=== PATIENT | male | born 1955 | race African-American/Black ===

== ENCOUNTER 2017-05-28 12:25 | Inpatient (IN) | payer MEDICARE, OTHER ==
[2017-05-28] VITALS (12 sets, daily range): BP systolic 83–149; BP diastolic 33–54
[~2017-05-28] VITALS: Ht 190.5 cm; Wt 81.2 kg
--- NOTE | 2017-05-28 15:09 | PDOC2 ---
SERVANDO BENJAMIN PLANT CONTROL OPERATOR 05/28/17 1509: CONSULT Date of Consult Date of Consult DATE: 05/28/17 TIME: 15:03 Reason for Consult Reason for Consult: possible volvulus Referring Physician Referring Physician: ER [facility] Identification/Chief Complaint Chief Complaint vomiting Problems: Source Source: Chart review History of Present Illness Reason for Visit: Pt with hx of stroke, aphagia, does not provide any history. Reviewed ER note from [facility]--from NH, vomiting. Anemia, concern for volvulus from ER doctor. No emesis since cared for. Receiving blood Past Medical History Cardiovascular: HTN, Hyperlipidemia CENTRAL NERVOUS SYSTEM: CVA Hepatobiliary: Other (Ulcertive colitis) Endocrine: Diabetes Past Surgical History Past Surgical History: Other (unknown) Family History Family History: Family History Unknown Social History Social History unknown Allergies Allergies: Coded Allergies: No Known Drug Allergies (Unverified , 05/28/17) ROS Review of System unable to obtain Physical Exam General: Alert, Cooperative, No acute distress HEENT: PERRLA, Mucous membr. moist/pink Lungs: Clear to auscultation, Normal air movement Heart: Regular rate, Normal S1, Normal S2, No murmurs Abdomen: Soft, No tenderness, Other (ND) Extremities: No clubbing, No cyanosis Neuro: Other MUSCULOSKELETAL: No deformity, No swelling Assessment/Plan Assessment/Plan Anemia, possible GI bleed--Hgb 4.1 on Coumadin--will check INR No signs of volvulus on CT, abd exam is benign Hx of ulcerative colitis no surgical plans,will consult GI ANTONIETTA HARRELL MD 05/28/17 1521: CONSULT Allergies Allergies: Coded Allergies: No Known Drug Allergies (Unverified , 05/28/17) Assessment/Plan Assessment/Plan Reviewed with Ms Benjamin, agree with plan SERVANDO BENJAMIN APRN May 28, 2017 15:09 ANTONIETTA HARRELL MD May 28, 2017 15:21
[2017-05-28] MEDS ORDERED: PROCHLORPERAZINE 25 MG SUPP.RECT. PR PRN (15:15)
[2017-05-28] MEDS ORDERED: PROCHLORPERAZINE 10 MG/2 ML VIAL. IV PRN (15:15)
[2017-05-28] MEDS ORDERED: ONDANSETRON PF 4 MG/2 ML VIAL. IV PRN (15:15)
[2017-05-28] MEDS ORDERED: MAG HYDROX/ALUMINUM HYD/SIMETH 30 ML ORAL.SUSP PO PRN (15:15)
[2017-05-28] MEDS ORDERED: ACETAMINOPHEN 325 MG TABLET. PO PRN (15:15)
[2017-05-28] MEDS ORDERED: BISACODYL 10 MG SUPP.RECT. PR PRN (15:15)
[2017-05-28] MEDS ORDERED: MORPHINE SULFATE 4 MG/ML DISP.SYRIN. IV PRN (15:15)
[2017-05-28] MEDS ORDERED: CALCIUM CARBONATE 500 MG TAB.CHEW PO PRN (15:15)
[2017-05-28] MEDS ORDERED: MAGNESIUM HYDROXIDE 2,400 MG/30 ML ORAL.SUSP. PO PRN (15:15)
[2017-05-28] MEDS ORDERED: DEXTROSE 50% 25 GM / 50ML DISP.SYRIN. IV PRN (15:15)
[2017-05-28] MEDS ORDERED: HALOPERIDOL LACTATE 5 MG/ML VIAL. IVP PRN (15:15)
--- NOTE | 2017-05-28 15:21 | PDOC1 ---
History and Physical Date of Admission Date of Admission DATE: 05/28/17 TIME: 15:14 Identification/Chief Complaint Chief Complaint nausea, vomiting, abd pain Problems: Source Source: Caregiver, Chart review, Patient History of Present Illness History of Present Illness 62 y.o AA male transferred from [place] today, He went to [place] bec of above CC, sudden onset emesis, nausea, abd pain, vomiting, CT scan shows some stool, stranding left kidney, atelectasis, left ICA aneurysm 2 cms but none that really cold explain the sudden onset CC, Denies fever, very poor historian, But on CBC hgb 4 with normal MCV, no reports of bloody emesis or black./tarry stools ,. Pt on arrival was so combative I git a call,. had to be restrained and now 1: 1, Now more calm, CReat 1,8. WBC 11, CT as above, SOme low temp 100.3 on reports, none here. SNU resident? Hx CVA with R residual contracture. NO leg edema, he claims he can walk ok,. Past Medical History Cardiovascular: HTN, Hyperlipidemia CENTRAL NERVOUS SYSTEM: CVA Hepatobiliary: Other (Ulcertive colitis) Endocrine: Diabetes Past Surgical History Past Surgical History: Other (unknown) Family History Family History: Family History Unknown Social History Smoke: No ALCOHOL: none Drugs: None Current Medications Current Medications Current Medications Sodium Chloride 1,000 ml @ 100 mls/hr Q10H IV ; Start 05/28/17 at 15:01 Ondansetron HCl (Zofran) 4 mg PRN Q6HRS PRN IV NAUSEA/VOMITING; Start 05/28/17 at 15:15 Prochlorperazine Edisylate (Compazine) 10 mg PRN Q6HRS PRN IV NAUSEA/VOMITING; Start 05/28/17 at 15:15 Prochlorperazine (Compazine) 25 mg PRN Q12HR PRN AL NAUSEA/VOMITING; Start at 15:15 Al Hydroxide/Mg Hydroxide (Mylanta Plus Xs) 30 ml PRN Q3HRS PRN PO HEARTBURN / GAS; Start 05/28/17 at 15:15 Calcium Carbonate/ Glycine (Tums) 500 mg PRN Q3HRS PRN PO UPSET STOMACH; Start 05/28/17 at 15:15 Oxycodone HCl (Roxicodone) 5 mg PRN Q3HRS PRN PO BREAKTHROUGH PAIN; Start 05/28 at 15:15 Morphine Sulfate 1 mg PRN Q1HR PRN IV PAIN; Start 05/28/17 at 15:15 Acetaminophen (Tylenol) 650 mg PRN Q6HRS PRN PO Headaches, Temp > 101.5F; Start 05/28/17 at 15:15 Magnesium Hydroxide (Milk Of Magnesia) 2,400 mg PRN Q12HR PRN PO CONSTIPATION; Start 05/28/17 at 15:15 Bisacodyl (Dulcolax Supp) 10 mg PRN DAILY PRN AL CONSTIPATION; Start 05/28/17 at 15:15 Haloperidol Lactate (Haldol) 5 mg PRN Q6HRS PRN IVP AGITATION; Start 05/28/17 at 15:15 Lorazepam (Ativan) 2 mg PRN Q4HRS PRN IV ANXIETY / AGITATION; Start 05/28/17 at 15:15 Famotidine (Pepcid) 20 mg BID IVP ; Start 05/28/17 at 21:00 Allergies Allergies: Coded Allergies: No Known Drug Allergies (Unverified , 05/28/17) ROS Review of System limited - very poor historian, says no to most Physical Exam General: Alert, Oriented X3, Cooperative, No acute distress HEENT: Atraumatic, PERRLA, EOMI, Mucous membr. moist/pink Lungs: Clear to auscultation, Normal air movement Heart: S1S2, RRR, no thrills, no rubs, no gallops, no murmurs Cardiovascular: S1, S2 Abdomen: Normal bowel sounds, Soft, No tenderness, No hepatosplenomegaly, No masses Male Genitals Exam: normal genitalia, normal prostate Extremities: No clubbing, No cyanosis, No edema, Normal pulses, No tenderness/ swelling Skin: No rashes, No breakdown, No significant lesion Neuro: Normal gait, Normal speech, Strength at 5/5 X4 ext, Normal tone, Sensation intact, Cranial nerves 3-12 NL, Reflexes 2+ Psych/Mental Status: Mental status NL, Mood NL VTE Prophylaxis Ordered VTE Prophylaxis Devices: Contraindicated VTE Pharmacological Prophylaxi: Contraindicated Assessment/Plan Assessment/Plan 1. NORMOCYTIC Anemia 2. Metabolic encephalopathy, agitation unclear reason - better/resolved 3. Hx CVA with Right residual UE contracture 4. SNU resident?? 5. ABd pain - seems better 6. HILARIO - creat 1,8 unknown baseline Plan: Admit Transfuse another unit HH again george GI and GS consults I dont have a source of this anemia MAybe recheck hgb first before second bag NO AC for now SCDs only PT/OT PPI IV Ok for clear liquid diet Awaiting home meds IVF re Creat - recheck george SSI - reported DM BARTOLOME TREVIÑO MD May 28, 2017 15:21
[2017-05-28] MEDS: IV 1/2 NORMAL SALINE 1,000 ML IV SCH (15:30)
--- NOTE | 2017-05-28 15:46 | PDOC2 ---
GI CONSULT Reason For Consult: Anemia, possible GI Bleed HPI: HPI: Previously d/w Dr. Verduzco who d/w ER @ [facility], concern for volvulus. 62 y/o male transferred from [facility]. He was evaluated there from [place] [facility] for vomiting w/ fever. Not much history from pt - h/o CVA w/ aphasia, apparently previous agitated in restraints. He does deny pain and bleeding; however, also denies vomiting. Labs from [facility]: WBC 11.3, Hgb 4.1, plt 234, BUN 77, Cr 1.8. No reports of hematemesis, hematochezia, or melena. Transfusion in process. CT w/o contrast showed mildly distended gallbladder and stomach, normal pancreas, nondilated small bowel, normal appendix, feces and gas in the colon w/ moderate stool in rectum, minimal left perinephric stranding, moderate atherosclerosis, mild left common iliac artery aneurysm. Records list h/o ulcerative colitis. On Coumadin. INR pending. PMH: PMH: per chart - CVA w/ right-sided hemiparesis and aphasia, HLD, DM, ?ulcerative colitis FH: Family History: Other (unable to obtain) Social History: Smoke: No ALCOHOL: none Drugs: None ROS: Difficult to obtain. Vitals: Vitals: Vital Signs Date Time Temp Pulse Resp B/P (MAP) Pulse Ox O2 Delivery O2 Flow Rate FiO2 05/28/17 15:25 99.3 94 18 140/53 (82) 100 Nasal Cannula 2.0 99.3 Labs: Labs: Per HPI. Allergies: Coded Allergies: No Known Drug Allergies (Unverified , 05/28/17) Medications: Please see EMR. Imaging: Imaging: Per HPI. PE: GEN: NAD HEENT: Atraumatic LUNGS: clear HEART: tachycardic ABD: NABS, S/ND/NT EXTREMITY: RUE contracture, no edema SKIN: No rashes, no jaundice NEURO/PSYCH: awake/alert, yes/no answers A/P: A/P: Anemia Vomiting - no recurrence -distended stomach and GB on CT, non-dilated small bowel, feces and gas in colon w/ moderate stool in rectum Fever @ NH - 99.3 here ?h/o ulcerative colitis CVA w/ aphasia and hemiparesis, on Coumadin HILARIO -- Await INR. Transfuse. Anemia w/o obvious bleeding - monitor for this. Agree w/ IV H2 paxton. No mention of volvulus on CT. GARY FELIPE May 28, 2017 15:46
[2017-05-28 15:53] LABS: HEMOGLOBIN 4.9 g/dL (13.0-17.5)
[2017-05-28 15:54] LABS: HEMATOCRIT 15.6 % (39.0-53.0)
[2017-05-28 15:58] LABS: INR 3.9 (0.8-1.1); PROTHROMBIN TIME PATIENT 35.6 SEC (11.7-14.0)
[2017-05-28] MEDS ORDERED: MULT1TAB52 PO (15:59)
[2017-05-28] MEDS ORDERED: METF500T4 PO (15:59)
[2017-05-28] MEDS ORDERED: CARV12.52 PO (15:59)
[2017-05-28] MEDS ORDERED: FURO-68 PO (15:59)
[2017-05-28] MEDS ORDERED: ASPI-482 PO (15:59)
[2017-05-28] MEDS ORDERED: WARF-78 PO (15:59)
[2017-05-28] MEDS ORDERED: LISI10TA2 PO (15:59)
[2017-05-28] MEDS ORDERED: ACET325T9 PO (15:59)
[2017-05-28] MEDS ORDERED: SPIR25TA3 PO (15:59)
[2017-05-28] MEDS ORDERED: CLON0.5T3 PO (15:59)
[2017-05-28] MEDS ORDERED: ATOR40TA59 PO (15:59)
[2017-05-28] MEDS ORDERED: AMIN30LI PO (15:59)
[2017-05-28] MEDS ORDERED: PANT40TA5 PO (15:59)
[2017-05-28] MEDS ORDERED: FERR-26 PO (15:59)
[2017-05-28] MEDS: INSULIN ASPART 300 UNITS/3 ML INSULN.PEN SQ SCH (16:21)
[2017-05-28] MEDS ORDERED: PHYTONADIONE (VIT K1) 5 MG TABLET PO ONE (17:45)
[2017-05-28] MEDS ORDERED: PNEUMOCOCCAL VAX SCREEN BY RX. MC ONE (19:30)
[2017-05-28] MEDS ORDERED: PNEUMOC CONJ VACC 23-VALENT 0.5 ML VIAL. VAX IM ONE (20:00)
[2017-05-28] MEDS: FAMOTIDINE 20 MG/2 ML VIAL IVP SCH (21:02)
[2017-05-29] VITALS (11 sets, daily range): BP systolic 101–152; BP diastolic 40–80
[2017-05-29] MEDS: IV 1/2 NORMAL SALINE 1,000 ML IV SCH ×3 (01:01→20:43)
[2017-05-29 05:10] LABS: BASO % 0 % (0-3); EOS % 1 % (0-3); LYMPH # 2.5 x10^3/uL (1.0-4.8); LYMPH % 24 % (24-48); MEAN CORPUSCULAR HEMOGLOBIN 32 pg (25-35); MEAN CORPUSCULAR HGB CONC 34 g/dL (31-37); MEAN CORPUSCULAR VOLUME 93 fL (79-100); MONO % 9 % (0-9); NEUT % 66 % (31-73); PLATELET COUNT 156 x10^3/uL (140-400); RED BLOOD COUNT 2.12 x10^6/uL (4.30-5.70); RED CELL DISTRIBUTION WIDTH 15.6 % (11.5-14.5); WHITE BLOOD COUNT 10.1 x10^3/uL (4.0-11.0)
[2017-05-29 05:20] LABS: INR 3.7 (0.8-1.1); PROTHROMBIN TIME PATIENT 34.6 SEC (11.7-14.0)
[2017-05-29 05:23] LABS: ALBUMIN/GLOBULIN RATIO 1.2 (1.0-1.7); CREATININE 1.6 mg/dL (0.7-1.3); GFR 52.9; PHOSPHORUS 3.8 mg/dL (2.6-4.7); POTASSIUM 3.8 mmol/L (3.5-5.1); TOTAL BILIRUBIN 0.9 mg/dL (0.2-1.0); TOTAL PROTEIN 5.5 g/dL (6.4-8.2)
[2017-05-29 05:26] LABS: HEMOGLOBIN 6.7 g/dL (13.0-17.5)
[2017-05-29 05:27] LABS: HEMATOCRIT 19.7 % (39.0-53.0)
[2017-05-29] MEDS: INSULIN ASPART 300 UNITS/3 ML INSULN.PEN SQ SCH ×3 (07:56→16:54)
[2017-05-29] MEDS: FAMOTIDINE 20 MG/2 ML VIAL IVP SCH ×2 (08:30→20:42)
--- NOTE | 2017-05-29 11:38 | PDOC ---
G I PROGRESS NOTE Reason for Follow-up Anemia/hx UC Subjective Pt aphasic Physical Exam Lungs clear CV S1 S2 ABD +BS, soft, nontender Review of Relevant I have reviewed the following items yulissa (where applicable) has been applied. Labs Laboratory Tests Test 05/28/17 15:40 05/28/17 16:18 05/29/17 04:30 05/29/17 07:18 Hemoglobin 4.9 g/dL (13.0-17.5) 6.7 g/dL (13.0-17.5) Hematocrit 15.6 % (39.0-53.0) 19.7 % (39.0-53.0) Mean Corpuscular Hemoglobin Concent 32 g/dL (31-37) 34 g/dL (31-37) Prothrombin Time 35.6 SEC (11.7-14.0) 34.6 SEC (11.7-14.0) Prothromb Time International Ratio 3.9 (0.8-1.1) 3.7 (0.8-1.1) Glucose (Fingerstick) 127 mg/dL (70-99) 133 mg/dL (70-99) White Blood Count 10.1 x10^3/uL (4.0-11.0) Red Blood Count 2.12 x10^6/uL (4.30-5.70) Mean Corpuscular Volume 93 fL (79-100) Mean Corpuscular Hemoglobin 32 pg (25-35) Red Cell Distribution Width 15.6 % (11.5-14.5) Platelet Count 156 x10^3/uL (140-400) Neutrophils (%) (Auto) 66 % (31-73) Lymphocytes (%) (Auto) 24 % (24-48) Monocytes (%) (Auto) 9 % (0-9) Eosinophils (%) (Auto) 1 % (0-3) Basophils (%) (Auto) 0 % (0-3) Neutrophils # (Auto) 6.6 x10^3uL (1.8-7.7) Lymphocytes # (Auto) 2.5 x10^3/uL (1.0-4.8) Monocytes # (Auto) 0.9 x10^3/uL (0.0-1.1) Eosinophils # (Auto) 0.1 x10^3/uL (0.0-0.7) Basophils # (Auto) 0.0 x10^3/uL (0.0-0.2) Sodium Level 147 mmol/L (136-145) Potassium Level 3.8 mmol/L (3.5-5.1) Chloride Level 112 mmol/L (98-107) Carbon Dioxide Level 29 mmol/L (21-32) Anion Gap 6 (6-14) Blood Urea Nitrogen 53 mg/dL (8-26) Creatinine 1.6 mg/dL (0.7-1.3) Estimated GFR (Cockcroft-Gault) 52.9 BUN/Creatinine Ratio 33 (6-20) Glucose Level 145 mg/dL (70-99) Calcium Level 8.0 mg/dL (8.5-10.1) Phosphorus Level 3.8 mg/dL (2.6-4.7) Magnesium Level 2.0 mg/dL (1.8-2.4) Total Bilirubin 0.9 mg/dL (0.2-1.0) Aspartate Amino Transf (AST/SGOT) 28 U/L (15-37) Alanine Aminotransferase (ALT/SGPT) 31 U/L (16-63) Alkaline Phosphatase 48 U/L (46-116) Total Protein 5.5 g/dL (6.4-8.2) Albumin 3.0 g/dL (3.4-5.0) Albumin/Globulin Ratio 1.2 (1.0-1.7) Laboratory Tests Test 05/28/17 15:40 05/28/17 16:18 05/29/17 04:30 05/29/17 07:18 Hemoglobin 4.9 g/dL (13.0-17.5) 6.7 g/dL (13.0-17.5) Hematocrit 15.6 % (39.0-53.0) 19.7 % (39.0-53.0) Mean Corpuscular Hemoglobin Concent 32 g/dL (31-37) 34 g/dL (31-37) Prothrombin Time 35.6 SEC (11.7-14.0) 34.6 SEC (11.7-14.0) Prothromb Time International Ratio 3.9 (0.8-1.1) 3.7 (0.8-1.1) Glucose (Fingerstick) 127 mg/dL (70-99) 133 mg/dL (70-99) White Blood Count 10.1 x10^3/uL (4.0-11.0) Red Blood Count 2.12 x10^6/uL (4.30-5.70) Mean Corpuscular Volume 93 fL (79-100) Mean Corpuscular Hemoglobin 32 pg (25-35) Red Cell Distribution Width 15.6 % (11.5-14.5) Platelet Count 156 x10^3/uL (140-400) Neutrophils (%) (Auto) 66 % (31-73) Lymphocytes (%) (Auto) 24 % (24-48) Monocytes (%) (Auto) 9 % (0-9) Eosinophils (%) (Auto) 1 % (0-3) Basophils (%) (Auto) 0 % (0-3) Neutrophils # (Auto) 6.6 x10^3uL (1.8-7.7) Lymphocytes # (Auto) 2.5 x10^3/uL (1.0-4.8) Monocytes # (Auto) 0.9 x10^3/uL (0.0-1.1) Eosinophils # (Auto) 0.1 x10^3/uL (0.0-0.7) Basophils # (Auto) 0.0 x10^3/uL (0.0-0.2) Sodium Level 147 mmol/L (136-145) Potassium Level 3.8 mmol/L (3.5-5.1) Chloride Level 112 mmol/L (98-107) Carbon Dioxide Level 29 mmol/L (21-32) Anion Gap 6 (6-14) Blood Urea Nitrogen 53 mg/dL (8-26) Creatinine 1.6 mg/dL (0.7-1.3) Estimated GFR (Cockcroft-Gault) 52.9 BUN/Creatinine Ratio 33 (6-20) Glucose Level 145 mg/dL (70-99) Calcium Level 8.0 mg/dL (8.5-10.1) Phosphorus Level 3.8 mg/dL (2.6-4.7) Magnesium Level 2.0 mg/dL (1.8-2.4) Total Bilirubin 0.9 mg/dL (0.2-1.0) Aspartate Amino Transf (AST/SGOT) 28 U/L (15-37) Alanine Aminotransferase (ALT/SGPT) 31 U/L (16-63) Alkaline Phosphatase 48 U/L (46-116) Total Protein 5.5 g/dL (6.4-8.2) Albumin 3.0 g/dL (3.4-5.0) Albumin/Globulin Ratio 1.2 (1.0-1.7) Medications Current Medications Sodium Chloride 1,000 ml @ 100 mls/hr Q10H IV Last administered on 05/29/17 08:30; Start 05/28/17 at 15:01 Ondansetron HCl (Zofran) 4 mg PRN Q6HRS PRN IV NAUSEA/VOMITING; Start 05/28/17 at 15:15 Prochlorperazine Edisylate (Compazine) 10 mg PRN Q6HRS PRN IV NAUSEA/VOMITING; Start 05/28/17 at 15:15 Prochlorperazine (Compazine) 25 mg PRN Q12HR PRN MA NAUSEA/VOMITING; Start at 15:15 Al Hydroxide/Mg Hydroxide (Mylanta Plus Xs) 30 ml PRN Q3HRS PRN PO HEARTBURN / GAS; Start 05/28/17 at 15:15 Calcium Carbonate/ Glycine (Tums) 500 mg PRN Q3HRS PRN PO UPSET STOMACH; Start 05/28/17 at 15:15 Oxycodone HCl (Roxicodone) 5 mg PRN Q3HRS PRN PO BREAKTHROUGH PAIN; Start 05/28 at 15:15 Morphine Sulfate 1 mg PRN Q1HR PRN IV PAIN; Start 05/28/17 at 15:15 Acetaminophen (Tylenol) 650 mg PRN Q6HRS PRN PO Headaches, Temp > 101.5F; Start 05/28/17 at 15:15 Magnesium Hydroxide (Milk Of Magnesia) 2,400 mg PRN Q12HR PRN PO CONSTIPATION; Start 05/28/17 at 15:15 Bisacodyl (Dulcolax Supp) 10 mg PRN DAILY PRN MA CONSTIPATION; Start 05/28/17 at 15:15 Haloperidol Lactate (Haldol) 5 mg PRN Q6HRS PRN IVP AGITATION Last administered on 05/28/17 16:48; Start 05/28/17 at 15:15 Lorazepam (Ativan) 2 mg PRN Q4HRS PRN IV ANXIETY / AGITATION Last administered on 05/28/17 21:02; Start 05/28/17 at 15:15 Famotidine (Pepcid) 20 mg BID IVP Last administered on 05/29/17 08:30; Start 05/28/17 at 21:00 Insulin Aspart (NovoLOG) 0-7 UNITS TIDWMEALS SQ ; Start 05/28/17 at 17:00 Dextrose (Dextrose 50%-Water Syringe) 12.5 gm PRN Q15MIN PRN IV SEE COMMENTS; Start 05/28/17 at 15:15 Phytonadione (Mephyton Tablet) 10 mg 1X ONCE PO Last administered on 18:08; Start 05/28/17 at 17:45; Stop 05/28/17 at 17:46; Status DC Pneumococcal Polyvalent Vaccine (Do NOT chart on this placeholder) 1 each 1X ONCE MC ; Start 05/28/17 at 19:30; Stop 05/28/17 at 19:31; Status UNV Pneumococcal Polyvalent Vaccine (Pneumovax 23) 0.5 ml ONCE ONCE VAX IM Last administered on 05/29/17 08:38; Start 05/28/17 at 20:00; Stop 05/28/17 at 20:01 ; Status DC Active Scripts Active Reported Multivitamins (Multivitamin) 1 Each Tablet 1 Tab PO DAILY Spironolactone 25 Mg Tablet 12.5 Mg PO DAILY Pro-Stat Liquid (Amino Acids/Protein Hydrolys) 30 Ml Liquid 30 Ml PO BID Pantoprazole Sodium 40 Mg Tablet.dr 1 Tab PO DAILY Metformin Hcl 500 Mg Tablet 500 Mg PO DAILY Lisinopril 10 Mg Tablet 1 Tab PO DAILY Lasix (Furosemide) 40 Mg Tablet 1 Tab PO BID Ferrous Sulfate 325 Mg Tablet 325 Mg PO BID Coumadin (Warfarin Sodium) 5 Mg Tablet 7 Mg PO DAILY Wednesday, Wed, , Wed Clonazepam 0.5 Mg Tablet 1 Tab PO DAILY PRN Carvedilol 12.5 Mg Tablet 1 Tab PO BID Atorvastatin Calcium 40 Mg Tablet 1 Tab PO QHS Aspir 81 (Aspirin) 81 Mg Tablet.dr 1 Tab PO DAILY Tylenol (Acetaminophen) 325 Mg Tablet 2 Tab PO PRN Q6HRS PRN Do not exceed 3000mg in 24hr period Vitals/I & O Vital Sign - Last 24 Hours 05/28/17 05/28/17 05/28/17 05/28/17 14:51 15:00 15:06 15:23 Temp 99.3 99.3 Pulse 84 84 94 Resp 18 18 18 B/P (MAP) 144/47 (79) 113/54 (73) 140/53 (82) Pulse Ox 100 O2 Delivery Nasal Cannula Nasal Cannula Nasal Cannula Nasal Cannula O2 Flow Rate 2.0 2.0 2.0 2.0 05/28/17 05/28/17 05/28/17 05/28/17 15:25 17:15 17:30 18:14 Temp 99.3 97.9 98.1 98.2 99.3 97.9 98.1 98.2 Pulse 94 83 84 84 Resp 16 14 14 B/P (MAP) 140/53 (82) 83/33 122/53 126/39 Pulse Ox 100 O2 Delivery Nasal Cannula O2 Flow Rate 2.0 05/28/17 05/28/17 05/28/17 05/28/17 19:20 19:35 19:47 22:00 Temp 99.1 100.1 98.9 99.1 100.1 98.9 Pulse 94 94 74 Resp 18 18 B/P (MAP) 149/54 149/54 (85) 129/53 Pulse Ox 94 O2 Delivery Nasal Cannula Nasal Cannula O2 Flow Rate 3.0 2.0 05/28/17 05/28/17 05/28/17 05/29/17 22:15 23:00 23:00 00:00 Temp 98.5 99.0 99.0 99.1 98.5 99.0 99.0 99.1 Pulse 80 70 70 79 Resp 18 18 18 B/P (MAP) 141/50 135/48 135/48 (77) 137/48 Pulse Ox 100 O2 Delivery Nasal Cannula O2 Flow Rate 3.0 05/29/17 05/29/17 05/29/17 05/29/17 00:30 03:00 07:00 07:35 Temp 99.1 97.7 97.4 99.1 97.7 97.4 Pulse 80 54 88 Resp 18 18 20 B/P (MAP) 117/40 119/59 (79) 130/80 (97) Pulse Ox 100 97 O2 Delivery Nasal Cannula Nasal Cannula Room Air O2 Flow Rate 3.0 2.0 Intake and Output 05/29/17 05/29/17 05/30/17 15:00 23:00 07:00 Intake Total 360 ml Balance 360 ml Problem List Anemia- with anticoagulation, Hg improved, monitor levels, await POA/family input regarding further work-up including possible EGD/colonoscopy ANTONIETTA MTZ MD May 29, 2017 11:38
[2017-05-29] MEDS ORDERED: PHYTONADIONE 10 MG/ML AMPUL. SQ ONE (11:45)
[2017-05-29 11:53] LABS: HEMATOCRIT 19.1 % (39.0-53.0); HEMOGLOBIN 6.4 g/dL (13.0-17.5)
[2017-05-29 12:03] LABS: % SAT IRON 16 % (15-34); IRON,SERUM 37 ug/dL (65-175)
--- NOTE | 2017-05-29 12:23 | PDOC ---
SERVANDO BENJAMIN BOOKKEEPING ASSISTANT 05/29/17 1223: SURGICAL PROGRESS NOTE Subjective denies pain limited hx due to his aphasia Vital Signs Vital Signs Date Time Temp Pulse Resp B/P (MAP) Pulse Ox O2 Delivery O2 Flow Rate FiO2 05/29/17 11:00 98.2 62 22 152/60 (90) 97 98.2 05/29/17 07:35 Room Air 05/29/17 07:00 2.0 I&O Intake and Output 05/30/17 07:00 Intake Total 360 ml Balance 360 ml Intake Oral 360 ml General: Alert, Cooperative, No acute distress Abdomen: Soft, No tenderness Labs Laboratory Tests Test 05/28/17 15:40 05/28/17 16:18 05/29/17 04:30 05/29/17 07:18 Hemoglobin 4.9 g/dL (13.0-17.5) 6.7 g/dL (13.0-17.5) Hematocrit 15.6 % (39.0-53.0) 19.7 % (39.0-53.0) Mean Corpuscular Hemoglobin Concent 32 g/dL (31-37) 34 g/dL (31-37) Prothrombin Time 35.6 SEC (11.7-14.0) 34.6 SEC (11.7-14.0) Prothromb Time International Ratio 3.9 (0.8-1.1) 3.7 (0.8-1.1) Glucose (Fingerstick) 127 mg/dL (70-99) 133 mg/dL (70-99) White Blood Count 10.1 x10^3/uL (4.0-11.0) Red Blood Count 2.12 x10^6/uL (4.30-5.70) Mean Corpuscular Volume 93 fL (79-100) Mean Corpuscular Hemoglobin 32 pg (25-35) Red Cell Distribution Width 15.6 % (11.5-14.5) Platelet Count 156 x10^3/uL (140-400) Neutrophils (%) (Auto) 66 % (31-73) Lymphocytes (%) (Auto) 24 % (24-48) Monocytes (%) (Auto) 9 % (0-9) Eosinophils (%) (Auto) 1 % (0-3) Basophils (%) (Auto) 0 % (0-3) Neutrophils # (Auto) 6.6 x10^3uL (1.8-7.7) Lymphocytes # (Auto) 2.5 x10^3/uL (1.0-4.8) Monocytes # (Auto) 0.9 x10^3/uL (0.0-1.1) Eosinophils # (Auto) 0.1 x10^3/uL (0.0-0.7) Basophils # (Auto) 0.0 x10^3/uL (0.0-0.2) Sodium Level 147 mmol/L (136-145) Potassium Level 3.8 mmol/L (3.5-5.1) Chloride Level 112 mmol/L (98-107) Carbon Dioxide Level 29 mmol/L (21-32) Anion Gap 6 (6-14) Blood Urea Nitrogen 53 mg/dL (8-26) Creatinine 1.6 mg/dL (0.7-1.3) Estimated GFR (Cockcroft-Gault) 52.9 BUN/Creatinine Ratio 33 (6-20) Glucose Level 145 mg/dL (70-99) Calcium Level 8.0 mg/dL (8.5-10.1) Phosphorus Level 3.8 mg/dL (2.6-4.7) Magnesium Level 2.0 mg/dL (1.8-2.4) Iron Level 37 ug/dL (65-175) Total Iron Binding Capacity 230 ug/dL (250-450) Iron Saturation 16 % (15-34) Total Bilirubin 0.9 mg/dL (0.2-1.0) Aspartate Amino Transf (AST/SGOT) 28 U/L (15-37) Alanine Aminotransferase (ALT/SGPT) 31 U/L (16-63) Alkaline Phosphatase 48 U/L (46-116) Total Protein 5.5 g/dL (6.4-8.2) Albumin 3.0 g/dL (3.4-5.0) Albumin/Globulin Ratio 1.2 (1.0-1.7) Test 05/29/17 11:29 05/29/17 11:38 Glucose (Fingerstick) 156 mg/dL (70-99) Hemoglobin 6.4 g/dL (13.0-17.5) Hematocrit 19.1 % (39.0-53.0) Mean Corpuscular Hemoglobin Concent 34 g/dL (31-37) Laboratory Tests Test 05/28/17 15:40 05/28/17 16:18 05/29/17 04:30 05/29/17 07:18 Hemoglobin 4.9 g/dL (13.0-17.5) 6.7 g/dL (13.0-17.5) Hematocrit 15.6 % (39.0-53.0) 19.7 % (39.0-53.0) Mean Corpuscular Hemoglobin Concent 32 g/dL (31-37) 34 g/dL (31-37) Prothrombin Time 35.6 SEC (11.7-14.0) 34.6 SEC (11.7-14.0) Prothromb Time International Ratio 3.9 (0.8-1.1) 3.7 (0.8-1.1) Glucose (Fingerstick) 127 mg/dL (70-99) 133 mg/dL (70-99) White Blood Count 10.1 x10^3/uL (4.0-11.0) Red Blood Count 2.12 x10^6/uL (4.30-5.70) Mean Corpuscular Volume 93 fL (79-100) Mean Corpuscular Hemoglobin 32 pg (25-35) Red Cell Distribution Width 15.6 % (11.5-14.5) Platelet Count 156 x10^3/uL (140-400) Neutrophils (%) (Auto) 66 % (31-73) Lymphocytes (%) (Auto) 24 % (24-48) Monocytes (%) (Auto) 9 % (0-9) Eosinophils (%) (Auto) 1 % (0-3) Basophils (%) (Auto) 0 % (0-3) Neutrophils # (Auto) 6.6 x10^3uL (1.8-7.7) Lymphocytes # (Auto) 2.5 x10^3/uL (1.0-4.8) Monocytes # (Auto) 0.9 x10^3/uL (0.0-1.1) Eosinophils # (Auto) 0.1 x10^3/uL (0.0-0.7) Basophils # (Auto) 0.0 x10^3/uL (0.0-0.2) Sodium Level 147 mmol/L (136-145) Potassium Level 3.8 mmol/L (3.5-5.1) Chloride Level 112 mmol/L (98-107) Carbon Dioxide Level 29 mmol/L (21-32) Anion Gap 6 (6-14) Blood Urea Nitrogen 53 mg/dL (8-26) Creatinine 1.6 mg/dL (0.7-1.3) Estimated GFR (Cockcroft-Gault) 52.9 BUN/Creatinine Ratio 33 (6-20) Glucose Level 145 mg/dL (70-99) Calcium Level 8.0 mg/dL (8.5-10.1) Phosphorus Level 3.8 mg/dL (2.6-4.7) Magnesium Level 2.0 mg/dL (1.8-2.4) Iron Level 37 ug/dL (65-175) Total Iron Binding Capacity 230 ug/dL (250-450) Iron Saturation 16 % (15-34) Total Bilirubin 0.9 mg/dL (0.2-1.0) Aspartate Amino Transf (AST/SGOT) 28 U/L (15-37) Alanine Aminotransferase (ALT/SGPT) 31 U/L (16-63) Alkaline Phosphatase 48 U/L (46-116) Total Protein 5.5 g/dL (6.4-8.2) Albumin 3.0 g/dL (3.4-5.0) Albumin/Globulin Ratio 1.2 (1.0-1.7) Test 05/29/17 11:29 05/29/17 11:38 Glucose (Fingerstick) 156 mg/dL (70-99) Hemoglobin 6.4 g/dL (13.0-17.5) Hematocrit 19.1 % (39.0-53.0) Mean Corpuscular Hemoglobin Concent 34 g/dL (31-37) Problem List anemia, hgb continues to be low--no bleeding source identified has a hem consult coagulopathy, INR 3.7 GI following no surgical indications Problems: DYLAN GARCIA MD 05/29/17 7737: SURGICAL PROGRESS NOTE Assessment/Plan pt sleeping soundly I did not wake him agree with Ms Donna's note Problems: SERVANDO BENJAMIN APRN May 29, 2017 12:23 DYLAN GARCIA MD May 29, 2017 13:57
--- NOTE | 2017-05-29 13:37 | PDOC ---
PROGRESS NOTES Chief Complaint Chief Complaint 1. SEVERE CRITICAL NORMOCYTIC Anemia s/p multiple BT 2. Metabolic encephalopathy, agitation unclear reason - better/resolved 3. Hx CVA with Right residual UE contracture 4. [facility] resident?? 5. ABd pain - seems better 6. HILARIO - creat 1,8 unknown baseline 7. HX atrialn fib was on warf on amdit 8. Supratherapeutic iNR with no bleed 9,. Vtach sec to demand ischemia History of Present Illness History of Present Illness had a run of vatch today, strip reviewed no sxs Hx atrial fib hence was on warf on admit but of course being held bec of hgb 4 Hgb now 6,4 - no bleeds, BP holding HR high 50s to low 60s PLans of EGD c scope if family to be aggressive per gI note ID did consult heme onc bec of signif anemia with absence of obvious loss or abd pain/sxs Pt looks pale now PLAN: TRansfuse 1 more pRBC - the call this AM was 6.7 hgb, so i did order rpt 12 NN and is low still hence 1 pRBC s/p vitamin K ONce bleeds might need FFP to reverse INR COnsult cards - I was contemplating starting BB but HR maybe borderline - hence have consulted them THis is from SEVERe anemia hence the arrhthymia Dw RN Bre and pt Vitals Vitals Vital Signs Date Time Temp Pulse Resp B/P (MAP) Pulse Ox O2 Delivery O2 Flow Rate FiO2 05/29/17 11:00 98.2 62 22 152/60 (90) 97 98.2 05/29/17 07:35 Room Air 05/29/17 07:00 2.0 Physical Exam General: Alert, Cooperative, No acute distress Heart: Regular rate, Normal S1, Normal S2, No murmurs Abdomen: Soft, No tenderness Extremities: No clubbing, No cyanosis, No edema, Normal pulses, No tenderness/ swelling Skin: No rashes, No breakdown, No significant lesion Labs LABS Laboratory Tests Test 05/28/17 15:40 05/28/17 16:18 05/29/17 04:30 05/29/17 07:18 Hemoglobin 4.9 g/dL (13.0-17.5) 6.7 g/dL (13.0-17.5) Hematocrit 15.6 % (39.0-53.0) 19.7 % (39.0-53.0) Mean Corpuscular Hemoglobin Concent 32 g/dL (31-37) 34 g/dL (31-37) Prothrombin Time 35.6 SEC (11.7-14.0) 34.6 SEC (11.7-14.0) Prothromb Time International Ratio 3.9 (0.8-1.1) 3.7 (0.8-1.1) Glucose (Fingerstick) 127 mg/dL (70-99) 133 mg/dL (70-99) White Blood Count 10.1 x10^3/uL (4.0-11.0) Red Blood Count 2.12 x10^6/uL (4.30-5.70) Mean Corpuscular Volume 93 fL (79-100) Mean Corpuscular Hemoglobin 32 pg (25-35) Red Cell Distribution Width 15.6 % (11.5-14.5) Platelet Count 156 x10^3/uL (140-400) Neutrophils (%) (Auto) 66 % (31-73) Lymphocytes (%) (Auto) 24 % (24-48) Monocytes (%) (Auto) 9 % (0-9) Eosinophils (%) (Auto) 1 % (0-3) Basophils (%) (Auto) 0 % (0-3) Neutrophils # (Auto) 6.6 x10^3uL (1.8-7.7) Lymphocytes # (Auto) 2.5 x10^3/uL (1.0-4.8) Monocytes # (Auto) 0.9 x10^3/uL (0.0-1.1) Eosinophils # (Auto) 0.1 x10^3/uL (0.0-0.7) Basophils # (Auto) 0.0 x10^3/uL (0.0-0.2) Sodium Level 147 mmol/L (136-145) Potassium Level 3.8 mmol/L (3.5-5.1) Chloride Level 112 mmol/L (98-107) Carbon Dioxide Level 29 mmol/L (21-32) Anion Gap 6 (6-14) Blood Urea Nitrogen 53 mg/dL (8-26) Creatinine 1.6 mg/dL (0.7-1.3) Estimated GFR (Cockcroft-Gault) 52.9 BUN/Creatinine Ratio 33 (6-20) Glucose Level 145 mg/dL (70-99) Calcium Level 8.0 mg/dL (8.5-10.1) Phosphorus Level 3.8 mg/dL (2.6-4.7) Magnesium Level 2.0 mg/dL (1.8-2.4) Iron Level 37 ug/dL (65-175) Total Iron Binding Capacity 230 ug/dL (250-450) Iron Saturation 16 % (15-34) Total Bilirubin 0.9 mg/dL (0.2-1.0) Aspartate Amino Transf (AST/SGOT) 28 U/L (15-37) Alanine Aminotransferase (ALT/SGPT) 31 U/L (16-63) Alkaline Phosphatase 48 U/L (46-116) Total Protein 5.5 g/dL (6.4-8.2) Albumin 3.0 g/dL (3.4-5.0) Albumin/Globulin Ratio 1.2 (1.0-1.7) Test 05/29/17 11:29 05/29/17 11:38 Glucose (Fingerstick) 156 mg/dL (70-99) Hemoglobin 6.4 g/dL (13.0-17.5) Hematocrit 19.1 % (39.0-53.0) Mean Corpuscular Hemoglobin Concent 34 g/dL (31-37) Review of Systems Review of Systems denies 14 pt reviewed Comment Review of Relevant I have reviewed the following items yulissa (where applicable) has been applied. Labs Laboratory Tests Test 05/28/17 15:40 05/28/17 16:18 05/29/17 04:30 05/29/17 07:18 Hemoglobin 4.9 g/dL (13.0-17.5) 6.7 g/dL (13.0-17.5) Hematocrit 15.6 % (39.0-53.0) 19.7 % (39.0-53.0) Mean Corpuscular Hemoglobin Concent 32 g/dL (31-37) 34 g/dL (31-37) Prothrombin Time 35.6 SEC (11.7-14.0) 34.6 SEC (11.7-14.0) Prothromb Time International Ratio 3.9 (0.8-1.1) 3.7 (0.8-1.1) Glucose (Fingerstick) 127 mg/dL (70-99) 133 mg/dL (70-99) White Blood Count 10.1 x10^3/uL (4.0-11.0) Red Blood Count 2.12 x10^6/uL (4.30-5.70) Mean Corpuscular Volume 93 fL (79-100) Mean Corpuscular Hemoglobin 32 pg (25-35) Red Cell Distribution Width 15.6 % (11.5-14.5) Platelet Count 156 x10^3/uL (140-400) Neutrophils (%) (Auto) 66 % (31-73) Lymphocytes (%) (Auto) 24 % (24-48) Monocytes (%) (Auto) 9 % (0-9) Eosinophils (%) (Auto) 1 % (0-3) Basophils (%) (Auto) 0 % (0-3) Neutrophils # (Auto) 6.6 x10^3uL (1.8-7.7) Lymphocytes # (Auto) 2.5 x10^3/uL (1.0-4.8) Monocytes # (Auto) 0.9 x10^3/uL (0.0-1.1) Eosinophils # (Auto) 0.1 x10^3/uL (0.0-0.7) Basophils # (Auto) 0.0 x10^3/uL (0.0-0.2) Sodium Level 147 mmol/L (136-145) Potassium Level 3.8 mmol/L (3.5-5.1) Chloride Level 112 mmol/L (98-107) Carbon Dioxide Level 29 mmol/L (21-32) Anion Gap 6 (6-14) Blood Urea Nitrogen 53 mg/dL (8-26) Creatinine 1.6 mg/dL (0.7-1.3) Estimated GFR (Cockcroft-Gault) 52.9 BUN/Creatinine Ratio 33 (6-20) Glucose Level 145 mg/dL (70-99) Calcium Level 8.0 mg/dL (8.5-10.1) Phosphorus Level 3.8 mg/dL (2.6-4.7) Magnesium Level 2.0 mg/dL (1.8-2.4) Iron Level 37 ug/dL (65-175) Total Iron Binding Capacity 230 ug/dL (250-450) Iron Saturation 16 % (15-34) Total Bilirubin 0.9 mg/dL (0.2-1.0) Aspartate Amino Transf (AST/SGOT) 28 U/L (15-37) Alanine Aminotransferase (ALT/SGPT) 31 U/L (16-63) Alkaline Phosphatase 48 U/L (46-116) Total Protein 5.5 g/dL (6.4-8.2) Albumin 3.0 g/dL (3.4-5.0) Albumin/Globulin Ratio 1.2 (1.0-1.7) Test 05/29/17 11:29 05/29/17 11:38 Glucose (Fingerstick) 156 mg/dL (70-99) Hemoglobin 6.4 g/dL (13.0-17.5) Hematocrit 19.1 % (39.0-53.0) Mean Corpuscular Hemoglobin Concent 34 g/dL (31-37) Laboratory Tests Test 05/28/17 15:40 05/28/17 16:18 05/29/17 04:30 05/29/17 07:18 Hemoglobin 4.9 g/dL (13.0-17.5) 6.7 g/dL (13.0-17.5) Hematocrit 15.6 % (39.0-53.0) 19.7 % (39.0-53.0) Mean Corpuscular Hemoglobin Concent 32 g/dL (31-37) 34 g/dL (31-37) Prothrombin Time 35.6 SEC (11.7-14.0) 34.6 SEC (11.7-14.0) Prothromb Time International Ratio 3.9 (0.8-1.1) 3.7 (0.8-1.1) Glucose (Fingerstick) 127 mg/dL (70-99) 133 mg/dL (70-99) White Blood Count 10.1 x10^3/uL (4.0-11.0) Red Blood Count 2.12 x10^6/uL (4.30-5.70) Mean Corpuscular Volume 93 fL (79-100) Mean Corpuscular Hemoglobin 32 pg (25-35) Red Cell Distribution Width 15.6 % (11.5-14.5) Platelet Count 156 x10^3/uL (140-400) Neutrophils (%) (Auto) 66 % (31-73) Lymphocytes (%) (Auto) 24 % (24-48) Monocytes (%) (Auto) 9 % (0-9) Eosinophils (%) (Auto) 1 % (0-3) Basophils (%) (Auto) 0 % (0-3) Neutrophils # (Auto) 6.6 x10^3uL (1.8-7.7) Lymphocytes # (Auto) 2.5 x10^3/uL (1.0-4.8) Monocytes # (Auto) 0.9 x10^3/uL (0.0-1.1) Eosinophils # (Auto) 0.1 x10^3/uL (0.0-0.7) Basophils # (Auto) 0.0 x10^3/uL (0.0-0.2) Sodium Level 147 mmol/L (136-145) Potassium Level 3.8 mmol/L (3.5-5.1) Chloride Level 112 mmol/L (98-107) Carbon Dioxide Level 29 mmol/L (21-32) Anion Gap 6 (6-14) Blood Urea Nitrogen 53 mg/dL (8-26) Creatinine 1.6 mg/dL (0.7-1.3) Estimated GFR (Cockcroft-Gault) 52.9 BUN/Creatinine Ratio 33 (6-20) Glucose Level 145 mg/dL (70-99) Calcium Level 8.0 mg/dL (8.5-10.1) Phosphorus Level 3.8 mg/dL (2.6-4.7) Magnesium Level 2.0 mg/dL (1.8-2.4) Iron Level 37 ug/dL (65-175) Total Iron Binding Capacity 230 ug/dL (250-450) Iron Saturation 16 % (15-34) Total Bilirubin 0.9 mg/dL (0.2-1.0) Aspartate Amino Transf (AST/SGOT) 28 U/L (15-37) Alanine Aminotransferase (ALT/SGPT) 31 U/L (16-63) Alkaline Phosphatase 48 U/L (46-116) Total Protein 5.5 g/dL (6.4-8.2) Albumin 3.0 g/dL (3.4-5.0) Albumin/Globulin Ratio 1.2 (1.0-1.7) Test 05/29/17 11:29 05/29/17 11:38 Glucose (Fingerstick) 156 mg/dL (70-99) Hemoglobin 6.4 g/dL (13.0-17.5) Hematocrit 19.1 % (39.0-53.0) Mean Corpuscular Hemoglobin Concent 34 g/dL (31-37) Medications Current Medications Sodium Chloride 1,000 ml @ 100 mls/hr Q10H IV Last administered on 05/29/17 08:30; Start 05/28/17 at 15:01 Ondansetron HCl (Zofran) 4 mg PRN Q6HRS PRN IV NAUSEA/VOMITING; Start 05/28/17 at 15:15 Prochlorperazine Edisylate (Compazine) 10 mg PRN Q6HRS PRN IV NAUSEA/VOMITING; Start 05/28/17 at 15:15 Prochlorperazine (Compazine) 25 mg PRN Q12HR PRN [place] NAUSEA/VOMITING; Start at 15:15 Al Hydroxide/Mg Hydroxide (Mylanta Plus Xs) 30 ml PRN Q3HRS PRN PO HEARTBURN / GAS; Start 05/28/17 at 15:15 Calcium Carbonate/ Glycine (Tums) 500 mg PRN Q3HRS PRN PO UPSET STOMACH; Start 05/28/17 at 15:15 Oxycodone HCl (Roxicodone) 5 mg PRN Q3HRS PRN PO BREAKTHROUGH PAIN; Start 05/28 at 15:15 Morphine Sulfate 1 mg PRN Q1HR PRN IV PAIN; Start 05/28/17 at 15:15 Acetaminophen (Tylenol) 650 mg PRN Q6HRS PRN PO Headaches, Temp > 101.5F; Start 05/28/17 at 15:15 Magnesium Hydroxide (Milk Of Magnesia) 2,400 mg PRN Q12HR PRN PO CONSTIPATION; Start 05/28/17 at 15:15 Bisacodyl (Dulcolax Supp) 10 mg PRN DAILY PRN [place] CONSTIPATION; Start 05/28/17 at 15:15 Haloperidol Lactate (Haldol) 5 mg PRN Q6HRS PRN IVP AGITATION Last administered on 9/29/17at 16:48; Start 05/28/17 at 15:15 Lorazepam (Ativan) 2 mg PRN Q4HRS PRN IV ANXIETY / AGITATION Last administered on 05/28/17 21:02; Start 05/28/17 at 15:15 Famotidine (Pepcid) 20 mg BID IVP Last administered on 05/29/17 08:30; Start 05/28/17 at 21:00 Insulin Aspart (NovoLOG) 0-7 UNITS TIDWMEALS SQ Last administered on 05/29/17 12:28; Start 05/28/17 at 17:00 Dextrose (Dextrose 50%-Water Syringe) 12.5 gm PRN Q15MIN PRN IV SEE COMMENTS; Start 05/28/17 at 15:15 Phytonadione (Mephyton Tablet) 10 mg 1X ONCE PO Last administered on 18:08; Start 05/28/17 at 17:45; Stop 05/28/17 at 17:46; Status DC Pneumococcal Polyvalent Vaccine (Do NOT chart on this placeholder) 1 each 1X ONCE MC ; Start 05/28/17 at 19:30; Stop 05/28/17 at 19:31; Status UNV Pneumococcal Polyvalent Vaccine (Pneumovax 23) 0.5 ml ONCE ONCE VAX IM Last administered on 05/29/17 08:38; Start 05/28/17 at 20:00; Stop 05/28/17 at 20:01 ; Status DC Phytonadione (Vitamin K Ampule) 10 mg 1X ONCE SQ Last administered on 12:26; Start 05/29/17 at 11:45; Stop 05/29/17 at 11:46; Status DC Active Scripts Active Reported Multivitamins (Multivitamin) 1 Each Tablet 1 Tab PO DAILY Spironolactone 25 Mg Tablet 12.5 Mg PO DAILY Pro-Stat Liquid (Amino Acids/Protein Hydrolys) 30 Ml Liquid 30 Ml PO BID Pantoprazole Sodium 40 Mg Tablet.dr 1 Tab PO DAILY Metformin Hcl 500 Mg Tablet 500 Mg PO DAILY Lisinopril 10 Mg Tablet 1 Tab PO DAILY Lasix (Furosemide) 40 Mg Tablet 1 Tab PO BID Ferrous Sulfate 325 Mg Tablet 325 Mg PO BID Coumadin (Warfarin Sodium) 5 Mg Tablet 7 Mg PO DAILY Wednesday, Wed, , Wed Clonazepam 0.5 Mg Tablet 1 Tab PO DAILY PRN Carvedilol 12.5 Mg Tablet 1 Tab PO BID Atorvastatin Calcium 40 Mg Tablet 1 Tab PO QHS Aspir 81 (Aspirin) 81 Mg Tablet.dr 1 Tab PO DAILY Tylenol (Acetaminophen) 325 Mg Tablet 2 Tab PO PRN Q6HRS PRN Do not exceed 3000mg in 24hr period Vitals/I & O Vital Sign - Last 24 Hours 05/28/17 05/28/17 05/28/17 05/28/17 14:51 15:00 15:06 15:23 Temp 99.3 99.3 Pulse 84 84 94 Resp 18 B/P (MAP) 144/47 (79) 113/54 (73) 140/53 (82) Pulse Ox 100 O2 Delivery Nasal Cannula Nasal Cannula Nasal Cannula Nasal Cannula O2 Flow Rate 2.0 2.0 2.0 2.0 05/28/17 05/28/17 05/28/17 05/28/17 15:25 17:15 17:30 18:14 Temp 99.3 97.9 98.1 98.2 99.3 97.9 98.1 98.2 Pulse 94 83 84 84 Resp 14 B/P (MAP) 140/53 (82) 83/33 122/53 126/39 Pulse Ox 100 O2 Delivery Nasal Cannula O2 Flow Rate 2.0 05/28/17 05/28/17 05/28/17 05/28/17 19:20 19:35 19:47 22:00 Temp 99.1 100.1 98.9 99.1 100.1 98.9 Pulse 94 94 74 Resp 18 B/P (MAP) 149/54 149/54 (85) 129/53 Pulse Ox 94 O2 Delivery Nasal Cannula Nasal Cannula O2 Flow Rate 3.0 2.0 05/28/17 05/28/17 05/28/17 05/29/17 22:15 23:00 23:00 00:00 Temp 98.5 99.0 99.0 99.1 98.5 99.0 99.0 99.1 Pulse 80 70 70 79 Resp 18 18 B/P (MAP) 141/50 135/48 135/48 (77) 137/48 Pulse Ox 100 O2 Delivery Nasal Cannula O2 Flow Rate 3.0 05/29/17 05/29/17 05/29/17 05/29/17 00:30 03:00 07:00 07:35 Temp 99.1 97.7 97.4 99.1 97.7 97.4 Pulse 80 54 88 Resp 18 18 20 B/P (MAP) 117/40 119/59 (79) 130/80 (97) Pulse Ox 100 97 O2 Delivery Nasal Cannula Nasal Cannula Room Air O2 Flow Rate 3.0 2.0 05/29/17 11:00 Temp 98.2 98.2 Pulse 62 Resp 22 B/P (MAP) 152/60 (90) Pulse Ox 97 Intake and Output 05/29/17 05/29/17 05/30/17 15:00 23:00 07:00 Intake Total 720 ml Balance 720 ml BARTOLOME TREVIÑO MD May 29, 2017 13:37
[2017-05-29] MEDS: METOPROLOL TART IMMED RELEASE 25 MG TABLET. PO SCH ×3 (14:12→21:00)
[2017-05-30 03:00] VITALS: BP 122/53
[2017-05-30 05:18] LABS: BASO % 1 % (0-3); EOS % 3 % (0-3); HEMATOCRIT 21.6 % (39.0-53.0); HEMOGLOBIN 7.4 g/dL (13.0-17.5); LYMPH # 1.7 x10^3/uL (1.0-4.8); LYMPH % 22 % (24-48); MEAN CORPUSCULAR HEMOGLOBIN 31 pg (25-35); MEAN CORPUSCULAR HGB CONC 34 g/dL (31-37); MEAN CORPUSCULAR VOLUME 91 fL (79-100); MONO % 8 % (0-9); NEUT % 68 % (31-73); PLATELET COUNT 158 x10^3/uL (140-400); RED BLOOD COUNT 2.39 x10^6/uL (4.30-5.70); RED CELL DISTRIBUTION WIDTH 16.7 % (11.5-14.5); RETIC COUNT 11.9 % (0.5-2.5); WHITE BLOOD COUNT 7.8 x10^3/uL (4.0-11.0)
[2017-05-30 05:32] LABS: INR 2.3 (0.8-1.1)
[2017-05-30 07:00] VITALS: BP 134/64
[2017-05-30] MEDS: INSULIN ASPART 300 UNITS/3 ML INSULN.PEN SQ SCH ×4 (08:00→17:18)
--- NOTE | 2017-05-30 08:00 | PDOC ---
SURGICAL PROGRESS NOTE Subjective Feels good, no pain. Sitting up eating breakfast Vital Signs Vital Signs Date Time Temp Pulse Resp B/P (MAP) Pulse Ox O2 Delivery O2 Flow Rate FiO2 05/30/17 07:00 98.0 67 20 134/64 (87) 98 Room Air 98.0 05/29/17 07:00 2.0 PATIENT HAS A CANNON: Yes General: Alert, Oriented X3, Cooperative, No acute distress Abdomen: Normal bowel sounds, Soft, No tenderness Labs Laboratory Tests Test 05/28/17 15:30 05/28/17 15:40 05/28/17 16:18 05/29/17 04:30 Nasal Screen MRSA (PCR) Negative (Negative) Hemoglobin 4.9 g/dL (13.0-17.5) 6.7 g/dL (13.0-17.5) Hematocrit 15.6 % (39.0-53.0) 19.7 % (39.0-53.0) Mean Corpuscular Hemoglobin Concent 32 g/dL (31-37) 34 g/dL (31-37) Prothrombin Time 35.6 SEC (11.7-14.0) 34.6 SEC (11.7-14.0) Prothromb Time International Ratio 3.9 (0.8-1.1) 3.7 (0.8-1.1) Glucose (Fingerstick) 127 mg/dL (70-99) White Blood Count 10.1 x10^3/uL (4.0-11.0) Red Blood Count 2.12 x10^6/uL (4.30-5.70) Mean Corpuscular Volume 93 fL (79-100) Mean Corpuscular Hemoglobin 32 pg (25-35) Red Cell Distribution Width 15.6 % (11.5-14.5) Platelet Count 156 x10^3/uL (140-400) Neutrophils (%) (Auto) 66 % (31-73) Lymphocytes (%) (Auto) 24 % (24-48) Monocytes (%) (Auto) 9 % (0-9) Eosinophils (%) (Auto) 1 % (0-3) Basophils (%) (Auto) 0 % (0-3) Neutrophils # (Auto) 6.6 x10^3uL (1.8-7.7) Lymphocytes # (Auto) 2.5 x10^3/uL (1.0-4.8) Monocytes # (Auto) 0.9 x10^3/uL (0.0-1.1) Eosinophils # (Auto) 0.1 x10^3/uL (0.0-0.7) Basophils # (Auto) 0.0 x10^3/uL (0.0-0.2) Sodium Level 147 mmol/L (136-145) Potassium Level 3.8 mmol/L (3.5-5.1) Chloride Level 112 mmol/L (98-107) Carbon Dioxide Level 29 mmol/L (21-32) Anion Gap 6 (6-14) Blood Urea Nitrogen 53 mg/dL (8-26) Creatinine 1.6 mg/dL (0.7-1.3) Estimated GFR (Cockcroft-Gault) 52.9 BUN/Creatinine Ratio 33 (6-20) Glucose Level 145 mg/dL (70-99) Calcium Level 8.0 mg/dL (8.5-10.1) Phosphorus Level 3.8 mg/dL (2.6-4.7) Magnesium Level 2.0 mg/dL (1.8-2.4) Iron Level 37 ug/dL (65-175) Total Iron Binding Capacity 230 ug/dL (250-450) Iron Saturation 16 % (15-34) Total Bilirubin 0.9 mg/dL (0.2-1.0) Aspartate Amino Transf (AST/SGOT) 28 U/L (15-37) Alanine Aminotransferase (ALT/SGPT) 31 U/L (16-63) Alkaline Phosphatase 48 U/L (46-116) Total Protein 5.5 g/dL (6.4-8.2) Albumin 3.0 g/dL (3.4-5.0) Albumin/Globulin Ratio 1.2 (1.0-1.7) Test 05/29/17 07:18 05/29/17 11:29 05/29/17 11:38 05/29/17 16:41 Glucose (Fingerstick) 133 mg/dL (70-99) 156 mg/dL (70-99) 121 mg/dL (70-99) Hemoglobin 6.4 g/dL (13.0-17.5) Hematocrit 19.1 % (39.0-53.0) Mean Corpuscular Hemoglobin Concent 34 g/dL (31-37) Test 05/29/17 20:35 05/30/17 04:40 Glucose (Fingerstick) 170 mg/dL (70-99) White Blood Count 7.8 x10^3/uL (4.0-11.0) Red Blood Count 2.39 x10^6/uL (4.30-5.70) Hemoglobin 7.4 g/dL (13.0-17.5) Hematocrit 21.6 % (39.0-53.0) Mean Corpuscular Volume 91 fL (79-100) Mean Corpuscular Hemoglobin 31 pg (25-35) Mean Corpuscular Hemoglobin Concent 34 g/dL (31-37) Red Cell Distribution Width 16.7 % (11.5-14.5) Platelet Count 158 x10^3/uL (140-400) Neutrophils (%) (Auto) 68 % (31-73) Lymphocytes (%) (Auto) 22 % (24-48) Monocytes (%) (Auto) 8 % (0-9) Eosinophils (%) (Auto) 3 % (0-3) Basophils (%) (Auto) 1 % (0-3) Neutrophils # (Auto) 5.3 x10^3uL (1.8-7.7) Lymphocytes # (Auto) 1.7 x10^3/uL (1.0-4.8) Monocytes # (Auto) 0.6 x10^3/uL (0.0-1.1) Eosinophils # (Auto) 0.2 x10^3/uL (0.0-0.7) Basophils # (Auto) 0.0 x10^3/uL (0.0-0.2) Reticulocyte Count (auto) 11.9 % (0.5-2.5) Prothrombin Time 24.0 SEC (11.7-14.0) Prothromb Time International Ratio 2.3 (0.8-1.1) Laboratory Tests Test 05/29/17 11:29 05/29/17 11:38 05/29/17 16:41 05/29/17 20:35 Glucose (Fingerstick) 156 mg/dL (70-99) 121 mg/dL (70-99) 170 mg/dL (70-99) Hemoglobin 6.4 g/dL (13.0-17.5) Hematocrit 19.1 % (39.0-53.0) Mean Corpuscular Hemoglobin Concent 34 g/dL (31-37) Test 05/30/17 04:40 White Blood Count 7.8 x10^3/uL (4.0-11.0) Red Blood Count 2.39 x10^6/uL (4.30-5.70) Hemoglobin 7.4 g/dL (13.0-17.5) Hematocrit 21.6 % (39.0-53.0) Mean Corpuscular Volume 91 fL (79-100) Mean Corpuscular Hemoglobin 31 pg (25-35) Mean Corpuscular Hemoglobin Concent 34 g/dL (31-37) Red Cell Distribution Width 16.7 % (11.5-14.5) Platelet Count 158 x10^3/uL (140-400) Neutrophils (%) (Auto) 68 % (31-73) Lymphocytes (%) (Auto) 22 % (24-48) Monocytes (%) (Auto) 8 % (0-9) Eosinophils (%) (Auto) 3 % (0-3) Basophils (%) (Auto) 1 % (0-3) Neutrophils # (Auto) 5.3 x10^3uL (1.8-7.7) Lymphocytes # (Auto) 1.7 x10^3/uL (1.0-4.8) Monocytes # (Auto) 0.6 x10^3/uL (0.0-1.1) Eosinophils # (Auto) 0.2 x10^3/uL (0.0-0.7) Basophils # (Auto) 0.0 x10^3/uL (0.0-0.2) Reticulocyte Count (auto) 11.9 % (0.5-2.5) Prothrombin Time 24.0 SEC (11.7-14.0) Prothromb Time International Ratio 2.3 (0.8-1.1) Assessment/Plan Anemia, Hgb 7.4 VSS No bleeding source No surgical indications Problems: ARIANA DIAZ MD May 30, 2017 08:00
[2017-05-30] MEDS: METOPROLOL TART IMMED RELEASE 25 MG TABLET. PO SCH ×3 (08:29→20:33)
[2017-05-30] MEDS: FAMOTIDINE 20 MG/2 ML VIAL IVP SCH ×2 (08:32→20:24)
[2017-05-30] MEDS: IV 1/2 NORMAL SALINE 1,000 ML IV SCH ×3 (08:32→17:16)
--- NOTE | 2017-05-30 10:17 | CONS ---
DATE OF CONSULTATION: 05/30/2017 REASON FOR CONSULTATION: Tachyarrhythmia. HISTORY OF PRESENT ILLNESS: The patient is a unfortunate 62-year-old gentleman who sustained a previous CVA, who has expressive aphasia, presented to the hospital in the setting of severe anemia. He was noted to have a hemoglobin of 4 and has been evaluated over the course of the last 48 hours. In this setting, he had an episode of a supraventricular tachycardia with aberrancy and Cardiology was asked to comment in the setting of his prior history of atrial fibrillation. History again is limited due to patient's expressive aphasia, but he presently denies any chest pain, orthopnea, PND or lower extremity edema. He does not have any palpitations. PAST MEDICAL HISTORY: 1. Atrial fibrillation, on Coumadin and amiodarone. 2. Prior CVA. SOCIAL HISTORY: The patient resides at the nursing facility and does not have any significant family according to him. FAMILY HISTORY: Noncontributory. ALLERGIES: No known drug allergies. MEDICATIONS: See the medication administration record. REVIEW OF SYSTEMS: Unable to be fully obtained secondary to the patient's expressive aphasia, but at baseline he does not have any significant complaints. PHYSICAL EXAMINATION: VITAL SIGNS: Stable. HEAD AND NECK: Unremarkable. HEART: Regular rate and rhythm without any significant murmurs, rubs or gallops. LUNGS: Fairly clear to auscultation bilaterally. ABDOMEN: Soft, nontender, nondistended. EXTREMITIES: He has right arm contracture. MUSCULOSKELETAL: No obvious trauma. DIAGNOSTIC STUDIES: Reviewed. Hemoglobin improved, but persistently decreased at 7.5. Telemetry reviewed and notable for sinus rhythm with right bundle-branch block. Arrhythmia noted and appears to be atrial tachyarrhythmia with aberrant conduction. No ventricular tachycardia noted. IMPRESSION: 1. Paroxysmal atrial fibrillation with transient short brief episodes of atrial tachyarrhythmia in the setting of severe anemia. 2. Cerebrovascular accident. PLAN: 1. I agree with initiation of low dose metoprolol. 2. Obtain echocardiogram to rule out any significant structural heart disease. 3. Given the patient's significant anemia, I agree with discontinuation of Coumadin. We will reassess him on an outpatient basis and consider left atrial appendage occlusion device either through or [facility] for further treatment and prevention of stroke. Thank you for this consultation. Otherwise, no further aggressive cardiovascular testing necessary. ASHLEIGH SCHULTZ MD DR: BELA/jenna JOB#: [id number] / [id number]
[2017-05-30 11:00] VITALS: BP 141/53
[2017-05-30] MEDS ORDERED: PHYTONADIONE (VIT K1) 5 MG TABLET PO ONE (11:00)
[2017-05-30 11:22] LABS: HEMATOCRIT 22.5 % (39.0-53.0); HEMOGLOBIN 7.6 g/dL (13.0-17.5)
--- NOTE | 2017-05-30 12:26 | PDOC2 ---
CONSULT Date of Consult Date of Consult DATE: 05/30/17 TIME: 12:18 Reason for Consult Reason for Consult: Anemia Source Source: Chart review, Patient History of Present Illness Reason for Visit: 62 yo male who presented to the hospital with vomiting and fever. History is obtained from chart as he has previously had a cva and has expressive aphasia. He was found to have a hgb of 4.1 and was transferred to [place]. He has received a total of 3 units of PRBC. He also was on coumadin and received 10mg Subcu vit k yesterday and 5mg po today. He is a poor historian but today states that he had some blood in his vomitus. He is unsure if he had dark or tarry stool. He had a ct abdomen that showed a mildly distended gallbladder and stomachm nith feces and gas in the colon with moderate stool in the rectum. Past Medical History Cardiovascular: HTN, Hyperlipidemia CENTRAL NERVOUS SYSTEM: CVA Hepatobiliary: Other (Ulcertive colitis) Endocrine: Diabetes Past Surgical History Past Surgical History: Other (unknown) Family History Family History: Family History Unknown Social History No ALCOHOL: none Drugs: None Current Medications Current Medications Current Medications Sodium Chloride 1,000 ml @ 100 mls/hr Q10H IV Last administered on 05/30/17t 08:32; Start 05/28/17 at 15:01 Ondansetron HCl (Zofran) 4 mg PRN Q6HRS PRN IV NAUSEA/VOMITING; Start 05/28/17 at 15:15 Prochlorperazine Edisylate (Compazine) 10 mg PRN Q6HRS PRN IV NAUSEA/VOMITING; Start 05/28/17 at 15:15 Prochlorperazine (Compazine) 25 mg PRN Q12HR PRN OR NAUSEA/VOMITING; Start at 15:15 Al Hydroxide/Mg Hydroxide (Mylanta Plus Xs) 30 ml PRN Q3HRS PRN PO HEARTBURN / GAS; Start 05/28/17 at 15:15 Calcium Carbonate/ Glycine (Tums) 500 mg PRN Q3HRS PRN PO UPSET STOMACH; Start 05/28/17 at 15:15 Oxycodone HCl (Roxicodone) 5 mg PRN Q3HRS PRN PO BREAKTHROUGH PAIN; Start 05/28 at 15:15 Morphine Sulfate 1 mg PRN Q1HR PRN IV PAIN; Start 05/28/17 at 15:15 Acetaminophen (Tylenol) 650 mg PRN Q6HRS PRN PO Headaches, Temp > 101.5F; Start 05/28/17 at 15:15 Magnesium Hydroxide (Milk Of Magnesia) 2,400 mg PRN Q12HR PRN PO CONSTIPATION; Start 05/28/17 at 15:15 Bisacodyl (Dulcolax Supp) 10 mg PRN DAILY PRN OR CONSTIPATION; Start 05/28/17 at 15:15 Haloperidol Lactate (Haldol) 5 mg PRN Q6HRS PRN IVP AGITATION Last administered on 05/28/17 16:48; Start 05/28/17 at 15:15 Lorazepam (Ativan) 2 mg PRN Q4HRS PRN IV ANXIETY / AGITATION Last administered on 05/28/17 21:02; Start 05/28/17 at 15:15 Famotidine (Pepcid) 20 mg BID IVP Last administered on 05/30/17 08:32; Start 05/28/17 at 21:00 Insulin Aspart (NovoLOG) 0-7 UNITS TIDWMEALS SQ Last administered on 05/29/17 12:28; Start 05/28/17 at 17:00 Dextrose (Dextrose 50%-Water Syringe) 12.5 gm PRN Q15MIN PRN IV SEE COMMENTS; Start 05/28/17 at 15:15 Phytonadione (Mephyton Tablet) 10 mg 1X ONCE PO Last administered on 18:08; Start 05/28/17 at 17:45; Stop 05/28/17 at 17:46; Status DC Pneumococcal Polyvalent Vaccine (Do NOT chart on this placeholder) 1 each 1X ONCE MC ; Start 05/28/17 at 19:30; Stop 05/28/17 at 19:31; Status UNV Pneumococcal Polyvalent Vaccine (Pneumovax 23) 0.5 ml ONCE ONCE VAX IM Last administered on 05/29/17 08:38; Start 05/28/17 at 20:00; Stop 05/28/17 at 20:01 ; Status DC Phytonadione (Vitamin K Ampule) 10 mg 1X ONCE SQ Last administered on 12:26; Start 05/29/17 at 11:45; Stop 05/29/17 at 11:46; Status DC Metoprolol Tartrate (Lopressor) 25 mg BID PO Last administered on 05/29/17 21: 00; Start 05/29/17 at 14:00; Stop 05/29/17 at 21:00; Status DC Metoprolol Tartrate (Lopressor) 25 mg BID PO Last administered on 05/30/17 08: 29; Start 05/29/17 at 21:00 Phytonadione (Mephyton Tablet) 5 mg 1X ONCE PO Last administered on 05/30/17 11:35; Start 05/30/17 at 11:00; Stop 05/30/17 at 11:01; Status DC Active Scripts Active Reported Multivitamins (Multivitamin) 1 Each Tablet 1 Tab PO DAILY Spironolactone 25 Mg Tablet 12.5 Mg PO DAILY Pro-Stat Liquid (Amino Acids/Protein Hydrolys) 30 Ml Liquid 30 Ml PO BID Pantoprazole Sodium 40 Mg Tablet.dr 1 Tab PO DAILY Metformin Hcl 500 Mg Tablet 500 Mg PO DAILY Lisinopril 10 Mg Tablet 1 Tab PO DAILY Lasix (Furosemide) 40 Mg Tablet 1 Tab PO BID Ferrous Sulfate 325 Mg Tablet 325 Mg PO BID Coumadin (Warfarin Sodium) 5 Mg Tablet 7 Mg PO DAILY Wednesday, Wed, , Wed Clonazepam 0.5 Mg Tablet 1 Tab PO DAILY PRN Carvedilol 12.5 Mg Tablet 1 Tab PO BID Atorvastatin Calcium 40 Mg Tablet 1 Tab PO QHS Aspir 81 (Aspirin) 81 Mg Tablet.dr 1 Tab PO DAILY Tylenol (Acetaminophen) 325 Mg Tablet 2 Tab PO PRN Q6HRS PRN Do not exceed 3000mg in 24hr period Allergies Allergies: Coded Allergies: No Known Drug Allergies (Unverified , 05/28/17) ROS General: No: Chills, Night Sweats, Fatigue, Malaise, Appetite, Other PSYCHOLOGICAL ROS: No: Anxiety, Behavioral Disorder, Concentration difficultie , Decreased libido, Depression, Disorientation, Hallucinations, Hostility, Irritablity, Memory difficulties, Mood Swings, Obsessive thoughts, Physical abuse, Sexual abuse, Sleep disturbances, Suicidal ideation, Other Eyes: No Blurry vision, No Decreased vision, No Double vision, No Dry eyes, No Excessive tearing, No Eye Pain, No Itchy Eyes, No Loss of vision, No Photophobia , No Scotomata, No Uses contacts, No Uses glasses, No Other HEENT: No: Heacaches, Visual Changes, Hearing change, Nasal congestion, Nasal discharge, Oral lesions, Sinus pain, Sore Throat, Epistaxis, Sneezing, Snoring, Tinnitus, Vertigo, Vocal changes, Other ALLERGY AND IMMUNOLOGY: No: Hives, Insect Bite Sensitivity, Itchy/Watery Eyes, Nasal Congestion, Post Nasal Drip, Seasonal Allergies, Other Hematological and Lymphatic: YES: Bleeding Problems, Pallor ENDOCRINE: No: Breast Changes, Galactorrhea, Hair Pattern Changes, Hot Flashes , Malaise/lethargy, Mood Swings, Palpitations, Polydipsia/polyuria, Skin Changes , Temperature Intolerance, Unexpected Weight Changes, Other Breast: No New/Changing Breast Lumps, No Nipple changes, No Nipple discharge, No Other Respiratory: No: Cough, Hemoptysis, Orthopnea, Pleuritic Pain, Shortness of breath, SOB with excertion, Sputum Changes, Stridor, Tachypnea, Wheezing, Other Gastrointestinal: Yes Vomiting Genitourinary: No Dysuria, No Frequency, No Incontinence, No Hematuria, No Retention, No Discharge, No Urgency, No Pain, No Flank Pain, No Other, No , No , No , No , No , No , No Musculoskeletal: No Gait Disturbance, No Joint Pain, No Joint Stiffness, No Joint Swelling, No Muscle Pain, No Muscular Weakness, No Pain In:, No Swelling In:, No Other Neurological: No Behavorial Changes, No Bowel/Bladder ControlChng, No Confusion , No Dizziness, No Gait Disturbance, No Headaches, No Impaired Coord/balance, No Memory Loss, No Numbness/Tingling, No Seizures, No Speech Problems, No Tremors, No Visual Changes, No Weakness, No Other Skin: No Dry Skin, No Eczema, No Hair Changes, No Lumps, No Mole Changes, No Mottling, No Nail Changes, No Pruritus, No Rash, No Skin Lesion Changes, No Other, No Acne Physical Exam General: Alert, No acute distress HEENT: Atraumatic, PERRLA Lungs: Clear to auscultation Heart: Regular rate, Normal S1, Normal S2 Abdomen: Normal bowel sounds, Soft, No tenderness Psych/Mental Status: Other (expressive aphasia, right arm contracture) Vitals VITALS Vital Signs Date Time Temp Pulse Resp B/P (MAP) Pulse Ox O2 Delivery O2 Flow Rate FiO2 05/30/17 11:00 97.9 65 18 141/53 (82) 100 Room Air 97.9 05/29/17 07:00 2.0 Labs Labs Laboratory Tests Test 05/28/17 15:30 05/28/17 15:40 05/28/17 16:18 05/29/17 04:30 Nasal Screen MRSA (PCR) Negative (Negative) Hemoglobin 4.9 g/dL (13.0-17.5) 6.7 g/dL (13.0-17.5) Hematocrit 15.6 % (39.0-53.0) 19.7 % (39.0-53.0) Mean Corpuscular Hemoglobin Concent 32 g/dL (31-37) 34 g/dL (31-37) Prothrombin Time 35.6 SEC (11.7-14.0) 34.6 SEC (11.7-14.0) Prothromb Time International Ratio 3.9 (0.8-1.1) 3.7 (0.8-1.1) Glucose (Fingerstick) 127 mg/dL (70-99) White Blood Count 10.1 x10^3/uL (4.0-11.0) Red Blood Count 2.12 x10^6/uL (4.30-5.70) Mean Corpuscular Volume 93 fL (79-100) Mean Corpuscular Hemoglobin 32 pg (25-35) Red Cell Distribution Width 15.6 % (11.5-14.5) Platelet Count 156 x10^3/uL (140-400) Neutrophils (%) (Auto) 66 % (31-73) Lymphocytes (%) (Auto) 24 % (24-48) Monocytes (%) (Auto) 9 % (0-9) Eosinophils (%) (Auto) 1 % (0-3) Basophils (%) (Auto) 0 % (0-3) Neutrophils # (Auto) 6.6 x10^3uL (1.8-7.7) Lymphocytes # (Auto) 2.5 x10^3/uL (1.0-4.8) Monocytes # (Auto) 0.9 x10^3/uL (0.0-1.1) Eosinophils # (Auto) 0.1 x10^3/uL (0.0-0.7) Basophils # (Auto) 0.0 x10^3/uL (0.0-0.2) Sodium Level 147 mmol/L (136-145) Potassium Level 3.8 mmol/L (3.5-5.1) Chloride Level 112 mmol/L (98-107) Carbon Dioxide Level 29 mmol/L (21-32) Anion Gap 6 (6-14) Blood Urea Nitrogen 53 mg/dL (8-26) Creatinine 1.6 mg/dL (0.7-1.3) Estimated GFR (Cockcroft-Gault) 52.9 BUN/Creatinine Ratio 33 (6-20) Glucose Level 145 mg/dL (70-99) Calcium Level 8.0 mg/dL (8.5-10.1) Phosphorus Level 3.8 mg/dL (2.6-4.7) Magnesium Level 2.0 mg/dL (1.8-2.4) Iron Level 37 ug/dL (65-175) Total Iron Binding Capacity 230 ug/dL (250-450) Iron Saturation 16 % (15-34) Total Bilirubin 0.9 mg/dL (0.2-1.0) Aspartate Amino Transf (AST/SGOT) 28 U/L (15-37) Alanine Aminotransferase (ALT/SGPT) 31 U/L (16-63) Alkaline Phosphatase 48 U/L (46-116) Total Protein 5.5 g/dL (6.4-8.2) Albumin 3.0 g/dL (3.4-5.0) Albumin/Globulin Ratio 1.2 (1.0-1.7) Test 05/29/17 07:18 05/29/17 11:29 05/29/17 11:38 05/29/17 16:41 Glucose (Fingerstick) 133 mg/dL (70-99) 156 mg/dL (70-99) 121 mg/dL (70-99) Hemoglobin 6.4 g/dL (13.0-17.5) Hematocrit 19.1 % (39.0-53.0) Mean Corpuscular Hemoglobin Concent 34 g/dL (31-37) Test 05/29/17 20:35 05/30/17 04:40 05/30/17 11:00 05/30/17 11:31 Glucose (Fingerstick) 170 mg/dL (70-99) 117 mg/dL (70-99) White Blood Count 7.8 x10^3/uL (4.0-11.0) Red Blood Count 2.39 x10^6/uL (4.30-5.70) Hemoglobin 7.4 g/dL (13.0-17.5) 7.6 g/dL (13.0-17.5) Hematocrit 21.6 % (39.0-53.0) 22.5 % (39.0-53.0) Mean Corpuscular Volume 91 fL (79-100) Mean Corpuscular Hemoglobin 31 pg (25-35) Mean Corpuscular Hemoglobin Concent 34 g/dL (31-37) 34 g/dL (31-37) Red Cell Distribution Width 16.7 % (11.5-14.5) Platelet Count 158 x10^3/uL (140-400) Neutrophils (%) (Auto) 68 % (31-73) Lymphocytes (%) (Auto) 22 % (24-48) Monocytes (%) (Auto) 8 % (0-9) Eosinophils (%) (Auto) 3 % (0-3) Basophils (%) (Auto) 1 % (0-3) Neutrophils # (Auto) 5.3 x10^3uL (1.8-7.7) Lymphocytes # (Auto) 1.7 x10^3/uL (1.0-4.8) Monocytes # (Auto) 0.6 x10^3/uL (0.0-1.1) Eosinophils # (Auto) 0.2 x10^3/uL (0.0-0.7) Basophils # (Auto) 0.0 x10^3/uL (0.0-0.2) Reticulocyte Count (auto) 11.9 % (0.5-2.5) Prothrombin Time 24.0 SEC (11.7-14.0) Prothromb Time International Ratio 2.3 (0.8-1.1) Laboratory Tests Test 05/29/17 16:41 05/29/17 20:35 05/30/17 04:40 05/30/17 11:00 Glucose (Fingerstick) 121 mg/dL (70-99) 170 mg/dL (70-99) White Blood Count 7.8 x10^3/uL (4.0-11.0) Red Blood Count 2.39 x10^6/uL (4.30-5.70) Hemoglobin 7.4 g/dL (13.0-17.5) 7.6 g/dL (13.0-17.5) Hematocrit 21.6 % (39.0-53.0) 22.5 % (39.0-53.0) Mean Corpuscular Volume 91 fL (79-100) Mean Corpuscular Hemoglobin 31 pg (25-35) Mean Corpuscular Hemoglobin Concent 34 g/dL (31-37) 34 g/dL (31-37) Red Cell Distribution Width 16.7 % (11.5-14.5) Platelet Count 158 x10^3/uL (140-400) Neutrophils (%) (Auto) 68 % (31-73) Lymphocytes (%) (Auto) 22 % (24-48) Monocytes (%) (Auto) 8 % (0-9) Eosinophils (%) (Auto) 3 % (0-3) Basophils (%) (Auto) 1 % (0-3) Neutrophils # (Auto) 5.3 x10^3uL (1.8-7.7) Lymphocytes # (Auto) 1.7 x10^3/uL (1.0-4.8) Monocytes # (Auto) 0.6 x10^3/uL (0.0-1.1) Eosinophils # (Auto) 0.2 x10^3/uL (0.0-0.7) Basophils # (Auto) 0.0 x10^3/uL (0.0-0.2) Reticulocyte Count (auto) 11.9 % (0.5-2.5) Prothrombin Time 24.0 SEC (11.7-14.0) Prothromb Time International Ratio 2.3 (0.8-1.1) Test 05/30/17 11:31 Glucose (Fingerstick) 117 mg/dL (70-99) Assessment/Plan Assessment/Plan 62 yo male admitted with a hgb of 4. 1. Anemia. Most likely he had a bleed. He has a ? history of Ulcerative colitis and has been on coumadin for his stroke and afib. He has received 3 units of PRBC. Would continue to monitor his cbc q6. Agree with reversing his coumadin with vit k. He most likely will need an EGD and colonoscopy. 2. Coagulopathy. He was on coumadin for afib/cva. He received 10mg subcu vit k yesterday and 5mg oral today. BURKE DAMON MD May 30, 2017 12:26
--- NOTE | 2017-05-30 13:18 | PDOC ---
G I PROGRESS NOTE Reason for Follow-up Acute blood loss anemia Subjective No further bleeding/pt more alert Physical Exam Lungs clear CV S1 S2 ABD +BS, soft, nontender Review of Relevant I have reviewed the following items yulissa (where applicable) has been applied. Labs Laboratory Tests Test 05/28/17 15:30 05/28/17 15:40 05/28/17 16:18 05/29/17 04:30 Nasal Screen MRSA (PCR) Negative (Negative) Hemoglobin 4.9 g/dL (13.0-17.5) 6.7 g/dL (13.0-17.5) Hematocrit 15.6 % (39.0-53.0) 19.7 % (39.0-53.0) Mean Corpuscular Hemoglobin Concent 32 g/dL (31-37) 34 g/dL (31-37) Prothrombin Time 35.6 SEC (11.7-14.0) 34.6 SEC (11.7-14.0) Prothromb Time International Ratio 3.9 (0.8-1.1) 3.7 (0.8-1.1) Glucose (Fingerstick) 127 mg/dL (70-99) White Blood Count 10.1 x10^3/uL (4.0-11.0) Red Blood Count 2.12 x10^6/uL (4.30-5.70) Mean Corpuscular Volume 93 fL (79-100) Mean Corpuscular Hemoglobin 32 pg (25-35) Red Cell Distribution Width 15.6 % (11.5-14.5) Platelet Count 156 x10^3/uL (140-400) Neutrophils (%) (Auto) 66 % (31-73) Lymphocytes (%) (Auto) 24 % (24-48) Monocytes (%) (Auto) 9 % (0-9) Eosinophils (%) (Auto) 1 % (0-3) Basophils (%) (Auto) 0 % (0-3) Neutrophils # (Auto) 6.6 x10^3uL (1.8-7.7) Lymphocytes # (Auto) 2.5 x10^3/uL (1.0-4.8) Monocytes # (Auto) 0.9 x10^3/uL (0.0-1.1) Eosinophils # (Auto) 0.1 x10^3/uL (0.0-0.7) Basophils # (Auto) 0.0 x10^3/uL (0.0-0.2) Sodium Level 147 mmol/L (136-145) Potassium Level 3.8 mmol/L (3.5-5.1) Chloride Level 112 mmol/L (98-107) Carbon Dioxide Level 29 mmol/L (21-32) Anion Gap 6 (6-14) Blood Urea Nitrogen 53 mg/dL (8-26) Creatinine 1.6 mg/dL (0.7-1.3) Estimated GFR (Cockcroft-Gault) 52.9 BUN/Creatinine Ratio 33 (6-20) Glucose Level 145 mg/dL (70-99) Calcium Level 8.0 mg/dL (8.5-10.1) Phosphorus Level 3.8 mg/dL (2.6-4.7) Magnesium Level 2.0 mg/dL (1.8-2.4) Iron Level 37 ug/dL (65-175) Total Iron Binding Capacity 230 ug/dL (250-450) Iron Saturation 16 % (15-34) Total Bilirubin 0.9 mg/dL (0.2-1.0) Aspartate Amino Transf (AST/SGOT) 28 U/L (15-37) Alanine Aminotransferase (ALT/SGPT) 31 U/L (16-63) Alkaline Phosphatase 48 U/L (46-116) Total Protein 5.5 g/dL (6.4-8.2) Albumin 3.0 g/dL (3.4-5.0) Albumin/Globulin Ratio 1.2 (1.0-1.7) Test 05/29/17 07:18 05/29/17 11:29 05/29/17 11:38 05/29/17 16:41 Glucose (Fingerstick) 133 mg/dL (70-99) 156 mg/dL (70-99) 121 mg/dL (70-99) Hemoglobin 6.4 g/dL (13.0-17.5) Hematocrit 19.1 % (39.0-53.0) Mean Corpuscular Hemoglobin Concent 34 g/dL (31-37) Test 05/29/17 20:35 05/30/17 04:40 05/30/17 11:00 05/30/17 11:31 Glucose (Fingerstick) 170 mg/dL (70-99) 117 mg/dL (70-99) White Blood Count 7.8 x10^3/uL (4.0-11.0) Red Blood Count 2.39 x10^6/uL (4.30-5.70) Hemoglobin 7.4 g/dL (13.0-17.5) 7.6 g/dL (13.0-17.5) Hematocrit 21.6 % (39.0-53.0) 22.5 % (39.0-53.0) Mean Corpuscular Volume 91 fL (79-100) Mean Corpuscular Hemoglobin 31 pg (25-35) Mean Corpuscular Hemoglobin Concent 34 g/dL (31-37) 34 g/dL (31-37) Red Cell Distribution Width 16.7 % (11.5-14.5) Platelet Count 158 x10^3/uL (140-400) Neutrophils (%) (Auto) 68 % (31-73) Lymphocytes (%) (Auto) 22 % (24-48) Monocytes (%) (Auto) 8 % (0-9) Eosinophils (%) (Auto) 3 % (0-3) Basophils (%) (Auto) 1 % (0-3) Neutrophils # (Auto) 5.3 x10^3uL (1.8-7.7) Lymphocytes # (Auto) 1.7 x10^3/uL (1.0-4.8) Monocytes # (Auto) 0.6 x10^3/uL (0.0-1.1) Eosinophils # (Auto) 0.2 x10^3/uL (0.0-0.7) Basophils # (Auto) 0.0 x10^3/uL (0.0-0.2) Reticulocyte Count (auto) 11.9 % (0.5-2.5) Prothrombin Time 24.0 SEC (11.7-14.0) Prothromb Time International Ratio 2.3 (0.8-1.1) Laboratory Tests Test 05/29/17 16:41 05/29/17 20:35 05/30/17 04:40 05/30/17 11:00 Glucose (Fingerstick) 121 mg/dL (70-99) 170 mg/dL (70-99) White Blood Count 7.8 x10^3/uL (4.0-11.0) Red Blood Count 2.39 x10^6/uL (4.30-5.70) Hemoglobin 7.4 g/dL (13.0-17.5) 7.6 g/dL (13.0-17.5) Hematocrit 21.6 % (39.0-53.0) 22.5 % (39.0-53.0) Mean Corpuscular Volume 91 fL (79-100) Mean Corpuscular Hemoglobin 31 pg (25-35) Mean Corpuscular Hemoglobin Concent 34 g/dL (31-37) 34 g/dL (31-37) Red Cell Distribution Width 16.7 % (11.5-14.5) Platelet Count 158 x10^3/uL (140-400) Neutrophils (%) (Auto) 68 % (31-73) Lymphocytes (%) (Auto) 22 % (24-48) Monocytes (%) (Auto) 8 % (0-9) Eosinophils (%) (Auto) 3 % (0-3) Basophils (%) (Auto) 1 % (0-3) Neutrophils # (Auto) 5.3 x10^3uL (1.8-7.7) Lymphocytes # (Auto) 1.7 x10^3/uL (1.0-4.8) Monocytes # (Auto) 0.6 x10^3/uL (0.0-1.1) Eosinophils # (Auto) 0.2 x10^3/uL (0.0-0.7) Basophils # (Auto) 0.0 x10^3/uL (0.0-0.2) Reticulocyte Count (auto) 11.9 % (0.5-2.5) Prothrombin Time 24.0 SEC (11.7-14.0) Prothromb Time International Ratio 2.3 (0.8-1.1) Test 05/30/17 11:31 Glucose (Fingerstick) 117 mg/dL (70-99) Medications Current Medications Sodium Chloride 1,000 ml @ 100 mls/hr Q10H IV Last administered on 05/30/17t 08:32; Start 05/28/17 at 15:01 Ondansetron HCl (Zofran) 4 mg PRN Q6HRS PRN IV NAUSEA/VOMITING; Start 05/28/17 at 15:15 Prochlorperazine Edisylate (Compazine) 10 mg PRN Q6HRS PRN IV NAUSEA/VOMITING; Start 05/28/17 at 15:15 Prochlorperazine (Compazine) 25 mg PRN Q12HR PRN AR NAUSEA/VOMITING; Start at 15:15 Al Hydroxide/Mg Hydroxide (Mylanta Plus Xs) 30 ml PRN Q3HRS PRN PO HEARTBURN / GAS; Start 05/28/17 at 15:15 Calcium Carbonate/ Glycine (Tums) 500 mg PRN Q3HRS PRN PO UPSET STOMACH; Start 05/28/17 at 15:15 Oxycodone HCl (Roxicodone) 5 mg PRN Q3HRS PRN PO BREAKTHROUGH PAIN; Start 05/28 at 15:15 Morphine Sulfate 1 mg PRN Q1HR PRN IV PAIN; Start 05/28/17 at 15:15 Acetaminophen (Tylenol) 650 mg PRN Q6HRS PRN PO Headaches, Temp > 101.5F; Start 05/28/17 at 15:15 Magnesium Hydroxide (Milk Of Magnesia) 2,400 mg PRN Q12HR PRN PO CONSTIPATION; Start 05/28/17 at 15:15 Bisacodyl (Dulcolax Supp) 10 mg PRN DAILY PRN AR CONSTIPATION; Start 05/28/17 at 15:15 Haloperidol Lactate (Haldol) 5 mg PRN Q6HRS PRN IVP AGITATION Last administered on 05/28/17 16:48; Start 05/28/17 at 15:15 Lorazepam (Ativan) 2 mg PRN Q4HRS PRN IV ANXIETY / AGITATION Last administered on 05/28/17 21:02; Start 05/28/17 at 15:15 Famotidine (Pepcid) 20 mg BID IVP Last administered on 05/30/17 08:32; Start 05/28/17 at 21:00 Insulin Aspart (NovoLOG) 0-7 UNITS TIDWMEALS SQ Last administered on 05/29/17 12:28; Start 05/28/17 at 17:00 Dextrose (Dextrose 50%-Water Syringe) 12.5 gm PRN Q15MIN PRN IV SEE COMMENTS; Start 05/28/17 at 15:15 Phytonadione (Mephyton Tablet) 10 mg 1X ONCE PO Last administered on 18:08; Start 05/28/17 at 17:45; Stop 05/28/17 at 17:46; Status DC Pneumococcal Polyvalent Vaccine (Do NOT chart on this placeholder) 1 each 1X ONCE MC ; Start 05/28/17 at 19:30; Stop 05/28/17 at 19:31; Status UNV Pneumococcal Polyvalent Vaccine (Pneumovax 23) 0.5 ml ONCE ONCE VAX IM Last administered on 05/29/17 08:38; Start 05/28/17 at 20:00; Stop 05/28/17 at 20:01 ; Status DC Phytonadione (Vitamin K Ampule) 10 mg 1X ONCE SQ Last administered on 12:26; Start 05/29/17 at 11:45; Stop 05/29/17 at 11:46; Status DC Metoprolol Tartrate (Lopressor) 25 mg BID PO Last administered on 05/29/17 21: 00; Start 05/29/17 at 14:00; Stop 05/29/17 at 21:00; Status DC Metoprolol Tartrate (Lopressor) 25 mg BID PO Last administered on 05/30/17 08: 29; Start 05/29/17 at 21:00 Phytonadione (Mephyton Tablet) 5 mg 1X ONCE PO Last administered on 05/30/17 11:35; Start 05/30/17 at 11:00; Stop 05/30/17 at 11:01; Status DC Active Scripts Active Reported Multivitamins (Multivitamin) 1 Each Tablet 1 Tab PO DAILY Spironolactone 25 Mg Tablet 12.5 Mg PO DAILY Pro-Stat Liquid (Amino Acids/Protein Hydrolys) 30 Ml Liquid 30 Ml PO BID Pantoprazole Sodium 40 Mg Tablet.dr 1 Tab PO DAILY Metformin Hcl 500 Mg Tablet 500 Mg PO DAILY Lisinopril 10 Mg Tablet 1 Tab PO DAILY Lasix (Furosemide) 40 Mg Tablet 1 Tab PO BID Ferrous Sulfate 325 Mg Tablet 325 Mg PO BID Coumadin (Warfarin Sodium) 5 Mg Tablet 7 Mg PO DAILY Wednesday, Wed, , Wed Clonazepam 0.5 Mg Tablet 1 Tab PO DAILY PRN Carvedilol 12.5 Mg Tablet 1 Tab PO BID Atorvastatin Calcium 40 Mg Tablet 1 Tab PO QHS Aspir 81 (Aspirin) 81 Mg Tablet. 1 Tab PO DAILY Tylenol (Acetaminophen) 325 Mg Tablet 2 Tab PO PRN Q6HRS PRN Do not exceed 3000mg in 24hr period Vitals/I & O Vital Sign - Last 24 Hours 05/29/17 05/29/17 05/29/17 05/29/17 14:12 15:00 16:34 17:00 Temp 98.9 97.7 97.7 98.9 97.7 97.7 Pulse 72 77 64 61 Resp 20 20 24 B/P (MAP) 114/46 144/72 (96) 138/63 147/54 Pulse Ox 97 O2 Delivery Room Air 05/29/17 05/29/17 05/29/17 05/29/17 18:00 19:00 19:00 20:00 Temp 98.1 98.8 98.6 98.1 98.8 98.6 Pulse 75 62 61 Resp 20 18 20 B/P (MAP) 151/61 144/62 (89) 133/43 Pulse Ox 96 O2 Delivery Room Air Room Air 05/29/17 05/29/17 05/29/17 05/30/17 21:00 21:00 23:00 03:00 Temp 99.1 99.1 99.1 99.1 Pulse 65 62 64 58 Resp 18 18 B/P (MAP) 133/43 133/43 101/62 (75) 122/53 (76) Pulse Ox 96 96 O2 Delivery Room Air Room Air 05/30/17 05/30/17 05/30/17 05/30/17 07:00 07:25 08:29 11:00 Temp 98.0 97.9 98.0 97.9 Pulse 67 67 65 Resp 20 18 B/P (MAP) 134/64 (87) 134/64 141/53 (82) Pulse Ox 98 100 O2 Delivery Room Air Room Air Room Air Intake and Output 05/30/17 05/30/17 05/31/17 15:00 23:00 07:00 Intake Total 420 ml Balance 420 ml Problem List Acute blood loss anemia- with anticoagulatoin, await family/patient decision regarding any further testing, EGD/colonoscopy, will reassess tomorrow ANTONIETTA MTZ MD May 30, 2017 13:18
--- NOTE | 2017-05-30 13:47 | PDOC ---
PROGRESS NOTES Chief Complaint Chief Complaint 1. SEVERE CRITICAL NORMOCYTIC Anemia s/p multiple BT 2. Metabolic encephalopathy, agitation unclear reason - better/resolved 3. Hx CVA with Right residual UE contracture 4. [facility] resident?? 5. ABd pain - seems better 6. HILARIO - creat 1,8 unknown baseline 7. HX atrialn fib was on warf on amdit 8. Supratherapeutic iNR with no bleed 9,. Vtach sec to demand ischemia History of Present Illness History of Present Illness hgb 7,.4 today after 1 more pRCB for hgb 6 on wednesday He came in with hgb 4 on admit WITH NO OBVIOUS SOURCE of bleeding NO surgical plans Possibly EGD. c scope plans GI nect week He denies any abd pain I also consulted heme onc given the obscure anemia with no evident blood loss HAd vtach wednesday- hx atrial fib was on warf prior to admit\ INR 2,3 - did get some vitamin K in the light of very signif anemia PLAN: I did decide to give vitamin K 5 PO today to further reverse INR just bec of the anemia. Though no bleeding Possible plans EGD c scope? If yes then will make NPO post MN Otherwise could have reg food tray if GI ok (cardiac diet) Echo and BB low dose I did start given the vtach - does have hx a fib - cads concurs Dw pt Vitals Vitals Vital Signs Date Time Temp Pulse Resp B/P (MAP) Pulse Ox O2 Delivery O2 Flow Rate FiO2 05/30/17 11:00 97.9 65 18 141/53 (82) 100 Room Air 97.9 05/29/17 07:00 2.0 Physical Exam General: Alert, No acute distress Heart: Regular rate, Normal S1, Normal S2 Abdomen: Normal bowel sounds, Soft, No tenderness Extremities: No clubbing, No cyanosis, No edema, Normal pulses, No tenderness/ swelling Skin: No rashes, No breakdown, No significant lesion Labs LABS Laboratory Tests Test 05/29/17 16:41 05/29/17 20:35 05/30/17 04:40 05/30/17 11:00 Glucose (Fingerstick) 121 mg/dL (70-99) 170 mg/dL (70-99) White Blood Count 7.8 x10^3/uL (4.0-11.0) Red Blood Count 2.39 x10^6/uL (4.30-5.70) Hemoglobin 7.4 g/dL (13.0-17.5) 7.6 g/dL (13.0-17.5) Hematocrit 21.6 % (39.0-53.0) 22.5 % (39.0-53.0) Mean Corpuscular Volume 91 fL (79-100) Mean Corpuscular Hemoglobin 31 pg (25-35) Mean Corpuscular Hemoglobin Concent 34 g/dL (31-37) 34 g/dL (31-37) Red Cell Distribution Width 16.7 % (11.5-14.5) Platelet Count 158 x10^3/uL (140-400) Neutrophils (%) (Auto) 68 % (31-73) Lymphocytes (%) (Auto) 22 % (24-48) Monocytes (%) (Auto) 8 % (0-9) Eosinophils (%) (Auto) 3 % (0-3) Basophils (%) (Auto) 1 % (0-3) Neutrophils # (Auto) 5.3 x10^3uL (1.8-7.7) Lymphocytes # (Auto) 1.7 x10^3/uL (1.0-4.8) Monocytes # (Auto) 0.6 x10^3/uL (0.0-1.1) Eosinophils # (Auto) 0.2 x10^3/uL (0.0-0.7) Basophils # (Auto) 0.0 x10^3/uL (0.0-0.2) Reticulocyte Count (auto) 11.9 % (0.5-2.5) Prothrombin Time 24.0 SEC (11.7-14.0) Prothromb Time International Ratio 2.3 (0.8-1.1) Test 05/30/17 11:31 Glucose (Fingerstick) 117 mg/dL (70-99) Review of Systems Review of Systems he denies 14 pt reviewed Comment Review of Relevant I have reviewed the following items yulissa (where applicable) has been applied. Labs Laboratory Tests Test 05/28/17 15:30 05/28/17 15:40 05/28/17 16:18 05/29/17 04:30 Nasal Screen MRSA (PCR) Negative (Negative) Hemoglobin 4.9 g/dL (13.0-17.5) 6.7 g/dL (13.0-17.5) Hematocrit 15.6 % (39.0-53.0) 19.7 % (39.0-53.0) Mean Corpuscular Hemoglobin Concent 32 g/dL (31-37) 34 g/dL (31-37) Prothrombin Time 35.6 SEC (11.7-14.0) 34.6 SEC (11.7-14.0) Prothromb Time International Ratio 3.9 (0.8-1.1) 3.7 (0.8-1.1) Glucose (Fingerstick) 127 mg/dL (70-99) White Blood Count 10.1 x10^3/uL (4.0-11.0) Red Blood Count 2.12 x10^6/uL (4.30-5.70) Mean Corpuscular Volume 93 fL (79-100) Mean Corpuscular Hemoglobin 32 pg (25-35) Red Cell Distribution Width 15.6 % (11.5-14.5) Platelet Count 156 x10^3/uL (140-400) Neutrophils (%) (Auto) 66 % (31-73) Lymphocytes (%) (Auto) 24 % (24-48) Monocytes (%) (Auto) 9 % (0-9) Eosinophils (%) (Auto) 1 % (0-3) Basophils (%) (Auto) 0 % (0-3) Neutrophils # (Auto) 6.6 x10^3uL (1.8-7.7) Lymphocytes # (Auto) 2.5 x10^3/uL (1.0-4.8) Monocytes # (Auto) 0.9 x10^3/uL (0.0-1.1) Eosinophils # (Auto) 0.1 x10^3/uL (0.0-0.7) Basophils # (Auto) 0.0 x10^3/uL (0.0-0.2) Sodium Level 147 mmol/L (136-145) Potassium Level 3.8 mmol/L (3.5-5.1) Chloride Level 112 mmol/L (98-107) Carbon Dioxide Level 29 mmol/L (21-32) Anion Gap 6 (6-14) Blood Urea Nitrogen 53 mg/dL (8-26) Creatinine 1.6 mg/dL (0.7-1.3) Estimated GFR (Cockcroft-Gault) 52.9 BUN/Creatinine Ratio 33 (6-20) Glucose Level 145 mg/dL (70-99) Calcium Level 8.0 mg/dL (8.5-10.1) Phosphorus Level 3.8 mg/dL (2.6-4.7) Magnesium Level 2.0 mg/dL (1.8-2.4) Iron Level 37 ug/dL (65-175) Total Iron Binding Capacity 230 ug/dL (250-450) Iron Saturation 16 % (15-34) Total Bilirubin 0.9 mg/dL (0.2-1.0) Aspartate Amino Transf (AST/SGOT) 28 U/L (15-37) Alanine Aminotransferase (ALT/SGPT) 31 U/L (16-63) Alkaline Phosphatase 48 U/L (46-116) Total Protein 5.5 g/dL (6.4-8.2) Albumin 3.0 g/dL (3.4-5.0) Albumin/Globulin Ratio 1.2 (1.0-1.7) Test 05/29/17 07:18 05/29/17 11:29 05/29/17 11:38 05/29/17 16:41 Glucose (Fingerstick) 133 mg/dL (70-99) 156 mg/dL (70-99) 121 mg/dL (70-99) Hemoglobin 6.4 g/dL (13.0-17.5) Hematocrit 19.1 % (39.0-53.0) Mean Corpuscular Hemoglobin Concent 34 g/dL (31-37) Test 05/29/17 20:35 05/30/17 04:40 05/30/17 11:00 05/30/17 11:31 Glucose (Fingerstick) 170 mg/dL (70-99) 117 mg/dL (70-99) White Blood Count 7.8 x10^3/uL (4.0-11.0) Red Blood Count 2.39 x10^6/uL (4.30-5.70) Hemoglobin 7.4 g/dL (13.0-17.5) 7.6 g/dL (13.0-17.5) Hematocrit 21.6 % (39.0-53.0) 22.5 % (39.0-53.0) Mean Corpuscular Volume 91 fL (79-100) Mean Corpuscular Hemoglobin 31 pg (25-35) Mean Corpuscular Hemoglobin Concent 34 g/dL (31-37) 34 g/dL (31-37) Red Cell Distribution Width 16.7 % (11.5-14.5) Platelet Count 158 x10^3/uL (140-400) Neutrophils (%) (Auto) 68 % (31-73) Lymphocytes (%) (Auto) 22 % (24-48) Monocytes (%) (Auto) 8 % (0-9) Eosinophils (%) (Auto) 3 % (0-3) Basophils (%) (Auto) 1 % (0-3) Neutrophils # (Auto) 5.3 x10^3uL (1.8-7.7) Lymphocytes # (Auto) 1.7 x10^3/uL (1.0-4.8) Monocytes # (Auto) 0.6 x10^3/uL (0.0-1.1) Eosinophils # (Auto) 0.2 x10^3/uL (0.0-0.7) Basophils # (Auto) 0.0 x10^3/uL (0.0-0.2) Reticulocyte Count (auto) 11.9 % (0.5-2.5) Prothrombin Time 24.0 SEC (11.7-14.0) Prothromb Time International Ratio 2.3 (0.8-1.1) Laboratory Tests Test 05/29/17 16:41 05/29/17 20:35 05/30/17 04:40 05/30/17 11:00 Glucose (Fingerstick) 121 mg/dL (70-99) 170 mg/dL (70-99) White Blood Count 7.8 x10^3/uL (4.0-11.0) Red Blood Count 2.39 x10^6/uL (4.30-5.70) Hemoglobin 7.4 g/dL (13.0-17.5) 7.6 g/dL (13.0-17.5) Hematocrit 21.6 % (39.0-53.0) 22.5 % (39.0-53.0) Mean Corpuscular Volume 91 fL (79-100) Mean Corpuscular Hemoglobin 31 pg (25-35) Mean Corpuscular Hemoglobin Concent 34 g/dL (31-37) 34 g/dL (31-37) Red Cell Distribution Width 16.7 % (11.5-14.5) Platelet Count 158 x10^3/uL (140-400) Neutrophils (%) (Auto) 68 % (31-73) Lymphocytes (%) (Auto) 22 % (24-48) Monocytes (%) (Auto) 8 % (0-9) Eosinophils (%) (Auto) 3 % (0-3) Basophils (%) (Auto) 1 % (0-3) Neutrophils # (Auto) 5.3 x10^3uL (1.8-7.7) Lymphocytes # (Auto) 1.7 x10^3/uL (1.0-4.8) Monocytes # (Auto) 0.6 x10^3/uL (0.0-1.1) Eosinophils # (Auto) 0.2 x10^3/uL (0.0-0.7) Basophils # (Auto) 0.0 x10^3/uL (0.0-0.2) Reticulocyte Count (auto) 11.9 % (0.5-2.5) Prothrombin Time 24.0 SEC (11.7-14.0) Prothromb Time International Ratio 2.3 (0.8-1.1) Test 05/30/17 11:31 Glucose (Fingerstick) 117 mg/dL (70-99) Medications Current Medications Sodium Chloride 1,000 ml @ 100 mls/hr Q10H IV Last administered on 05/30/17t 08:32; Start 05/28/17 at 15:01 Ondansetron HCl (Zofran) 4 mg PRN Q6HRS PRN IV NAUSEA/VOMITING; Start 05/28/17 at 15:15 Prochlorperazine Edisylate (Compazine) 10 mg PRN Q6HRS PRN IV NAUSEA/VOMITING; Start 05/28/17 at 15:15 Prochlorperazine (Compazine) 25 mg PRN Q12HR PRN DE NAUSEA/VOMITING; Start at 15:15 Al Hydroxide/Mg Hydroxide (Mylanta Plus Xs) 30 ml PRN Q3HRS PRN PO HEARTBURN / GAS; Start 05/28/17 at 15:15 Calcium Carbonate/ Glycine (Tums) 500 mg PRN Q3HRS PRN PO UPSET STOMACH; Start 05/28/17 at 15:15 Oxycodone HCl (Roxicodone) 5 mg PRN Q3HRS PRN PO BREAKTHROUGH PAIN; Start 05/28 at 15:15 Morphine Sulfate 1 mg PRN Q1HR PRN IV PAIN; Start 05/28/17 at 15:15 Acetaminophen (Tylenol) 650 mg PRN Q6HRS PRN PO Headaches, Temp > 101.5F; Start 05/28/17 at 15:15 Magnesium Hydroxide (Milk Of Magnesia) 2,400 mg PRN Q12HR PRN PO CONSTIPATION; Start 05/28/17 at 15:15 Bisacodyl (Dulcolax Supp) 10 mg PRN DAILY PRN DE CONSTIPATION; Start 05/28/17 at 15:15 Haloperidol Lactate (Haldol) 5 mg PRN Q6HRS PRN IVP AGITATION Last administered on 05/28/17 16:48; Start 05/28/17 at 15:15 Lorazepam (Ativan) 2 mg PRN Q4HRS PRN IV ANXIETY / AGITATION Last administered on 05/28/17 21:02; Start 05/28/17 at 15:15 Famotidine (Pepcid) 20 mg BID IVP Last administered on 05/30/17 08:32; Start 05/28/17 at 21:00 Insulin Aspart (NovoLOG) 0-7 UNITS TIDWMEALS SQ Last administered on 05/29/17 12:28; Start 05/28/17 at 17:00 Dextrose (Dextrose 50%-Water Syringe) 12.5 gm PRN Q15MIN PRN IV SEE COMMENTS; Start 05/28/17 at 15:15 Phytonadione (Mephyton Tablet) 10 mg 1X ONCE PO Last administered on 18:08; Start 05/28/17 at 17:45; Stop 05/28/17 at 17:46; Status DC Pneumococcal Polyvalent Vaccine (Do NOT chart on this placeholder) 1 each 1X ONCE MC ; Start 05/28/17 at 19:30; Stop 05/28/17 at 19:31; Status UNV Pneumococcal Polyvalent Vaccine (Pneumovax 23) 0.5 ml ONCE ONCE VAX IM Last administered on 05/29/17 08:38; Start 05/28/17 at 20:00; Stop 05/28/17 at 20:01 ; Status DC Phytonadione (Vitamin K Ampule) 10 mg 1X ONCE SQ Last administered on 12:26; Start 05/29/17 at 11:45; Stop 05/29/17 at 11:46; Status DC Metoprolol Tartrate (Lopressor) 25 mg BID PO Last administered on 05/29/17 21: 00; Start 05/29/17 at 14:00; Stop 05/29/17 at 21:00; Status DC Metoprolol Tartrate (Lopressor) 25 mg BID PO Last administered on 05/30/17 08: 29; Start 05/29/17 at 21:00 Phytonadione (Mephyton Tablet) 5 mg 1X ONCE PO Last administered on 05/30/17 11:35; Start 05/30/17 at 11:00; Stop 05/30/17 at 11:01; Status DC Active Scripts Active Reported Multivitamins (Multivitamin) 1 Each Tablet 1 Tab PO DAILY Spironolactone 25 Mg Tablet 12.5 Mg PO DAILY Pro-Stat Liquid (Amino Acids/Protein Hydrolys) 30 Ml Liquid 30 Ml PO BID Pantoprazole Sodium 40 Mg Tablet.dr 1 Tab PO DAILY Metformin Hcl 500 Mg Tablet 500 Mg PO DAILY Lisinopril 10 Mg Tablet 1 Tab PO DAILY Lasix (Furosemide) 40 Mg Tablet 1 Tab PO BID Ferrous Sulfate 325 Mg Tablet 325 Mg PO BID Coumadin (Warfarin Sodium) 5 Mg Tablet 7 Mg PO DAILY Wednesday, Wed, , Wed Clonazepam 0.5 Mg Tablet 1 Tab PO DAILY PRN Carvedilol 12.5 Mg Tablet 1 Tab PO BID Atorvastatin Calcium 40 Mg Tablet 1 Tab PO QHS Aspir 81 (Aspirin) 81 Mg Tablet.dr 1 Tab PO DAILY Tylenol (Acetaminophen) 325 Mg Tablet 2 Tab PO PRN Q6HRS PRN Do not exceed 3000mg in 24hr period Vitals/I & O Vital Sign - Last 24 Hours 05/29/17 05/29/17 05/29/17 05/29/17 14:12 15:00 16:34 17:00 Temp 98.9 97.7 97.7 98.9 97.7 97.7 Pulse 72 77 64 61 Resp 20 20 24 B/P (MAP) 114/46 144/72 (96) 138/63 147/54 Pulse Ox 97 O2 Delivery Room Air 05/29/17 05/29/17 05/29/17 05/29/17 18:00 19:00 19:00 20:00 Temp 98.1 98.8 98.6 98.1 98.8 98.6 Pulse 75 62 61 Resp 20 18 20 B/P (MAP) 151/61 144/62 (89) 133/43 Pulse Ox 96 O2 Delivery Room Air Room Air 05/29/17 05/29/17 05/29/17 05/30/17 21:00 21:00 23:00 03:00 Temp 99.1 99.1 99.1 99.1 Pulse 65 62 64 58 Resp 18 18 B/P (MAP) 133/43 133/43 101/62 (75) 122/53 (76) Pulse Ox 96 96 O2 Delivery Room Air Room Air 05/30/17 05/30/17 05/30/17 05/30/17 07:00 07:25 08:29 11:00 Temp 98.0 97.9 98.0 97.9 Pulse 67 67 65 Resp 20 18 B/P (MAP) 134/64 (87) 134/64 141/53 (82) Pulse Ox 98 100 O2 Delivery Room Air Room Air Room Air Intake and Output 05/30/17 05/30/17 05/31/17 15:00 23:00 07:00 Intake Total 780 ml Balance 780 ml BARTOLOME TREVIÑO MD May 30, 2017 13:47
[2017-05-30 15:00] VITALS: BP 154/78
[2017-05-30 19:00] VITALS: BP 134/58
[2017-05-30 23:00] VITALS: BP 144/63
[2017-05-31] MEDS: oxyCODONE IR 5 MG TABLET PO PRN (01:44)
[2017-05-31] MEDS: IV 1/2 NORMAL SALINE 1,000 ML IV SCH ×2 (02:32→12:25)
[2017-05-31 03:30] VITALS: BP 151/62
[2017-05-31 04:36] LABS: BASO % 0 % (0-3); EOS % 3 % (0-3); HEMATOCRIT 24.9 % (39.0-53.0); HEMOGLOBIN 8.1 g/dL (13.0-17.5); LYMPH # 1.6 x10^3/uL (1.0-4.8); LYMPH % 23 % (24-48); MEAN CORPUSCULAR HEMOGLOBIN 30 pg (25-35); MEAN CORPUSCULAR HGB CONC 33 g/dL (31-37); MEAN CORPUSCULAR VOLUME 93 fL (79-100); MONO % 8 % (0-9); NEUT % 66 % (31-73); PLATELET COUNT 179 x10^3/uL (140-400); RED BLOOD COUNT 2.68 x10^6/uL (4.30-5.70); RED CELL DISTRIBUTION WIDTH 19.4 % (11.5-14.5); WHITE BLOOD COUNT 6.9 x10^3/uL (4.0-11.0)
[2017-05-31 04:49] LABS: RETIC COUNT 7.5 % (0.5-2.5)
[2017-05-31 04:52] LABS: INR 1.3 (0.8-1.1); PROTHROMBIN TIME PATIENT 15.6 SEC (11.7-14.0)
[2017-05-31 05:09] LABS: FERRITIN 46 ng/mL (26-388); LACTATE DEHYDROGENASE 662 U/L (85-227)
[2017-05-31 07:00] VITALS: BP 145/64
[2017-05-31] MEDS: INSULIN ASPART 300 UNITS/3 ML INSULN.PEN SQ SCH ×3 (08:00→17:00)
[2017-05-31] MEDS: FAMOTIDINE 20 MG/2 ML VIAL IVP SCH (09:00)
--- NOTE | 2017-05-31 09:57 | CARD ---
APPROVED REPORT EXAM: Two-dimensional and M-mode echocardiogram with Doppler and color Doppler. Other Information Quality : GoodHR: 70bpm Rhythm : NSR INDICATION LV Function:SystolicDiastolic 2D DIMENSIONS Left Atrium(2D)4.9 (1.6-4.0cm)IVSd1.0 (0.7-1.1cm) Aortic Root(2D)3.2 (2.0-3.7cm)LVDd6.0 (3.9-5.9cm) LVOT Diameter2.6 (1.8-2.4cm)PWd1.0 (0.7-1.1cm) LA Gilbqk38 (18-58mL)LVDs4.6 (2.5-4.0cm) FS (%) 29.7 %SV120.3 ml LVEF(%)20.0 (>50%) M-Mode DIMENSIONS Aortic Cusp Exc1.57 (1.5-2.0cm) Aortic Valve AoV Peak Bryan.188.0cm/sAoV VTI36.9cm AO Peak GR.14.1mmHgLVOT VTI 18.66cm AO Mean GR.7mmHgAVA (VTI)2.70cm2 AI P 1/2 [id number] Mitral Valve MV E Mcusplzf048.5cm/sMV E Peak Gr.7mmHg MV DECEL [id number] A Tgdvkhza191.7cm/s MV E Mean Gr.3mmHgE/A Ratio1.0 MV A [id number] TDI Lateral E' P. V6.31cm/sMedial E' P. V5.02cm/s E/Lateral E'17.5E/Medial E'22.0 Pulmonary Valve PV Peak Pczmpdep558.4cm/s Tricuspid Valve TR P. [id number]/sRAP [id number] TR Peak Gr.91zsSzYPAS73fiZx Pulmonary Vein S1 Uxzzsxsm73.7cm/sS2 Yamjuabr70.80cm/s D2 Ujsuqvno50.8cm/s LEFT VENTRICLE The Left Ventricle is mildly dilated. There is normal left ventricular wall thickness. The ejection f raction is severely impaired. EF 25% The distal 2/3rd of the LV is severely hypokinetic. The left radha tricular diastolic function and filling is normal for age. No left ventricle thrombus noted on this s tudy but there is smoke in the LV/LA consistent with low flow state. There is no left ventricular ane urysm. There is no mass noted in the left ventricle. RIGHT VENTRICLE The right ventricle is normal size. There is normal right ventricular wall thickness. The right ventr icular systolic function is normal. ATRIA The left atrium is mildly dilated. The right atrium size is normal. The interatrial septum is intact with no evidence for an atrial septal defect or patent foramen ovale as noted on 2-D or Doppler imagi ng. AORTIC VALVE The aortic valve is normal in structure and function. Doppler and Color Flow revealed mild aortic reg urgitation. There is no significant aortic valvular stenosis. There is no aortic valvular vegetation. MITRAL VALVE The mitral valve is normal in structure and function. There is no evidence of mitral valve prolapse. There is no mitral valve stenosis. Doppler and Color-flow revealed mild mitral regurgitation. TRICUSPID VALVE The tricuspid valve is normal in structure and function. Doppler and Color Flow revealed mild tricusp id regurgitation. There is no tricuspid valve prolapse or vegetation. There is no tricuspid valve tashi nosis. PULMONIC VALVE Doppler and Color Flow revealed no pulmonic valvular regurgitation. There is no pulmonic valvular tashi nosis. GREAT VESSELS The aortic root is normal in size. The ascending aorta is normal in size. The IVC is normal in size a nd collapses >50% with inspiration. PERICARDIAL EFFUSION There is no pleural effusion. There is no evidence of significant pericardial effusion. Critical Notification Critical Value: No <Conclusion> The ejection fraction is severely impaired. EF 25% The distal 2/3rd of the LV is severely hypokinetic. No left ventricle thrombus noted on this study but there is smoke in the LV/LA consistent with low fl ow state. Doppler and Color Flow revealed mild aortic regurgitation.
--- NOTE | 2017-05-31 10:28 | PDOC ---
Subjective: Subjective: Denies pain. Objective: Objective: Per RN - no bleeding. Had a dark brown-green stool yesterday. No vomiting. Tolerating cardiac diet. visited yesterday - he signs his own consents. Vital Signs: Vital Signs Date Time Temp Pulse Resp B/P (MAP) Pulse Ox O2 Delivery O2 Flow Rate FiO2 05/31/17 07:10 Room Air 05/31/17 07:00 97.6 56 18 145/64 (91) 100 97.6 Labs: Laboratory Tests Test 05/30/17 11:00 05/30/17 11:31 05/30/17 15:09 05/30/17 20:31 Hemoglobin 7.6 g/dL Hematocrit 22.5 % Mean Corpuscular Hemoglobin Concent 34 g/dL Glucose (Fingerstick) 117 mg/dL 159 mg/dL 165 mg/dL Test 05/31/17 03:31 05/31/17 08:03 White Blood Count 6.9 x10^3/uL Red Blood Count 2.68 x10^6/uL Hemoglobin 8.1 g/dL Hematocrit 24.9 % Mean Corpuscular Volume 93 fL Mean Corpuscular Hemoglobin 30 pg Mean Corpuscular Hemoglobin Concent 33 g/dL Red Cell Distribution Width 19.4 % Platelet Count 179 x10^3/uL Neutrophils (%) (Auto) 66 % Lymphocytes (%) (Auto) 23 % Monocytes (%) (Auto) 8 % Eosinophils (%) (Auto) 3 % Basophils (%) (Auto) 0 % Neutrophils # (Auto) 4.6 x10^3uL Lymphocytes # (Auto) 1.6 x10^3/uL Monocytes # (Auto) 0.5 x10^3/uL Eosinophils # (Auto) 0.2 x10^3/uL Basophils # (Auto) 0.0 x10^3/uL Reticulocyte Count (auto) 7.5 % Prothrombin Time 15.6 SEC Prothromb Time International Ratio 1.3 Ferritin 46 ng/mL Lactate Dehydrogenase 662 U/L Glucose (Fingerstick) 97 mg/dL PE: GEN: NAD LUNGS: clear HEART: RRR ABD: NABS, S/ND/NT NEURO/PSYCH: awake/alert A/P: Anemia -Hgb improved (8.1) s/p transfusions -h/o CVA w/ aphasia, Coumadin coagulopathy on admit (INR 3.9 to 1.3) Vomiting - no recurrence -CT @ [facility]: distended stomach and GB, non-dilated small bowel, feces and gas in colon w/ moderate stool in rectum ?h/o ulcerative colitis -- Anemia improved. Stop IV acid zigzag stitcher since taking PO - change to PO. Will review w/ Dr. Verduzco - no family present to discuss possible 'scopes. GARY FELIPE May 31, 2017 10:28
[2017-05-31 11:00] VITALS: BP 136/61
[2017-05-31 11:11] LABS: FOLATE 16.24 ng/ml (3.2-20.0)
--- NOTE | 2017-05-31 12:12 | PDOC ---
SURGICAL PROGRESS NOTE Subjective tolerating diet no pain nursing reports dark brown/green stool last night no signs of bleeding Vital Signs Vital Signs Date Time Temp Pulse Resp B/P (MAP) Pulse Ox O2 Delivery O2 Flow Rate FiO2 05/31/17 11:33 Room Air 05/31/17 11:00 98.9 63 18 136/61 (86) 94 98.9 I&O Intake and Output 06/01/17 07:00 Intake Total 180 ml Balance 180 ml Intake Oral 180 ml General: Alert, Oriented X3, Cooperative, No acute distress Abdomen: Soft, No tenderness Labs Laboratory Tests Test 05/29/17 16:41 05/29/17 20:35 05/30/17 04:40 05/30/17 07:06 Glucose (Fingerstick) 121 mg/dL (70-99) 170 mg/dL (70-99) 133 mg/dL (70-99) White Blood Count 7.8 x10^3/uL (4.0-11.0) Red Blood Count 2.39 x10^6/uL (4.30-5.70) Hemoglobin 7.4 g/dL (13.0-17.5) Hematocrit 21.6 % (39.0-53.0) Mean Corpuscular Volume 91 fL (79-100) Mean Corpuscular Hemoglobin 31 pg (25-35) Mean Corpuscular Hemoglobin Concent 34 g/dL (31-37) Red Cell Distribution Width 16.7 % (11.5-14.5) Platelet Count 158 x10^3/uL (140-400) Neutrophils (%) (Auto) 68 % (31-73) Lymphocytes (%) (Auto) 22 % (24-48) Monocytes (%) (Auto) 8 % (0-9) Eosinophils (%) (Auto) 3 % (0-3) Basophils (%) (Auto) 1 % (0-3) Neutrophils # (Auto) 5.3 x10^3uL (1.8-7.7) Lymphocytes # (Auto) 1.7 x10^3/uL (1.0-4.8) Monocytes # (Auto) 0.6 x10^3/uL (0.0-1.1) Eosinophils # (Auto) 0.2 x10^3/uL (0.0-0.7) Basophils # (Auto) 0.0 x10^3/uL (0.0-0.2) Reticulocyte Count (auto) 11.9 % (0.5-2.5) Haptoglobin <10 mg/dL (34-200) Prothrombin Time 24.0 SEC (11.7-14.0) Prothromb Time International Ratio 2.3 (0.8-1.1) Test 05/30/17 11:00 05/30/17 11:31 05/30/17 15:09 05/30/17 20:31 Hemoglobin 7.6 g/dL (13.0-17.5) Hematocrit 22.5 % (39.0-53.0) Mean Corpuscular Hemoglobin Concent 34 g/dL (31-37) Glucose (Fingerstick) 117 mg/dL (70-99) 159 mg/dL (70-99) 165 mg/dL (70-99) Test 05/31/17 03:31 05/31/17 08:03 05/31/17 11:45 White Blood Count 6.9 x10^3/uL (4.0-11.0) Red Blood Count 2.68 x10^6/uL (4.30-5.70) Hemoglobin 8.1 g/dL (13.0-17.5) Hematocrit 24.9 % (39.0-53.0) Mean Corpuscular Volume 93 fL (79-100) Mean Corpuscular Hemoglobin 30 pg (25-35) Mean Corpuscular Hemoglobin Concent 33 g/dL (31-37) Red Cell Distribution Width 19.4 % (11.5-14.5) Platelet Count 179 x10^3/uL (140-400) Neutrophils (%) (Auto) 66 % (31-73) Lymphocytes (%) (Auto) 23 % (24-48) Monocytes (%) (Auto) 8 % (0-9) Eosinophils (%) (Auto) 3 % (0-3) Basophils (%) (Auto) 0 % (0-3) Neutrophils # (Auto) 4.6 x10^3uL (1.8-7.7) Lymphocytes # (Auto) 1.6 x10^3/uL (1.0-4.8) Monocytes # (Auto) 0.5 x10^3/uL (0.0-1.1) Eosinophils # (Auto) 0.2 x10^3/uL (0.0-0.7) Basophils # (Auto) 0.0 x10^3/uL (0.0-0.2) Reticulocyte Count (auto) 7.5 % (0.5-2.5) Prothrombin Time 15.6 SEC (11.7-14.0) Prothromb Time International Ratio 1.3 (0.8-1.1) Ferritin 46 ng/mL (26-388) Lactate Dehydrogenase 662 U/L (85-227) Glucose (Fingerstick) 97 mg/dL (70-99) 114 mg/dL (70-99) Laboratory Tests Test 05/30/17 15:09 05/30/17 20:31 05/31/17 03:31 05/31/17 08:03 Glucose (Fingerstick) 159 mg/dL (70-99) 165 mg/dL (70-99) 97 mg/dL (70-99) White Blood Count 6.9 x10^3/uL (4.0-11.0) Red Blood Count 2.68 x10^6/uL (4.30-5.70) Hemoglobin 8.1 g/dL (13.0-17.5) Hematocrit 24.9 % (39.0-53.0) Mean Corpuscular Volume 93 fL (79-100) Mean Corpuscular Hemoglobin 30 pg (25-35) Mean Corpuscular Hemoglobin Concent 33 g/dL (31-37) Red Cell Distribution Width 19.4 % (11.5-14.5) Platelet Count 179 x10^3/uL (140-400) Neutrophils (%) (Auto) 66 % (31-73) Lymphocytes (%) (Auto) 23 % (24-48) Monocytes (%) (Auto) 8 % (0-9) Eosinophils (%) (Auto) 3 % (0-3) Basophils (%) (Auto) 0 % (0-3) Neutrophils # (Auto) 4.6 x10^3uL (1.8-7.7) Lymphocytes # (Auto) 1.6 x10^3/uL (1.0-4.8) Monocytes # (Auto) 0.5 x10^3/uL (0.0-1.1) Eosinophils # (Auto) 0.2 x10^3/uL (0.0-0.7) Basophils # (Auto) 0.0 x10^3/uL (0.0-0.2) Reticulocyte Count (auto) 7.5 % (0.5-2.5) Prothrombin Time 15.6 SEC (11.7-14.0) Prothromb Time International Ratio 1.3 (0.8-1.1) Ferritin 46 ng/mL (26-388) Lactate Dehydrogenase 662 U/L (85-227) Test 05/31/17 11:45 Glucose (Fingerstick) 114 mg/dL (70-99) Assessment/Plan anemia, hgb stable after initial blood transfusion, no bleeding signs GI following no surgical needs, benign abdominal exam will sign off, please call with questions Problems: SERVANDO BENJAMIN APRN May 31, 2017 12:12
--- NOTE | 2017-05-31 12:17 | PDOC ---
MISAEL SANCHEZ [employer] 05/31/17 1217: CARDIO Progress Notes Date and Time Date of Service 05/31/2017 Time of Evaluation 1200 Subjective Subjective: No Chest Pain, No shortness of breath, No Palpitations, Other ( sitting, up denies discomfort) Vitals Vitals Vital Signs Date Time Temp Pulse Resp B/P (MAP) Pulse Ox O2 Delivery O2 Flow Rate FiO2 05/31/17 11:33 Room Air 05/31/17 11:00 98.9 63 18 136/61 (86) 94 98.9 Weight Weight [ ] Input and Output Intake and Output Intake and Output 06/01/17 07:00 Intake Total 180 ml Balance 180 ml Intake Oral 180 ml Laboratory Labs Laboratory Tests Test 05/30/17 15:09 05/30/17 20:31 05/31/17 03:31 05/31/17 08:03 Glucose (Fingerstick) 159 mg/dL (70-99) 165 mg/dL (70-99) 97 mg/dL (70-99) White Blood Count 6.9 x10^3/uL (4.0-11.0) Red Blood Count 2.68 x10^6/uL (4.30-5.70) Hemoglobin 8.1 g/dL (13.0-17.5) Hematocrit 24.9 % (39.0-53.0) Mean Corpuscular Volume 93 fL (79-100) Mean Corpuscular Hemoglobin 30 pg (25-35) Mean Corpuscular Hemoglobin Concent 33 g/dL (31-37) Red Cell Distribution Width 19.4 % (11.5-14.5) Platelet Count 179 x10^3/uL (140-400) Neutrophils (%) (Auto) 66 % (31-73) Lymphocytes (%) (Auto) 23 % (24-48) Monocytes (%) (Auto) 8 % (0-9) Eosinophils (%) (Auto) 3 % (0-3) Basophils (%) (Auto) 0 % (0-3) Neutrophils # (Auto) 4.6 x10^3uL (1.8-7.7) Lymphocytes # (Auto) 1.6 x10^3/uL (1.0-4.8) Monocytes # (Auto) 0.5 x10^3/uL (0.0-1.1) Eosinophils # (Auto) 0.2 x10^3/uL (0.0-0.7) Basophils # (Auto) 0.0 x10^3/uL (0.0-0.2) Reticulocyte Count (auto) 7.5 % (0.5-2.5) Prothrombin Time 15.6 SEC (11.7-14.0) Prothromb Time International Ratio 1.3 (0.8-1.1) Ferritin 46 ng/mL (26-388) Lactate Dehydrogenase 662 U/L (85-227) Test 05/31/17 11:45 Glucose (Fingerstick) 114 mg/dL (70-99) Physical Exam HEENT: Neck Supple W Full Motion Chest: Symmetric LUNGS: Clear to Auscultation Heart: S1S2, RRR (SR) Abdomen: Soft N/T Extremities: No Calf Tenderness, Other (chronic right arm weakness) Neurology: alert, oriented, follow commands, other (expressive aphasia) Assessment Assessment 1. PAFIB: in the setting of anemia and CM. 2. 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 EF 25% EF, Presumed new. 3. Severe anemia: requiring blood transfusion. Needing EGD/colonoscopy per GI 4. CVA Recommendations 1. Lipid panel, BMP, Mg 2. Will need ASA to start once clear with GI 3. No further coumadin at this time. JIM ligation would be a consideration, outpt referral. 4. Continue on metoprolol 5. Will optimize secondary prevention measures. 6. Ischemic workup in the form of MPI will be considered once anemia and etiology is resolved. 7. Discussed with pt but unclear about understading, will relay to spouse once available. ASHLEIGH SCHULTZ MD 06/01/17 0216: CARDIO Progress Notes Plan Plan Late entry for 05/31 Pt. seen and examined. Agree with above [employer] note. MISAEL SANCHEZ APRN May 31, 2017 12:17 ASHLEIGH SCHULTZ MD Jun 01, 2017 02:16
[2017-05-31] MEDS: PANTOPRAZOLE 40 MG TABLET.DR. PO SCH (12:25)
[2017-05-31 12:40] LABS: CALCIUM 7.3 mg/dL (8.5-10.1); MAGNESIUM 2.1 mg/dL (1.8-2.4)
[2017-05-31 12:41] LABS: CHOLESTEROL/HDL RATIO 3.8
--- NOTE | 2017-05-31 14:28 | PDOC ---
PROGRESS NOTES Chief Complaint Chief Complaint 1. SEVERE CRITICAL NORMOCYTIC Anemia s/p multiple BT, not clear etiology for the anemia, iron and vitb12 bordline low 2. Metabolic encephalopathy, agitation unclear reason - better/resolved 3. Hx CVA with Right residual UE contracture 4. [facility] resident 5. ABd pain - seems better 6. HILARIO - creat 1,8 unknown baseline 7. HX atrialn fib was on warf on amdit 8. Supratherapeutic iNR with no bleed 9,. Vtach sec to demand ischemia plan: fu with card, gi dc ivf check fobt add iron and vitb12 po post 3u PRBC transfusion, hb stable now PTOT gi ppx warfarin held, INR 1.3, minitor tmr remove pérez, may need dvt ppx tmr History of Present Illness History of Present Illness ROS: no fever, chills, sob or chest pain Hb stable post 3u PRBC transfusion no active bleeding Vitals Vitals Vital Signs Date Time Temp Pulse Resp B/P (MAP) Pulse Ox O2 Delivery O2 Flow Rate FiO2 05/31/17 11:33 Room Air 05/31/17 11:00 98.9 63 18 136/61 (86) 94 98.9 Physical Exam General: Alert, Oriented X3, Cooperative, No acute distress Heart: Regular rate, Normal S1, Normal S2 Lungs: Clear Abdomen: Soft, No tenderness Extremities: No clubbing, No cyanosis, No edema, Normal pulses, No tenderness/ swelling Skin: No rashes, No breakdown, No significant lesion Labs LABS Laboratory Tests Test 05/30/17 15:09 05/30/17 20:31 05/31/17 03:31 05/31/17 08:03 Glucose (Fingerstick) 159 mg/dL (70-99) 165 mg/dL (70-99) 97 mg/dL (70-99) White Blood Count 6.9 x10^3/uL (4.0-11.0) Red Blood Count 2.68 x10^6/uL (4.30-5.70) Hemoglobin 8.1 g/dL (13.0-17.5) Hematocrit 24.9 % (39.0-53.0) Mean Corpuscular Volume 93 fL (79-100) Mean Corpuscular Hemoglobin 30 pg (25-35) Mean Corpuscular Hemoglobin Concent 33 g/dL (31-37) Red Cell Distribution Width 19.4 % (11.5-14.5) Platelet Count 179 x10^3/uL (140-400) Neutrophils (%) (Auto) 66 % (31-73) Lymphocytes (%) (Auto) 23 % (24-48) Monocytes (%) (Auto) 8 % (0-9) Eosinophils (%) (Auto) 3 % (0-3) Basophils (%) (Auto) 0 % (0-3) Neutrophils # (Auto) 4.6 x10^3uL (1.8-7.7) Lymphocytes # (Auto) 1.6 x10^3/uL (1.0-4.8) Monocytes # (Auto) 0.5 x10^3/uL (0.0-1.1) Eosinophils # (Auto) 0.2 x10^3/uL (0.0-0.7) Basophils # (Auto) 0.0 x10^3/uL (0.0-0.2) Reticulocyte Count (auto) 7.5 % (0.5-2.5) Prothrombin Time 15.6 SEC (11.7-14.0) Prothromb Time International Ratio 1.3 (0.8-1.1) Sodium Level 143 mmol/L (136-145) Potassium Level 4.0 mmol/L (3.5-5.1) Chloride Level 109 mmol/L (98-107) Carbon Dioxide Level 27 mmol/L (21-32) Anion Gap 7 (6-14) Blood Urea Nitrogen 11 mg/dL (8-26) Creatinine 1.0 mg/dL (0.7-1.3) Estimated GFR (Cockcroft-Gault) 91.0 Glucose Level 113 mg/dL (70-99) Calcium Level 7.3 mg/dL (8.5-10.1) Magnesium Level 2.1 mg/dL (1.8-2.4) Ferritin 46 ng/mL (26-388) Lactate Dehydrogenase 662 U/L (85-227) Triglycerides Level 110 mg/dL (0-150) Cholesterol Level 94 mg/dL (0-200) LDL Cholesterol, Calculated 47 mg/dL (0-100) VLDL Cholesterol, Calculated 22 mg/dL (0-40) Non-HDL Cholesterol Calculated 69 mg/dL (0-129) HDL Cholesterol 25 mg/dL (40-60) Cholesterol/HDL Ratio 3.8 Test 05/31/17 11:45 Glucose (Fingerstick) 114 mg/dL (70-99) Comment Review of Relevant I have reviewed the following items yulissa (where applicable) has been applied. Labs Laboratory Tests Test 05/29/17 16:41 05/29/17 20:35 05/30/17 04:40 05/30/17 07:06 Glucose (Fingerstick) 121 mg/dL (70-99) 170 mg/dL (70-99) 133 mg/dL (70-99) White Blood Count 7.8 x10^3/uL (4.0-11.0) Red Blood Count 2.39 x10^6/uL (4.30-5.70) Hemoglobin 7.4 g/dL (13.0-17.5) Hematocrit 21.6 % (39.0-53.0) Mean Corpuscular Volume 91 fL (79-100) Mean Corpuscular Hemoglobin 31 pg (25-35) Mean Corpuscular Hemoglobin Concent 34 g/dL (31-37) Red Cell Distribution Width 16.7 % (11.5-14.5) Platelet Count 158 x10^3/uL (140-400) Neutrophils (%) (Auto) 68 % (31-73) Lymphocytes (%) (Auto) 22 % (24-48) Monocytes (%) (Auto) 8 % (0-9) Eosinophils (%) (Auto) 3 % (0-3) Basophils (%) (Auto) 1 % (0-3) Neutrophils # (Auto) 5.3 x10^3uL (1.8-7.7) Lymphocytes # (Auto) 1.7 x10^3/uL (1.0-4.8) Monocytes # (Auto) 0.6 x10^3/uL (0.0-1.1) Eosinophils # (Auto) 0.2 x10^3/uL (0.0-0.7) Basophils # (Auto) 0.0 x10^3/uL (0.0-0.2) Reticulocyte Count (auto) 11.9 % (0.5-2.5) Haptoglobin <10 mg/dL (34-200) Prothrombin Time 24.0 SEC (11.7-14.0) Prothromb Time International Ratio 2.3 (0.8-1.1) Test 05/30/17 11:00 05/30/17 11:31 05/30/17 15:09 05/30/17 20:31 Hemoglobin 7.6 g/dL (13.0-17.5) Hematocrit 22.5 % (39.0-53.0) Mean Corpuscular Hemoglobin Concent 34 g/dL (31-37) Glucose (Fingerstick) 117 mg/dL (70-99) 159 mg/dL (70-99) 165 mg/dL (70-99) Test 05/31/17 03:31 05/31/17 08:03 05/31/17 11:45 White Blood Count 6.9 x10^3/uL (4.0-11.0) Red Blood Count 2.68 x10^6/uL (4.30-5.70) Hemoglobin 8.1 g/dL (13.0-17.5) Hematocrit 24.9 % (39.0-53.0) Mean Corpuscular Volume 93 fL (79-100) Mean Corpuscular Hemoglobin 30 pg (25-35) Mean Corpuscular Hemoglobin Concent 33 g/dL (31-37) Red Cell Distribution Width 19.4 % (11.5-14.5) Platelet Count 179 x10^3/uL (140-400) Neutrophils (%) (Auto) 66 % (31-73) Lymphocytes (%) (Auto) 23 % (24-48) Monocytes (%) (Auto) 8 % (0-9) Eosinophils (%) (Auto) 3 % (0-3) Basophils (%) (Auto) 0 % (0-3) Neutrophils # (Auto) 4.6 x10^3uL (1.8-7.7) Lymphocytes # (Auto) 1.6 x10^3/uL (1.0-4.8) Monocytes # (Auto) 0.5 x10^3/uL (0.0-1.1) Eosinophils # (Auto) 0.2 x10^3/uL (0.0-0.7) Basophils # (Auto) 0.0 x10^3/uL (0.0-0.2) Reticulocyte Count (auto) 7.5 % (0.5-2.5) Prothrombin Time 15.6 SEC (11.7-14.0) Prothromb Time International Ratio 1.3 (0.8-1.1) Sodium Level 143 mmol/L (136-145) Potassium Level 4.0 mmol/L (3.5-5.1) Chloride Level 109 mmol/L (98-107) Carbon Dioxide Level 27 mmol/L (21-32) Anion Gap 7 (6-14) Blood Urea Nitrogen 11 mg/dL (8-26) Creatinine 1.0 mg/dL (0.7-1.3) Estimated GFR (Cockcroft-Gault) 91.0 Glucose Level 113 mg/dL (70-99) Calcium Level 7.3 mg/dL (8.5-10.1) Magnesium Level 2.1 mg/dL (1.8-2.4) Ferritin 46 ng/mL (26-388) Lactate Dehydrogenase 662 U/L (85-227) Triglycerides Level 110 mg/dL (0-150) Cholesterol Level 94 mg/dL (0-200) LDL Cholesterol, Calculated 47 mg/dL (0-100) VLDL Cholesterol, Calculated 22 mg/dL (0-40) Non-HDL Cholesterol Calculated 69 mg/dL (0-129) HDL Cholesterol 25 mg/dL (40-60) Cholesterol/HDL Ratio 3.8 Glucose (Fingerstick) 97 mg/dL (70-99) 114 mg/dL (70-99) Laboratory Tests Test 05/30/17 15:09 05/30/17 20:31 05/31/17 03:31 05/31/17 08:03 Glucose (Fingerstick) 159 mg/dL (70-99) 165 mg/dL (70-99) 97 mg/dL (70-99) White Blood Count 6.9 x10^3/uL (4.0-11.0) Red Blood Count 2.68 x10^6/uL (4.30-5.70) Hemoglobin 8.1 g/dL (13.0-17.5) Hematocrit 24.9 % (39.0-53.0) Mean Corpuscular Volume 93 fL (79-100) Mean Corpuscular Hemoglobin 30 pg (25-35) Mean Corpuscular Hemoglobin Concent 33 g/dL (31-37) Red Cell Distribution Width 19.4 % (11.5-14.5) Platelet Count 179 x10^3/uL (140-400) Neutrophils (%) (Auto) 66 % (31-73) Lymphocytes (%) (Auto) 23 % (24-48) Monocytes (%) (Auto) 8 % (0-9) Eosinophils (%) (Auto) 3 % (0-3) Basophils (%) (Auto) 0 % (0-3) Neutrophils # (Auto) 4.6 x10^3uL (1.8-7.7) Lymphocytes # (Auto) 1.6 x10^3/uL (1.0-4.8) Monocytes # (Auto) 0.5 x10^3/uL (0.0-1.1) Eosinophils # (Auto) 0.2 x10^3/uL (0.0-0.7) Basophils # (Auto) 0.0 x10^3/uL (0.0-0.2) Reticulocyte Count (auto) 7.5 % (0.5-2.5) Prothrombin Time 15.6 SEC (11.7-14.0) Prothromb Time International Ratio 1.3 (0.8-1.1) Sodium Level 143 mmol/L (136-145) Potassium Level 4.0 mmol/L (3.5-5.1) Chloride Level 109 mmol/L (98-107) Carbon Dioxide Level 27 mmol/L (21-32) Anion Gap 7 (6-14) Blood Urea Nitrogen 11 mg/dL (8-26) Creatinine 1.0 mg/dL (0.7-1.3) Estimated GFR (Cockcroft-Gault) 91.0 Glucose Level 113 mg/dL (70-99) Calcium Level 7.3 mg/dL (8.5-10.1) Magnesium Level 2.1 mg/dL (1.8-2.4) Ferritin 46 ng/mL (26-388) Lactate Dehydrogenase 662 U/L (85-227) Triglycerides Level 110 mg/dL (0-150) Cholesterol Level 94 mg/dL (0-200) LDL Cholesterol, Calculated 47 mg/dL (0-100) VLDL Cholesterol, Calculated 22 mg/dL (0-40) Non-HDL Cholesterol Calculated 69 mg/dL (0-129) HDL Cholesterol 25 mg/dL (40-60) Cholesterol/HDL Ratio 3.8 Test 05/31/17 11:45 Glucose (Fingerstick) 114 mg/dL (70-99) Medications Current Medications Sodium Chloride 1,000 ml @ 100 mls/hr Q10H IV Last administered on 05/31/17 12:25; Start 05/28/17 at 15:01 Ondansetron HCl (Zofran) 4 mg PRN Q6HRS PRN IV NAUSEA/VOMITING (1st Choice); Start 05/28/17 at 15:15 Prochlorperazine Edisylate (Compazine) 10 mg PRN Q6HRS PRN IV NAUSEA/VOMITING ( 2ND Choice); Start 05/28/17 at 15:15 Prochlorperazine (Compazine) 25 mg PRN Q12HR PRN [place] NAUSEA/VOMITING; Start at 15:15 Al Hydroxide/Mg Hydroxide (Mylanta Plus Xs) 30 ml PRN Q3HRS PRN PO HEARTBURN / GAS; Start 05/28/17 at 15:15 Calcium Carbonate/ Glycine (Tums) 500 mg PRN Q3HRS PRN PO UPSET STOMACH; Start 05/28/17 at 15:15 Oxycodone HCl (Roxicodone) 5 mg PRN Q3HRS PRN PO BREAKTHROUGH PAIN Last administered on 05/31/17 01:44; Start 05/28/17 at 15:15 Morphine Sulfate 1 mg PRN Q1HR PRN IV PAIN; Start 05/28/17 at 15:15 Acetaminophen (Tylenol) 650 mg PRN Q6HRS PRN PO Headaches, Temp > 101.5F; Start 05/28/17 at 15:15 Magnesium Hydroxide (Milk Of Magnesia) 2,400 mg PRN Q12HR PRN PO CONSTIPATION; Start 05/28/17 at 15:15 Bisacodyl (Dulcolax Supp) 10 mg PRN DAILY PRN [place] CONSTIPATION; Start 05/28/17 at 15:15 Haloperidol Lactate (Haldol) 5 mg PRN Q6HRS PRN IVP AGITATION Last administered on 05/28/17 16:48; Start 05/28/17 at 15:15 Lorazepam (Ativan) 2 mg PRN Q4HRS PRN IV ANXIETY / AGITATION Last administered on 05/28/17 21:02; Start 05/28/17 at 15:15 Famotidine (Pepcid) 20 mg BID IVP Last administered on 05/31/17 09:00; Start 05/28/17 at 21:00; Stop 05/31/17 at 10:29; Status DC Insulin Aspart (NovoLOG) 0-7 UNITS TIDWMEALS SQ Last administered on 05/30/17 17:18; Start 05/28/17 at 17:00 Dextrose (Dextrose 50%-Water Syringe) 12.5 gm PRN Q15MIN PRN IV SEE COMMENTS; Start 05/28/17 at 15:15 Phytonadione (Mephyton Tablet) 10 mg 1X ONCE PO Last administered on 18:08; Start 05/28/17 at 17:45; Stop 05/28/17 at 17:46; Status DC Pneumococcal Polyvalent Vaccine (Do NOT chart on this placeholder) 1 each 1X ONCE MC ; Start 05/28/17 at 19:30; Stop 05/28/17 at 19:31; Status UNV Pneumococcal Polyvalent Vaccine (Pneumovax 23) 0.5 ml ONCE ONCE VAX IM Last administered on 05/29/17 08:38; Start 05/28/17 at 20:00; Stop 05/28/17 at 20:01 ; Status DC Phytonadione (Vitamin K Ampule) 10 mg 1X ONCE SQ Last administered on 12:26; Start 05/29/17 at 11:45; Stop 05/29/17 at 11:46; Status DC Metoprolol Tartrate (Lopressor) 25 mg BID PO Last administered on 05/29/17 21: 00; Start 05/29/17 at 14:00; Stop 05/29/17 at 21:00; Status DC Metoprolol Tartrate (Lopressor) 25 mg BID PO Last administered on 05/30/17 20: 33; Start 05/29/17 at 21:00 Phytonadione (Mephyton Tablet) 5 mg 1X ONCE PO Last administered on 05/30/17 11:35; Start 05/30/17 at 11:00; Stop 05/30/17 at 11:01; Status DC Pantoprazole Sodium (Protonix) 40 mg DAILYAC PO Last administered on 05/31/17t 12:25; Start 05/31/17 at 11:00 Active Scripts Active Reported Multivitamins (Multivitamin) 1 Each Tablet 1 Tab PO DAILY Spironolactone 25 Mg Tablet 12.5 Mg PO DAILY Pro-Stat Liquid (Amino Acids/Protein Hydrolys) 30 Ml Liquid 30 Ml PO BID Pantoprazole Sodium 40 Mg Tablet.dr 1 Tab PO DAILY Metformin Hcl 500 Mg Tablet 500 Mg PO DAILY Lisinopril 10 Mg Tablet 1 Tab PO DAILY Lasix (Furosemide) 40 Mg Tablet 1 Tab PO BID Ferrous Sulfate 325 Mg Tablet 325 Mg PO BID Coumadin (Warfarin Sodium) 5 Mg Tablet 7 Mg PO DAILY Wednesday, Wed, , Wed Clonazepam 0.5 Mg Tablet 1 Tab PO DAILY PRN Carvedilol 12.5 Mg Tablet 1 Tab PO BID Atorvastatin Calcium 40 Mg Tablet 1 Tab PO QHS Aspir 81 (Aspirin) 81 Mg Tablet.dr 1 Tab PO DAILY Tylenol (Acetaminophen) 325 Mg Tablet 2 Tab PO PRN Q6HRS PRN Do not exceed 3000mg in 24hr period Vitals/I & O Vital Sign - Last 24 Hours 05/30/17 05/30/17 05/30/17 05/30/17 15:00 19:00 20:00 20:25 Temp 98.0 99.5 98.0 99.5 Pulse 76 69 76 Resp 18 18 B/P (MAP) 154/78 (103) 134/58 (83) 154/78 Pulse Ox 99 96 O2 Delivery Room Air Room Air Room Air 05/30/17 05/30/17 05/31/17 05/31/17 20:33 23:00 01:44 02:44 Temp 97.5 97.5 Pulse 69 83 Resp 18 20 20 B/P (MAP) 138/58 144/63 (90) Pulse Ox 97 97 97 O2 Delivery Room Air Room Air Room Air 05/31/17 05/31/17 05/31/17 05/31/17 03:30 07:00 07:10 11:00 Temp 99.1 97.6 98.9 99.1 97.6 98.9 Pulse 57 56 63 Resp 18 18 18 B/P (MAP) 151/62 (91) 145/64 (91) 136/61 (86) Pulse Ox 98 100 94 O2 Delivery Room Air Room Air Room Air Room Air 05/31/17 11:33 O2 Delivery Room Air Intake and Output 05/31/17 05/31/17 06/01/17 15:00 23:00 07:00 Intake Total 360 ml Balance 360 ml RAE CARMICHAEL MD May 31, 2017 14:28
[2017-05-31 15:00] VITALS: BP 122/56
[2017-05-31] MEDS: CYANOCOBALAMIN (VITAMIN B-12) 1,000 MCG TABLET. PO SCH (15:20)
--- NOTE | 2017-05-31 17:07 | PDOC ---
PROGRESS NOTES Subjective Subjective HPI - f/u of anemia. ROS - no bleed. Objective Objective Vital Signs Date Time Temp Pulse Resp B/P (MAP) Pulse Ox O2 Delivery O2 Flow Rate FiO2 05/31/17 11:33 Room Air 05/31/17 11:00 98.9 63 18 136/61 (86) 94 98.9 05/29/17 07:00 2.0 Intake and Output 06/01/17 07:00 Intake Total 1161 ml Balance 1161 ml Intake Oral 360 ml IV Total 801 ml Physical Exam Heart: Normal S1, Normal S2 General: Alert Lungs: Clear to auscultation Psych/Mental Status: Mental status NL Assessment Assessment Assessment/Plan 62 yo male admitted with a hgb of 4. 1. Anemia. Most likely he had a bleed. He has a ? history of Ulcerative colitis and has been on coumadin for his stroke and afib. He has received 3 units of PRBC. Hb improved. Agree with reversing his coumadin with vit k. Appreciate GI consult. He most likely will need an EGD and colonoscopy. Also his retic and LDH is elevated and Haptoglobin low, but angel negative. I will monitor labs. 2. Coagulopathy. He was on coumadin for afib/cva. He received 10mg subcu vit k 05/29/17 and 5mg oral 05/30/17. Comment Review of Relevant I have reviewed the following items yulissa (where applicable) has been applied. Labs Laboratory Tests Test 05/29/17 20:35 05/30/17 04:40 05/30/17 07:06 05/30/17 11:00 Glucose (Fingerstick) 170 mg/dL (70-99) 133 mg/dL (70-99) White Blood Count 7.8 x10^3/uL (4.0-11.0) Red Blood Count 2.39 x10^6/uL (4.30-5.70) Hemoglobin 7.4 g/dL (13.0-17.5) 7.6 g/dL (13.0-17.5) Hematocrit 21.6 % (39.0-53.0) 22.5 % (39.0-53.0) Mean Corpuscular Volume 91 fL (79-100) Mean Corpuscular Hemoglobin 31 pg (25-35) Mean Corpuscular Hemoglobin Concent 34 g/dL (31-37) 34 g/dL (31-37) Red Cell Distribution Width 16.7 % (11.5-14.5) Platelet Count 158 x10^3/uL (140-400) Neutrophils (%) (Auto) 68 % (31-73) Lymphocytes (%) (Auto) 22 % (24-48) Monocytes (%) (Auto) 8 % (0-9) Eosinophils (%) (Auto) 3 % (0-3) Basophils (%) (Auto) 1 % (0-3) Neutrophils # (Auto) 5.3 x10^3uL (1.8-7.7) Lymphocytes # (Auto) 1.7 x10^3/uL (1.0-4.8) Monocytes # (Auto) 0.6 x10^3/uL (0.0-1.1) Eosinophils # (Auto) 0.2 x10^3/uL (0.0-0.7) Basophils # (Auto) 0.0 x10^3/uL (0.0-0.2) Reticulocyte Count (auto) 11.9 % (0.5-2.5) Haptoglobin <10 mg/dL (34-200) Prothrombin Time 24.0 SEC (11.7-14.0) Prothromb Time International Ratio 2.3 (0.8-1.1) Test 05/30/17 11:31 05/30/17 15:09 05/30/17 20:31 05/31/17 03:31 Glucose (Fingerstick) 117 mg/dL (70-99) 159 mg/dL (70-99) 165 mg/dL (70-99) White Blood Count 6.9 x10^3/uL (4.0-11.0) Red Blood Count 2.68 x10^6/uL (4.30-5.70) Hemoglobin 8.1 g/dL (13.0-17.5) Hematocrit 24.9 % (39.0-53.0) Mean Corpuscular Volume 93 fL (79-100) Mean Corpuscular Hemoglobin 30 pg (25-35) Mean Corpuscular Hemoglobin Concent 33 g/dL (31-37) Red Cell Distribution Width 19.4 % (11.5-14.5) Platelet Count 179 x10^3/uL (140-400) Neutrophils (%) (Auto) 66 % (31-73) Lymphocytes (%) (Auto) 23 % (24-48) Monocytes (%) (Auto) 8 % (0-9) Eosinophils (%) (Auto) 3 % (0-3) Basophils (%) (Auto) 0 % (0-3) Neutrophils # (Auto) 4.6 x10^3uL (1.8-7.7) Lymphocytes # (Auto) 1.6 x10^3/uL (1.0-4.8) Monocytes # (Auto) 0.5 x10^3/uL (0.0-1.1) Eosinophils # (Auto) 0.2 x10^3/uL (0.0-0.7) Basophils # (Auto) 0.0 x10^3/uL (0.0-0.2) Reticulocyte Count (auto) 7.5 % (0.5-2.5) Prothrombin Time 15.6 SEC (11.7-14.0) Prothromb Time International Ratio 1.3 (0.8-1.1) Sodium Level 143 mmol/L (136-145) Potassium Level 4.0 mmol/L (3.5-5.1) Chloride Level 109 mmol/L (98-107) Carbon Dioxide Level 27 mmol/L (21-32) Anion Gap 7 (6-14) Blood Urea Nitrogen 11 mg/dL (8-26) Creatinine 1.0 mg/dL (0.7-1.3) Estimated GFR (Cockcroft-Gault) 91.0 Glucose Level 113 mg/dL (70-99) Calcium Level 7.3 mg/dL (8.5-10.1) Magnesium Level 2.1 mg/dL (1.8-2.4) Ferritin 46 ng/mL (26-388) Lactate Dehydrogenase 662 U/L (85-227) Triglycerides Level 110 mg/dL (0-150) Cholesterol Level 94 mg/dL (0-200) LDL Cholesterol, Calculated 47 mg/dL (0-100) VLDL Cholesterol, Calculated 22 mg/dL (0-40) Non-HDL Cholesterol Calculated 69 mg/dL (0-129) HDL Cholesterol 25 mg/dL (40-60) Cholesterol/HDL Ratio 3.8 Test 05/31/17 08:03 05/31/17 11:45 Glucose (Fingerstick) 97 mg/dL (70-99) 114 mg/dL (70-99) Laboratory Tests Test 05/30/17 20:31 05/31/17 03:31 05/31/17 08:03 05/31/17 11:45 Glucose (Fingerstick) 165 mg/dL (70-99) 97 mg/dL (70-99) 114 mg/dL (70-99) White Blood Count 6.9 x10^3/uL (4.0-11.0) Red Blood Count 2.68 x10^6/uL (4.30-5.70) Hemoglobin 8.1 g/dL (13.0-17.5) Hematocrit 24.9 % (39.0-53.0) Mean Corpuscular Volume 93 fL (79-100) Mean Corpuscular Hemoglobin 30 pg (25-35) Mean Corpuscular Hemoglobin Concent 33 g/dL (31-37) Red Cell Distribution Width 19.4 % (11.5-14.5) Platelet Count 179 x10^3/uL (140-400) Neutrophils (%) (Auto) 66 % (31-73) Lymphocytes (%) (Auto) 23 % (24-48) Monocytes (%) (Auto) 8 % (0-9) Eosinophils (%) (Auto) 3 % (0-3) Basophils (%) (Auto) 0 % (0-3) Neutrophils # (Auto) 4.6 x10^3uL (1.8-7.7) Lymphocytes # (Auto) 1.6 x10^3/uL (1.0-4.8) Monocytes # (Auto) 0.5 x10^3/uL (0.0-1.1) Eosinophils # (Auto) 0.2 x10^3/uL (0.0-0.7) Basophils # (Auto) 0.0 x10^3/uL (0.0-0.2) Reticulocyte Count (auto) 7.5 % (0.5-2.5) Prothrombin Time 15.6 SEC (11.7-14.0) Prothromb Time International Ratio 1.3 (0.8-1.1) Sodium Level 143 mmol/L (136-145) Potassium Level 4.0 mmol/L (3.5-5.1) Chloride Level 109 mmol/L (98-107) Carbon Dioxide Level 27 mmol/L (21-32) Anion Gap 7 (6-14) Blood Urea Nitrogen 11 mg/dL (8-26) Creatinine 1.0 mg/dL (0.7-1.3) Estimated GFR (Cockcroft-Gault) 91.0 Glucose Level 113 mg/dL (70-99) Calcium Level 7.3 mg/dL (8.5-10.1) Magnesium Level 2.1 mg/dL (1.8-2.4) Ferritin 46 ng/mL (26-388) Lactate Dehydrogenase 662 U/L (85-227) Triglycerides Level 110 mg/dL (0-150) Cholesterol Level 94 mg/dL (0-200) LDL Cholesterol, Calculated 47 mg/dL (0-100) VLDL Cholesterol, Calculated 22 mg/dL (0-40) Non-HDL Cholesterol Calculated 69 mg/dL (0-129) HDL Cholesterol 25 mg/dL (40-60) Cholesterol/HDL Ratio 3.8 Medications Current Medications Sodium Chloride 1,000 ml @ 100 mls/hr Q10H IV Last administered on 05/31/17 12:25; Start 05/28/17 at 15:01; Stop 05/31/17 at 14:24; Status DC Ondansetron HCl (Zofran) 4 mg PRN Q6HRS PRN IV NAUSEA/VOMITING (1st Choice); Start 05/28/17 at 15:15 Prochlorperazine Edisylate (Compazine) 10 mg PRN Q6HRS PRN IV NAUSEA/VOMITING ( 2ND Choice); Start 05/28/17 at 15:15 Prochlorperazine (Compazine) 25 mg PRN Q12HR PRN [place] NAUSEA/VOMITING; Start at 15:15 Al Hydroxide/Mg Hydroxide (Mylanta Plus Xs) 30 ml PRN Q3HRS PRN PO HEARTBURN / GAS; Start 05/28/17 at 15:15 Calcium Carbonate/ Glycine (Tums) 500 mg PRN Q3HRS PRN PO UPSET STOMACH; Start 05/28/17 at 15:15 Oxycodone HCl (Roxicodone) 5 mg PRN Q3HRS PRN PO BREAKTHROUGH PAIN Last administered on 05/31/17 01:44; Start 05/28/17 at 15:15 Morphine Sulfate 1 mg PRN Q1HR PRN IV PAIN; Start 05/28/17 at 15:15 Acetaminophen (Tylenol) 650 mg PRN Q6HRS PRN PO Headaches, Temp > 101.5F; Start 05/28/17 at 15:15 Magnesium Hydroxide (Milk Of Magnesia) 2,400 mg PRN Q12HR PRN PO CONSTIPATION; Start 05/28/17 at 15:15 Bisacodyl (Dulcolax Supp) 10 mg PRN DAILY PRN [place] CONSTIPATION; Start 05/28/17 at 15:15 Haloperidol Lactate (Haldol) 5 mg PRN Q6HRS PRN IVP AGITATION Last administered on 05/28/17 16:48; Start 05/28/17 at 15:15 Lorazepam (Ativan) 2 mg PRN Q4HRS PRN IV ANXIETY / AGITATION Last administered on 05/28/17 21:02; Start 05/28/17 at 15:15 Famotidine (Pepcid) 20 mg BID IVP Last administered on 05/31/17 09:00; Start 05/28/17 at 21:00; Stop 05/31/17 at 10:29; Status DC Insulin Aspart (NovoLOG) 0-7 UNITS TIDWMEALS SQ Last administered on 05/30/17 17:18; Start 05/28/17 at 17:00 Dextrose (Dextrose 50%-Water Syringe) 12.5 gm PRN Q15MIN PRN IV SEE COMMENTS; Start 05/28/17 at 15:15 Phytonadione (Mephyton Tablet) 10 mg 1X ONCE PO Last administered on 18:08; Start 05/28/17 at 17:45; Stop 05/28/17 at 17:46; Status DC Pneumococcal Polyvalent Vaccine (Do NOT chart on this placeholder) 1 each 1X ONCE MC ; Start 05/28/17 at 19:30; Stop 05/28/17 at 19:31; Status UNV Pneumococcal Polyvalent Vaccine (Pneumovax 23) 0.5 ml ONCE ONCE VAX IM Last administered on 05/29/17 08:38; Start 05/28/17 at 20:00; Stop 05/28/17 at 20:01 ; Status DC Phytonadione (Vitamin K Ampule) 10 mg 1X ONCE SQ Last administered on 12:26; Start 05/29/17 at 11:45; Stop 05/29/17 at 11:46; Status DC Metoprolol Tartrate (Lopressor) 25 mg BID PO Last administered on 05/29/17 21: 00; Start 05/29/17 at 14:00; Stop 05/29/17 at 21:00; Status DC Metoprolol Tartrate (Lopressor) 25 mg BID PO Last administered on 05/30/17 20: 33; Start 05/29/17 at 21:00 Phytonadione (Mephyton Tablet) 5 mg 1X ONCE PO Last administered on 05/30/17 11:35; Start 05/30/17 at 11:00; Stop 05/30/17 at 11:01; Status DC Pantoprazole Sodium (Protonix) 40 mg DAILYAC PO Last administered on 05/31/17 12:25; Start 05/31/17 at 11:00 Ferrous Sulfate (Feosol) 325 mg DAILYWBKFT PO ; Start 05/31/17 at 17:00 Cyanocobalamin (Vitamin B-12) 1,000 mcg DAILY PO Last administered on 15:20; Start 05/31/17 at 15:00 Active Scripts Active Reported Multivitamins (Multivitamin) 1 Each Tablet 1 Tab PO DAILY Spironolactone 25 Mg Tablet 12.5 Mg PO DAILY Pro-Stat Liquid (Amino Acids/Protein Hydrolys) 30 Ml Liquid 30 Ml PO BID Pantoprazole Sodium 40 Mg Tablet.dr 1 Tab PO DAILY Metformin Hcl 500 Mg Tablet 500 Mg PO DAILY Lisinopril 10 Mg Tablet 1 Tab PO DAILY Lasix (Furosemide) 40 Mg Tablet 1 Tab PO BID Ferrous Sulfate 325 Mg Tablet 325 Mg PO BID Coumadin (Warfarin Sodium) 5 Mg Tablet 7 Mg PO DAILY Wednesday, Wed, , Wed Clonazepam 0.5 Mg Tablet 1 Tab PO DAILY PRN Carvedilol 12.5 Mg Tablet 1 Tab PO BID Atorvastatin Calcium 40 Mg Tablet 1 Tab PO QHS Aspir 81 (Aspirin) 81 Mg Tablet.dr 1 Tab PO DAILY Tylenol (Acetaminophen) 325 Mg Tablet 2 Tab PO PRN Q6HRS PRN Do not exceed 3000mg in 24hr period Vitals/I & O Vital Sign - Last 24 Hours 05/30/17 05/30/17 05/30/17 05/30/17 19:00 20:00 20:25 20:33 Temp 99.5 99.5 Pulse 69 76 69 Resp 18 B/P (MAP) 134/58 (83) 154/78 138/58 Pulse Ox 96 O2 Delivery Room Air Room Air 05/30/17 05/31/17 05/31/17 05/31/17 23:00 01:44 02:44 03:30 Temp 97.5 99.1 97.5 99.1 Pulse 83 57 Resp 18 20 20 18 B/P (MAP) 144/63 (90) 151/62 (91) Pulse Ox 97 97 97 98 O2 Delivery Room Air Room Air Room Air Room Air 05/31/17 05/31/17 05/31/17 05/31/17 07:00 07:10 11:00 11:33 Temp 97.6 98.9 97.6 98.9 Pulse 56 63 Resp 18 18 B/P (MAP) 145/64 (91) 136/61 (86) Pulse Ox 100 94 O2 Delivery Room Air Room Air Room Air Room Air Intake and Output 05/31/17 05/31/17 06/01/17 15:00 23:00 07:00 Intake Total 360 ml 801 ml Balance 360 ml 801 ml CHARLEY GARCIA MD May 31, 2017 17:07
[2017-05-31] MEDS: FERROUS SULFATE 325 MG TABLET. PO SCH (17:11)
[2017-05-31 18:42] LABS: NEG OBC FOB NEG; POS OBC FOB POS
[2017-05-31 19:55] VITALS: BP 136/69
[2017-05-31] MEDS: METOPROLOL TART IMMED RELEASE 25 MG TABLET. PO SCH (20:36)
[2017-05-31 23:25] VITALS: BP 121/61
[2017-06-01 03:30] VITALS: BP 146/60
[2017-06-01 05:02] LABS: BASO % 1 % (0-3); EOS % 4 % (0-3); HEMATOCRIT 22.7 % (39.0-53.0); HEMOGLOBIN 7.7 g/dL (13.0-17.5); LYMPH # 1.2 x10^3/uL (1.0-4.8); LYMPH % 24 % (24-48); MEAN CORPUSCULAR HEMOGLOBIN 31 pg (25-35); MEAN CORPUSCULAR HGB CONC 34 g/dL (31-37); MEAN CORPUSCULAR VOLUME 91 fL (79-100); MONO % 7 % (0-9); NEUT % 65 % (31-73); PLATELET COUNT 181 x10^3/uL (140-400); RED BLOOD COUNT 2.51 x10^6/uL (4.30-5.70); RED CELL DISTRIBUTION WIDTH 17.6 % (11.5-14.5)
[2017-06-01 05:09] LABS: INR 1.2 (0.8-1.1); PROTHROMBIN TIME PATIENT 14.5 SEC (11.7-14.0)
[2017-06-01 05:20] LABS: CALCIUM 7.6 mg/dL (8.5-10.1); CREATININE 1.1 mg/dL (0.7-1.3); GFR 81.5; POTASSIUM 3.8 mmol/L (3.5-5.1)
[2017-06-01 07:00] VITALS: BP 146/62
[2017-06-01] MEDS: INSULIN ASPART 300 UNITS/3 ML INSULN.PEN SQ SCH ×3 (08:00→16:31)
[2017-06-01] MEDS: CYANOCOBALAMIN (VITAMIN B-12) 1,000 MCG TABLET. PO SCH (09:33)
[2017-06-01] MEDS: FERROUS SULFATE 325 MG TABLET. PO SCH (09:33)
[2017-06-01] MEDS: METOPROLOL TART IMMED RELEASE 25 MG TABLET. PO SCH ×2 (09:35→20:41)
[2017-06-01] MEDS: PANTOPRAZOLE 40 MG TABLET.DR. PO SCH (09:35)
[2017-06-01 11:00] VITALS: BP 149/70
--- NOTE | 2017-06-01 13:06 | PDOC ---
PROGRESS NOTES Chief Complaint Chief Complaint 1. SEVERE CRITICAL NORMOCYTIC Anemia s/p multiple BT, not clear etiology for the anemia, iron and vitb12 bordline low 2. Metabolic encephalopathy, agitation unclear reason - better/resolved 3. Hx CVA with Right residual UE contracture 4. [facility] resident 5. ABd pain - seems better 6. HILARIO - creat 1,8 unknown baseline 7. HX atrialn fib was on warf on amdit 8. Supratherapeutic iNR with no bleed 9,. Vtach sec to demand ischemia plan: fu with card, gi dc ivf check fobt neg add iron and vitb12 po post 3u PRBC transfusion, hb stable now PTOT gi ppx warfarin held, INR 1.2 remove pérez, may need dvt ppx tmr waiting for GI to see if can restart asa and fu with card to see if need cont hold warfarin, may need EGD/colonoscopy? History of Present Illness History of Present Illness ROS: no fever, chills, sob or chest pain Hb stable post 3u PRBC transfusion no active bleeding, fobt neg hb stable at 7-8 Vitals Vitals Vital Signs Date Time Temp Pulse Resp B/P (MAP) Pulse Ox O2 Delivery O2 Flow Rate FiO2 06/01/17 11:00 98.4 66 18 149/70 (96) 98 Room Air 98.4 Physical Exam General: Alert, Oriented X3, Cooperative Heart: Normal S1, Normal S2 Lungs: Clear Abdomen: Soft, No tenderness Extremities: No clubbing, No cyanosis, No edema, Normal pulses, No tenderness/ swelling Skin: No rashes, No breakdown, No significant lesion Labs LABS Laboratory Tests Test 05/31/17 16:54 05/31/17 17:30 05/31/17 20:43 06/01/17 04:15 Glucose (Fingerstick) 150 mg/dL (70-99) 216 mg/dL (70-99) Stool Occult Blood Negative (NEG) White Blood Count 5.0 x10^3/uL (4.0-11.0) Red Blood Count 2.51 x10^6/uL (4.30-5.70) Hemoglobin 7.7 g/dL (13.0-17.5) Hematocrit 22.7 % (39.0-53.0) Mean Corpuscular Volume 91 fL (79-100) Mean Corpuscular Hemoglobin 31 pg (25-35) Mean Corpuscular Hemoglobin Concent 34 g/dL (31-37) Red Cell Distribution Width 17.6 % (11.5-14.5) Platelet Count 181 x10^3/uL (140-400) Neutrophils (%) (Auto) 65 % (31-73) Lymphocytes (%) (Auto) 24 % (24-48) Monocytes (%) (Auto) 7 % (0-9) Eosinophils (%) (Auto) 4 % (0-3) Basophils (%) (Auto) 1 % (0-3) Neutrophils # (Auto) 3.2 x10^3uL (1.8-7.7) Lymphocytes # (Auto) 1.2 x10^3/uL (1.0-4.8) Monocytes # (Auto) 0.4 x10^3/uL (0.0-1.1) Eosinophils # (Auto) 0.2 x10^3/uL (0.0-0.7) Basophils # (Auto) 0.0 x10^3/uL (0.0-0.2) Reticulocyte Count (auto) 6.4 % (0.5-2.5) Prothrombin Time 14.5 SEC (11.7-14.0) Prothromb Time International Ratio 1.2 (0.8-1.1) Sodium Level 140 mmol/L (136-145) Potassium Level 3.8 mmol/L (3.5-5.1) Chloride Level 108 mmol/L (98-107) Carbon Dioxide Level 27 mmol/L (21-32) Anion Gap 5 (6-14) Blood Urea Nitrogen 11 mg/dL (8-26) Creatinine 1.1 mg/dL (0.7-1.3) Estimated GFR (Cockcroft-Gault) 81.5 Glucose Level 140 mg/dL (70-99) Calcium Level 7.6 mg/dL (8.5-10.1) Lactate Dehydrogenase 258 U/L (85-227) Test 06/01/17 07:38 06/01/17 11:08 Glucose (Fingerstick) 94 mg/dL (70-99) 123 mg/dL (70-99) Comment Review of Relevant I have reviewed the following items yulissa (where applicable) has been applied. Labs Laboratory Tests Test 05/30/17 15:09 05/30/17 20:31 05/31/17 03:31 05/31/17 08:03 Glucose (Fingerstick) 159 mg/dL (70-99) 165 mg/dL (70-99) 97 mg/dL (70-99) White Blood Count 6.9 x10^3/uL (4.0-11.0) Red Blood Count 2.68 x10^6/uL (4.30-5.70) Hemoglobin 8.1 g/dL (13.0-17.5) Hematocrit 24.9 % (39.0-53.0) Mean Corpuscular Volume 93 fL (79-100) Mean Corpuscular Hemoglobin 30 pg (25-35) Mean Corpuscular Hemoglobin Concent 33 g/dL (31-37) Red Cell Distribution Width 19.4 % (11.5-14.5) Platelet Count 179 x10^3/uL (140-400) Neutrophils (%) (Auto) 66 % (31-73) Lymphocytes (%) (Auto) 23 % (24-48) Monocytes (%) (Auto) 8 % (0-9) Eosinophils (%) (Auto) 3 % (0-3) Basophils (%) (Auto) 0 % (0-3) Neutrophils # (Auto) 4.6 x10^3uL (1.8-7.7) Lymphocytes # (Auto) 1.6 x10^3/uL (1.0-4.8) Monocytes # (Auto) 0.5 x10^3/uL (0.0-1.1) Eosinophils # (Auto) 0.2 x10^3/uL (0.0-0.7) Basophils # (Auto) 0.0 x10^3/uL (0.0-0.2) Reticulocyte Count (auto) 7.5 % (0.5-2.5) Prothrombin Time 15.6 SEC (11.7-14.0) Prothromb Time International Ratio 1.3 (0.8-1.1) Sodium Level 143 mmol/L (136-145) Potassium Level 4.0 mmol/L (3.5-5.1) Chloride Level 109 mmol/L (98-107) Carbon Dioxide Level 27 mmol/L (21-32) Anion Gap 7 (6-14) Blood Urea Nitrogen 11 mg/dL (8-26) Creatinine 1.0 mg/dL (0.7-1.3) Estimated GFR (Cockcroft-Gault) 91.0 Glucose Level 113 mg/dL (70-99) Calcium Level 7.3 mg/dL (8.5-10.1) Magnesium Level 2.1 mg/dL (1.8-2.4) Ferritin 46 ng/mL (26-388) Lactate Dehydrogenase 662 U/L (85-227) Triglycerides Level 110 mg/dL (0-150) Cholesterol Level 94 mg/dL (0-200) LDL Cholesterol, Calculated 47 mg/dL (0-100) VLDL Cholesterol, Calculated 22 mg/dL (0-40) Non-HDL Cholesterol Calculated 69 mg/dL (0-129) HDL Cholesterol 25 mg/dL (40-60) Cholesterol/HDL Ratio 3.8 Test 05/31/17 11:45 05/31/17 16:54 05/31/17 17:30 05/31/17 20:43 Glucose (Fingerstick) 114 mg/dL (70-99) 150 mg/dL (70-99) 216 mg/dL (70-99) Stool Occult Blood Negative (NEG) Test 06/01/17 04:15 06/01/17 07:38 06/01/17 11:08 White Blood Count 5.0 x10^3/uL (4.0-11.0) Red Blood Count 2.51 x10^6/uL (4.30-5.70) Hemoglobin 7.7 g/dL (13.0-17.5) Hematocrit 22.7 % (39.0-53.0) Mean Corpuscular Volume 91 fL (79-100) Mean Corpuscular Hemoglobin 31 pg (25-35) Mean Corpuscular Hemoglobin Concent 34 g/dL (31-37) Red Cell Distribution Width 17.6 % (11.5-14.5) Platelet Count 181 x10^3/uL (140-400) Neutrophils (%) (Auto) 65 % (31-73) Lymphocytes (%) (Auto) 24 % (24-48) Monocytes (%) (Auto) 7 % (0-9) Eosinophils (%) (Auto) 4 % (0-3) Basophils (%) (Auto) 1 % (0-3) Neutrophils # (Auto) 3.2 x10^3uL (1.8-7.7) Lymphocytes # (Auto) 1.2 x10^3/uL (1.0-4.8) Monocytes # (Auto) 0.4 x10^3/uL (0.0-1.1) Eosinophils # (Auto) 0.2 x10^3/uL (0.0-0.7) Basophils # (Auto) 0.0 x10^3/uL (0.0-0.2) Reticulocyte Count (auto) 6.4 % (0.5-2.5) Prothrombin Time 14.5 SEC (11.7-14.0) Prothromb Time International Ratio 1.2 (0.8-1.1) Sodium Level 140 mmol/L (136-145) Potassium Level 3.8 mmol/L (3.5-5.1) Chloride Level 108 mmol/L (98-107) Carbon Dioxide Level 27 mmol/L (21-32) Anion Gap 5 (6-14) Blood Urea Nitrogen 11 mg/dL (8-26) Creatinine 1.1 mg/dL (0.7-1.3) Estimated GFR (Cockcroft-Gault) 81.5 Glucose Level 140 mg/dL (70-99) Calcium Level 7.6 mg/dL (8.5-10.1) Lactate Dehydrogenase 258 U/L (85-227) Glucose (Fingerstick) 94 mg/dL (70-99) 123 mg/dL (70-99) Laboratory Tests Test 05/31/17 16:54 05/31/17 17:30 05/31/17 20:43 06/01/17 04:15 Glucose (Fingerstick) 150 mg/dL (70-99) 216 mg/dL (70-99) Stool Occult Blood Negative (NEG) White Blood Count 5.0 x10^3/uL (4.0-11.0) Red Blood Count 2.51 x10^6/uL (4.30-5.70) Hemoglobin 7.7 g/dL (13.0-17.5) Hematocrit 22.7 % (39.0-53.0) Mean Corpuscular Volume 91 fL (79-100) Mean Corpuscular Hemoglobin 31 pg (25-35) Mean Corpuscular Hemoglobin Concent 34 g/dL (31-37) Red Cell Distribution Width 17.6 % (11.5-14.5) Platelet Count 181 x10^3/uL (140-400) Neutrophils (%) (Auto) 65 % (31-73) Lymphocytes (%) (Auto) 24 % (24-48) Monocytes (%) (Auto) 7 % (0-9) Eosinophils (%) (Auto) 4 % (0-3) Basophils (%) (Auto) 1 % (0-3) Neutrophils # (Auto) 3.2 x10^3uL (1.8-7.7) Lymphocytes # (Auto) 1.2 x10^3/uL (1.0-4.8) Monocytes # (Auto) 0.4 x10^3/uL (0.0-1.1) Eosinophils # (Auto) 0.2 x10^3/uL (0.0-0.7) Basophils # (Auto) 0.0 x10^3/uL (0.0-0.2) Reticulocyte Count (auto) 6.4 % (0.5-2.5) Prothrombin Time 14.5 SEC (11.7-14.0) Prothromb Time International Ratio 1.2 (0.8-1.1) Sodium Level 140 mmol/L (136-145) Potassium Level 3.8 mmol/L (3.5-5.1) Chloride Level 108 mmol/L (98-107) Carbon Dioxide Level 27 mmol/L (21-32) Anion Gap 5 (6-14) Blood Urea Nitrogen 11 mg/dL (8-26) Creatinine 1.1 mg/dL (0.7-1.3) Estimated GFR (Cockcroft-Gault) 81.5 Glucose Level 140 mg/dL (70-99) Calcium Level 7.6 mg/dL (8.5-10.1) Lactate Dehydrogenase 258 U/L (85-227) Test 06/01/17 07:38 06/01/17 11:08 Glucose (Fingerstick) 94 mg/dL (70-99) 123 mg/dL (70-99) Medications Current Medications Sodium Chloride 1,000 ml @ 100 mls/hr Q10H IV Last administered on 05/31/17t 12:25; Start 05/28/17 at 15:01; Stop 05/31/17 at 14:24; Status DC Ondansetron HCl (Zofran) 4 mg PRN Q6HRS PRN IV NAUSEA/VOMITING (1st Choice); Start 05/28/17 at 15:15 Prochlorperazine Edisylate (Compazine) 10 mg PRN Q6HRS PRN IV NAUSEA/VOMITING ( 2ND Choice); Start 05/28/17 at 15:15 Prochlorperazine (Compazine) 25 mg PRN Q12HR PRN [place] NAUSEA/VOMITING; Start at 15:15 Al Hydroxide/Mg Hydroxide (Mylanta Plus Xs) 30 ml PRN Q3HRS PRN PO HEARTBURN / GAS; Start 05/28/17 at 15:15 Calcium Carbonate/ Glycine (Tums) 500 mg PRN Q3HRS PRN PO UPSET STOMACH; Start 05/28/17 at 15:15 Oxycodone HCl (Roxicodone) 5 mg PRN Q3HRS PRN PO BREAKTHROUGH PAIN Last administered on 05/31/17 01:44; Start 05/28/17 at 15:15 Morphine Sulfate 1 mg PRN Q1HR PRN IV PAIN; Start 05/28/17 at 15:15 Acetaminophen (Tylenol) 650 mg PRN Q6HRS PRN PO Headaches, Temp > 101.5F; Start 05/28/17 at 15:15 Magnesium Hydroxide (Milk Of Magnesia) 2,400 mg PRN Q12HR PRN PO CONSTIPATION; Start 05/28/17 at 15:15 Bisacodyl (Dulcolax Supp) 10 mg PRN DAILY PRN [place] CONSTIPATION; Start 05/28/17 at 15:15 Haloperidol Lactate (Haldol) 5 mg PRN Q6HRS PRN IVP AGITATION Last administered on 05/28/17 16:48; Start 05/28/17 at 15:15 Lorazepam (Ativan) 2 mg PRN Q4HRS PRN IV ANXIETY / AGITATION Last administered on 05/28/17 21:02; Start 05/28/17 at 15:15 Famotidine (Pepcid) 20 mg BID IVP Last administered on 05/31/17 09:00; Start 05/28/17 at 21:00; Stop 05/31/17 at 10:29; Status DC Insulin Aspart (NovoLOG) 0-7 UNITS TIDWMEALS SQ Last administered on 05/30/17 17:18; Start 05/28/17 at 17:00 Dextrose (Dextrose 50%-Water Syringe) 12.5 gm PRN Q15MIN PRN IV SEE COMMENTS; Start 05/28/17 at 15:15 Phytonadione (Mephyton Tablet) 10 mg 1X ONCE PO Last administered on 18:08; Start 05/28/17 at 17:45; Stop 05/28/17 at 17:46; Status DC Pneumococcal Polyvalent Vaccine (Do NOT chart on this placeholder) 1 each 1X ONCE MC ; Start 05/28/17 at 19:30; Stop 05/28/17 at 19:31; Status UNV Pneumococcal Polyvalent Vaccine (Pneumovax 23) 0.5 ml ONCE ONCE VAX IM Last administered on 05/29/17 08:38; Start 05/28/17 at 20:00; Stop 05/28/17 at 20:01 ; Status DC Phytonadione (Vitamin K Ampule) 10 mg 1X ONCE SQ Last administered on 12:26; Start 05/29/17 at 11:45; Stop 05/29/17 at 11:46; Status DC Metoprolol Tartrate (Lopressor) 25 mg BID PO Last administered on 05/29/17 21: 00; Start 05/29/17 at 14:00; Stop 05/29/17 at 21:00; Status DC Metoprolol Tartrate (Lopressor) 25 mg BID PO Last administered on 06/01/17 09: 35; Start 05/29/17 at 21:00 Phytonadione (Mephyton Tablet) 5 mg 1X ONCE PO Last administered on 05/30/17 11:35; Start 05/30/17 at 11:00; Stop 05/30/17 at 11:01; Status DC Pantoprazole Sodium (Protonix) 40 mg DAILYAC PO Last administered on 06/01/17 09:35; Start 05/31/17 at 11:00 Ferrous Sulfate (Feosol) 325 mg [id number] PO Last administered on 06/01/17 09 :33; Start 05/31/17 at 17:00 Cyanocobalamin (Vitamin B-12) 1,000 mcg DAILY PO Last administered on t 09:33; Start 05/31/17 at 15:00 Active Scripts Active Reported Multivitamins (Multivitamin) 1 Each Tablet 1 Tab PO DAILY Spironolactone 25 Mg Tablet 12.5 Mg PO DAILY Pro-Stat Liquid (Amino Acids/Protein Hydrolys) 30 Ml Liquid 30 Ml PO BID Pantoprazole Sodium 40 Mg Tablet.dr 1 Tab PO DAILY Metformin Hcl 500 Mg Tablet 500 Mg PO DAILY Lisinopril 10 Mg Tablet 1 Tab PO DAILY Lasix (Furosemide) 40 Mg Tablet 1 Tab PO BID Ferrous Sulfate 325 Mg Tablet 325 Mg PO BID Coumadin (Warfarin Sodium) 5 Mg Tablet 7 Mg PO DAILY Wednesday, Wed, , Wed Clonazepam 0.5 Mg Tablet 1 Tab PO DAILY PRN Carvedilol 12.5 Mg Tablet 1 Tab PO BID Atorvastatin Calcium 40 Mg Tablet 1 Tab PO QHS Aspir 81 (Aspirin) 81 Mg Tablet.dr 1 Tab PO DAILY Tylenol (Acetaminophen) 325 Mg Tablet 2 Tab PO PRN Q6HRS PRN Do not exceed 3000mg in 24hr period Vitals/I & O Vital Sign - Last 24 Hours 05/31/17 05/31/17 05/31/17 05/31/17 15:00 19:55 20:00 20:36 Temp 98.8 97.3 98.8 97.3 Pulse 63 76 76 Resp 18 18 B/P (MAP) 122/56 (78) 136/69 (91) 136/69 Pulse Ox 96 97 O2 Delivery Room Air Room Air Room Air 05/31/17 06/01/17 06/01/17 06/01/17 23:25 03:30 07:00 07:50 Temp 98.7 99.0 98.4 98.7 99.0 98.4 Pulse 68 64 64 Resp 18 18 18 B/P (MAP) 121/61 (81) 146/60 (88) 146/62 (90) Pulse Ox 97 98 99 O2 Delivery Room Air Room Air Room Air Room Air 06/01/17 06/01/17 09:35 11:00 Temp 98.4 98.4 Pulse 64 66 Resp 18 B/P (MAP) 146/62 149/70 (96) Pulse Ox 98 O2 Delivery Room Air RAE CARMICHAEL MD Jun 01, 2017 13:06
--- NOTE | 2017-06-01 13:08 | PDOC ---
PROGRESS NOTES Subjective Subjective HPI - 62 yo male admitted with a hgb of 4. ROS - no bleed Objective Objective Vital Signs Date Time Temp Pulse Resp B/P (MAP) Pulse Ox O2 Delivery O2 Flow Rate FiO2 06/01/17 11:00 98.4 66 18 149/70 (96) 98 Room Air 98.4 05/29/17 07:00 2.0 Physical Exam Heart: Normal S1, Normal S2 General: Alert Lungs: Clear to auscultation Assessment Assessment Assessment/Plan 62 yo male admitted with a hgb of 4. 1. Anemia. Most likely he had a bleed. He has a ? history of Ulcerative colitis and has been on coumadin for his stroke and afib. He has received 3 units of PRBC. Hb improved. Agree with reversing his coumadin with vit k. Appreciate GI consult. He most likely will need an EGD and colonoscopy. Also his retic and LDH is elevated and Haptoglobin low, but angel negative. f/ u retic and LDH are better. I will recheck. I will monitor labs. I d/w Dr Vega. 2. Coagulopathy. He was on coumadin for afib/cva. He received 10mg subcu vit k 05/29/17 and 5mg oral 05/30/17. Comment Review of Relevant I have reviewed the following items yulissa (where applicable) has been applied. Labs Laboratory Tests Test 05/30/17 15:09 05/30/17 20:31 05/31/17 03:31 05/31/17 08:03 Glucose (Fingerstick) 159 mg/dL (70-99) 165 mg/dL (70-99) 97 mg/dL (70-99) White Blood Count 6.9 x10^3/uL (4.0-11.0) Red Blood Count 2.68 x10^6/uL (4.30-5.70) Hemoglobin 8.1 g/dL (13.0-17.5) Hematocrit 24.9 % (39.0-53.0) Mean Corpuscular Volume 93 fL (79-100) Mean Corpuscular Hemoglobin 30 pg (25-35) Mean Corpuscular Hemoglobin Concent 33 g/dL (31-37) Red Cell Distribution Width 19.4 % (11.5-14.5) Platelet Count 179 x10^3/uL (140-400) Neutrophils (%) (Auto) 66 % (31-73) Lymphocytes (%) (Auto) 23 % (24-48) Monocytes (%) (Auto) 8 % (0-9) Eosinophils (%) (Auto) 3 % (0-3) Basophils (%) (Auto) 0 % (0-3) Neutrophils # (Auto) 4.6 x10^3uL (1.8-7.7) Lymphocytes # (Auto) 1.6 x10^3/uL (1.0-4.8) Monocytes # (Auto) 0.5 x10^3/uL (0.0-1.1) Eosinophils # (Auto) 0.2 x10^3/uL (0.0-0.7) Basophils # (Auto) 0.0 x10^3/uL (0.0-0.2) Reticulocyte Count (auto) 7.5 % (0.5-2.5) Prothrombin Time 15.6 SEC (11.7-14.0) Prothromb Time International Ratio 1.3 (0.8-1.1) Sodium Level 143 mmol/L (136-145) Potassium Level 4.0 mmol/L (3.5-5.1) Chloride Level 109 mmol/L (98-107) Carbon Dioxide Level 27 mmol/L (21-32) Anion Gap 7 (6-14) Blood Urea Nitrogen 11 mg/dL (8-26) Creatinine 1.0 mg/dL (0.7-1.3) Estimated GFR (Cockcroft-Gault) 91.0 Glucose Level 113 mg/dL (70-99) Calcium Level 7.3 mg/dL (8.5-10.1) Magnesium Level 2.1 mg/dL (1.8-2.4) Ferritin 46 ng/mL (26-388) Lactate Dehydrogenase 662 U/L (85-227) Triglycerides Level 110 mg/dL (0-150) Cholesterol Level 94 mg/dL (0-200) LDL Cholesterol, Calculated 47 mg/dL (0-100) VLDL Cholesterol, Calculated 22 mg/dL (0-40) Non-HDL Cholesterol Calculated 69 mg/dL (0-129) HDL Cholesterol 25 mg/dL (40-60) Cholesterol/HDL Ratio 3.8 Test 05/31/17 11:45 05/31/17 16:54 05/31/17 17:30 05/31/17 20:43 Glucose (Fingerstick) 114 mg/dL (70-99) 150 mg/dL (70-99) 216 mg/dL (70-99) Stool Occult Blood Negative (NEG) Test 06/01/17 04:15 06/01/17 07:38 06/01/17 11:08 White Blood Count 5.0 x10^3/uL (4.0-11.0) Red Blood Count 2.51 x10^6/uL (4.30-5.70) Hemoglobin 7.7 g/dL (13.0-17.5) Hematocrit 22.7 % (39.0-53.0) Mean Corpuscular Volume 91 fL (79-100) Mean Corpuscular Hemoglobin 31 pg (25-35) Mean Corpuscular Hemoglobin Concent 34 g/dL (31-37) Red Cell Distribution Width 17.6 % (11.5-14.5) Platelet Count 181 x10^3/uL (140-400) Neutrophils (%) (Auto) 65 % (31-73) Lymphocytes (%) (Auto) 24 % (24-48) Monocytes (%) (Auto) 7 % (0-9) Eosinophils (%) (Auto) 4 % (0-3) Basophils (%) (Auto) 1 % (0-3) Neutrophils # (Auto) 3.2 x10^3uL (1.8-7.7) Lymphocytes # (Auto) 1.2 x10^3/uL (1.0-4.8) Monocytes # (Auto) 0.4 x10^3/uL (0.0-1.1) Eosinophils # (Auto) 0.2 x10^3/uL (0.0-0.7) Basophils # (Auto) 0.0 x10^3/uL (0.0-0.2) Reticulocyte Count (auto) 6.4 % (0.5-2.5) Prothrombin Time 14.5 SEC (11.7-14.0) Prothromb Time International Ratio 1.2 (0.8-1.1) Sodium Level 140 mmol/L (136-145) Potassium Level 3.8 mmol/L (3.5-5.1) Chloride Level 108 mmol/L (98-107) Carbon Dioxide Level 27 mmol/L (21-32) Anion Gap 5 (6-14) Blood Urea Nitrogen 11 mg/dL (8-26) Creatinine 1.1 mg/dL (0.7-1.3) Estimated GFR (Cockcroft-Gault) 81.5 Glucose Level 140 mg/dL (70-99) Calcium Level 7.6 mg/dL (8.5-10.1) Lactate Dehydrogenase 258 U/L (85-227) Glucose (Fingerstick) 94 mg/dL (70-99) 123 mg/dL (70-99) Laboratory Tests Test 05/31/17 16:54 05/31/17 17:30 05/31/17 20:43 06/01/17 04:15 Glucose (Fingerstick) 150 mg/dL (70-99) 216 mg/dL (70-99) Stool Occult Blood Negative (NEG) White Blood Count 5.0 x10^3/uL (4.0-11.0) Red Blood Count 2.51 x10^6/uL (4.30-5.70) Hemoglobin 7.7 g/dL (13.0-17.5) Hematocrit 22.7 % (39.0-53.0) Mean Corpuscular Volume 91 fL (79-100) Mean Corpuscular Hemoglobin 31 pg (25-35) Mean Corpuscular Hemoglobin Concent 34 g/dL (31-37) Red Cell Distribution Width 17.6 % (11.5-14.5) Platelet Count 181 x10^3/uL (140-400) Neutrophils (%) (Auto) 65 % (31-73) Lymphocytes (%) (Auto) 24 % (24-48) Monocytes (%) (Auto) 7 % (0-9) Eosinophils (%) (Auto) 4 % (0-3) Basophils (%) (Auto) 1 % (0-3) Neutrophils # (Auto) 3.2 x10^3uL (1.8-7.7) Lymphocytes # (Auto) 1.2 x10^3/uL (1.0-4.8) Monocytes # (Auto) 0.4 x10^3/uL (0.0-1.1) Eosinophils # (Auto) 0.2 x10^3/uL (0.0-0.7) Basophils # (Auto) 0.0 x10^3/uL (0.0-0.2) Reticulocyte Count (auto) 6.4 % (0.5-2.5) Prothrombin Time 14.5 SEC (11.7-14.0) Prothromb Time International Ratio 1.2 (0.8-1.1) Sodium Level 140 mmol/L (136-145) Potassium Level 3.8 mmol/L (3.5-5.1) Chloride Level 108 mmol/L (98-107) Carbon Dioxide Level 27 mmol/L (21-32) Anion Gap 5 (6-14) Blood Urea Nitrogen 11 mg/dL (8-26) Creatinine 1.1 mg/dL (0.7-1.3) Estimated GFR (Cockcroft-Gault) 81.5 Glucose Level 140 mg/dL (70-99) Calcium Level 7.6 mg/dL (8.5-10.1) Lactate Dehydrogenase 258 U/L (85-227) Test 06/01/17 07:38 06/01/17 11:08 Glucose (Fingerstick) 94 mg/dL (70-99) 123 mg/dL (70-99) Medications Current Medications Sodium Chloride 1,000 ml @ 100 mls/hr Q10H IV Last administered on 05/31/17t 12:25; Start 05/28/17 at 15:01; Stop 05/31/17 at 14:24; Status DC Ondansetron HCl (Zofran) 4 mg PRN Q6HRS PRN IV NAUSEA/VOMITING (1st Choice); Start 05/28/17 at 15:15 Prochlorperazine Edisylate (Compazine) 10 mg PRN Q6HRS PRN IV NAUSEA/VOMITING ( 2ND Choice); Start 05/28/17 at 15:15 Prochlorperazine (Compazine) 25 mg PRN Q12HR PRN CA NAUSEA/VOMITING; Start at 15:15 Al Hydroxide/Mg Hydroxide (Mylanta Plus Xs) 30 ml PRN Q3HRS PRN PO HEARTBURN / GAS; Start 05/28/17 at 15:15 Calcium Carbonate/ Glycine (Tums) 500 mg PRN Q3HRS PRN PO UPSET STOMACH; Start 05/28/17 at 15:15 Oxycodone HCl (Roxicodone) 5 mg PRN Q3HRS PRN PO BREAKTHROUGH PAIN Last administered on 05/31/17 01:44; Start 05/28/17 at 15:15 Morphine Sulfate 1 mg PRN Q1HR PRN IV PAIN; Start 05/28/17 at 15:15 Acetaminophen (Tylenol) 650 mg PRN Q6HRS PRN PO Headaches, Temp > 101.5F; Start 05/28/17 at 15:15 Magnesium Hydroxide (Milk Of Magnesia) 2,400 mg PRN Q12HR PRN PO CONSTIPATION; Start 05/28/17 at 15:15 Bisacodyl (Dulcolax Supp) 10 mg PRN DAILY PRN CA CONSTIPATION; Start 05/28/17 at 15:15 Haloperidol Lactate (Haldol) 5 mg PRN Q6HRS PRN IVP AGITATION Last administered on 05/28/17 16:48; Start 05/28/17 at 15:15 Lorazepam (Ativan) 2 mg PRN Q4HRS PRN IV ANXIETY / AGITATION Last administered on 05/28/17 21:02; Start 05/28/17 at 15:15 Famotidine (Pepcid) 20 mg BID IVP Last administered on 05/31/17 09:00; Start 05/28/17 at 21:00; Stop 05/31/17 at 10:29; Status DC Insulin Aspart (NovoLOG) 0-7 UNITS TIDWMEALS SQ Last administered on 05/30/17 17:18; Start 05/28/17 at 17:00 Dextrose (Dextrose 50%-Water Syringe) 12.5 gm PRN Q15MIN PRN IV SEE COMMENTS; Start 05/28/17 at 15:15 Phytonadione (Mephyton Tablet) 10 mg 1X ONCE PO Last administered on 18:08; Start 05/28/17 at 17:45; Stop 05/28/17 at 17:46; Status DC Pneumococcal Polyvalent Vaccine (Do NOT chart on this placeholder) 1 each 1X ONCE MC ; Start 05/28/17 at 19:30; Stop 05/28/17 at 19:31; Status UNV Pneumococcal Polyvalent Vaccine (Pneumovax 23) 0.5 ml ONCE ONCE VAX IM Last administered on 05/29/17 08:38; Start 05/28/17 at 20:00; Stop 05/28/17 at 20:01 ; Status DC Phytonadione (Vitamin K Ampule) 10 mg 1X ONCE SQ Last administered on 12:26; Start 05/29/17 at 11:45; Stop 05/29/17 at 11:46; Status DC Metoprolol Tartrate (Lopressor) 25 mg BID PO Last administered on 05/29/17 21: 00; Start 05/29/17 at 14:00; Stop 05/29/17 at 21:00; Status DC Metoprolol Tartrate (Lopressor) 25 mg BID PO Last administered on 06/01/17 09: 35; Start 05/29/17 at 21:00 Phytonadione (Mephyton Tablet) 5 mg 1X ONCE PO Last administered on 05/30/17 11:35; Start 05/30/17 at 11:00; Stop 05/30/17 at 11:01; Status DC Pantoprazole Sodium (Protonix) 40 mg DAILYAC PO Last administered on 06/01/17 09:35; Start 05/31/17 at 11:00 Ferrous Sulfate (Feosol) 325 mg DAILYWBKFT PO Last administered on 06/01/17 09 :33; Start 05/31/17 at 17:00 Cyanocobalamin (Vitamin B-12) 1,000 mcg DAILY PO Last administered on 09:33; Start 05/31/17 at 15:00 Active Scripts Active Reported Multivitamins (Multivitamin) 1 Each Tablet 1 Tab PO DAILY Spironolactone 25 Mg Tablet 12.5 Mg PO DAILY Pro-Stat Liquid (Amino Acids/Protein Hydrolys) 30 Ml Liquid 30 Ml PO BID Pantoprazole Sodium 40 Mg Tablet.dr Cole Tab PO DAILY Metformin Hcl 500 Mg Tablet 500 Mg PO DAILY Lisinopril 10 Mg Tablet 1 Tab PO DAILY Lasix (Furosemide) 40 Mg Tablet 1 Tab PO BID Ferrous Sulfate 325 Mg Tablet 325 Mg PO BID Coumadin (Warfarin Sodium) 5 Mg Tablet 7 Mg PO DAILY Wednesday, Wed, , Sat Clonazepam 0.5 Mg Tablet 1 Tab PO DAILY PRN Carvedilol 12.5 Mg Tablet 1 Tab PO BID Atorvastatin Calcium 40 Mg Tablet 1 Tab PO QHS Aspir 81 (Aspirin) 81 Mg Tablet.dr 1 Tab PO DAILY Tylenol (Acetaminophen) 325 Mg Tablet 2 Tab PO PRN Q6HRS PRN Do not exceed 3000mg in 24hr period Vitals/I & O Vital Sign - Last 24 Hours 05/31/17 05/31/17 05/31/17 05/31/17 15:00 19:55 20:00 20:36 Temp 98.8 97.3 98.8 97.3 Pulse 63 76 76 Resp 18 18 B/P (MAP) 122/56 (78) 136/69 (91) 136/69 Pulse Ox 96 97 O2 Delivery Room Air Room Air Room Air 05/31/17 06/01/17 06/01/17 06/01/17 23:25 03:30 07:00 07:50 Temp 98.7 99.0 98.4 98.7 99.0 98.4 Pulse 68 64 64 Resp 18 18 18 B/P (MAP) 121/61 (81) 146/60 (88) 146/62 (90) Pulse Ox 97 98 99 O2 Delivery Room Air Room Air Room Air Room Air 06/01/17 06/01/17 09:35 11:00 Temp 98.4 98.4 Pulse 64 66 Resp 18 B/P (MAP) 146/62 149/70 (96) Pulse Ox 98 O2 Delivery Room Air CHARLEY GARCIA MD Jun 01, 2017 13:08
--- NOTE | 2017-06-01 14:34 | PDOC ---
Subjective: Subjective: No complaints. Objective: Objective: Per RN - no GI concerns, no bleeding, eating well. Vital Signs: Vital Signs Date Time Temp Pulse Resp B/P (MAP) Pulse Ox O2 Delivery O2 Flow Rate FiO2 06/01/17 11:00 98.4 66 18 149/70 (96) 98 Room Air 98.4 Labs: Laboratory Tests Test 05/31/17 16:54 05/31/17 17:30 05/31/17 20:43 06/01/17 04:15 Glucose (Fingerstick) 150 mg/dL 216 mg/dL Stool Occult Blood Negative White Blood Count 5.0 x10^3/uL Red Blood Count 2.51 x10^6/uL Hemoglobin 7.7 g/dL Hematocrit 22.7 % Mean Corpuscular Volume 91 fL Mean Corpuscular Hemoglobin 31 pg Mean Corpuscular Hemoglobin Concent 34 g/dL Red Cell Distribution Width 17.6 % Platelet Count 181 x10^3/uL Neutrophils (%) (Auto) 65 % Lymphocytes (%) (Auto) 24 % Monocytes (%) (Auto) 7 % Eosinophils (%) (Auto) 4 % Basophils (%) (Auto) 1 % Neutrophils # (Auto) 3.2 x10^3uL Lymphocytes # (Auto) 1.2 x10^3/uL Monocytes # (Auto) 0.4 x10^3/uL Eosinophils # (Auto) 0.2 x10^3/uL Basophils # (Auto) 0.0 x10^3/uL Reticulocyte Count (auto) 6.4 % Prothrombin Time 14.5 SEC Prothromb Time International Ratio 1.2 Sodium Level 140 mmol/L Potassium Level 3.8 mmol/L Chloride Level 108 mmol/L Carbon Dioxide Level 27 mmol/L Anion Gap 5 Blood Urea Nitrogen 11 mg/dL Creatinine 1.1 mg/dL Estimated GFR (Cockcroft-Gault) 81.5 Glucose Level 140 mg/dL Calcium Level 7.6 mg/dL Lactate Dehydrogenase 258 U/L Test 06/01/17 07:38 06/01/17 11:08 Glucose (Fingerstick) 94 mg/dL 123 mg/dL PE: GEN: NAD LUNGS: clear HEART: RR ABD: S/ND/NT NEURO/PSYCH: awake/alert, answers yes/no - also tells me which phone number is his 's on the dry erase board A/P: Anemia -some drift in Hgb to 7s w/o overt bleeding, hemoccult negative -h/o CVA w/ aphasia, Coumadin coagulopathy on admit -CT @ [facility]: distended stomach and GB, non-dilated small bowel, feces and gas in colon w/ moderate stool in rectum ?h/o ulcerative colitis -- D/w cardiology - severe cardiomyopathy, would ideally have 'scopes prior to ischemic workup - Coumadin held, hesitant to start ASA as well. Apparently signs owns consents, but would like to d/w family re: desire for additional workup w/ colonoscopy. D/w RN. Attempted to reach pt's Kalli (who apparently has transportation issues and cannot come to the hospital easily) via phone - no answer. GARY FELIPE Jun 01, 2017 14:34 ANTONIETTA MTZ MD Jun 01, 2017 15:13
[2017-06-01 15:00] VITALS: BP 129/54
--- NOTE | 2017-06-01 15:25 | PDOC ---
CARDIO Progress Notes Date and Time Date of Service 06/01/2017 Time of Evaluation 1330 Subjective Subjective: No Chest Pain, No shortness of breath, No Palpitations Vitals Vitals Vital Signs Date Time Temp Pulse Resp B/P (MAP) Pulse Ox O2 Delivery O2 Flow Rate FiO2 06/01/17 11:00 98.4 66 18 149/70 (96) 98 Room Air 98.4 Weight Weight [ ] Laboratory Labs Laboratory Tests Test 05/31/17 16:54 05/31/17 17:30 05/31/17 20:43 06/01/17 04:15 Glucose (Fingerstick) 150 mg/dL (70-99) 216 mg/dL (70-99) Stool Occult Blood Negative (NEG) White Blood Count 5.0 x10^3/uL (4.0-11.0) Red Blood Count 2.51 x10^6/uL (4.30-5.70) Hemoglobin 7.7 g/dL (13.0-17.5) Hematocrit 22.7 % (39.0-53.0) Mean Corpuscular Volume 91 fL (79-100) Mean Corpuscular Hemoglobin 31 pg (25-35) Mean Corpuscular Hemoglobin Concent 34 g/dL (31-37) Red Cell Distribution Width 17.6 % (11.5-14.5) Platelet Count 181 x10^3/uL (140-400) Neutrophils (%) (Auto) 65 % (31-73) Lymphocytes (%) (Auto) 24 % (24-48) Monocytes (%) (Auto) 7 % (0-9) Eosinophils (%) (Auto) 4 % (0-3) Basophils (%) (Auto) 1 % (0-3) Neutrophils # (Auto) 3.2 x10^3uL (1.8-7.7) Lymphocytes # (Auto) 1.2 x10^3/uL (1.0-4.8) Monocytes # (Auto) 0.4 x10^3/uL (0.0-1.1) Eosinophils # (Auto) 0.2 x10^3/uL (0.0-0.7) Basophils # (Auto) 0.0 x10^3/uL (0.0-0.2) Reticulocyte Count (auto) 6.4 % (0.5-2.5) Prothrombin Time 14.5 SEC (11.7-14.0) Prothromb Time International Ratio 1.2 (0.8-1.1) Sodium Level 140 mmol/L (136-145) Potassium Level 3.8 mmol/L (3.5-5.1) Chloride Level 108 mmol/L (98-107) Carbon Dioxide Level 27 mmol/L (21-32) Anion Gap 5 (6-14) Blood Urea Nitrogen 11 mg/dL (8-26) Creatinine 1.1 mg/dL (0.7-1.3) Estimated GFR (Cockcroft-Gault) 81.5 Glucose Level 140 mg/dL (70-99) Calcium Level 7.6 mg/dL (8.5-10.1) Lactate Dehydrogenase 258 U/L (85-227) Test 06/01/17 07:38 06/01/17 11:08 Glucose (Fingerstick) 94 mg/dL (70-99) 123 mg/dL (70-99) Physical Exam HEENT: Neck Supple W Full Motion Chest: Symmetric LUNGS: Clear to Auscultation Heart: S1S2, RRR (SR) Abdomen: Soft N/T Extremities: No Calf Tenderness, Other (chronic right arm weakness) Neurology: alert, oriented, follow commands, other (expressive aphasia) Assessment Assessment 1. PAFIB: in the setting of anemia and CM. Remains SR 2. 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 EF 25% EF, Presumed new. NYHA 2-3 3. Severe anemia: requiring blood transfusion. Hgb trending down again. Needing EGD/colonoscopy per GI 4. CVA 5. HLP: controlled. LDL 47. HDL 25. Recommendations 1. Pt is CP free and no SOA, awaiting possible endoscopy to ascertain any cause of bleed after which will consider for ischemic workup likely MPI as an outpt. 2. Will need ASA to start once clear with GI 3. No further coumadin at this time. JIM ligation would be a consideration, outpt referral. 4. Continue on metoprolol, and home lipitor, and lisinopril 5. Will follow peripherally. MISAEL SANCHEZ APRN Jun 01, 2017 15:25
[2017-06-01] MEDS: LISINOPRIL 10 MG TABLET PO SCH (16:31)
[2017-06-01 19:51] VITALS: BP 151/67
[2017-06-01] MEDS: ATORVASTATIN CALCIUM 40 MG TABLET. PO SCH (20:40)
[2017-06-01 23:20] VITALS: BP 135/59
[2017-06-02 03:32] VITALS: BP 133/55
[2017-06-02 06:10] LABS: BASO % 0 % (0-3); EOS % 4 % (0-3); HEMATOCRIT 23.2 % (39.0-53.0); HEMOGLOBIN 7.7 g/dL (13.0-17.5); LYMPH # 1.5 x10^3/uL (1.0-4.8); LYMPH % 27 % (24-48); MEAN CORPUSCULAR HEMOGLOBIN 30 pg (25-35); MEAN CORPUSCULAR HGB CONC 33 g/dL (31-37); MEAN CORPUSCULAR VOLUME 91 fL (79-100); MONO % 7 % (0-9); NEUT % 62 % (31-73); PLATELET COUNT 196 x10^3/uL (140-400); RED BLOOD COUNT 2.57 x10^6/uL (4.30-5.70); RED CELL DISTRIBUTION WIDTH 17.9 % (11.5-14.5); WHITE BLOOD COUNT 5.4 x10^3/uL (4.0-11.0)
[2017-06-02 07:00] VITALS: BP 143/59
[2017-06-02] MEDS: INSULIN ASPART 300 UNITS/3 ML INSULN.PEN SQ SCH ×3 (07:59→16:37)
[2017-06-02] MEDS: FERROUS SULFATE 325 MG TABLET. PO SCH (08:06)
[2017-06-02] MEDS: PANTOPRAZOLE 40 MG TABLET.DR. PO SCH (08:06)
[2017-06-02] MEDS: LISINOPRIL 10 MG TABLET PO SCH (08:06)
[2017-06-02] MEDS: CYANOCOBALAMIN (VITAMIN B-12) 1,000 MCG TABLET. PO SCH (08:07)
[2017-06-02] MEDS: METOPROLOL TART IMMED RELEASE 25 MG TABLET. PO SCH ×2 (08:07→20:56)
[2017-06-02] MEDS ORDERED: predniSONE 20 MG TABLET PO ONE (09:45)
--- NOTE | 2017-06-02 09:49 | PDOC ---
PROGRESS NOTES Subjective Subjective HPI - 62 yo male admitted with a hgb of 4. ROS - no bleed Objective Objective Vital Signs Date Time Temp Pulse Resp B/P (MAP) Pulse Ox O2 Delivery O2 Flow Rate FiO2 06/02/17 08:07 60 143/59 06/02/17 07:00 98.6 18 97 Room Air 98.6 05/29/17 07:00 2.0 Physical Exam Heart: Normal S1, Normal S2 General: Alert, No acute distress Lungs: Clear to auscultation Assessment Assessment Assessment/Plan 62 yo male admitted with a hgb of 4. 1. Anemia. eval for a bleed. He has a ? history of Ulcerative colitis and has been on coumadin for his stroke and afib. He has received 3 units of PRBC. Hb improved. Agree with reversing his coumadin with vit k. Appreciate GI consult. He most likely will need an EGD and colonoscopy. Also his retic and LDH is elevated and Haptoglobin low, but angel negative. f/ u LDH is worse again. 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 I will start prednisone 80 mg daily from 06/02/17. I will also check CT and bone marrow to eval for lymphoproliferative disorder. I d/w Dr Vega I will monitor labs. 2. Coagulopathy. He was on coumadin for afib/cva. He received 10mg subcu vit k 05/29/17 and 5mg oral 05/30/17. 3. h/o CVA and expressive aphasia. Comment Review of Relevant I have reviewed the following items yulissa (where applicable) has been applied. Labs Laboratory Tests Test 05/31/17 11:45 05/31/17 16:54 05/31/17 17:30 05/31/17 20:43 Glucose (Fingerstick) 114 mg/dL (70-99) 150 mg/dL (70-99) 216 mg/dL (70-99) Stool Occult Blood Negative (NEG) Test 06/01/17 04:15 06/01/17 07:38 06/01/17 11:08 06/01/17 16:07 White Blood Count 5.0 x10^3/uL (4.0-11.0) Red Blood Count 2.51 x10^6/uL (4.30-5.70) Hemoglobin 7.7 g/dL (13.0-17.5) Hematocrit 22.7 % (39.0-53.0) Mean Corpuscular Volume 91 fL (79-100) Mean Corpuscular Hemoglobin 31 pg (25-35) Mean Corpuscular Hemoglobin Concent 34 g/dL (31-37) Red Cell Distribution Width 17.6 % (11.5-14.5) Platelet Count 181 x10^3/uL (140-400) Neutrophils (%) (Auto) 65 % (31-73) Lymphocytes (%) (Auto) 24 % (24-48) Monocytes (%) (Auto) 7 % (0-9) Eosinophils (%) (Auto) 4 % (0-3) Basophils (%) (Auto) 1 % (0-3) Neutrophils # (Auto) 3.2 x10^3uL (1.8-7.7) Lymphocytes # (Auto) 1.2 x10^3/uL (1.0-4.8) Monocytes # (Auto) 0.4 x10^3/uL (0.0-1.1) Eosinophils # (Auto) 0.2 x10^3/uL (0.0-0.7) Basophils # (Auto) 0.0 x10^3/uL (0.0-0.2) Reticulocyte Count (auto) 6.4 % (0.5-2.5) Prothrombin Time 14.5 SEC (11.7-14.0) Prothromb Time International Ratio 1.2 (0.8-1.1) Sodium Level 140 mmol/L (136-145) Potassium Level 3.8 mmol/L (3.5-5.1) Chloride Level 108 mmol/L (98-107) Carbon Dioxide Level 27 mmol/L (21-32) Anion Gap 5 (6-14) Blood Urea Nitrogen 11 mg/dL (8-26) Creatinine 1.1 mg/dL (0.7-1.3) Estimated GFR (Cockcroft-Gault) 81.5 Glucose Level 140 mg/dL (70-99) Calcium Level 7.6 mg/dL (8.5-10.1) Lactate Dehydrogenase 258 U/L (85-227) Glucose (Fingerstick) 94 mg/dL (70-99) 123 mg/dL (70-99) 128 mg/dL (70-99) Test 10//17 21:00 06/02/17 04:40 06/02/17 07:50 Glucose (Fingerstick) 154 mg/dL (70-99) 90 mg/dL (70-99) White Blood Count 5.4 x10^3/uL (4.0-11.0) Red Blood Count 2.57 x10^6/uL (4.30-5.70) Hemoglobin 7.7 g/dL (13.0-17.5) Hematocrit 23.2 % (39.0-53.0) Mean Corpuscular Volume 91 fL (79-100) Mean Corpuscular Hemoglobin 30 pg (25-35) Mean Corpuscular Hemoglobin Concent 33 g/dL (31-37) Red Cell Distribution Width 17.9 % (11.5-14.5) Platelet Count 196 x10^3/uL (140-400) Neutrophils (%) (Auto) 62 % (31-73) Lymphocytes (%) (Auto) 27 % (24-48) Monocytes (%) (Auto) 7 % (0-9) Eosinophils (%) (Auto) 4 % (0-3) Basophils (%) (Auto) 0 % (0-3) Neutrophils # (Auto) 3.3 x10^3uL (1.8-7.7) Lymphocytes # (Auto) 1.5 x10^3/uL (1.0-4.8) Monocytes # (Auto) 0.4 x10^3/uL (0.0-1.1) Eosinophils # (Auto) 0.2 x10^3/uL (0.0-0.7) Basophils # (Auto) 0.0 x10^3/uL (0.0-0.2) Reticulocyte Count (auto) 6.7 % (0.5-2.5) Lactate Dehydrogenase 757 U/L (85-227) Laboratory Tests Test 06/01/17 11:08 06/01/17 16:07 06/01/17 21:00 06/02/17 04:40 Glucose (Fingerstick) 123 mg/dL (70-99) 128 mg/dL (70-99) 154 mg/dL (70-99) White Blood Count 5.4 x10^3/uL (4.0-11.0) Red Blood Count 2.57 x10^6/uL (4.30-5.70) Hemoglobin 7.7 g/dL (13.0-17.5) Hematocrit 23.2 % (39.0-53.0) Mean Corpuscular Volume 91 fL (79-100) Mean Corpuscular Hemoglobin 30 pg (25-35) Mean Corpuscular Hemoglobin Concent 33 g/dL (31-37) Red Cell Distribution Width 17.9 % (11.5-14.5) Platelet Count 196 x10^3/uL (140-400) Neutrophils (%) (Auto) 62 % (31-73) Lymphocytes (%) (Auto) 27 % (24-48) Monocytes (%) (Auto) 7 % (0-9) Eosinophils (%) (Auto) 4 % (0-3) Basophils (%) (Auto) 0 % (0-3) Neutrophils # (Auto) 3.3 x10^3uL (1.8-7.7) Lymphocytes # (Auto) 1.5 x10^3/uL (1.0-4.8) Monocytes # (Auto) 0.4 x10^3/uL (0.0-1.1) Eosinophils # (Auto) 0.2 x10^3/uL (0.0-0.7) Basophils # (Auto) 0.0 x10^3/uL (0.0-0.2) Reticulocyte Count (auto) 6.7 % (0.5-2.5) Lactate Dehydrogenase 757 U/L (85-227) Test 06/02/17 07:50 Glucose (Fingerstick) 90 mg/dL (70-99) Medications Current Medications Sodium Chloride 1,000 ml @ 100 mls/hr Q10H IV Last administered on 05/31/17t 12:25; Start 05/28/17 at 15:01; Stop 05/31/17 at 14:24; Status DC Ondansetron HCl (Zofran) 4 mg PRN Q6HRS PRN IV NAUSEA/VOMITING (1st Choice); Start 05/28/17 at 15:15 Prochlorperazine Edisylate (Compazine) 10 mg PRN Q6HRS PRN IV NAUSEA/VOMITING ( 2ND Choice); Start 05/28/17 at 15:15 Prochlorperazine (Compazine) 25 mg PRN Q12HR PRN [place] NAUSEA/VOMITING; Start at 15:15 Al Hydroxide/Mg Hydroxide (Mylanta Plus Xs) 30 ml PRN Q3HRS PRN PO HEARTBURN / GAS; Start 05/28/17 at 15:15 Calcium Carbonate/ Glycine (Tums) 500 mg PRN Q3HRS PRN PO UPSET STOMACH; Start 05/28/17 at 15:15 Oxycodone HCl (Roxicodone) 5 mg PRN Q3HRS PRN PO BREAKTHROUGH PAIN Last administered on 05/31/17 01:44; Start 05/28/17 at 15:15 Morphine Sulfate 1 mg PRN Q1HR PRN IV PAIN; Start 05/28/17 at 15:15 Acetaminophen (Tylenol) 650 mg PRN Q6HRS PRN PO Headaches, Temp > 101.5F; Start 05/28/17 at 15:15 Magnesium Hydroxide (Milk Of Magnesia) 2,400 mg PRN Q12HR PRN PO CONSTIPATION; Start 05/28/17 at 15:15 Bisacodyl (Dulcolax Supp) 10 mg PRN DAILY PRN [place] CONSTIPATION; Start 05/28/17 at 15:15 Haloperidol Lactate (Haldol) 5 mg PRN Q6HRS PRN IVP AGITATION Last administered on 05/28/17 16:48; Start 05/28/17 at 15:15 Lorazepam (Ativan) 2 mg PRN Q4HRS PRN IV ANXIETY / AGITATION Last administered on 05/28/17 21:02; Start 05/28/17 at 15:15 Famotidine (Pepcid) 20 mg BID IVP Last administered on 05/31/17 09:00; Start 05/28/17 at 21:00; Stop 05/31/17 at 10:29; Status DC Insulin Aspart (NovoLOG) 0-7 UNITS TIDWMEALS SQ Last administered on 05/30/17 17:18; Start 05/28/17 at 17:00 Dextrose (Dextrose 50%-Water Syringe) 12.5 gm PRN Q15MIN PRN IV SEE COMMENTS; Start 05/28/17 at 15:15 Phytonadione (Mephyton Tablet) 10 mg 1X ONCE PO Last administered on 18:08; Start 05/28/17 at 17:45; Stop 05/28/17 at 17:46; Status DC Pneumococcal Polyvalent Vaccine (Do NOT chart on this placeholder) 1 each 1X ONCE MC ; Start 05/28/17 at 19:30; Stop 05/28/17 at 19:31; Status UNV Pneumococcal Polyvalent Vaccine (Pneumovax 23) 0.5 ml ONCE ONCE VAX IM Last administered on 05/29/17 08:38; Start 05/28/17 at 20:00; Stop 05/28/17 at 20:01 ; Status DC Phytonadione (Vitamin K Ampule) 10 mg 1X ONCE SQ Last administered on 12:26; Start 05/29/17 at 11:45; Stop 05/29/17 at 11:46; Status DC Metoprolol Tartrate (Lopressor) 25 mg BID PO Last administered on 05/29/17 21: 00; Start 05/29/17 at 14:00; Stop 05/29/17 at 21:00; Status DC Metoprolol Tartrate (Lopressor) 25 mg BID PO Last administered on 06/02/17 08: 07; Start 05/29/17 at 21:00 Phytonadione (Mephyton Tablet) 5 mg 1X ONCE PO Last administered on 05/30/17 11:35; Start 05/30/17 at 11:00; Stop 05/30/17 at 11:01; Status DC Pantoprazole Sodium (Protonix) 40 mg DAILYAC PO Last administered on 06/02/17 08:06; Start 05/31/17 at 11:00 Ferrous Sulfate (Feosol) 325 mg DAILYWBKFT PO Last administered on 06/02/17 08 :06; Start 05/31/17 at 17:00 Cyanocobalamin (Vitamin B-12) 1,000 mcg DAILY PO Last administered on 08:07; Start 05/31/17 at 15:00 Atorvastatin Calcium (Lipitor) 40 mg QHS PO Last administered on 06/01/17 20: 40; Start 06/01/17 at 21:00 Lisinopril (Prinivil) 10 mg DAILY PO Last administered on 06/02/17 08:06; Start 06/01/17 at 16:00 Polyethylene Glycol (miraLAX Powder BULK BOTTLE) 238 gm 1X ONCE PO ; Start 06/02/17 at 14:00; Stop 06/02/17 at 14:01 Bisacodyl (Dulcolax Tab) 5 mg 1X ONCE PO ; Start 06/02/17 at 14:00; Stop at 14:01 Prednisone (Prednisone) 80 mg 1X ONCE PO ; Start 06/02/17 at 09:45; Stop at 09:46; Status UNV Active Scripts Active Reported Multivitamins (Multivitamin) 1 Each Tablet 1 Tab PO DAILY Spironolactone 25 Mg Tablet 12.5 Mg PO DAILY Pro-Stat Liquid (Amino Acids/Protein Hydrolys) 30 Ml Liquid 30 Ml PO BID Pantoprazole Sodium 40 Mg Tablet.dr 1 Tab PO DAILY Metformin Hcl 500 Mg Tablet 500 Mg PO DAILY Lisinopril 10 Mg Tablet 1 Tab PO DAILY Lasix (Furosemide) 40 Mg Tablet 1 Tab PO BID Ferrous Sulfate 325 Mg Tablet 325 Mg PO BID Coumadin (Warfarin Sodium) 5 Mg Tablet 7 Mg PO DAILY Wednesday, Wed, , Wed Clonazepam 0.5 Mg Tablet 1 Tab PO DAILY PRN Carvedilol 12.5 Mg Tablet 1 Tab PO BID Atorvastatin Calcium 40 Mg Tablet 1 Tab PO QHS Aspir 81 (Aspirin) 81 Mg Tablet.dr 1 Tab PO DAILY Tylenol (Acetaminophen) 325 Mg Tablet 2 Tab PO PRN Q6HRS PRN Do not exceed 3000mg in 24hr period Vitals/I & O Vital Sign - Last 24 Hours 06/01/17 06/01/17 06/01/17 06/01/17 11:00 15:00 16:31 19:35 Temp 98.4 97.6 98.4 97.6 Pulse 66 61 61 Resp 18 18 B/P (MAP) 149/70 (96) 129/54 (79) 129/54 Pulse Ox 98 97 O2 Delivery Room Air Room Air Room Air 06/01/17 06/01/17 06/01/17 06/02/17 19:51 20:41 23:20 03:32 Temp 99.1 99.2 99.0 99.1 99.2 99.0 Pulse 68 68 52 58 Resp 18 18 18 B/P (MAP) 151/67 (95) 151/67 135/59 (84) 133/55 (81) Pulse Ox 96 99 96 O2 Delivery Room Air Room Air Room Air 06/02/17 06/02/17 06/02/17 07:00 08:06 08:07 Temp 98.6 98.6 Pulse 56 60 60 Resp 18 B/P (MAP) 143/59 (87) 143/59 143/59 Pulse Ox 97 O2 Delivery Room Air CHARLEY GARCIA MD Jun 02, 2017 09:49
[2017-06-02] MEDS ORDERED: IOHEXOL 240 MG/ML 50ML VIAL. PO ONE (10:00)
[2017-06-02] MEDS ORDERED: IOHEXOL 300 MG/ML 75 ML VIAL IV ONE (10:00)
[2017-06-02 11:00] VITALS: BP 154/56
--- NOTE | 2017-06-02 11:09 | PDOC ---
Subjective: Subjective: Denies pain and bleeding. Objective: Objective: No GI concerns per RN. Reviewed Dr. 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 Started on prednisone. Chest/A/P CT ordered alone w/ bone marrow biopsy. Vital Signs: Vital Signs Date Time Temp Pulse Resp B/P (MAP) Pulse Ox O2 Delivery O2 Flow Rate FiO2 06/02/17 08:07 60 143/59 06/02/17 07:40 Room Air 06/02/17 07:00 98.6 18 97 98.6 Labs: Laboratory Tests Test 06/01/17 11:08 06/01/17 16:07 06/01/17 21:00 06/02/17 04:40 Glucose (Fingerstick) 123 mg/dL 128 mg/dL 154 mg/dL White Blood Count 5.4 x10^3/uL Red Blood Count 2.57 x10^6/uL Hemoglobin 7.7 g/dL Hematocrit 23.2 % Mean Corpuscular Volume 91 fL Mean Corpuscular Hemoglobin 30 pg Mean Corpuscular Hemoglobin Concent 33 g/dL Red Cell Distribution Width 17.9 % Platelet Count 196 x10^3/uL Neutrophils (%) (Auto) 62 % Lymphocytes (%) (Auto) 27 % Monocytes (%) (Auto) 7 % Eosinophils (%) (Auto) 4 % Basophils (%) (Auto) 0 % Neutrophils # (Auto) 3.3 x10^3uL Lymphocytes # (Auto) 1.5 x10^3/uL Monocytes # (Auto) 0.4 x10^3/uL Eosinophils # (Auto) 0.2 x10^3/uL Basophils # (Auto) 0.0 x10^3/uL Reticulocyte Count (auto) 6.7 % Lactate Dehydrogenase 757 U/L Test 06/02/17 07:50 Glucose (Fingerstick) 90 mg/dL PE: GEN: NAD LUNGS: CTAB HEART: RR ABD: S/ND/NT NEURO/PSYCH:A & O x 3, appears to understand and agree w/ plans for EGD and colonoscopy A/P: Anemia -Hgb stable today (7.7), hemoccult negative -h/o CVA w/ aphasia, Coumadin coagulopathy on admit (INR now 1.2) -CT @ [facility] for vomiting and fever: distended stomach and GB, non-dilated small bowel, feces and gas in colon w/ moderate stool in rectum ?h/o ulcerative colitis - difficult to clarify this history w/ h/o CVA, aphasia (although communication seems to improve each day) -hematology workup ongoing, 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 Per RN, signs own consents - unable to reach Kalli by phone. Will plan for EGD and colonoscopy tomorrow morning after prep. D/w RN. Await CT. Plans for bone marrow biopsy as well. GARY FELIPE Jun 02, 2017 11:09
--- NOTE | 2017-06-02 13:55 | PDOC ---
PROGRESS NOTES Chief Complaint Chief Complaint 1. SEVERE CRITICAL NORMOCYTIC Anemia s/p multiple BT, not clear etiology for the anemia, iron and vitb12 bordline low 2. Metabolic encephalopathy, agitation unclear reason - better/resolved 3. Hx CVA with Right residual UE contracture 4. [facility] resident 5. ABd pain - seems better 6. HILARIO - creat 1,8 unknown baseline 7. HX atrialn fib was on warf on amdit 8. Supratherapeutic iNR with no bleed 9,. Vtach sec to demand ischemia plan: fu with card, gi check fobt neg add iron and vitb12 po post 3u PRBC transfusion, hb stable now PTOT gi ppx warfarin held, INR 1.2 remove pérez, may need dvt ppx tmr? EGD/colonoscopy tmr as per GI talked to onco, labs indicate morales neg hemolytic anemia, will do chest/abd/ pelvic CT, bone marrow BX, and prednisone from 06/02 History of Present Illness History of Present Illness ROS: no fever, chills, sob or chest pain Hb stable post 3u PRBC transfusion no active bleeding, fobt neg hb stable at 7-8 LDH high again, low hapto. comb neg. Vitals Vitals Vital Signs Date Time Temp Pulse Resp B/P (MAP) Pulse Ox O2 Delivery O2 Flow Rate FiO2 06/02/17 11:00 97.9 57 18 154/56 (88) 98 Room Air 97.9 Physical Exam General: Alert, No acute distress Heart: Normal S1, Normal S2 Lungs: Clear Abdomen: Soft, No tenderness Extremities: No clubbing, No cyanosis, No edema, Normal pulses, No tenderness/ swelling Skin: No rashes, No breakdown, No significant lesion Labs LABS Laboratory Tests Test 06/01/17 16:07 06/01/17 21:00 06/02/17 04:40 06/02/17 07:50 Glucose (Fingerstick) 128 mg/dL (70-99) 154 mg/dL (70-99) 90 mg/dL (70-99) White Blood Count 5.4 x10^3/uL (4.0-11.0) Red Blood Count 2.57 x10^6/uL (4.30-5.70) Hemoglobin 7.7 g/dL (13.0-17.5) Hematocrit 23.2 % (39.0-53.0) Mean Corpuscular Volume 91 fL (79-100) Mean Corpuscular Hemoglobin 30 pg (25-35) Mean Corpuscular Hemoglobin Concent 33 g/dL (31-37) Red Cell Distribution Width 17.9 % (11.5-14.5) Platelet Count 196 x10^3/uL (140-400) Neutrophils (%) (Auto) 62 % (31-73) Lymphocytes (%) (Auto) 27 % (24-48) Monocytes (%) (Auto) 7 % (0-9) Eosinophils (%) (Auto) 4 % (0-3) Basophils (%) (Auto) 0 % (0-3) Neutrophils # (Auto) 3.3 x10^3uL (1.8-7.7) Lymphocytes # (Auto) 1.5 x10^3/uL (1.0-4.8) Monocytes # (Auto) 0.4 x10^3/uL (0.0-1.1) Eosinophils # (Auto) 0.2 x10^3/uL (0.0-0.7) Basophils # (Auto) 0.0 x10^3/uL (0.0-0.2) Reticulocyte Count (auto) 6.7 % (0.5-2.5) Lactate Dehydrogenase 757 U/L (85-227) Test 06/02/17 11:19 Glucose (Fingerstick) 149 mg/dL (70-99) Comment Review of Relevant I have reviewed the following items yulissa (where applicable) has been applied. Labs Laboratory Tests Test 05/31/17 16:54 05/31/17 17:30 05/31/17 20:43 06/01/17 04:15 Glucose (Fingerstick) 150 mg/dL (70-99) 216 mg/dL (70-99) Stool Occult Blood Negative (NEG) White Blood Count 5.0 x10^3/uL (4.0-11.0) Red Blood Count 2.51 x10^6/uL (4.30-5.70) Hemoglobin 7.7 g/dL (13.0-17.5) Hematocrit 22.7 % (39.0-53.0) Mean Corpuscular Volume 91 fL (79-100) Mean Corpuscular Hemoglobin 31 pg (25-35) Mean Corpuscular Hemoglobin Concent 34 g/dL (31-37) Red Cell Distribution Width 17.6 % (11.5-14.5) Platelet Count 181 x10^3/uL (140-400) Neutrophils (%) (Auto) 65 % (31-73) Lymphocytes (%) (Auto) 24 % (24-48) Monocytes (%) (Auto) 7 % (0-9) Eosinophils (%) (Auto) 4 % (0-3) Basophils (%) (Auto) 1 % (0-3) Neutrophils # (Auto) 3.2 x10^3uL (1.8-7.7) Lymphocytes # (Auto) 1.2 x10^3/uL (1.0-4.8) Monocytes # (Auto) 0.4 x10^3/uL (0.0-1.1) Eosinophils # (Auto) 0.2 x10^3/uL (0.0-0.7) Basophils # (Auto) 0.0 x10^3/uL (0.0-0.2) Reticulocyte Count (auto) 6.4 % (0.5-2.5) Prothrombin Time 14.5 SEC (11.7-14.0) Prothromb Time International Ratio 1.2 (0.8-1.1) Sodium Level 140 mmol/L (136-145) Potassium Level 3.8 mmol/L (3.5-5.1) Chloride Level 108 mmol/L (98-107) Carbon Dioxide Level 27 mmol/L (21-32) Anion Gap 5 (6-14) Blood Urea Nitrogen 11 mg/dL (8-26) Creatinine 1.1 mg/dL (0.7-1.3) Estimated GFR (Cockcroft-Gault) 81.5 Glucose Level 140 mg/dL (70-99) Calcium Level 7.6 mg/dL (8.5-10.1) Lactate Dehydrogenase 258 U/L (85-227) Test 06/01/17 07:38 06/01/17 11:08 06/01/17 16:07 06/01/17 21:00 Glucose (Fingerstick) 94 mg/dL (70-99) 123 mg/dL (70-99) 128 mg/dL (70-99) 154 mg/dL (70-99) Test 06/02/17 04:40 06/02/17 07:50 06/02/17 11:19 White Blood Count 5.4 x10^3/uL (4.0-11.0) Red Blood Count 2.57 x10^6/uL (4.30-5.70) Hemoglobin 7.7 g/dL (13.0-17.5) Hematocrit 23.2 % (39.0-53.0) Mean Corpuscular Volume 91 fL (79-100) Mean Corpuscular Hemoglobin 30 pg (25-35) Mean Corpuscular Hemoglobin Concent 33 g/dL (31-37) Red Cell Distribution Width 17.9 % (11.5-14.5) Platelet Count 196 x10^3/uL (140-400) Neutrophils (%) (Auto) 62 % (31-73) Lymphocytes (%) (Auto) 27 % (24-48) Monocytes (%) (Auto) 7 % (0-9) Eosinophils (%) (Auto) 4 % (0-3) Basophils (%) (Auto) 0 % (0-3) Neutrophils # (Auto) 3.3 x10^3uL (1.8-7.7) Lymphocytes # (Auto) 1.5 x10^3/uL (1.0-4.8) Monocytes # (Auto) 0.4 x10^3/uL (0.0-1.1) Eosinophils # (Auto) 0.2 x10^3/uL (0.0-0.7) Basophils # (Auto) 0.0 x10^3/uL (0.0-0.2) Reticulocyte Count (auto) 6.7 % (0.5-2.5) Lactate Dehydrogenase 757 U/L (85-227) Glucose (Fingerstick) 90 mg/dL (70-99) 149 mg/dL (70-99) Laboratory Tests Test 06/01/17 16:07 06/01/17 21:00 06/02/17 04:40 06/02/17 07:50 Glucose (Fingerstick) 128 mg/dL (70-99) 154 mg/dL (70-99) 90 mg/dL (70-99) White Blood Count 5.4 x10^3/uL (4.0-11.0) Red Blood Count 2.57 x10^6/uL (4.30-5.70) Hemoglobin 7.7 g/dL (13.0-17.5) Hematocrit 23.2 % (39.0-53.0) Mean Corpuscular Volume 91 fL (79-100) Mean Corpuscular Hemoglobin 30 pg (25-35) Mean Corpuscular Hemoglobin Concent 33 g/dL (31-37) Red Cell Distribution Width 17.9 % (11.5-14.5) Platelet Count 196 x10^3/uL (140-400) Neutrophils (%) (Auto) 62 % (31-73) Lymphocytes (%) (Auto) 27 % (24-48) Monocytes (%) (Auto) 7 % (0-9) Eosinophils (%) (Auto) 4 % (0-3) Basophils (%) (Auto) 0 % (0-3) Neutrophils # (Auto) 3.3 x10^3uL (1.8-7.7) Lymphocytes # (Auto) 1.5 x10^3/uL (1.0-4.8) Monocytes # (Auto) 0.4 x10^3/uL (0.0-1.1) Eosinophils # (Auto) 0.2 x10^3/uL (0.0-0.7) Basophils # (Auto) 0.0 x10^3/uL (0.0-0.2) Reticulocyte Count (auto) 6.7 % (0.5-2.5) Lactate Dehydrogenase 757 U/L (85-227) Test 06/02/17 11:19 Glucose (Fingerstick) 149 mg/dL (70-99) Medications Current Medications Sodium Chloride 1,000 ml @ 100 mls/hr Q10H IV Last administered on 05/31/17t 12:25; Start 05/28/17 at 15:01; Stop 05/31/17 at 14:24; Status DC Ondansetron HCl (Zofran) 4 mg PRN Q6HRS PRN IV NAUSEA/VOMITING (1st Choice); Start 05/28/17 at 15:15 Prochlorperazine Edisylate (Compazine) 10 mg PRN Q6HRS PRN IV NAUSEA/VOMITING ( 2ND Choice); Start 05/28/17 at 15:15 Prochlorperazine (Compazine) 25 mg PRN Q12HR PRN [place] NAUSEA/VOMITING; Start at 15:15 Al Hydroxide/Mg Hydroxide (Mylanta Plus Xs) 30 ml PRN Q3HRS PRN PO HEARTBURN / GAS; Start 05/28/17 at 15:15 Calcium Carbonate/ Glycine (Tums) 500 mg PRN Q3HRS PRN PO UPSET STOMACH; Start 05/28/17 at 15:15 Oxycodone HCl (Roxicodone) 5 mg PRN Q3HRS PRN PO BREAKTHROUGH PAIN Last administered on 05/31/17 01:44; Start 05/28/17 at 15:15 Morphine Sulfate 1 mg PRN Q1HR PRN IV PAIN; Start 05/28/17 at 15:15 Acetaminophen (Tylenol) 650 mg PRN Q6HRS PRN PO Headaches, Temp > 101.5F; Start 05/28/17 at 15:15 Magnesium Hydroxide (Milk Of Magnesia) 2,400 mg PRN Q12HR PRN PO CONSTIPATION; Start 05/28/17 at 15:15 Bisacodyl (Dulcolax Supp) 10 mg PRN DAILY PRN [place] CONSTIPATION; Start 05/28/17 at 15:15 Haloperidol Lactate (Haldol) 5 mg PRN Q6HRS PRN IVP AGITATION Last administered on 05/28/17 16:48; Start 05/28/17 at 15:15 Lorazepam (Ativan) 2 mg PRN Q4HRS PRN IV ANXIETY / AGITATION Last administered on 05/28/17 21:02; Start 05/28/17 at 15:15 Famotidine (Pepcid) 20 mg BID IVP Last administered on 05/31/17 09:00; Start 05/28/17 at 21:00; Stop 05/31/17 at 10:29; Status DC Insulin Aspart (NovoLOG) 0-7 UNITS TIDWMEALS SQ Last administered on 05/30/17 17:18; Start 05/28/17 at 17:00 Dextrose (Dextrose 50%-Water Syringe) 12.5 gm PRN Q15MIN PRN IV SEE COMMENTS; Start 05/28/17 at 15:15 Phytonadione (Mephyton Tablet) 10 mg 1X ONCE PO Last administered on 18:08; Start 05/28/17 at 17:45; Stop 05/28/17 at 17:46; Status DC Pneumococcal Polyvalent Vaccine (Do NOT chart on this placeholder) 1 each 1X ONCE MC ; Start 05/28/17 at 19:30; Stop 05/28/17 at 19:31; Status UNV Pneumococcal Polyvalent Vaccine (Pneumovax 23) 0.5 ml ONCE ONCE VAX IM Last administered on 05/29/17 08:38; Start 05/28/17 at 20:00; Stop 05/28/17 at 20:01 ; Status DC Phytonadione (Vitamin K Ampule) 10 mg 1X ONCE SQ Last administered on 12:26; Start 05/29/17 at 11:45; Stop 05/29/17 at 11:46; Status DC Metoprolol Tartrate (Lopressor) 25 mg BID PO Last administered on 05/29/17 21: 00; Start 05/29/17 at 14:00; Stop 05/29/17 at 21:00; Status DC Metoprolol Tartrate (Lopressor) 25 mg BID PO Last administered on 06/02/17 08: 07; Start 05/29/17 at 21:00 Phytonadione (Mephyton Tablet) 5 mg 1X ONCE PO Last administered on 05/30/17 11:35; Start 05/30/17 at 11:00; Stop 05/30/17 at 11:01; Status DC Pantoprazole Sodium (Protonix) 40 mg DAILYAC PO Last administered on 06/02/17 08:06; Start 05/31/17 at 11:00 Ferrous Sulfate (Feosol) 325 mg [id number] PO Last administered on 06/02/17 08 :06; Start 05/31/17 at 17:00 Cyanocobalamin (Vitamin B-12) 1,000 mcg DAILY PO Last administered on 08:07; Start 05/31/17 at 15:00 Atorvastatin Calcium (Lipitor) 40 mg QHS PO Last administered on 06/01/17 20: 40; Start 06/01/17 at 21:00 Lisinopril (Prinivil) 10 mg DAILY PO Last administered on 10/4/17at 08:06; Start 06/01/17 at 16:00 Polyethylene Glycol (miraLAX Powder BULK BOTTLE) 238 gm 1X ONCE PO ; Start 06/02/17 at 14:00; Stop 06/02/17 at 14:01 Bisacodyl (Dulcolax Tab) 5 mg 1X ONCE PO ; Start 06/02/17 at 14:00; Stop at 14:01 Prednisone (Prednisone) 80 mg 1X ONCE PO Last administered on 06/02/17 12:06 ; Start 06/02/17 at 09:45; Stop 06/02/17 at 09:47; Status DC Iohexol (Omnipaque 300 Mg/ml) 75 ml 1X ONCE IV Last administered on 06/02/17 11:26; Start 06/02/17 at 10:00; Stop 06/02/17 at 10:01; Status DC Iohexol (Omnipaque 240 Mg/ml) 30 ml 1X ONCE PO Last administered on 06/02/17 11:26; Start 06/02/17 at 10:00; Stop 06/02/17 at 10:01; Status DC Active Scripts Active Reported Multivitamins (Multivitamin) 1 Each Tablet 1 Tab PO DAILY Spironolactone 25 Mg Tablet 12.5 Mg PO DAILY Pro-Stat Liquid (Amino Acids/Protein Hydrolys) 30 Ml Liquid 30 Ml PO BID Pantoprazole Sodium 40 Mg Tablet.dr 1 Tab PO DAILY Metformin Hcl 500 Mg Tablet 500 Mg PO DAILY Lisinopril 10 Mg Tablet 1 Tab PO DAILY Lasix (Furosemide) 40 Mg Tablet 1 Tab PO BID Ferrous Sulfate 325 Mg Tablet 325 Mg PO BID Coumadin (Warfarin Sodium) 5 Mg Tablet 7 Mg PO DAILY Wednesday, Wed, , Wed Clonazepam 0.5 Mg Tablet 1 Tab PO DAILY PRN Carvedilol 12.5 Mg Tablet 1 Tab PO BID Atorvastatin Calcium 40 Mg Tablet 1 Tab PO QHS Aspir 81 (Aspirin) 81 Mg Tablet.dr 1 Tab PO DAILY Tylenol (Acetaminophen) 325 Mg Tablet 2 Tab PO PRN Q6HRS PRN Do not exceed 3000mg in 24hr period Vitals/I & O Vital Sign - Last 24 Hours 06/01/17 06/01/17 06/01/17 06/01/17 15:00 16:31 19:35 19:51 Temp 97.6 99.1 97.6 99.1 Pulse 61 61 68 Resp 18 18 B/P (MAP) 129/54 (79) 129/54 151/67 (95) Pulse Ox 97 96 O2 Delivery Room Air Room Air Room Air 06/01/17 06/01/17 06/02/17 06/02/17 20:41 23:20 03:32 07:00 Temp 99.2 99.0 98.6 99.2 99.0 98.6 Pulse 68 52 58 56 Resp 18 18 18 B/P (MAP) 151/67 135/59 (84) 133/55 (81) 143/59 (87) Pulse Ox 99 96 97 O2 Delivery Room Air Room Air Room Air 06/02/17 06/02/17 06/02/17 06/02/17 07:40 08:06 08:07 11:00 Temp 97.9 97.9 Pulse 60 60 57 Resp 18 B/P (MAP) 143/59 143/59 154/56 (88) Pulse Ox 98 O2 Delivery Room Air Room Air RAE CARMICHAEL MD Jun 02, 2017 13:54
[2017-06-02] MEDS ORDERED: POLYETHYLENE GLYCOL 3350 238 GM POWDER PO ONE (14:00)
[2017-06-02] MEDS ORDERED: BISACODYL 5 MG TABLET.DR. PO ONE (14:00)
[2017-06-02 15:00] VITALS: BP 130/79
--- NOTE | 2017-06-02 15:25 | RAD ---
CT chest, abdomen and pelvis Indication: Hemolytic Anemia, evaluate for lymphoma/splenomegaly. Technique: CT chest, abdomen and pelvis with 75 mL of Omnipaque 300 IV and 30 mL of Omnipaque 240 by mouth with multi planar reformats. Comparison: None Findings: CT chest: Neck bases clear. Heart is slightly enlarged in size. No pericardial effusion. Trace bilateral pleural effusions with passive atelectasis of the adjacent lung parenchyma. No axillary, mediastinal or hilar adenopathy. Aortic arch calcifications noted. No pulmonary nodules. CT abdomen/pelvis: Liver is normal in morphology without focal hepatic lesion. Spleen is not enlarged and shows no focal lesion. No radiopaque gallstones. Pancreas is within normal limits. Adrenal glands show no nodularity. No suspicious renal lesions. No hydronephrosis. No retroperitoneal or pelvic adenopathy. Infrarenal dilation of aorta noted measuring 3.0 x 2.9 cm (series 5 image 40). Scattered atherosclerotic disease of the abdominal aorta and bilateral iliac arteries. No bowel obstruction. Normal appendix. There is suggestion of diffuse thickening of the rectal wall. Bladder is within normal limits. Prostate and seminal vesicles show no mass lesion. Bony abnormalities seen in the anteriormost aspect of the right 10th and ninth with with callus formation. Multilevel degenerative disc disease in the spine with lower lumbar facet arthropathy. Impression: 1. Trace bilateral pleural effusions. 2. No hepatosplenomegaly. 3. Mild infrarenal aortic aneurysm (3 cm). 4. Likely subacute fractures of the right ninth and 10th rib with callus formation. Correlate for history of rib injury. PQRS Compliance Statement: One or more of the following individualized dose reduction techniques were utilized for this examination: 1. Automated exposure control 2. Adjustment of the mA and/or kV according to patient size 3. Use of iterative reconstruction technique
[2017-06-02 19:00] VITALS: BP 140/51
[2017-06-02] MEDS: ATORVASTATIN CALCIUM 40 MG TABLET. PO SCH (20:55)
[2017-06-02 23:14] VITALS: BP 162/67
[2017-06-03] VITALS (13 sets, daily range): BP systolic 117–180; BP diastolic 50–91
[2017-06-03] MEDS: IV RINGERS,LACTATED 1000ML 1,000 ML IV SCH ×2 (06:57→14:57)
[2017-06-03] MEDS ORDERED: ONDANSETRON PF 4 MG/2 ML VIAL. IV PRN (07:00)
[2017-06-03] MEDS ORDERED: LIDOCAINE 1% PF 2 ML VIAL. ID PRN ×2 (07:00)
[2017-06-03] MEDS ORDERED: HYDROmorphone 2 MG/ML VIAL IV PRN (07:00)
[2017-06-03] MEDS ORDERED: MORPHINE SULFATE 4 MG/ML DISP.SYRIN. IV PRN (07:00)
[2017-06-03] MEDS ORDERED: fentaNYL PF VIAL 100 MCG/2 ML VIAL IV PRN ×4 (07:00)
[2017-06-03] MEDS ORDERED: IV RINGERS,LACTATED 1000ML 1,000 ML IV SCH (07:00)
[2017-06-03] MEDS ORDERED: PROCHLORPERAZINE 10 MG/2 ML VIAL. IV PRN (07:00)
[2017-06-03] MEDS ORDERED: MIDAZOLAM HCL/PF 2 MG/2 ML VIAL. IV PRN (07:00)
[2017-06-03] MEDS ORDERED: PROPOFOL 60 ML IV ONE (07:38)
[2017-06-03] MEDS ORDERED: LIDOCAINE 2% PF Vial for OR 5 ML VIAL. ONE (07:38)
[2017-06-03] MEDS: INSULIN ASPART 300 UNITS/3 ML INSULN.PEN SQ SCH ×3 (08:00→17:00)
--- NOTE | 2017-06-03 08:32 | PDOC4 ---
Operative Note Operative Note EGD/Colonoscopy with biopsies/polypectomy Meds propofol per anesthesia Pre-op dx UC/acute blood loss anemia Post-op dx atrophic gastritis internal hemorrhoids transverse colon polyp s/p cold polypectomy s/p colon biopsies from right/transverse and left colon for uc Plan advance diet heme therapy for anemia pr ANTONIETTA Choe MD Jun 03, 2017 08:32
[2017-06-03] MEDS ORDERED: LIDOCAINE 1% / SOD BICARB 8.4% 20 ML VIAL. IJ ONE ×2 (08:49→09:45)
--- NOTE | 2017-06-03 09:19 | PDOC1 ---
IR Pre-Procedure H&P H&P Update No significant change from Dr. Kothari admit H&P done 05/28/17. ALFONSO NARAYANAN MD Jun 03, 2017 09:19
--- NOTE | 2017-06-03 09:23 | PDOC ---
Exam Undercutter Undercutter Carlos Real Estate Teacher Real Estate Teacher None Pre-Procedure Diagnosis Pre-Procedure Diagnosis Hemolytic anemia Post-Procedure Diagnosis Post-Procedure Diagnosis Same Procedure Performed Procedure Performed Bone marrow biopsy Type of Anesthesia Type of Anesthesia Local Estimated Blood Loss EBL: 10 cc Specimens Specimans 6 cc aspirate and 1 core Drain/Tubes Drains/Tubes None Condition of Patient Condition of Patient Stable ALFONSO NARAYANAN MD Jun 03, 2017 09:23
--- NOTE | 2017-06-03 09:30 | RAD ---
Procedure: CT-guided bone marrow aspiration and biopsy Clinical Indication: Hemolytic anemia Sedation: Patient had residual sedation from EGD performed the same day. No additional sedation medication was given during the procedure. The patient was monitored by a qualified independent observer throughout the time of the procedure. Antibiotics: None Fluoro Time: Not applicable Contrast: Not applicable Sterility: The procedure was performed in its entirety using appropriate elements of sterile technique. Consent: The procedure was explained in its entirety to the patient or the patients designated quality assurance representative by a member of the treatment team, including a discussion of the risks, benefits and commonly accepted alternatives to the procedure, as well as the expected consequences of no therapy whatsoever. Discussion of the risks included, but was not limited to, those that are most frequent and those that are rare but possibly severe or life-threatening, as well as the possibility of unforeseen complications. Technique and Findings: Following informed consent, the patient was prepped and draped in the usual sterile fashion. 1% Lidocaine was used to achieve local anesthesia over the posterior superior iliac spine on the right. A small dermatotomy was made. Under periodic CT surveillance, a 10-gauge needle was advanced through the cortex and 2 separate 3 mL marrow aspirates were obtained and prepared by the on-site chemistry technologist. A single 11-gauge core bone biopsy specimen was then obtained and preserved in formalin. The needle was then removed and hemostasis was achieved with manual compression. Complications: No immediate Impression: 1. CT-guided bone marrow aspiration and biopsy as described PQRS Compliance Statement: One or more of the following individualized dose reduction techniques were utilized for this examination: 1. Automated exposure control 2. Adjustment of the mA and/or kV according to patient size 3. Use of iterative reconstruction technique
[2017-06-03] MEDS: LISINOPRIL 10 MG TABLET PO SCH (09:54)
[2017-06-03] MEDS: METOPROLOL TART IMMED RELEASE 25 MG TABLET. PO SCH ×2 (09:54→21:12)
[2017-06-03] MEDS: FERROUS SULFATE 325 MG TABLET. PO SCH (09:54)
[2017-06-03] MEDS: PANTOPRAZOLE 40 MG TABLET.DR. PO SCH (09:54)
[2017-06-03] MEDS: CYANOCOBALAMIN (VITAMIN B-12) 1,000 MCG TABLET. PO SCH (09:54)
[2017-06-03 10:28] LABS: BASO % 0 % (0-3); EOS % 0 % (0-3); HEMATOCRIT 26.6 % (39.0-53.0); HEMOGLOBIN 8.6 g/dL (13.0-17.5); LYMPH # 1.3 x10^3/uL (1.0-4.8); LYMPH % 18 % (24-48); MEAN CORPUSCULAR HEMOGLOBIN 30 pg (25-35); MEAN CORPUSCULAR HGB CONC 32 g/dL (31-37); MEAN CORPUSCULAR VOLUME 92 fL (79-100); MONO % 6 % (0-9); NEUT % 76 % (31-73); PLATELET COUNT 230 x10^3/uL (140-400); RED BLOOD COUNT 2.88 x10^6/uL (4.30-5.70); RED CELL DISTRIBUTION WIDTH 17.7 % (11.5-14.5); WHITE BLOOD COUNT 7.1 x10^3/uL (4.0-11.0)
[2017-06-03 10:37] LABS: BASO % 0 % (0-3); EOS % 0 % (0-3); HEMATOCRIT 26.8 % (39.0-53.0); HEMOGLOBIN 8.6 g/dL (13.0-17.5); LYMPH # 1.2 x10^3/uL (1.0-4.8); LYMPH % 17 % (24-48); MEAN CORPUSCULAR HEMOGLOBIN 30 pg (25-35); MEAN CORPUSCULAR HGB CONC 32 g/dL (31-37); MEAN CORPUSCULAR VOLUME 92 fL (79-100); MONO % 6 % (0-9); NEUT % 77 % (31-73); PLATELET COUNT 239 x10^3/uL (140-400); RED BLOOD COUNT 2.91 x10^6/uL (4.30-5.70); RED CELL DISTRIBUTION WIDTH 17.8 % (11.5-14.5); WHITE BLOOD COUNT 7.2 x10^3/uL (4.0-11.0)
[2017-06-03 10:54] LABS: ALBUMIN/GLOBULIN RATIO 0.9 (1.0-1.7); CALCIUM 8.7 mg/dL (8.5-10.1); CREATININE 0.9 mg/dL (0.7-1.3); GFR 102.8; TOTAL BILIRUBIN 0.6 mg/dL (0.2-1.0); TOTAL PROTEIN 6.3 g/dL (6.4-8.2)
--- NOTE | 2017-06-03 11:57 | PDOC ---
PROGRESS NOTES Chief Complaint Chief Complaint 1. SEVERE CRITICAL NORMOCYTIC Anemia s/p multiple BT, 2/2 possible morales neg hemolytic anemia, iron and vitb12 bordline low 2. Metabolic encephalopathy, agitation unclear reason - better/resolved 3. Hx CVA with Right residual UE contracture 4. [facility] resident 5. ABd pain,resolved 6. HILARIO, vasomotor 7. HX atrialn fib was on warf on amdit 8. Supratherapeutic iNR with no bleed 9,. Vtach sec to demand ischemia EGD showed atrophic gastritis, Colonoscopy transverse colon polyp post resection CT showed 3cm infrarenal aortic aneurysm, fu as outpt. ct showed subacute rt 9 and 10 th rib fx, stable plan: fu with card, gi check fobt neg add iron po, change vitb12 to IM qd then qweek post 3u PRBC transfusion, hb stable now PTOT gi ppx warfarin held, INR 1.2 dvt ppx EGD/colonoscopy 06/03 not significant for bleeding talked to onco, labs indicate morales neg hemolytic anemia, chest/abd/pelvic CT done not significant, bone marrow BX 06/03, and prednisone 06/02 plan dc tmr if ok with specialists History of Present Illness History of Present Illness ROS: no fever, chills, sob or chest pain Hb stable post 3u PRBC transfusion no active bleeding, fobt neg hb stable at 7-8 LDH high again, low hapto. comb neg. Vitals Vitals Vital Signs Date Time Temp Pulse Resp B/P (MAP) Pulse Ox O2 Delivery O2 Flow Rate FiO2 06/03/17 09:54 79 160/79 06/03/17 09:45 97.7 18 99 Nasal Cannula 2.0 97.7 Physical Exam General: Alert, No acute distress Heart: Normal S1, Normal S2 Lungs: Clear Abdomen: Soft, No tenderness Extremities: No clubbing, No cyanosis, No edema, Normal pulses, No tenderness/ swelling Skin: No rashes, No breakdown, No significant lesion Labs LABS Laboratory Tests Test 06/02/17 16:28 06/02/17 20:56 06/03/17 07:09 06/03/17 10:00 Glucose (Fingerstick) 218 mg/dL (70-99) 179 mg/dL (70-99) 120 mg/dL (70-99) 110 mg/dL (70-99) Test 06/03/17 10:16 White Blood Count 7.2 x10^3/uL (4.0-11.0) Red Blood Count 2.91 x10^6/uL (4.30-5.70) Hemoglobin 8.6 g/dL (13.0-17.5) Hematocrit 26.8 % (39.0-53.0) Mean Corpuscular Volume 92 fL (79-100) Mean Corpuscular Hemoglobin 30 pg (25-35) Mean Corpuscular Hemoglobin Concent 32 g/dL (31-37) Red Cell Distribution Width 17.8 % (11.5-14.5) Platelet Count 239 x10^3/uL (140-400) Neutrophils (%) (Auto) 77 % (31-73) Lymphocytes (%) (Auto) 17 % (24-48) Monocytes (%) (Auto) 6 % (0-9) Eosinophils (%) (Auto) 0 % (0-3) Basophils (%) (Auto) 0 % (0-3) Neutrophils # (Auto) 5.5 x10^3uL (1.8-7.7) Lymphocytes # (Auto) 1.2 x10^3/uL (1.0-4.8) Monocytes # (Auto) 0.4 x10^3/uL (0.0-1.1) Eosinophils # (Auto) 0.0 x10^3/uL (0.0-0.7) Basophils # (Auto) 0.0 x10^3/uL (0.0-0.2) Reticulocyte Count (auto) 3.0 % (0.5-2.5) Sodium Level 142 mmol/L (136-145) Potassium Level 4.0 mmol/L (3.5-5.1) Chloride Level 109 mmol/L (98-107) Carbon Dioxide Level 27 mmol/L (21-32) Anion Gap 6 (6-14) Blood Urea Nitrogen 9 mg/dL (8-26) Creatinine 0.9 mg/dL (0.7-1.3) Estimated GFR (Cockcroft-Gault) 102.8 BUN/Creatinine Ratio 10 (6-20) Glucose Level 122 mg/dL (70-99) Calcium Level 8.7 mg/dL (8.5-10.1) Total Bilirubin 0.6 mg/dL (0.2-1.0) Aspartate Amino Transf (AST/SGOT) 24 U/L (15-37) Alanine Aminotransferase (ALT/SGPT) 30 U/L (16-63) Alkaline Phosphatase 65 U/L (46-116) Lactate Dehydrogenase 254 U/L (85-227) Total Protein 6.3 g/dL (6.4-8.2) Albumin 3.0 g/dL (3.4-5.0) Albumin/Globulin Ratio 0.9 (1.0-1.7) Comment Review of Relevant I have reviewed the following items yulissa (where applicable) has been applied. Labs Laboratory Tests Test 06/01/17 16:07 06/01/17 21:00 06/02/17 04:40 06/02/17 07:50 Glucose (Fingerstick) 128 mg/dL (70-99) 154 mg/dL (70-99) 90 mg/dL (70-99) White Blood Count 5.4 x10^3/uL (4.0-11.0) Red Blood Count 2.57 x10^6/uL (4.30-5.70) Hemoglobin 7.7 g/dL (13.0-17.5) Hematocrit 23.2 % (39.0-53.0) Mean Corpuscular Volume 91 fL (79-100) Mean Corpuscular Hemoglobin 30 pg (25-35) Mean Corpuscular Hemoglobin Concent 33 g/dL (31-37) Red Cell Distribution Width 17.9 % (11.5-14.5) Platelet Count 196 x10^3/uL (140-400) Neutrophils (%) (Auto) 62 % (31-73) Lymphocytes (%) (Auto) 27 % (24-48) Monocytes (%) (Auto) 7 % (0-9) Eosinophils (%) (Auto) 4 % (0-3) Basophils (%) (Auto) 0 % (0-3) Neutrophils # (Auto) 3.3 x10^3uL (1.8-7.7) Lymphocytes # (Auto) 1.5 x10^3/uL (1.0-4.8) Monocytes # (Auto) 0.4 x10^3/uL (0.0-1.1) Eosinophils # (Auto) 0.2 x10^3/uL (0.0-0.7) Basophils # (Auto) 0.0 x10^3/uL (0.0-0.2) Reticulocyte Count (auto) 6.7 % (0.5-2.5) Lactate Dehydrogenase 757 U/L (85-227) Test 06/02/17 11:19 06/02/17 16:28 06/02/17 20:56 06/03/17 07:09 Glucose (Fingerstick) 149 mg/dL (70-99) 218 mg/dL (70-99) 179 mg/dL (70-99) 120 mg/dL (70-99) Test 06/03/17 10:00 06/03/17 10:16 Glucose (Fingerstick) 110 mg/dL (70-99) White Blood Count 7.2 x10^3/uL (4.0-11.0) Red Blood Count 2.91 x10^6/uL (4.30-5.70) Hemoglobin 8.6 g/dL (13.0-17.5) Hematocrit 26.8 % (39.0-53.0) Mean Corpuscular Volume 92 fL (79-100) Mean Corpuscular Hemoglobin 30 pg (25-35) Mean Corpuscular Hemoglobin Concent 32 g/dL (31-37) Red Cell Distribution Width 17.8 % (11.5-14.5) Platelet Count 239 x10^3/uL (140-400) Neutrophils (%) (Auto) 77 % (31-73) Lymphocytes (%) (Auto) 17 % (24-48) Monocytes (%) (Auto) 6 % (0-9) Eosinophils (%) (Auto) 0 % (0-3) Basophils (%) (Auto) 0 % (0-3) Neutrophils # (Auto) 5.5 x10^3uL (1.8-7.7) Lymphocytes # (Auto) 1.2 x10^3/uL (1.0-4.8) Monocytes # (Auto) 0.4 x10^3/uL (0.0-1.1) Eosinophils # (Auto) 0.0 x10^3/uL (0.0-0.7) Basophils # (Auto) 0.0 x10^3/uL (0.0-0.2) Reticulocyte Count (auto) 3.0 % (0.5-2.5) Sodium Level 142 mmol/L (136-145) Potassium Level 4.0 mmol/L (3.5-5.1) Chloride Level 109 mmol/L (98-107) Carbon Dioxide Level 27 mmol/L (21-32) Anion Gap 6 (6-14) Blood Urea Nitrogen 9 mg/dL (8-26) Creatinine 0.9 mg/dL (0.7-1.3) Estimated GFR (Cockcroft-Gault) 102.8 BUN/Creatinine Ratio 10 (6-20) Glucose Level 122 mg/dL (70-99) Calcium Level 8.7 mg/dL (8.5-10.1) Total Bilirubin 0.6 mg/dL (0.2-1.0) Aspartate Amino Transf (AST/SGOT) 24 U/L (15-37) Alanine Aminotransferase (ALT/SGPT) 30 U/L (16-63) Alkaline Phosphatase 65 U/L (46-116) Lactate Dehydrogenase 254 U/L (85-227) Total Protein 6.3 g/dL (6.4-8.2) Albumin 3.0 g/dL (3.4-5.0) Albumin/Globulin Ratio 0.9 (1.0-1.7) Laboratory Tests Test 06/02/17 16:28 06/02/17 20:56 06/03/17 07:09 06/03/17 10:00 Glucose (Fingerstick) 218 mg/dL (70-99) 179 mg/dL (70-99) 120 mg/dL (70-99) 110 mg/dL (70-99) Test 06/03/17 10:16 White Blood Count 7.2 x10^3/uL (4.0-11.0) Red Blood Count 2.91 x10^6/uL (4.30-5.70) Hemoglobin 8.6 g/dL (13.0-17.5) Hematocrit 26.8 % (39.0-53.0) Mean Corpuscular Volume 92 fL (79-100) Mean Corpuscular Hemoglobin 30 pg (25-35) Mean Corpuscular Hemoglobin Concent 32 g/dL (31-37) Red Cell Distribution Width 17.8 % (11.5-14.5) Platelet Count 239 x10^3/uL (140-400) Neutrophils (%) (Auto) 77 % (31-73) Lymphocytes (%) (Auto) 17 % (24-48) Monocytes (%) (Auto) 6 % (0-9) Eosinophils (%) (Auto) 0 % (0-3) Basophils (%) (Auto) 0 % (0-3) Neutrophils # (Auto) 5.5 x10^3uL (1.8-7.7) Lymphocytes # (Auto) 1.2 x10^3/uL (1.0-4.8) Monocytes # (Auto) 0.4 x10^3/uL (0.0-1.1) Eosinophils # (Auto) 0.0 x10^3/uL (0.0-0.7) Basophils # (Auto) 0.0 x10^3/uL (0.0-0.2) Reticulocyte Count (auto) 3.0 % (0.5-2.5) Sodium Level 142 mmol/L (136-145) Potassium Level 4.0 mmol/L (3.5-5.1) Chloride Level 109 mmol/L (98-107) Carbon Dioxide Level 27 mmol/L (21-32) Anion Gap 6 (6-14) Blood Urea Nitrogen 9 mg/dL (8-26) Creatinine 0.9 mg/dL (0.7-1.3) Estimated GFR (Cockcroft-Gault) 102.8 BUN/Creatinine Ratio 10 (6-20) Glucose Level 122 mg/dL (70-99) Calcium Level 8.7 mg/dL (8.5-10.1) Total Bilirubin 0.6 mg/dL (0.2-1.0) Aspartate Amino Transf (AST/SGOT) 24 U/L (15-37) Alanine Aminotransferase (ALT/SGPT) 30 U/L (16-63) Alkaline Phosphatase 65 U/L (46-116) Lactate Dehydrogenase 254 U/L (85-227) Total Protein 6.3 g/dL (6.4-8.2) Albumin 3.0 g/dL (3.4-5.0) Albumin/Globulin Ratio 0.9 (1.0-1.7) Medications Current Medications Sodium Chloride 1,000 ml @ 100 mls/hr Q10H IV Last administered on 05/31/17 12:25; Start 05/28/17 at 15:01; Stop 05/31/17 at 14:24; Status DC Ondansetron HCl (Zofran) 4 mg PRN Q6HRS PRN IV NAUSEA/VOMITING (1st Choice); Start 05/28/17 at 15:15 Prochlorperazine Edisylate (Compazine) 10 mg PRN Q6HRS PRN IV NAUSEA/VOMITING ( 2ND Choice); Start 05/28/17 at 15:15 Prochlorperazine (Compazine) 25 mg PRN Q12HR PRN MO NAUSEA/VOMITING; Start at 15:15 Al Hydroxide/Mg Hydroxide (Mylanta Plus Xs) 30 ml PRN Q3HRS PRN PO HEARTBURN / GAS; Start 05/28/17 at 15:15 Calcium Carbonate/ Glycine (Tums) 500 mg PRN Q3HRS PRN PO UPSET STOMACH; Start 05/28/17 at 15:15 Oxycodone HCl (Roxicodone) 5 mg PRN Q3HRS PRN PO BREAKTHROUGH PAIN Last administered on 05/31/17 01:44; Start 05/28/17 at 15:15 Morphine Sulfate 1 mg PRN Q1HR PRN IV PAIN; Start 05/28/17 at 15:15 Acetaminophen (Tylenol) 650 mg PRN Q6HRS PRN PO Headaches, Temp > 101.5F; Start 05/28/17 at 15:15 Magnesium Hydroxide (Milk Of Magnesia) 2,400 mg PRN Q12HR PRN PO CONSTIPATION; Start 05/28/17 at 15:15 Bisacodyl (Dulcolax Supp) 10 mg PRN DAILY PRN MO CONSTIPATION; Start 05/28/17 at 15:15 Haloperidol Lactate (Haldol) 5 mg PRN Q6HRS PRN IVP AGITATION Last administered on 05/28/17 16:48; Start 05/28/17 at 15:15 Lorazepam (Ativan) 2 mg PRN Q4HRS PRN IV ANXIETY / AGITATION Last administered on 05/28/17 21:02; Start 05/28/17 at 15:15 Famotidine (Pepcid) 20 mg BID IVP Last administered on 05/31/17 09:00; Start 05/28/17 at 21:00; Stop 05/31/17 at 10:29; Status DC Insulin Aspart (NovoLOG) 0-7 UNITS TIDWMEALS SQ Last administered on 06/02/17 16:37; Start 05/28/17 at 17:00 Dextrose (Dextrose 50%-Water Syringe) 12.5 gm PRN Q15MIN PRN IV SEE COMMENTS; Start 05/28/17 at 15:15 Phytonadione (Mephyton Tablet) 10 mg 1X ONCE PO Last administered on 18:08; Start 05/28/17 at 17:45; Stop 05/28/17 at 17:46; Status DC Pneumococcal Polyvalent Vaccine (Do NOT chart on this placeholder) 1 each 1X ONCE MC ; Start 05/28/17 at 19:30; Stop 05/28/17 at 19:31; Status UNV Pneumococcal Polyvalent Vaccine (Pneumovax 23) 0.5 ml ONCE ONCE VAX IM Last administered on 05/29/17 08:38; Start 05/28/17 at 20:00; Stop 05/28/17 at 20:01 ; Status DC Phytonadione (Vitamin K Ampule) 10 mg 1X ONCE SQ Last administered on 12:26; Start 05/29/17 at 11:45; Stop 05/29/17 at 11:46; Status DC Metoprolol Tartrate (Lopressor) 25 mg BID PO Last administered on 05/29/17 21: 00; Start 05/29/17 at 14:00; Stop 05/29/17 at 21:00; Status DC Metoprolol Tartrate (Lopressor) 25 mg BID PO Last administered on 06/03/17 09: 54; Start 05/29/17 at 21:00 Phytonadione (Mephyton Tablet) 5 mg 1X ONCE PO Last administered on 05/30/17 11:35; Start 05/30/17 at 11:00; Stop 05/30/17 at 11:01; Status DC Pantoprazole Sodium (Protonix) 40 mg DAILYAC PO Last administered on 06/03/17 09:54; Start 05/31/17 at 11:00 Ferrous Sulfate (Feosol) 325 mg DAILYWBKFT PO Last administered on 06/03/17 09 :54; Start 05/31/17 at 17:00 Cyanocobalamin (Vitamin B-12) 1,000 mcg DAILY PO Last administered on 09:54; Start 05/31/17 at 15:00 Atorvastatin Calcium (Lipitor) 40 mg QHS PO Last administered on 06/02/17 20: 55; Start 06/01/17 at 21:00 Lisinopril (Prinivil) 10 mg DAILY PO Last administered on 06/03/17 09:54; Start 06/01/17 at 16:00 Polyethylene Glycol (miraLAX Powder BULK BOTTLE) 238 gm 1X ONCE PO Last administered on 06/02/17 14:01; Start 06/02/17 at 14:00; Stop 06/02/17 at 14:01 ; Status DC Bisacodyl (Dulcolax Tab) 5 mg 1X ONCE PO Last administered on 06/02/17 14:04 ; Start 06/02/17 at 14:00; Stop 06/02/17 at 14:01; Status DC Prednisone (Prednisone) 80 mg 1X ONCE PO Last administered on 06/02/17 12:06 ; Start 06/02/17 at 09:45; Stop 06/02/17 at 09:47; Status DC Iohexol (Omnipaque 300 Mg/ml) 75 ml 1X ONCE IV Last administered on 06/02/17 11:26; Start 06/02/17 at 10:00; Stop 06/02/17 at 10:01; Status DC Iohexol (Omnipaque 240 Mg/ml) 30 ml 1X ONCE PO Last administered on 06/02/17 11:26; Start 06/02/17 at 10:00; Stop 06/02/17 at 10:01; Status DC Ondansetron HCl (Zofran) 4 mg PRN Q6HRS PRN IV NAUSEA/VOMITING; Start 06/03/17 at 07:00; Stop 06/03/17 at 23:00 Fentanyl Citrate (Fentanyl 2ml Vial) 25 mcg PRN Q5MIN PRN IV MILD PAIN; Start 06/03/17 at 07:00; Stop 06/03/17 at 23:00 Fentanyl Citrate (Fentanyl 2ml Vial) 50 mcg PRN Q5MIN PRN IV MODERATE PAIN; Start 06/03/17 at 07:00; Stop 06/03/17 at 23:00 Morphine Sulfate 1 mg PRN Q10MIN PRN IV SEVERE PAIN; Start 06/03/17 at 07:00; Stop 06/03/17 at 23:00 Ringer's Solution 1,000 ml @ 0 mls/hr Q0M IV ; Start 06/03/17 at 07:00; Stop 06/03/17 at 18:59 Lidocaine HCl (Xylocaine-Mpf 1% Vial) 2 ml PRN 1X PRN ID PRIOR TO IV START; Start 06/03/17 at 07:00; Stop 06/03/17 at 23:00 Hydromorphone HCl (Dilaudid) 0.5 mg PRN Q10MIN PRN IV SEV PAIN, Second choice; Start 06/03/17 at 07:00; Stop 06/03/17 at 23:00 Prochlorperazine Edisylate (Compazine) 5 mg PACU PRN PRN IV NAUSEA, MRX1; Start 06/03/17 at 07:00; Stop 06/03/17 at 23:00 Midazolam HCl (Versed) 2 mg PRN 1X PRN IV PRIOR TO PROCEDURE; Start 06/03/17 at 07:00; Stop 06/04/17 at 06:59 Fentanyl Citrate (Fentanyl 2ml Vial) 25 mcg PRN Q5MIN PRN IV X 2 DOSES FOR PAIN ; Start 06/03/17 at 07:00; Stop 06/04/17 at 06:59 Fentanyl Citrate (Fentanyl 2ml Vial) 50 mcg PRN Q5MIN PRN IV X 2 DOSES FOR PAIN ; Start 06/03/17 at 07:00; Stop 06/04/17 at 06:59 Ringer's Solution 1,000 ml @ 125 mls/hr Q8H IV Last administered on 06/03/17t 06:57; Start 06/03/17 at 06:57; Stop 06/03/17 at 18:56 Lidocaine HCl (Xylocaine-Mpf 1% Vial) 2 ml 1X PRN PRN ID IV START; Start at 07:00; Stop 06/04/17 at 06:59 Propofol 60 ml @ As Directed STK-MED ONCE IV ; Start 06/03/17 at 07:38; Stop at 07:39; Status DC Lidocaine HCl (Lidocaine Pf 2% Vial) 5 ml STK-MED ONCE .ROUTE ; Start 06/03/17 at 07:38; Stop 06/03/17 at 07:39; Status DC Lidocaine/Sodium Bicarbonate (Buffered Lidocaine 1%) 20 ml STK-MED ONCE IJ ; Start 06/03/17 at 08:49; Stop 06/03/17 at 08:50; Status DC Lidocaine/Sodium Bicarbonate (Buffered Lidocaine 1%) 5 ml 1X ONCE IJ ; Start 06/03/17 at 09:45; Stop 06/03/17 at 09:48; Status DC Active Scripts Active Reported Multivitamins (Multivitamin) 1 Each Tablet 1 Tab PO DAILY Spironolactone 25 Mg Tablet 12.5 Mg PO DAILY Pro-Stat Liquid (Amino Acids/Protein Hydrolys) 30 Ml Liquid 30 Ml PO BID Pantoprazole Sodium 40 Mg Tablet.dr 1 Tab PO DAILY Metformin Hcl 500 Mg Tablet 500 Mg PO DAILY Lisinopril 10 Mg Tablet 1 Tab PO DAILY Lasix (Furosemide) 40 Mg Tablet 1 Tab PO BID Ferrous Sulfate 325 Mg Tablet 325 Mg PO BID Coumadin (Warfarin Sodium) 5 Mg Tablet 7 Mg PO DAILY Wednesday, Wed, , Wed Clonazepam 0.5 Mg Tablet 1 Tab PO DAILY PRN Carvedilol 12.5 Mg Tablet 1 Tab PO BID Atorvastatin Calcium 40 Mg Tablet 1 Tab PO QHS Aspir 81 (Aspirin) 81 Mg Tablet.dr 1 Tab PO DAILY Tylenol (Acetaminophen) 325 Mg Tablet 2 Tab PO PRN Q6HRS PRN Do not exceed 3000mg in 24hr period Vitals/I & O Vital Sign - Last 24 Hours 06/02/17 06/02/17 06/02/17 06/02/17 15:00 19:00 20:15 20:56 Temp 97.6 98.6 97.6 98.6 Pulse 73 78 78 Resp 18 18 B/P (MAP) 130/79 (96) 140/51 (80) 140/51 Pulse Ox 96 99 O2 Delivery Room Air Room Air Room Air 06/02/17 06/03/17 06/03/17 06/03/17 23:14 03:47 07:02 07:03 Temp 98.7 98.7 98.0 98.7 98.7 98.0 Pulse 62 63 62 Resp 18 18 18 B/P (MAP) 162/67 (98) 117/50 (72) Pulse Ox 98 96 99 O2 Delivery Room Air Room Air Room Air O2 Flow Rate 2.0 06/03/17 06/03/17 06/03/17 06/03/17 08:30 08:42 09:10 09:45 Temp 98.0 98.0 97.7 98.0 98.0 97.7 Pulse 88 75 80 77 Resp 20 20 20 18 B/P (MAP) 145/65 146/68 180/91 (120) 151/80 (103) Pulse Ox 99 96 96 99 O2 Delivery Room Air Room Air Nasal Cannula Nasal Cannula O2 Flow Rate 2.0 2.0 2.0 06/03/17 06/03/17 09:54 09:54 Pulse 79 79 B/P (MAP) 160/79 160/79 Intake and Output 06/03/17 06/03/17 06/04/17 15:00 23:00 07:00 Intake Total 700 ml Balance 700 ml RAE CARMICHAEL MD Jun 03, 2017 11:57
--- NOTE | 2017-06-03 14:13 | PDOC ---
PROGRESS NOTES Subjective Subjective HPI - Angel negative hemolytic anemia ROS - no abd pain Objective Objective Vital Signs Date Time Temp Pulse Resp B/P (MAP) Pulse Ox O2 Delivery O2 Flow Rate FiO2 06/03/17 11:00 97.8 76 18 142/79 (100) 99 Room Air 97.8 06/03/17 09:45 2.0 Intake and Output 06/04/17 06:59 Intake Total 700 ml Balance 700 ml IV Total 700 ml Physical Exam Heart: Normal S1, Normal S2 General: Alert Lungs: Clear to auscultation Assessment Assessment Assessment/Plan 62 yo male admitted with a hgb of 4. 1. 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 He has a ? history of Ulcerative colitis and has been on coumadin for his stroke and afib. He has received 3 units of PRBC. Hb improved. Agree with reversing his coumadin with vit k. Appreciate GI consult. EGD/Colonoscopy 06/03/17: atrophic gastritis internal hemorrhoids transverse colon polyp s/p cold polypectomy s/p colon biopsies from right/transverse and left colon for uc His retic and LDH is elevated and Haptoglobin low, but angel negative. 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 I started prednisone 80 mg daily from 06/02/17. Retic and LDH better. Hb 8.6. CT is negative for lymphoma. s/p bone marrow 06/03/17 to eval for lymphoproliferative disorder. I d/w Dr Silvia Rodriguez will monitor labs. 2. Coagulopathy. He was on coumadin for afib/cva. He received 10mg subcu vit k 05/29/17 and 5mg oral 05/30/17. 3. h/o CVA and expressive aphasia. Comment Review of Relevant I have reviewed the following items yulissa (where applicable) has been applied. Labs Laboratory Tests Test 06/01/17 16:07 06/01/17 21:00 06/02/17 04:40 06/02/17 07:50 Glucose (Fingerstick) 128 mg/dL (70-99) 154 mg/dL (70-99) 90 mg/dL (70-99) White Blood Count 5.4 x10^3/uL (4.0-11.0) Red Blood Count 2.57 x10^6/uL (4.30-5.70) Hemoglobin 7.7 g/dL (13.0-17.5) Hematocrit 23.2 % (39.0-53.0) Mean Corpuscular Volume 91 fL (79-100) Mean Corpuscular Hemoglobin 30 pg (25-35) Mean Corpuscular Hemoglobin Concent 33 g/dL (31-37) Red Cell Distribution Width 17.9 % (11.5-14.5) Platelet Count 196 x10^3/uL (140-400) Neutrophils (%) (Auto) 62 % (31-73) Lymphocytes (%) (Auto) 27 % (24-48) Monocytes (%) (Auto) 7 % (0-9) Eosinophils (%) (Auto) 4 % (0-3) Basophils (%) (Auto) 0 % (0-3) Neutrophils # (Auto) 3.3 x10^3uL (1.8-7.7) Lymphocytes # (Auto) 1.5 x10^3/uL (1.0-4.8) Monocytes # (Auto) 0.4 x10^3/uL (0.0-1.1) Eosinophils # (Auto) 0.2 x10^3/uL (0.0-0.7) Basophils # (Auto) 0.0 x10^3/uL (0.0-0.2) Reticulocyte Count (auto) 6.7 % (0.5-2.5) Lactate Dehydrogenase 757 U/L (85-227) Test 06/02/17 11:19 06/02/17 16:28 06/02/17 20:56 06/03/17 07:09 Glucose (Fingerstick) 149 mg/dL (70-99) 218 mg/dL (70-99) 179 mg/dL (70-99) 120 mg/dL (70-99) Test 06/03/17 10:00 06/03/17 10:16 06/03/17 11:55 Glucose (Fingerstick) 110 mg/dL (70-99) 144 mg/dL (70-99) White Blood Count 7.2 x10^3/uL (4.0-11.0) Red Blood Count 2.91 x10^6/uL (4.30-5.70) Hemoglobin 8.6 g/dL (13.0-17.5) Hematocrit 26.8 % (39.0-53.0) Mean Corpuscular Volume 92 fL (79-100) Mean Corpuscular Hemoglobin 30 pg (25-35) Mean Corpuscular Hemoglobin Concent 32 g/dL (31-37) Red Cell Distribution Width 17.8 % (11.5-14.5) Platelet Count 239 x10^3/uL (140-400) Neutrophils (%) (Auto) 77 % (31-73) Lymphocytes (%) (Auto) 17 % (24-48) Monocytes (%) (Auto) 6 % (0-9) Eosinophils (%) (Auto) 0 % (0-3) Basophils (%) (Auto) 0 % (0-3) Neutrophils # (Auto) 5.5 x10^3uL (1.8-7.7) Lymphocytes # (Auto) 1.2 x10^3/uL (1.0-4.8) Monocytes # (Auto) 0.4 x10^3/uL (0.0-1.1) Eosinophils # (Auto) 0.0 x10^3/uL (0.0-0.7) Basophils # (Auto) 0.0 x10^3/uL (0.0-0.2) Reticulocyte Count (auto) 3.0 % (0.5-2.5) Sodium Level 142 mmol/L (136-145) Potassium Level 4.0 mmol/L (3.5-5.1) Chloride Level 109 mmol/L (98-107) Carbon Dioxide Level 27 mmol/L (21-32) Anion Gap 6 (6-14) Blood Urea Nitrogen 9 mg/dL (8-26) Creatinine 0.9 mg/dL (0.7-1.3) Estimated GFR (Cockcroft-Gault) 102.8 BUN/Creatinine Ratio 10 (6-20) Glucose Level 122 mg/dL (70-99) Calcium Level 8.7 mg/dL (8.5-10.1) Total Bilirubin 0.6 mg/dL (0.2-1.0) Aspartate Amino Transf (AST/SGOT) 24 U/L (15-37) Alanine Aminotransferase (ALT/SGPT) 30 U/L (16-63) Alkaline Phosphatase 65 U/L (46-116) Lactate Dehydrogenase 254 U/L (85-227) Total Protein 6.3 g/dL (6.4-8.2) Albumin 3.0 g/dL (3.4-5.0) Albumin/Globulin Ratio 0.9 (1.0-1.7) Laboratory Tests Test 06/02/17 16:28 06/02/17 20:56 06/03/17 07:09 06/03/17 10:00 Glucose (Fingerstick) 218 mg/dL (70-99) 179 mg/dL (70-99) 120 mg/dL (70-99) 110 mg/dL (70-99) Test 06/03/17 10:16 06/03/17 11:55 White Blood Count 7.2 x10^3/uL (4.0-11.0) Red Blood Count 2.91 x10^6/uL (4.30-5.70) Hemoglobin 8.6 g/dL (13.0-17.5) Hematocrit 26.8 % (39.0-53.0) Mean Corpuscular Volume 92 fL (79-100) Mean Corpuscular Hemoglobin 30 pg (25-35) Mean Corpuscular Hemoglobin Concent 32 g/dL (31-37) Red Cell Distribution Width 17.8 % (11.5-14.5) Platelet Count 239 x10^3/uL (140-400) Neutrophils (%) (Auto) 77 % (31-73) Lymphocytes (%) (Auto) 17 % (24-48) Monocytes (%) (Auto) 6 % (0-9) Eosinophils (%) (Auto) 0 % (0-3) Basophils (%) (Auto) 0 % (0-3) Neutrophils # (Auto) 5.5 x10^3uL (1.8-7.7) Lymphocytes # (Auto) 1.2 x10^3/uL (1.0-4.8) Monocytes # (Auto) 0.4 x10^3/uL (0.0-1.1) Eosinophils # (Auto) 0.0 x10^3/uL (0.0-0.7) Basophils # (Auto) 0.0 x10^3/uL (0.0-0.2) Reticulocyte Count (auto) 3.0 % (0.5-2.5) Sodium Level 142 mmol/L (136-145) Potassium Level 4.0 mmol/L (3.5-5.1) Chloride Level 109 mmol/L (98-107) Carbon Dioxide Level 27 mmol/L (21-32) Anion Gap 6 (6-14) Blood Urea Nitrogen 9 mg/dL (8-26) Creatinine 0.9 mg/dL (0.7-1.3) Estimated GFR (Cockcroft-Gault) 102.8 BUN/Creatinine Ratio 10 (6-20) Glucose Level 122 mg/dL (70-99) Calcium Level 8.7 mg/dL (8.5-10.1) Total Bilirubin 0.6 mg/dL (0.2-1.0) Aspartate Amino Transf (AST/SGOT) 24 U/L (15-37) Alanine Aminotransferase (ALT/SGPT) 30 U/L (16-63) Alkaline Phosphatase 65 U/L (46-116) Lactate Dehydrogenase 254 U/L (85-227) Total Protein 6.3 g/dL (6.4-8.2) Albumin 3.0 g/dL (3.4-5.0) Albumin/Globulin Ratio 0.9 (1.0-1.7) Glucose (Fingerstick) 144 mg/dL (70-99) Medications Current Medications Sodium Chloride 1,000 ml @ 100 mls/hr Q10H IV Last administered on 05/31/17t 12:25; Start 05/28/17 at 15:01; Stop 05/31/17 at 14:24; Status DC Ondansetron HCl (Zofran) 4 mg PRN Q6HRS PRN IV NAUSEA/VOMITING (1st Choice); Start 05/28/17 at 15:15 Prochlorperazine Edisylate (Compazine) 10 mg PRN Q6HRS PRN IV NAUSEA/VOMITING ( 2ND Choice); Start 05/28/17 at 15:15 Prochlorperazine (Compazine) 25 mg PRN Q12HR PRN [place] NAUSEA/VOMITING; Start at 15:15 Al Hydroxide/Mg Hydroxide (Mylanta Plus Xs) 30 ml PRN Q3HRS PRN PO HEARTBURN / GAS; Start 05/28/17 at 15:15 Calcium Carbonate/ Glycine (Tums) 500 mg PRN Q3HRS PRN PO UPSET STOMACH; Start 05/28/17 at 15:15 Oxycodone HCl (Roxicodone) 5 mg PRN Q3HRS PRN PO BREAKTHROUGH PAIN Last administered on 05/31/17 01:44; Start 05/28/17 at 15:15 Morphine Sulfate 1 mg PRN Q1HR PRN IV PAIN; Start 05/28/17 at 15:15 Acetaminophen (Tylenol) 650 mg PRN Q6HRS PRN PO Headaches, Temp > 101.5F; Start 05/28/17 at 15:15 Magnesium Hydroxide (Milk Of Magnesia) 2,400 mg PRN Q12HR PRN PO CONSTIPATION; Start 05/28/17 at 15:15 Bisacodyl (Dulcolax Supp) 10 mg PRN DAILY PRN MN CONSTIPATION; Start 05/28/17 at 15:15 Haloperidol Lactate (Haldol) 5 mg PRN Q6HRS PRN IVP AGITATION Last administered on 05/28/17 16:48; Start 05/28/17 at 15:15 Lorazepam (Ativan) 2 mg PRN Q4HRS PRN IV ANXIETY / AGITATION Last administered on 05/28/17 21:02; Start 05/28/17 at 15:15 Famotidine (Pepcid) 20 mg BID IVP Last administered on 05/31/17 09:00; Start 05/28/17 at 21:00; Stop 05/31/17 at 10:29; Status DC Insulin Aspart (NovoLOG) 0-7 UNITS TIDWMEALS SQ Last administered on 06/02/17 16:37; Start 05/28/17 at 17:00 Dextrose (Dextrose 50%-Water Syringe) 12.5 gm PRN Q15MIN PRN IV SEE COMMENTS; Start 05/28/17 at 15:15 Phytonadione (Mephyton Tablet) 10 mg 1X ONCE PO Last administered on 18:08; Start 05/28/17 at 17:45; Stop 05/28/17 at 17:46; Status DC Pneumococcal Polyvalent Vaccine (Do NOT chart on this placeholder) 1 each 1X ONCE MC ; Start 05/28/17 at 19:30; Stop 05/28/17 at 19:31; Status UNV Pneumococcal Polyvalent Vaccine (Pneumovax 23) 0.5 ml ONCE ONCE VAX IM Last administered on 05/29/17 08:38; Start 05/28/17 at 20:00; Stop 05/28/17 at 20:01 ; Status DC Phytonadione (Vitamin K Ampule) 10 mg 1X ONCE SQ Last administered on 12:26; Start 05/29/17 at 11:45; Stop 05/29/17 at 11:46; Status DC Metoprolol Tartrate (Lopressor) 25 mg BID PO Last administered on 05/29/17 21: 00; Start 05/29/17 at 14:00; Stop 05/29/17 at 21:00; Status DC Metoprolol Tartrate (Lopressor) 25 mg BID PO Last administered on 06/03/17 09: 54; Start 05/29/17 at 21:00 Phytonadione (Mephyton Tablet) 5 mg 1X ONCE PO Last administered on 05/30/17 11:35; Start 05/30/17 at 11:00; Stop 05/30/17 at 11:01; Status DC Pantoprazole Sodium (Protonix) 40 mg DAILYAC PO Last administered on 06/03/17 09:54; Start 05/31/17 at 11:00 Ferrous Sulfate (Feosol) 325 mg DAILYWBKFT PO Last administered on 06/03/17 09 :54; Start 05/31/17 at 17:00 Cyanocobalamin (Vitamin B-12) 1,000 mcg DAILY PO Last administered on 09:54; Start 05/31/17 at 15:00; Stop 06/03/17 at 11:58; Status DC Atorvastatin Calcium (Lipitor) 40 mg QHS PO Last administered on 06/02/17 20: 55; Start 06/01/17 at 21:00 Lisinopril (Prinivil) 10 mg DAILY PO Last administered on 06/03/17 09:54; Start 06/01/17 at 16:00 Polyethylene Glycol (miraLAX Powder BULK BOTTLE) 238 gm 1X ONCE PO Last administered on 06/02/17 14:01; Start 06/02/17 at 14:00; Stop 06/02/17 at 14:01 ; Status DC Bisacodyl (Dulcolax Tab) 5 mg 1X ONCE PO Last administered on 06/02/17 14:04 ; Start 06/02/17 at 14:00; Stop 06/02/17 at 14:01; Status DC Prednisone (Prednisone) 80 mg 1X ONCE PO Last administered on 06/02/17 12:06 ; Start 06/02/17 at 09:45; Stop 06/02/17 at 09:47; Status DC Iohexol (Omnipaque 300 Mg/ml) 75 ml 1X ONCE IV Last administered on 06/02/17 11:26; Start 06/02/17 at 10:00; Stop 06/02/17 at 10:01; Status DC Iohexol (Omnipaque 240 Mg/ml) 30 ml 1X ONCE PO Last administered on 06/02/17 11:26; Start 06/02/17 at 10:00; Stop 06/02/17 at 10:01; Status DC Ondansetron HCl (Zofran) 4 mg PRN Q6HRS PRN IV NAUSEA/VOMITING; Start 06/03/17 at 07:00; Stop 06/03/17 at 23:00 Fentanyl Citrate (Fentanyl 2ml Vial) 25 mcg PRN Q5MIN PRN IV MILD PAIN; Start 06/03/17 at 07:00; Stop 06/03/17 at 23:00 Fentanyl Citrate (Fentanyl 2ml Vial) 50 mcg PRN Q5MIN PRN IV MODERATE PAIN; Start 06/03/17 at 07:00; Stop 06/03/17 at 23:00 Morphine Sulfate 1 mg PRN Q10MIN PRN IV SEVERE PAIN; Start 06/03/17 at 07:00; Stop 06/03/17 at 23:00 Ringer's Solution 1,000 ml @ 0 mls/hr Q0M IV ; Start 06/03/17 at 07:00; Stop 06/03/17 at 18:59 Lidocaine HCl (Xylocaine-Mpf 1% Vial) 2 ml PRN 1X PRN ID PRIOR TO IV START; Start 06/03/17 at 07:00; Stop 06/03/17 at 23:00 Hydromorphone HCl (Dilaudid) 0.5 mg PRN Q10MIN PRN IV SEV PAIN, Second choice; Start 06/03/17 at 07:00; Stop 06/03/17 at 23:00 Prochlorperazine Edisylate (Compazine) 5 mg PACU PRN PRN IV NAUSEA, MRX1; Start 06/03/17 at 07:00; Stop 06/03/17 at 23:00 Midazolam HCl (Versed) 2 mg PRN 1X PRN IV PRIOR TO PROCEDURE; Start 06/03/17 at 07:00; Stop 06/04/17 at 06:59 Fentanyl Citrate (Fentanyl 2ml Vial) 25 mcg PRN Q5MIN PRN IV X 2 DOSES FOR PAIN ; Start 06/03/17 at 07:00; Stop 06/04/17 at 06:59 Fentanyl Citrate (Fentanyl 2ml Vial) 50 mcg PRN Q5MIN PRN IV X 2 DOSES FOR PAIN ; Start 06/03/17 at 07:00; Stop 06/04/17 at 06:59 Ringer's Solution 1,000 ml @ 125 mls/hr Q8H IV Last administered on 06/03/17t 06:57; Start 06/03/17 at 06:57; Stop 06/03/17 at 18:56 Lidocaine HCl (Xylocaine-Mpf 1% Vial) 2 ml 1X PRN PRN ID IV START; Start at 07:00; Stop 06/04/17 at 06:59 Propofol 60 ml @ As Directed STK-MED ONCE IV ; Start 06/03/17 at 07:38; Stop at 07:39; Status DC Lidocaine HCl (Lidocaine Pf 2% Vial) 5 ml STK-MED ONCE .ROUTE ; Start 06/03/17 at 07:38; Stop 06/03/17 at 07:39; Status DC Lidocaine/Sodium Bicarbonate (Buffered Lidocaine 1%) 20 ml STK-MED ONCE IJ ; Start 06/03/17 at 08:49; Stop 06/03/17 at 08:50; Status DC Lidocaine/Sodium Bicarbonate (Buffered Lidocaine 1%) 5 ml 1X ONCE IJ ; Start 06/03/17 at 09:45; Stop 06/03/17 at 09:48; Status DC Cyanocobalamin (Vitamin B-12) 1,000 mcg DAILY IM ; Start 06/04/17 at 08:00 Folic Acid (Folic Acid) 1 mg DAILY PO ; Start 06/03/17 at 13:15 Active Scripts Active Reported Multivitamins (Multivitamin) 1 Each Tablet 1 Tab PO DAILY Spironolactone 25 Mg Tablet 12.5 Mg PO DAILY Pro-Stat Liquid (Amino Acids/Protein Hydrolys) 30 Ml Liquid 30 Ml PO BID Pantoprazole Sodium 40 Mg Tablet.dr 1 Tab PO DAILY Metformin Hcl 500 Mg Tablet 500 Mg PO DAILY Lisinopril 10 Mg Tablet 1 Tab PO DAILY Lasix (Furosemide) 40 Mg Tablet 1 Tab PO BID Ferrous Sulfate 325 Mg Tablet 325 Mg PO BID Coumadin (Warfarin Sodium) 5 Mg Tablet 7 Mg PO DAILY Wednesday, , Wed Clonazepam 0.5 Mg Tablet 1 Tab PO DAILY PRN Carvedilol 12.5 Mg Tablet 1 Tab PO BID Atorvastatin Calcium 40 Mg Tablet 1 Tab PO QHS Aspir 81 (Aspirin) 81 Mg Tablet.dr 1 Tab PO DAILY Tylenol (Acetaminophen) 325 Mg Tablet 2 Tab PO PRN Q6HRS PRN Do not exceed 3000mg in 24hr period Vitals/I & O Vital Sign - Last 24 Hours 06/02/17 06/02/17 06/02/17 06/02/17 15:00 19:00 20:15 20:56 Temp 97.6 98.6 97.6 98.6 Pulse 73 78 78 Resp 18 18 B/P (MAP) 130/79 (96) 140/51 (80) 140/51 Pulse Ox 96 99 O2 Delivery Room Air Room Air Room Air 06/02/17 06/03/17 06/03/17 06/03/17 23:14 03:47 07:02 07:03 Temp 98.7 98.7 98.0 98.7 98.7 98.0 Pulse 62 63 62 Resp 18 18 18 B/P (MAP) 162/67 (98) 117/50 (72) Pulse Ox 98 96 99 O2 Delivery Room Air Room Air Room Air O2 Flow Rate 2.0 06/03/17 06/03/17 06/03/17 06/03/17 08:00 08:30 08:42 09:10 Temp 98.0 98.0 98.0 98.0 Pulse 88 75 80 Resp 20 20 20 B/P (MAP) 145/65 146/68 180/91 (120) Pulse Ox 99 96 96 O2 Delivery Room Air Room Air Room Air Nasal Cannula O2 Flow Rate 2.0 2.0 06/03/17 06/03/17 06/03/17 06/03/17 09:45 09:54 09:54 10:00 Temp 97.7 97.7 Pulse 77 79 79 80 Resp 18 18 B/P (MAP) 151/80 (103) 160/79 160/79 157/84 (108) Pulse Ox 99 99 O2 Delivery Nasal Cannula O2 Flow Rate 2.0 06/03/17 06/03/17 06/03/17 10:15 10:30 11:00 Temp 97.8 97.8 Pulse 86 80 76 Resp 18 18 18 B/P (MAP) 158/84 (108) 130/77 (94) 142/79 (100) Pulse Ox 100 100 99 O2 Delivery Room Air Room Air Room Air Intake and Output 06/03/17 06/03/17 06/04/17 14:59 22:59 06:59 Intake Total 700 ml Balance 700 ml CHARLEY GARCIA MD Jun 03, 2017 14:13
[2017-06-03] MEDS: FOLIC ACID 1 MG TABLET. PO SCH (15:24)
[2017-06-03] MEDS: oxyCODONE IR 5 MG TABLET PO PRN (15:24)
[2017-06-03] MEDS: ATORVASTATIN CALCIUM 40 MG TABLET. PO SCH (21:09)
[2017-06-04 03:00] VITALS: BP 152/56
[2017-06-04 06:19] LABS: ALBUMIN 2.9 g/dL (3.4-5.0); ALBUMIN/GLOBULIN RATIO 0.9 (1.0-1.7); CALCIUM 8.2 mg/dL (8.5-10.1); CREATININE 1.1 mg/dL (0.7-1.3); GFR 81.5; POTASSIUM 4.3 mmol/L (3.5-5.1); TOTAL BILIRUBIN 0.4 mg/dL (0.2-1.0); TOTAL PROTEIN 6.1 g/dL (6.4-8.2)
[2017-06-04 07:00] VITALS: BP 103/80
[2017-06-04] MEDS: INSULIN ASPART 300 UNITS/3 ML INSULN.PEN SQ SCH ×2 (08:00→12:00)
[2017-06-04] MEDS: CYANOCOBALAMIN (VITAMIN B-12) 1,000 MCG/ML VIAL IM SCH ×2 (09:00→10:09)
[2017-06-04] MEDS ORDERED: predniSONE 20 MG TABLET PO SCH (09:30)
[2017-06-04 09:38] LABS: BASO % 1 % (0-3); EOS % 2 % (0-3); HEMATOCRIT 23.8 % (39.0-53.0); HEMOGLOBIN 7.7 g/dL (13.0-17.5); LYMPH # 1.4 x10^3/uL (1.0-4.8); LYMPH % 23 % (24-48); MEAN CORPUSCULAR HEMOGLOBIN 30 pg (25-35); MEAN CORPUSCULAR HGB CONC 32 g/dL (31-37); MEAN CORPUSCULAR VOLUME 92 fL (79-100); MONO % 6 % (0-9); NEUT % 69 % (31-73); PLATELET COUNT 209 x10^3/uL (140-400); RED BLOOD COUNT 2.58 x10^6/uL (4.30-5.70); RED CELL DISTRIBUTION WIDTH 17.6 % (11.5-14.5); WHITE BLOOD COUNT 6.4 x10^3/uL (4.0-11.0)
[2017-06-04 09:46] LABS: RETIC COUNT 2.5 % (0.5-2.5)
[2017-06-04] MEDS: oxyCODONE IR 5 MG TABLET PO PRN (10:07)
[2017-06-04] MEDS: FERROUS SULFATE 325 MG TABLET. PO SCH (10:07)
[2017-06-04] MEDS: METOPROLOL TART IMMED RELEASE 25 MG TABLET. PO SCH (10:07)
[2017-06-04] MEDS: FOLIC ACID 1 MG TABLET. PO SCH (10:08)
[2017-06-04] MEDS: LISINOPRIL 10 MG TABLET PO SCH (10:08)
[2017-06-04] MEDS: PANTOPRAZOLE 40 MG TABLET.DR. PO SCH (10:08)
--- NOTE | 2017-06-04 10:27 | PDOC ---
PROGRESS NOTES Subjective Subjective HPI - 62 yo male admitted with a hgb of 4. ROS - no bleed Objective Objective Vital Signs Date Time Temp Pulse Resp B/P (MAP) Pulse Ox O2 Delivery O2 Flow Rate FiO2 06/04/17 10:08 79 103/80 06/04/17 10:07 100 Room Air 2.0 06/04/17 07:00 99.4 18 99.4 Physical Exam Heart: Normal S1, Normal S2 General: Alert, No acute distress Lungs: Clear to auscultation Assessment Assessment Assessment/Plan 62 yo male admitted with a hgb of 4. 1. 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 He has a ? history of Ulcerative colitis and has been on coumadin for his stroke and afib. He has received 3 units of PRBC. Hb improved. Agree with reversing his coumadin with vit k. Appreciate GI consult. EGD/Colonoscopy 06/03/17: atrophic gastritis internal hemorrhoids transverse colon polyp s/p cold polypectomy s/p colon biopsies from right/transverse and left colon for uc His retic and LDH is elevated and Haptoglobin low, but angel negative. 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 I started prednisone 80 mg daily from 06/02/17. Retic and LDH better. Hb 7.7. Continue prednisone 80 mg daily and folic acid daily and f/u with me 06/11/17 and if Hb better, I will initiate slow taper. CT is negative for lymphoma. s/p bone marrow 06/03/17 to eval for lymphoproliferative disorder. I d/w Dr Vega I will monitor labs. 2. Coagulopathy. He was on coumadin for afib/cva. He received 10mg subcu vit k 05/29/17 and 5mg oral 05/30/17. No evidence of bleeding. Hence ok to resume coumadin. 3. h/o CVA and expressive aphasia. Comment Review of Relevant I have reviewed the following items yulissa (where applicable) has been applied. Labs Laboratory Tests Test 06/02/17 11:19 06/02/17 16:28 06/02/17 20:56 06/03/17 07:09 Glucose (Fingerstick) 149 mg/dL (70-99) 218 mg/dL (70-99) 179 mg/dL (70-99) 120 mg/dL (70-99) Test 06/03/17 10:00 06/03/17 10:16 06/03/17 11:55 06/03/17 13:40 Glucose (Fingerstick) 110 mg/dL (70-99) 144 mg/dL (70-99) White Blood Count 7.2 x10^3/uL (4.0-11.0) Red Blood Count 2.91 x10^6/uL (4.30-5.70) Hemoglobin 8.6 g/dL (13.0-17.5) Hematocrit 26.8 % (39.0-53.0) Mean Corpuscular Volume 92 fL (79-100) Mean Corpuscular Hemoglobin 30 pg (25-35) Mean Corpuscular Hemoglobin Concent 32 g/dL (31-37) Red Cell Distribution Width 17.8 % (11.5-14.5) Platelet Count 239 x10^3/uL (140-400) Neutrophils (%) (Auto) 77 % (31-73) Lymphocytes (%) (Auto) 17 % (24-48) Monocytes (%) (Auto) 6 % (0-9) Eosinophils (%) (Auto) 0 % (0-3) Basophils (%) (Auto) 0 % (0-3) Neutrophils # (Auto) 5.5 x10^3uL (1.8-7.7) Lymphocytes # (Auto) 1.2 x10^3/uL (1.0-4.8) Monocytes # (Auto) 0.4 x10^3/uL (0.0-1.1) Eosinophils # (Auto) 0.0 x10^3/uL (0.0-0.7) Basophils # (Auto) 0.0 x10^3/uL (0.0-0.2) Reticulocyte Count (auto) 3.0 % (0.5-2.5) Sodium Level 142 mmol/L (136-145) Potassium Level 4.0 mmol/L (3.5-5.1) Chloride Level 109 mmol/L (98-107) Carbon Dioxide Level 27 mmol/L (21-32) Anion Gap 6 (6-14) Blood Urea Nitrogen 9 mg/dL (8-26) Creatinine 0.9 mg/dL (0.7-1.3) Estimated GFR (Cockcroft-Gault) 102.8 BUN/Creatinine Ratio 10 (6-20) Glucose Level 122 mg/dL (70-99) Calcium Level 8.7 mg/dL (8.5-10.1) Total Bilirubin 0.6 mg/dL (0.2-1.0) Aspartate Amino Transf (AST/SGOT) 24 U/L (15-37) Alanine Aminotransferase (ALT/SGPT) 30 U/L (16-63) Alkaline Phosphatase 65 U/L (46-116) Lactate Dehydrogenase 254 U/L (85-227) Total Protein 6.3 g/dL (6.4-8.2) Albumin 3.0 g/dL (3.4-5.0) Albumin/Globulin Ratio 0.9 (1.0-1.7) Miscellaneous Test Comment (.) Test 06/03/17 17:02 06/03/17 20:50 06/04/17 03:45 06/04/17 08:06 Glucose (Fingerstick) 111 mg/dL (70-99) 122 mg/dL (70-99) 86 mg/dL (70-99) Sodium Level 138 mmol/L (136-145) Potassium Level 4.3 mmol/L (3.5-5.1) Chloride Level 106 mmol/L (98-107) Carbon Dioxide Level 25 mmol/L (21-32) Anion Gap 7 (6-14) Blood Urea Nitrogen 14 mg/dL (8-26) Creatinine 1.1 mg/dL (0.7-1.3) Estimated GFR (Cockcroft-Gault) 81.5 BUN/Creatinine Ratio 13 (6-20) Glucose Level 98 mg/dL (70-99) Calcium Level 8.2 mg/dL (8.5-10.1) Total Bilirubin 0.4 mg/dL (0.2-1.0) Aspartate Amino Transf (AST/SGOT) 30 U/L (15-37) Alanine Aminotransferase (ALT/SGPT) 33 U/L (16-63) Alkaline Phosphatase 65 U/L (46-116) Lactate Dehydrogenase 345 U/L (85-227) Total Protein 6.1 g/dL (6.4-8.2) Albumin 2.9 g/dL (3.4-5.0) Albumin/Globulin Ratio 0.9 (1.0-1.7) Test 06/04/17 09:25 White Blood Count 6.4 x10^3/uL (4.0-11.0) Red Blood Count 2.58 x10^6/uL (4.30-5.70) Hemoglobin 7.7 g/dL (13.0-17.5) Hematocrit 23.8 % (39.0-53.0) Mean Corpuscular Volume 92 fL (79-100) Mean Corpuscular Hemoglobin 30 pg (25-35) Mean Corpuscular Hemoglobin Concent 32 g/dL (31-37) Red Cell Distribution Width 17.6 % (11.5-14.5) Platelet Count 209 x10^3/uL (140-400) Neutrophils (%) (Auto) 69 % (31-73) Lymphocytes (%) (Auto) 23 % (24-48) Monocytes (%) (Auto) 6 % (0-9) Eosinophils (%) (Auto) 2 % (0-3) Basophils (%) (Auto) 1 % (0-3) Neutrophils # (Auto) 4.4 x10^3uL (1.8-7.7) Lymphocytes # (Auto) 1.4 x10^3/uL (1.0-4.8) Monocytes # (Auto) 0.4 x10^3/uL (0.0-1.1) Eosinophils # (Auto) 0.1 x10^3/uL (0.0-0.7) Basophils # (Auto) 0.0 x10^3/uL (0.0-0.2) Reticulocyte Count (auto) 2.5 % (0.5-2.5) Laboratory Tests Test 06/03/17 11:55 06/03/17 13:40 06/03/17 17:02 06/03/17 20:50 Glucose (Fingerstick) 144 mg/dL (70-99) 111 mg/dL (70-99) 122 mg/dL (70-99) Miscellaneous Test Comment (.) Test 06/04/17 03:45 06/04/17 08:06 06/04/17 09:25 Sodium Level 138 mmol/L (136-145) Potassium Level 4.3 mmol/L (3.5-5.1) Chloride Level 106 mmol/L (98-107) Carbon Dioxide Level 25 mmol/L (21-32) Anion Gap 7 (6-14) Blood Urea Nitrogen 14 mg/dL (8-26) Creatinine 1.1 mg/dL (0.7-1.3) Estimated GFR (Cockcroft-Gault) 81.5 BUN/Creatinine Ratio 13 (6-20) Glucose Level 98 mg/dL (70-99) Calcium Level 8.2 mg/dL (8.5-10.1) Total Bilirubin 0.4 mg/dL (0.2-1.0) Aspartate Amino Transf (AST/SGOT) 30 U/L (15-37) Alanine Aminotransferase (ALT/SGPT) 33 U/L (16-63) Alkaline Phosphatase 65 U/L (46-116) Lactate Dehydrogenase 345 U/L (85-227) Total Protein 6.1 g/dL (6.4-8.2) Albumin 2.9 g/dL (3.4-5.0) Albumin/Globulin Ratio 0.9 (1.0-1.7) Glucose (Fingerstick) 86 mg/dL (70-99) White Blood Count 6.4 x10^3/uL (4.0-11.0) Red Blood Count 2.58 x10^6/uL (4.30-5.70) Hemoglobin 7.7 g/dL (13.0-17.5) Hematocrit 23.8 % (39.0-53.0) Mean Corpuscular Volume 92 fL (79-100) Mean Corpuscular Hemoglobin 30 pg (25-35) Mean Corpuscular Hemoglobin Concent 32 g/dL (31-37) Red Cell Distribution Width 17.6 % (11.5-14.5) Platelet Count 209 x10^3/uL (140-400) Neutrophils (%) (Auto) 69 % (31-73) Lymphocytes (%) (Auto) 23 % (24-48) Monocytes (%) (Auto) 6 % (0-9) Eosinophils (%) (Auto) 2 % (0-3) Basophils (%) (Auto) 1 % (0-3) Neutrophils # (Auto) 4.4 x10^3uL (1.8-7.7) Lymphocytes # (Auto) 1.4 x10^3/uL (1.0-4.8) Monocytes # (Auto) 0.4 x10^3/uL (0.0-1.1) Eosinophils # (Auto) 0.1 x10^3/uL (0.0-0.7) Basophils # (Auto) 0.0 x10^3/uL (0.0-0.2) Reticulocyte Count (auto) 2.5 % (0.5-2.5) Medications Current Medications Sodium Chloride 1,000 ml @ 100 mls/hr Q10H IV Last administered on 05/31/17 12:25; Start 05/28/17 at 15:01; Stop 05/31/17 at 14:24; Status DC Ondansetron HCl (Zofran) 4 mg PRN Q6HRS PRN IV NAUSEA/VOMITING (1st Choice); Start 05/28/17 at 15:15 Prochlorperazine Edisylate (Compazine) 10 mg PRN Q6HRS PRN IV NAUSEA/VOMITING ( 2ND Choice); Start 05/28/17 at 15:15 Prochlorperazine (Compazine) 25 mg PRN Q12HR PRN LA NAUSEA/VOMITING; Start at 15:15 Al Hydroxide/Mg Hydroxide (Mylanta Plus Xs) 30 ml PRN Q3HRS PRN PO HEARTBURN / GAS; Start 05/28/17 at 15:15 Calcium Carbonate/ Glycine (Tums) 500 mg PRN Q3HRS PRN PO UPSET STOMACH; Start 05/28/17 at 15:15 Oxycodone HCl (Roxicodone) 5 mg PRN Q3HRS PRN PO BREAKTHROUGH PAIN Last administered on 06/04/17 10:07; Start 05/28/17 at 15:15 Morphine Sulfate 1 mg PRN Q1HR PRN IV PAIN; Start 05/28/17 at 15:15 Acetaminophen (Tylenol) 650 mg PRN Q6HRS PRN PO Headaches, Temp > 101.5F; Start 05/28/17 at 15:15 Magnesium Hydroxide (Milk Of Magnesia) 2,400 mg PRN Q12HR PRN PO CONSTIPATION; Start 05/28/17 at 15:15 Bisacodyl (Dulcolax Supp) 10 mg PRN DAILY PRN LA CONSTIPATION; Start 05/28/17 at 15:15 Haloperidol Lactate (Haldol) 5 mg PRN Q6HRS PRN IVP AGITATION Last administered on 05/28/17 16:48; Start 05/28/17 at 15:15 Lorazepam (Ativan) 2 mg PRN Q4HRS PRN IV ANXIETY / AGITATION Last administered on 05/28/17 21:02; Start 05/28/17 at 15:15 Famotidine (Pepcid) 20 mg BID IVP Last administered on 05/31/17 09:00; Start 05/28/17 at 21:00; Stop 05/31/17 at 10:29; Status DC Insulin Aspart (NovoLOG) 0-7 UNITS TIDWMEALS SQ Last administered on 06/02/17 16:37; Start 05/28/17 at 17:00 Dextrose (Dextrose 50%-Water Syringe) 12.5 gm PRN Q15MIN PRN IV SEE COMMENTS; Start 05/28/17 at 15:15 Phytonadione (Mephyton Tablet) 10 mg 1X ONCE PO Last administered on 18:08; Start 05/28/17 at 17:45; Stop 05/28/17 at 17:46; Status DC Pneumococcal Polyvalent Vaccine (Do NOT chart on this placeholder) 1 each 1X ONCE MC ; Start 05/28/17 at 19:30; Stop 05/28/17 at 19:31; Status UNV Pneumococcal Polyvalent Vaccine (Pneumovax 23) 0.5 ml ONCE ONCE VAX IM Last administered on 05/29/17 08:38; Start 05/28/17 at 20:00; Stop 05/28/17 at 20:01 ; Status DC Phytonadione (Vitamin K Ampule) 10 mg 1X ONCE SQ Last administered on 12:26; Start 05/29/17 at 11:45; Stop 05/29/17 at 11:46; Status DC Metoprolol Tartrate (Lopressor) 25 mg BID PO Last administered on 05/29/17 21: 00; Start 05/29/17 at 14:00; Stop 05/29/17 at 21:00; Status DC Metoprolol Tartrate (Lopressor) 25 mg BID PO Last administered on 06/04/17 10: 07; Start 05/29/17 at 21:00 Phytonadione (Mephyton Tablet) 5 mg 1X ONCE PO Last administered on 05/30/17 11:35; Start 05/30/17 at 11:00; Stop 05/30/17 at 11:01; Status DC Pantoprazole Sodium (Protonix) 40 mg DAILYAC PO Last administered on 06/04/17 10:08; Start 05/31/17 at 11:00 Ferrous Sulfate (Feosol) 325 mg DAILYWBKFT PO Last administered on 06/04/17 10 :07; Start 05/31/17 at 17:00 Cyanocobalamin (Vitamin B-12) 1,000 mcg DAILY PO Last administered on 09:54; Start 05/31/17 at 15:00; Stop 06/03/17 at 11:58; Status DC Atorvastatin Calcium (Lipitor) 40 mg QHS PO Last administered on 06/03/17 21: 09; Start 06/01/17 at 21:00 Lisinopril (Prinivil) 10 mg DAILY PO Last administered on 06/04/17 10:08; Start 06/01/17 at 16:00 Polyethylene Glycol (miraLAX Powder BULK BOTTLE) 238 gm 1X ONCE PO Last administered on 06/02/17 14:01; Start 06/02/17 at 14:00; Stop 06/02/17 at 14:01 ; Status DC Bisacodyl (Dulcolax Tab) 5 mg 1X ONCE PO Last administered on 06/02/17 14:04 ; Start 06/02/17 at 14:00; Stop 06/02/17 at 14:01; Status DC Prednisone (Prednisone) 80 mg 1X ONCE PO Last administered on 06/02/17 12:06 ; Start 06/02/17 at 09:45; Stop 06/02/17 at 09:47; Status DC Iohexol (Omnipaque 300 Mg/ml) 75 ml 1X ONCE IV Last administered on 06/02/17 11:26; Start 06/02/17 at 10:00; Stop 06/02/17 at 10:01; Status DC Iohexol (Omnipaque 240 Mg/ml) 30 ml 1X ONCE PO Last administered on 06/02/17 11:26; Start 06/02/17 at 10:00; Stop 06/02/17 at 10:01; Status DC Ondansetron HCl (Zofran) 4 mg PRN Q6HRS PRN IV NAUSEA/VOMITING; Start 06/03/17 at 07:00; Stop 06/03/17 at 18:03; Status DC Fentanyl Citrate (Fentanyl 2ml Vial) 25 mcg PRN Q5MIN PRN IV MILD PAIN; Start 06/03/17 at 07:00; Stop 06/03/17 at 18:03; Status DC Fentanyl Citrate (Fentanyl 2ml Vial) 50 mcg PRN Q5MIN PRN IV MODERATE PAIN; Start 06/03/17 at 07:00; Stop 06/03/17 at 18:03; Status DC Morphine Sulfate 1 mg PRN Q10MIN PRN IV SEVERE PAIN; Start 06/03/17 at 07:00; Stop 06/03/17 at 18:03; Status DC Ringer's Solution 1,000 ml @ 0 mls/hr Q0M IV ; Start 06/03/17 at 07:00; Stop 06/03/17 at 18:03; Status DC Lidocaine HCl (Xylocaine-Mpf 1% Vial) 2 ml PRN 1X PRN ID PRIOR TO IV START; Start 06/03/17 at 07:00; Stop 06/03/17 at 18:03; Status DC Hydromorphone HCl (Dilaudid) 0.5 mg PRN Q10MIN PRN IV SEV PAIN, Second choice; Start 06/03/17 at 07:00; Stop 06/03/17 at 18:03; Status DC Prochlorperazine Edisylate (Compazine) 5 mg PACU PRN PRN IV NAUSEA, MRX1; Start 06/03/17 at 07:00; Stop 06/03/17 at 18:03; Status DC Midazolam HCl (Versed) 2 mg PRN 1X PRN IV PRIOR TO PROCEDURE; Start 06/03/17 at 07:00; Stop 06/03/17 at 18:04; Status DC Fentanyl Citrate (Fentanyl 2ml Vial) 25 mcg PRN Q5MIN PRN IV X 2 DOSES FOR PAIN ; Start 06/03/17 at 07:00; Stop 06/03/17 at 18:04; Status DC Fentanyl Citrate (Fentanyl 2ml Vial) 50 mcg PRN Q5MIN PRN IV X 2 DOSES FOR PAIN ; Start 06/03/17 at 07:00; Stop 06/03/17 at 18:04; Status DC Ringer's Solution 1,000 ml @ 125 mls/hr Q8H IV Last administered on 06/03/17 06:57; Start 06/03/17 at 06:57; Stop 06/03/17 at 18:04; Status DC Lidocaine HCl (Xylocaine-Mpf 1% Vial) 2 ml 1X PRN PRN ID IV START; Start at 07:00; Stop 06/03/17 at 18:04; Status DC Propofol 60 ml @ As Directed STK-MED ONCE IV ; Start 06/03/17 at 07:38; Stop at 18:04; Status DC Lidocaine HCl (Lidocaine Pf 2% Vial) 5 ml STK-MED ONCE .ROUTE ; Start 06/03/17 at 07:38; Stop 06/03/17 at 18:04; Status DC Lidocaine/Sodium Bicarbonate (Buffered Lidocaine 1%) 20 ml STK-MED ONCE IJ ; Start 06/03/17 at 08:49; Stop 06/03/17 at 18:04; Status DC Lidocaine/Sodium Bicarbonate (Buffered Lidocaine 1%) 5 ml 1X ONCE IJ ; Start 06/03/17 at 09:45; Stop 06/03/17 at 18:04; Status DC Cyanocobalamin (Vitamin B-12) 1,000 mcg DAILY IM Last administered on 10:09; Start 06/04/17 at 08:00 Folic Acid (Folic Acid) 1 mg DAILY PO Last administered on 06/04/17 10:08; Start 06/03/17 at 13:15 Prednisone (Prednisone) 80 mg DAILY PO Last administered on 06/04/17 10:06; Start 06/04/17 at 09:30 Active Scripts Active Reported Multivitamins (Multivitamin) 1 Each Tablet 1 Tab PO DAILY Spironolactone 25 Mg Tablet 12.5 Mg PO DAILY Pro-Stat Liquid (Amino Acids/Protein Hydrolys) 30 Ml Liquid 30 Ml PO BID Pantoprazole Sodium 40 Mg Tablet.dr 1 Tab PO DAILY Metformin Hcl 500 Mg Tablet 500 Mg PO DAILY Lisinopril 10 Mg Tablet 1 Tab PO DAILY Lasix (Furosemide) 40 Mg Tablet 1 Tab PO BID Ferrous Sulfate 325 Mg Tablet 325 Mg PO BID Coumadin (Warfarin Sodium) 5 Mg Tablet 7 Mg PO DAILY Wednesday, Wed, , Sat Clonazepam 0.5 Mg Tablet 1 Tab PO DAILY PRN Carvedilol 12.5 Mg Tablet 1 Tab PO BID Atorvastatin Calcium 40 Mg Tablet 1 Tab PO QHS Aspir 81 (Aspirin) 81 Mg Tablet.dr 1 Tab PO DAILY Tylenol (Acetaminophen) 325 Mg Tablet 2 Tab PO PRN Q6HRS PRN Do not exceed 3000mg in 24hr period Vitals/I & O Vital Sign - Last 24 Hours 06/03/17 06/03/17 06/03/17 06/03/17 10:30 11:00 11:30 12:30 Temp 97.8 97.8 Pulse 80 76 80 77 Resp 18 18 18 18 B/P (MAP) 130/77 (94) 142/79 (100) 130/63 (85) 136/61 (86) Pulse Ox 100 99 98 99 O2 Delivery Room Air Room Air Room Air Room Air 06/03/17 06/03/17 06/03/17 06/03/17 13:30 15:16 15:24 16:24 Temp 97.7 97.7 Pulse 79 72 Resp 18 18 16 B/P (MAP) 125/61 (82) 138/66 (90) Pulse Ox 99 99 99 O2 Delivery Room Air Room Air Room Air Room Air 06/03/17 06/03/17 06/03/17 06/03/17 19:00 20:00 21:12 23:00 Temp 99.0 98.2 99.0 98.2 Pulse 66 66 70 Resp 18 18 B/P (MAP) 126/65 (85) 126/65 144/52 (82) Pulse Ox 98 97 O2 Delivery Room Air Room Air Room Air 06/04/17 06/04/17 06/04/17 06/04/17 03:00 07:00 10:07 10:07 Temp 98.5 99.4 98.5 99.4 Pulse 61 79 79 Resp 18 18 B/P (MAP) 152/56 (88) 103/80 (88) 103/80 Pulse Ox 100 100 100 O2 Delivery Room Air Room Air Room Air O2 Flow Rate 2.0 06/04/17 10:08 Pulse 79 B/P (MAP) 103/80 CHARLEY GARCIA MD Jun 04, 2017 10:27
[2017-06-04] MEDS ORDERED: CYAN10002 IM (10:34)
[2017-06-04] MEDS ORDERED: PRED20TA PO (10:34)
[2017-06-04] MEDS ORDERED: METO25TA4 PO (10:34)
[2017-06-04] MEDS ORDERED: FOLI1TAB16 PO (10:34)
[2017-06-04 11:00] VITALS: BP 134/45
--- NOTE | 2017-06-04 12:00 | PDOC ---
Objective: Objective: Reviewed other notes - Hgb to 7.7 Vital Signs: Vital Signs Date Time Temp Pulse Resp B/P (MAP) Pulse Ox O2 Delivery O2 Flow Rate FiO2 06/04/17 10:08 79 103/80 06/04/17 10:07 100 Room Air 2.0 06/04/17 07:00 99.4 18 99.4 Labs: Laboratory Tests Test 06/03/17 13:40 06/03/17 17:02 06/03/17 20:50 06/04/17 03:45 Miscellaneous Test Comment Glucose (Fingerstick) 111 mg/dL 122 mg/dL Sodium Level 138 mmol/L Potassium Level 4.3 mmol/L Chloride Level 106 mmol/L Carbon Dioxide Level 25 mmol/L Anion Gap 7 Blood Urea Nitrogen 14 mg/dL Creatinine 1.1 mg/dL Estimated GFR (Cockcroft-Gault) 81.5 BUN/Creatinine Ratio 13 Glucose Level 98 mg/dL Calcium Level 8.2 mg/dL Total Bilirubin 0.4 mg/dL Aspartate Amino Transf (AST/SGOT) 30 U/L Alanine Aminotransferase (ALT/SGPT) 33 U/L Alkaline Phosphatase 65 U/L Lactate Dehydrogenase 345 U/L Total Protein 6.1 g/dL Albumin 2.9 g/dL Albumin/Globulin Ratio 0.9 Test 06/04/17 08:06 06/04/17 09:25 Glucose (Fingerstick) 86 mg/dL White Blood Count 6.4 x10^3/uL Red Blood Count 2.58 x10^6/uL Hemoglobin 7.7 g/dL Hematocrit 23.8 % Mean Corpuscular Volume 92 fL Mean Corpuscular Hemoglobin 30 pg Mean Corpuscular Hemoglobin Concent 32 g/dL Red Cell Distribution Width 17.6 % Platelet Count 209 x10^3/uL Neutrophils (%) (Auto) 69 % Lymphocytes (%) (Auto) 23 % Monocytes (%) (Auto) 6 % Eosinophils (%) (Auto) 2 % Basophils (%) (Auto) 1 % Neutrophils # (Auto) 4.4 x10^3uL Lymphocytes # (Auto) 1.4 x10^3/uL Monocytes # (Auto) 0.4 x10^3/uL Eosinophils # (Auto) 0.1 x10^3/uL Basophils # (Auto) 0.0 x10^3/uL Reticulocyte Count (auto) 2.5 % Imaging: EGD/Colonoscopy 06/03/17 atrophic gastritis internal hemorrhoids transverse colon polyp s/p cold polypectomy s/p colon biopsies from right/transverse and left colon for uc PE: GEN: NAD NEURO/PSYCH: asleep, did not awaken A/P: Anemia -EGD and colon as above, path pending -h/o CVA w/ aphasia, Coumadin coagulopathy on admit (INR normalized) ?h/o ulcerative colitis -Lauren negative hemolytic anemia per Dr. Peterson, s/p bone marrow biopsy on prednisone and folic acid, also B12 and iron -- DC per hematology/primary. GARY FELIPE Jun 04, 2017 12:00
--- NOTE | 2017-06-04 13:20 | PDOC3 ---
Discharge Summary [facility] Date of Admission: May 28, 2007 Discharge Date: Jun 04, 2017 Admitting Diagnosis 1. SEVERE CRITICAL NORMOCYTIC Anemia s/p multiple BT, 2/2 possible morales neg hemolytic anemia, iron and vitb12 bordline low 2. Metabolic encephalopathy, agitation unclear reason - better/resolved 3. Hx CVA with Right residual UE contracture 4. SNU resident 5. ABd pain,resolved 6. HILARIO, vasomotor 7. HX atrialn fib was on warf on amdit 8. Supratherapeutic iNR with no bleed 9,. Vtach sec to demand ischemia EGD showed atrophic gastritis, internal hemorrhoids, Colonoscopy transverse colon polyp post resection, path pending. no active bleeding CT showed 3cm infrarenal aortic aneurysm, fu as outpt. ct showed subacute rt 9 and 10 th rib fx, stable Problems: CONSULTS onco gi card Procedures EGD, COLONOSCOPY Bone marrow bx Brief Hospital Course Mr. Mcmillan is a 62 old M, SNF resident, was sent from [facility] for emesis, and was found anemia, Hb 4.9, NO ACTIVE bleeding, s/p 3u RPBC transfusion. Pt is on warfarin for AFIB, and then held and got vit K. Hb cont stable, fobt neg. hapto low and LDH high, retic high, onco consulted, morales test neg, consider morales neg hemolytic anemia, also has low b12, iron. all are repleted now. EGD and colonoscopy done, found atrophic gastritis, internal hemorrhoids, colon polyps post removal and bx , path pending, no active bleeding. resume warfarin before dc. dc back to snf, cont prednisone 80mg daily till see dr. Peterson, also replete Iron and vitb12 Im. dc time 40min General: Alert, No acute distress Heart: Normal S1, Normal S2 Lungs: Clear Abdomen: Soft, No tenderness Extremities: No clubbing, No cyanosis, No edema, Normal pulses, No tenderness/ swelling Skin: No rashes, No breakdown, No significant lesion Problems: Disposition SNF CONDITION AT DISCHARGE: Improved Diet regular Scheduled Amino Acids/Protein Hydrolys (Pro-Stat Liquid), 30 ML PO BID, (Reported) Aspirin (Aspir 81), 1 TAB PO DAILY, (Reported) Atorvastatin Calcium (Atorvastatin Calcium), 1 TAB PO QHS, (Reported) Cyanocobalamin (Vitamin B-12) (Cyanocobalamin Injection), 1,000 MCG IM DAILY Ferrous Sulfate (Ferrous Sulfate), 325 MG PO BID, (Reported) Folic Acid (Folic Acid), 1 MG PO DAILY Furosemide (Lasix), 1 TAB PO BID, (Reported) Lisinopril (Lisinopril), 1 TAB PO DAILY, (Reported) Metformin Hcl (Metformin Hcl), 500 MG PO DAILY, (Reported) Metoprolol Tartrate (Metoprolol Tartrate), 25 MG PO BID Multivitamin (Multivitamins), 1 TAB PO DAILY, (Reported) Pantoprazole Sodium (Pantoprazole Sodium), 1 TAB PO DAILY, (Reported) Prednisone (Prednisone), 80 MG PO DAILY Warfarin Sodium (Coumadin), 7 MG PO DAILY, (Reported) Scheduled PRN Acetaminophen (Tylenol), 2 TAB PO PRN Q6HRS PRN for PAIN, (Reported) Clonazepam (Clonazepam), 1 TAB PO DAILY PRN for ANXIETY / AGITATION, (Reported) Discontinued Medications Carvedilol (Carvedilol), 1 TAB PO BID, (Reported) Spironolactone (Spironolactone), 12.5 MG PO DAILY, (Reported) Follow Up dr. Peterson next week RAE CARMICHAEL MD Jun 04, 2017 13:20
--- NOTE | 2017-06-04 16:47 | PATHOLOGY ---
PATHOLOGY REPORT * * * * * * * * FINAL DIAGNOSIS: A. Colon biopsy, transverse colon polyp: - Tubular adenoma. B. Colon biopsies, right colon: - Segments of colonic mucosa showing focal mild edema and reactive changes negative for active colitis or dysplasia. C. Colon biopsies, transverse colon: - Segments of colonic mucosa showing focal mild edema and reactive changes negative for active colitis or dysplasia. D. Colon biopsies, left colon: - Segments of colonic mucosa showing focal mild edema and reactive changes negative for active colitis or dysplasia. Comment: The colon biopsies show no evidence of an active chronic colitis. There is no dysplasia or evidence of malignancy. The transverse colon polyp is a tubular adenoma showing no high grade dysplasia or evidence of malignancy. (JPM:mml; 06/04/2017) REPORT ELECTRONICALLY SIGNED BY: Manuel Bazan M.D. DATE/TIME: 06/04/2017 16:46 * * * * * * * * GROSS PATHOLOGY: A. The specimen is received in formalin, labeled "Manuel Mcmillan transverse colon and consists of a 0.5 cm mora mucosal biopsy that is totally submitted as A1. B. The specimen is received in formalin, labeled "Manuel Mcmillan and right colon biopsy and consists of 6 mora mucosal biopsies with the largest measuring 0.3 cm. Totally submitted as B1. C. The specimen is received in formalin, labeled "Manuel Mcmillan, and transverse colon BX and consists of 5 mora mucosal biopsies each averaging 0.3 cm. The specimen is totally submitted as C1. D. The specimen is received in formalin, labeled "Manuel Mcmillan and left colon BX" and consists of multiple ragged mora mucosal biopsies averaging 0.5 x 0.3 x 0.2 cm and aggregate. Totally submitted as D1. (MICA; 06/03/2017) INITIAL CPT CODE(S): A; 73344 B; 50871 C; 69330 D; 93603 Professional services performed by [employer] at [facility] [address] [place] [address] Technical services performed by [employer] at [address] [place] [address], [address], [place] [address]. SPECIMEN(S) RECEIVED: A.Transverse colon polyp B.Right colon biopsy C.Transverse colon biopsy D.Left colon biopsy CLINICAL HISTORY: Anemia, history of UC PATIENT: MANUEL MCMILLAN /AGE: 5 1955 (Age: 62) PATIENT #: [id number] ALT CASE #: SPECIMEN COLLECTION DATE: 06/03/2017 SPECIMEN RECEIVED DATE: 06/03/2017 [facility] - [id number] [id number] - PHONE: [phone] * * * END OF REPORT * * *
[2017-06-06 23:12] LABS: G-6-PD QUANT 15.6 U/g Hb (4.6-13.5); G6PD HGB 8.5 g/dL (12.6-17.7)
--- NOTE | 2017-06-10 17:01 | PATHOLOGY ---
PATHOLOGY REPORT * * * * * * * * FINAL DIAGNOSIS: Peripheral smear: - Normocytic normochromic anemia, moderate, status post transfusion, with mild polychromasia and mild anisopoikilocytosis. Bone marrow, aspirate smears, clot section, and core biopsy: - Mild to moderately hypercellular marrow showing trilineage hematopoiesis, erythroid hyperplasia, no significant dyspoiesis, absent iron stores, and mild plasmacytosis with population of monoclonal plasma cells showing lambda light chain restriction identified. See description and comment. COMMENT: The peripheral smear shows a moderate normochromic, normocytic anemia, status post transfusion, with mild polychromasia. The bone marrow is hypercellular for the patient's age and shows trilineage hematopoiesis and erythroid hyperplasia. The erythroid hyperplasia is likely a response to the patient's hemolytic anemia, the etiology of which is not apparent from laboratory studies and red blood cell morphology. The bone marrow also shows a mild plasmacytosis. Plasma cells comprise anywhere from 5-10% up to 10-20% of nucleated marrow cells. There does appear to be a population of monoclonal plasma cells which show lambda light chain restriction. The monoclonal plasma cell population does not appear to exceed 10% of nucleated marrow cells. Will need to correlate with other clinical, laboratory, and radiographic findings to properly subclassify the plasma cell proliferative disorder. There is no evidence of myelodysplasia or acute leukemia. The case is also examined by Dr. Palomares, who concurs with the diagnosis. Special Stains Performed: Iron stain on B1 and aspirate smear, immunoperoxidase stains for CD20, CD3, CD138 performed on A1, CD3, CD20, CD138 on B1, and kappa KASANDRA performed on A1 and B1, and lambda KASANDRA on A1 and B1. (JPM:jesus/jeet; 06/09/2017) REPORT ELECTRONICALLY SIGNED BY: Manuel Bazan M.D. DATE/TIME: 06/10/2017 17:00 * * * * * * * * MICROSCOPIC DESCRIPTION: Laboratory Data: CBC results dated 06/03/17 reveal a WBC count of 7.1 K/CMM with 76% neutrophils, 18% lymphs, and 6% monos, RBC count 2.88 M/CMM, hemoglobin 8.6 G/DL, hematocrit 26.6%, MCV 92 FL, MCH 30 PG, MCHC 32 G/DL, RDW 17.7%, and platelet count 230 K/CMM. The reticulocyte count is 3.0% (corrected for anemia). The hemoglobin level on admission was 4.9 G/DL. The patient received a total of 3 units of packed red blood cells on 05/28/17 and 05/29/17. The INR on admission was 3.9. Additional laboratory studies during hospitalization reveal the following: Total bilirubin 0.9 MG/DL, LDH 757 U/L, haptoglobin < 10 MG/DL, ferritin 46 NG/ML, serum iron 37 UG/DL, TIBC 230 UG/DL, iron saturation 16%, vitamin B12 347 PG/ML, and folate 16.24 NG/ML. The patient is AB positive. The SUNG is negative and antibody screen is negative. Peripheral Smear: The peripheral smear is reviewed. The WBC count is normal. The WBC differential reveals a predominance of segmented neutrophils, with smaller populations of lymphocytes and monocytes noted. Neutrophils do not show dysplastic changes. There is no significant neutrophilic left shift. There is no leukoerythroblastic reaction. Red blood cells predominantly appear normochromic. There is mild polychromasia. There are a few hypochromic red blood cells. Red blood cells predominantly appear normocytic and show mild anisocytosis. Red blood cells show mild poikilocytosis with a few ovalocytes, teardrop red blood cells, spiculated red blood cells, and red blood cell fragments noted. Platelets appear normal in number and morphology. Aspirate Smears: Two Ugarte's-stained and one iron-stained aspirate smears are examined. The smears contain multiple cellular and fatty marrow particles. The marrow shows an erythroid hyperplasia. Erythroid maturation predominantly appears normoblastic. There are no megaloblastic or significant dysplastic changes. Granulopoiesis qualitatively appears normal. There is no significant left shift or dysplastic changes. There is no increase of blasts. Megakaryocytes appear adequate in number and are of variable ploidy. . There are admixed plasma cells. Most areas show less than 5% plasma cells. Focally, there are between 5% and 10% plasma cells. The plasma cells are relatively small. There is no increase of lymphocytes. There are no cells foreign to the marrow. The iron stain is devoid of marrow particles and therefore suboptimal for evaluation of iron stores. Bone Marrow Biopsy and Clot Section: Sections of the bone marrow biopsy reveal a segment of bone marrow. A portion of the biopsy is fatty and hypocellular. The remainder of the biopsy is on the order of 60%-70% cellular. The clot section contains multiple marrow particles. Some of the particles are fatty and less than 10% cellular. The majority of particles range between 20% and 60-70% cellular. There is an erythroid hyperplasia. Erythroid precursors are readily identified throughout the marrow particles. There are admixed granulocytic precursors present in varying staging of maturation. Megakaryocytes appear adequate in number and are of variable ploidy. There are scattered admixed plasma cells which are relatively small. There are no abnormal lymphoid aggregates or granulomas. There are no cells foreign to the marrow. Immunoperoxidase stains for CD20, CD3, CD138, and in situ hybridization for kappa and lambda light chain are obtained and yield the following results: CD20 (A1): Small population of small lymphocytes positive having an interstitial distribution. CD3 (A1): Slightly larger population of small lymphocytes positive having an interstitial distribution. CD138: Plasma cells positive having an interstitial and perivascular distribution; plasma cells comprise approximately 5%-10% of nucleated marrow cells. Lambda KASANDRA (A1): Majority of plasma cells positive with kappa:lambda ratio of approximately 1:10. [place] KASANDRA (A1): Small population of plasma cells positive. CD20 (B1): Small population of small lymphocytes positive having an interstitial distribution. CD3 (B1): Slightly larger population of small lymphocytes positive, having an interstitial distribution and focally present in small clusters. CD138 (B1): Plasma cells positive having an interstitial and perivascular distribution and focally present in small clusters; plasma cells comprise approximately 10%-20% of nucleated marrow cells. Lambda KASANDRA (B1): - Majority of plasma cells positive, having an interstitial distribution and focally forming small clusters. [place] KASANDRA (B1):- Small population of plasma cells positive, having an interstitial distribution. The iron stain of the clot section shows absent iron stores. Special Studies: Bone marrow submitted for flow cytometry has a viability of 98.9% but shows evidence of dilution by peripheral blood elements which limits evaluation. Granulocytes comprise 79.6% of total cells and show phenotypic evidence of maturation. Monocytes comprise 3.9% of total cells and show co-expression of CD14 and CD64. CD45 dim, CD34 positive cells comprise 0.2% of total cells. Lymphocytes comprise 14.6% of total cells. T-cells comprise 83% of lymphoid cells and show a CD4/CD8 ratio of about 1.1. NK-cells comprise 8% of lymphoid cells. Mature B-cells comprise 7% of lymphoid cells and are polyclonal with a kappa:lambda ratio of 1.8. There is a minute population of abnormal plasma cells comprising 0.1% of total cells, which are CD38, CD138 and CD56 positive and also show cytoplasmic lambda light chain clonality with a kappa:alex ratio of 0.1. Peripheral blood submitted for flow cytometry shows no phenotypic support for a diagnosis of paroxysmal nocturnal hemoglobinuria (PNH). Bone marrow submitted for cytogenetic analysis reveals a normal male karyotype in all cells analyzed. (JPM:mgnoel; 06/07/2017) GROSS PATHOLOGY: A. Received in formalin labeled "Manuel Mcmillan, bone marrow biopsy," is a single needle core of mora bone, measuring 1.7 cm in length and 0.2 cm in diameter. The specimen is submitted entirely in cassette A1, following decalcification. B. Received in formalin labeled "Manuel Mcmillan, bone marrow aspirate," is blood coagulum, measuring 2.6 x 2.4 x 0.4 cm in aggregate dimensions. The specimen is submitted entirely in cassette B1. (SDY; 06/03/2017) INITIAL CPT CODE(S): A; 11911, 83457, 77626, 13655, 70520, 80286, 36681, 45714 B; 31585, 99309, 41043, 89797, 55000, 39630, 62051 C; 73091, 21028, 73742, 13314 Professional services performed [place] [facility] [place] [address] Technical services performed by [facility] at [address] [place] [address], [facility] [address] [address]. SPECIMEN(S) RECEIVED: A.Bone marrow, biopsy B.Bone marrow, clot and/or particle prep C.Bone marrow, aspirate smears D.Peripheral smear CLINICAL HISTORY: Hemolytic anemia PATIENT: MANUEL MCMILLAN /AGE: 5 1955 (Age: 62) PATIENT #: [id number] ALT CASE #: SPECIMEN COLLECTION DATE: 06/03/2017 SPECIMEN RECEIVED DATE: 06/03/2017 [facility] - [address] [place] [address] - PHONE: [phone] * * * END OF REPORT * * *
== END 2017-06-04 14:20 | DRG 377 ==
LOC: 4 NORTH 14:52
PROVIDERS: ADMIT Internal Medicine; ATTEND Internal Medicine
PROC: 0DBF8ZX Excision of Right Large Intestine, Via Natural or Artificial Opening Endoscopic, Diagnostic (ICD-10-PCS; 2017-06-03)
PROC: 30233N1 Transfusion of Nonautologous Red Blood Cells into Peripheral Vein, Percutaneous Approach (ICD-10-PCS; 2017-06-03)
PROC: 0DBL8ZX Excision of Transverse Colon, Via Natural or Artificial Opening Endoscopic, Diagnostic (ICD-10-PCS; principal; 2017-06-03 07:30)
PROC: 07DQ3ZX Extraction of Sternum Bone Marrow, Percutaneous Approach, Diagnostic (ICD-10-PCS; 2017-06-03 07:30)
PROC: 0DBG8ZX Excision of Left Large Intestine, Via Natural or Artificial Opening Endoscopic, Diagnostic (ICD-10-PCS; 2017-06-03 07:30)
DX: K29.41 Chronic atrophic gastritis with bleeding (principal); G93.41 Metabolic encephalopathy; N17.0 Acute kidney failure with tubular necrosis; I47.2 Ventricular tachycardia; D62 Acute posthemorrhagic anemia; I42.9 Cardiomyopathy, unspecified; G81.91 Hemiplegia, unspecified affecting right dominant side; I24.8 Other forms of acute ischemic heart disease; K51.90 Ulcerative colitis, unspecified, without complications; I47.1 Supraventricular tachycardia; E11.9 Type 2 diabetes mellitus without complications; E78.5 Hyperlipidemia, unspecified; I10 Essential (primary) hypertension; I48.0 Paroxysmal atrial fibrillation; I71.4 Abdominal aortic aneurysm, without rupture; K64.8 Other hemorrhoids
CPT/HCPCS: 36415; 38221; 71260; 74177; 77012; 80048; 80053; 80061; 82274; 82607; 82728; 82746; 82955; 82962; 83010; 83540; 83550; 83615; 83735; 84100; 85014; 85018; 85025; 85045; 85610; 86850; 86880; 86900; 86901; 86920; 87641; 88184; 88185; 88237; 88305; 88311; 88313; 88341; 88342; 88364; 88365; 90732; 93306; G0364; J1630; J1815; J2060; J2704; J3420; J3430; J7120; J7512; P9016; Q9966; Q9967; S0028; 97530; J2001

== ENCOUNTER 2017-07-08 16:55 | Inpatient (IN) | payer MEDICARE ==
[~2017-07-08] VITALS: Ht 188 cm; Wt 85.8 kg
[~2017-07-08 16:55] MED LIST: ACET325T9 PO; AMIN30LI PO; ASPI-482 PO; ATOR40TA59 PO; CARV12.52 PO; CLON0.5T3 PO; CYAN10002 IM; FERR-26 PO; FOLI1TAB16 PO; FURO-68 PO; LISI10TA2 PO; METF500T4 PO; METO25TA4 PO; MULT1TAB52 PO; PANT40TA5 PO; PRED20TA PO; SPIR25TA3 PO; WARF-78 PO
[2017-07-08] MEDS ORDERED: IV NORMAL SALINE 1000ML BAG 1,000 ML IV SCH (17:08)
[2017-07-08] MEDS ORDERED: ONDANSETRON PF 4 MG/2 ML VIAL. IV ONE (17:15)
[2017-07-08] MEDS ORDERED: FAMOTIDINE 20 MG/2 ML VIAL IVP ONE (17:15)
[2017-07-08] MEDS ORDERED: fentaNYL PF VIAL 100 MCG/2 ML VIAL IV PRN (17:15)
[2017-07-08 17:43] LABS: BASO % 0 % (0-3); EOS % 0 % (0-3); HEMATOCRIT 37.5 % (39.0-53.0); HEMOGLOBIN 11.9 g/dL (13.0-17.5); LYMPH # 0.5 x10^3/uL (1.0-4.8); LYMPH % 8 % (24-48); MEAN CORPUSCULAR HEMOGLOBIN 30 pg (25-35); MEAN CORPUSCULAR HGB CONC 32 g/dL (31-37); MEAN CORPUSCULAR VOLUME 93 fL (79-100); MONO % 3 % (0-9); NEUT % 89 % (31-73); PLATELET COUNT 93 x10^3/uL (140-400); RED BLOOD COUNT 4.04 x10^6/uL (4.30-5.70); RED CELL DISTRIBUTION WIDTH 16.7 % (11.5-14.5); WHITE BLOOD COUNT 6.4 x10^3/uL (4.0-11.0)
[2017-07-08 17:58] LABS: CALCIUM 8.8 mg/dL (8.5-10.1); CREATININE 1.6 mg/dL (0.7-1.3); GFR 52.9; POTASSIUM 4.5 mmol/L (3.5-5.1)
[2017-07-08 18:00] LABS: ALBUMIN 3.4 g/dL (3.4-5.0); ALBUMIN/GLOBULIN RATIO 1.1 (1.0-1.7); TOTAL BILIRUBIN 0.6 mg/dL (0.2-1.0); TOTAL PROTEIN 6.5 g/dL (6.4-8.2)
[2017-07-08 18:00] LABS: BILIRUBIN,URINE NEGATIVE (NEG); GLUCOSE,URINE >=1000 mg/dL (NEG); NITRITE,URINE NEGATIVE (NEG); PROTEIN,URINE NEGATIVE (NEG-TRACE); UROBILINOGEN,URINE 0.2 mg/dL (0.2 mg/dL)
[2017-07-08 18:01] LABS: PLT ESTIMATE DECREASED (ADEQUATE)
[2017-07-08 18:02] LABS: TOXIC GRANULATION SLIGHT
[2017-07-08 18:05] LABS: BACTERIA,URINE 0 /HPF (0-FEW); RBC,URINE 0 /HPF (0-2); WBC,URINE 0 /HPF (0-4)
[2017-07-08] MEDS ORDERED: ONDANSETRON PF 4 MG/2 ML VIAL. IV PRN (18:45)
[2017-07-08] MEDS ORDERED: ACETAMINOPHEN 325 MG TABLET. PO PRN ×2 (18:45)
[2017-07-08] MEDS ORDERED: clonazePAM 0.5 MG TABLET PO PRN (18:45)
[2017-07-08] MEDS ORDERED: DEXTROSE 50% 25 GM / 50ML DISP.SYRIN. IV PRN (18:45)
--- NOTE | 2017-07-08 18:58 | PHYS DOC ---
Past Medical History Past Medical History: Diabetes-Type II, GERD, High Cholesterol, Hypertension, Stroke Additional Past Medical Histor: ulcerative colitis, aphasia Alcohol Use: Occasionally Drug Use: None Adult General Chief Complaint Chief Complaint: HYPERGLYCEMIA HPI HPI Patient is a 62 year old male who presents to the emergency department for evaluation of hyperglycemia. The patient was sent from his [facility] by EMS for evaluation. The patient has history of CVA with chronic right-sided hemiplegia. The patient currently denies any complaints. Patient noted to be significantly bradycardic in route. Patient is currently on metoprolol therapy. Patient denies any chest pain and lightheadedness, or dizziness currently. The patient does state that he is thirsty and would like to drink water. EMS notes that the glucometer at the patient's [facility] registered "high." Review of Systems Review of Systems Constitutional: Denies fever or chills [] Eyes: Denies change in visual acuity, redness, or eye pain [] HENT: Denies nasal congestion or sore throat [] Respiratory: Denies cough or shortness of breath [] Cardiovascular: Denies chest pain or edema[] GI: Denies abdominal pain, nausea, vomiting, bloody stools or diarrhea [] : Denies dysuria or hematuria [] Musculoskeletal: Denies back pain or joint pain [] Integument: Denies rash or skin lesions [] Neurologic: Chronic right-sided hemiplegia, denies headache or new focal weakness. [] All other systems were reviewed and found to be within normal limits, except as documented in this note. Current Medications Current Medications Current Medications Medications (Trade) Dose Ordered Sig/Mari Start Time Stop Time Status Last Admin Dose Admin Famotidine (Pepcid) 20 mg 1X ONCE 07/08/17 17:15 07/08/17 17:20 DC 07/08/17 18:01 20 MG Fentanyl Citrate (Fentanyl 2ml Vial) 50 mcg PRN Q15MIN PRN 07/08/17 17:15 07/09/17 17:14 Ondansetron HCl (Zofran) 4 mg 1X ONCE 07/08/17 17:15 07/08/17 17:20 DC 07/08/17 18:01 4 MG Sodium Chloride 1,000 ml @ 1,000 mls/hr Q1H 07/08/17 17:08 07/08/17 18:07 DC 07/08/17 17:08 1,000 MLS/HR Allergies Allergies Allergies Coded Allergies Type Severity Reaction Last Updated Verified No Known Drug Allergies 06/03/17 No Physical Exam Physical Exam Constitutional: Alert, afebrile, appears in chronically poor health, no acute distress. [] HENT: Normocephalic, atraumatic, bilateral external ears normal, oropharynx moist, no oral exudates, nose normal. [] Eyes: PERRLA, EOMI, conjunctiva normal, no discharge. [] Neck: Normal range of motion, no tenderness, supple, no stridor. [] Cardiovascular: Bradycardia, regular rhythm, no murmur [] Lungs & Thorax: Bilateral breath sounds clear to auscultation [] Abdomen: Bowel sounds normal, soft, no tenderness, no masses, no pulsatile masses. [] Skin: Warm, dry, no erythema, no rash. [] Back: No tenderness, no CVA tenderness. [] Extremities: No tenderness, no cyanosis, no clubbing, ROM intact, no edema. [] Neurologic: Alert and oriented X 3, spastic right sided hemiplegia, left upper and lower extremity 5 out of 5 strength. [] Current Patient Data Vital Signs Vital Signs Date Time Temp Pulse Resp B/P (MAP) Pulse Ox O2 Delivery O2 Flow Rate FiO2 07/08/17 16:55 98.7 40 18 158/65 (96) 98 Room Air 98.7 Lab Values Labs reviewed: Significant for creatinine of 1.6, blood glucose of 1041, platelet count of 93 Current Medications Medications (Trade) Dose Ordered Sig/Mari Route PRN Reason Start Time Stop Time Status Last Admin Dose Admin Fentanyl Citrate (Fentanyl 2ml Vial) 50 mcg PRN Q15MIN PRN IV PAIN GREATER THAN 3/10 07/08/17 17:15 07/09/17 17:14 Sodium Chloride 1,000 ml @ 1,000 mls/hr Q1H IV 07/08/17 17:08 07/08/17 18:07 DC 07/08/17 17:08 1,000 MLS/HR Ondansetron HCl (Zofran) 4 mg 1X ONCE IV 07/08/17 17:15 07/08/17 17:20 DC 07/08/17 18:01 4 MG Famotidine (Pepcid) 20 mg 1X ONCE IVP 07/08/17 17:15 11/9/17 17:20 DC 07/08/17 18:01 20 MG EKG EKG Interpreted by me: Heart rate 40, sinus bradycardia, right axis deviation, intraventricular block, no acute ST elevations or depressions[] Radiology/Procedures Radiology/Procedures Not performed[] Course & Med Decision Making Course & Med Decision Making Pertinent Labs and Imaging studies reviewed. (See chart for details) Patient started on IV fluids in the emergency department. Patient placed on high intensity sliding scale for treatment of critically elevated blood sugars. The patient's heart rate has remained significantly bradycardic, however patient 's blood pressures have remained stable in the emergency department. Patient will be admitted for further evaluation and treatment. I spoke with Dr. Granado who accepted care patient in hospital. Dragon Disclaimer Dragon Disclaimer This electronic medical record was generated, in whole or in part, using a voice recognition dictation system. Departure Departure Impression: Primary Impression: Hyperglycemia Additional Impressions: Bradycardia History of CVA (cerebrovascular accident) Disposition: ADMITTED INPATIENT Admitting Physician: Shannon Granado Condition: GUARDED Referrals: ABDI ADKINS MD (PCP) Problem Qualifiers THEODORE CANCHOLA MD Jul 08, 2017 18:58
[2017-07-08] MEDS ORDERED: INSULIN,REGULAR 150 UNIT DRIP 150 ML IV ONE (19:30)
--- NOTE | 2017-07-08 19:33 | HP ---
ADMIT DATE: 07/08/2017 CHIEF COMPLAINT: Mental status change. HISTORY OF PRESENT ILLNESS: The patient is a pleasant elderly male who I believe came from a facility. He has got previous strokes. He has expressive aphasia. He lives in a care home. Basically, he presented with mental status change, was noted to have a glucose of greater than 300. When he got here, he also had bradycardia into the 35 range. He is on metoprolol. I have discussed the case with the ER physician. We are going to admit the patient and get his glucose under control and get his heart rate back up. I will be holding his metoprolol and consulting cardiology. PAST MEDICAL HISTORY: Previous stroke, expressive aphasia, diabetes, anxiety, insomnia, anemia, edema, hypertension, GERD, chronic anticoagulation, arthritis. ALLERGIES: None. FAMILY HISTORY: Diabetes. SOCIAL HISTORY: He lives in a care home. I do not think he drinks, smokes or takes drugs. MEDICATIONS: Reviewed. He is on Coumadin, prednisone, Protonix, metoprolol, vitamins, metformin, lisinopril, Lasix, folic acid, clonazepam, atorvastatin, amino acid solution, and Tylenol. REVIEW OF SYSTEMS: Unreliable. The patient has expressive aphasia. PHYSICAL EXAMINATION: VITAL SIGNS: Temperature afebrile, pulse is 40, respirations 18, blood pressure 158/65. GENERAL: He tries to talk. He is very pleasant, but has expressive aphasia. HEART: Bradycardic with normal S1, S2. LUNGS: Clear. ABDOMEN: Soft. EXTREMITIES: 1+ edema. SKIN: No rashes. PSYCHIATRIC: He seems a little anxious. VASCULAR: Good capillary refill. ENDOCRINE: No thyromegaly. LYMPHATICS: No cervical nodes. HEMATOPOIETIC: No bruising. LABORATORY DATA: White count 6, hemoglobin 12, platelets 93. Electrolytes: Sodium 129, potassium 4.5, chloride 90, bicarbonate 31, BUN 22, creatinine 1.6, glucose 1041. Anion gap surprisingly normal at 8. Urinalysis negative. ASSESSMENT AND PLAN: Hyperglycemic hyperosmolar state with incidental finding of bradycardia in an elderly male who also has hyponatremia, anemia. The patient is being admitted. We will give him IV insulin, IV fluids, hold his beta blockade. Consult Cardiology, Physical Therapy, Occupational Therapy. Resume other home medicines, frequent labs. PROGNOSIS: Guarded. NIAL Ac MICHAUD DO DR: Miah JOB#: [id number] / [id number]
[2017-07-08] MEDS: IV NORMAL SALINE 1000ML BAG 1,000 ML IV SCH (19:50)
[2017-07-08 20:25] LABS: INR 2.1 (0.8-1.1); PROTHROMBIN TIME PATIENT 22.2 SEC (11.7-14.0)
[2017-07-08 20:30] VITALS: BP 121/58
[2017-07-08] MEDS ORDERED: NON FORMULARY ITEM (Amino Acids/Protein Hydrolys (Pro-Stat Liquid) 30 ML) PO SCH (21:00)
[2017-07-08] MEDS: ATORVASTATIN CALCIUM 40 MG TABLET. PO SCH (22:08)
[2017-07-08] MEDS: FERROUS SULFATE 325 MG TABLET. PO SCH (22:09)
[2017-07-08] MEDS: WARFARIN 5 MG TABLET. PO SCH (22:15)
[2017-07-08] MEDS: WARFARIN 2 MG TABLET. PO SCH (22:15)
[2017-07-08 23:15] VITALS: BP 125/79
[2017-07-09 03:15] VITALS: BP 146/70
[2017-07-09] MEDS: IV NORMAL SALINE 1000ML BAG 1,000 ML IV SCH ×2 (03:47→12:37)
--- NOTE | 2017-07-09 06:23 | EKG ---
[facility] [address] [place] [address] Test Date: 2017-07-08 Test Time: 17:01:22 Pat Name: MANUEL SAGASTUME Department: Room: 250 1 Gender: M Manager Home: : 1955 Requested By: THEODORE CANCHOLA Order Number: [id number] Reading MD: Sunny Munoz MD Measurements Intervals [place] Rate: 39 P: 35 MI: 160 QRS: -92 QRSD: 168 T: 173 QT: 560 QTc: 459 Interpretive Statements SUSPECT SEVERE SINUS BRADYCARDIA LAFB Electronically Signed On 07-12-2017 10:50:12 MEDICAL RECORDS RECEPTIONIST by Sunny Munoz MD
[2017-07-09 07:00] VITALS: BP 140/94
[2017-07-09] MEDS: INSULIN ASPART 300 UNITS/3 ML INSULN.PEN SQ SCH ×4 (08:00→17:31)
[2017-07-09 08:18] LABS: BASO % 0 % (0-3); EOS % 1 % (0-3); HEMATOCRIT 33.2 % (39.0-53.0); HEMOGLOBIN 11.1 g/dL (13.0-17.5); LYMPH # 1.7 x10^3/uL (1.0-4.8); LYMPH % 23 % (24-48); MEAN CORPUSCULAR HEMOGLOBIN 29 pg (25-35); MEAN CORPUSCULAR HGB CONC 33 g/dL (31-37); MONO % 5 % (0-9); NEUT % 70 % (31-73); PLATELET COUNT 94 x10^3/uL (140-400); RED BLOOD COUNT 3.78 x10^6/uL (4.30-5.70); RED CELL DISTRIBUTION WIDTH 16.3 % (11.5-14.5); WHITE BLOOD COUNT 7.1 x10^3/uL (4.0-11.0)
[2017-07-09 08:31] LABS: CALCIUM 8.4 mg/dL (8.5-10.1); CREATININE 1.1 mg/dL (0.7-1.3); GFR 81.5
[2017-07-09 08:37] LABS: POTASSIUM 2.8 mmol/L (3.5-5.1)
[2017-07-09 08:42] LABS: MEAN CORPUSCULAR VOLUME 88 fL (79-100)
[2017-07-09] MEDS ORDERED: POTASSIUM CHLORIDE 20MEQ 50 ML IV ONE (08:45)
[2017-07-09] MEDS ORDERED: POTASSIUM CHLORIDE 20 MEQ TABLET.ER. PO ONE (08:45)
[2017-07-09] MEDS ORDERED: CYANOCOBALAMIN (VITAMIN B-12) 1,000 MCG/ML VIAL IM SCH (09:00)
[2017-07-09] MEDS ORDERED: WARFARIN 5 MG TABLET. PO SCH (09:00)
[2017-07-09] MEDS: predniSONE 20 MG TABLET PO SCH (09:11)
[2017-07-09] MEDS: FUROSEMIDE 40 MG TABLET. PO SCH ×2 (09:12→14:14)
[2017-07-09] MEDS: FOLIC ACID 1 MG TABLET. PO SCH (09:12)
[2017-07-09] MEDS: PANTOPRAZOLE 40 MG TABLET.DR. PO SCH (09:12)
[2017-07-09] MEDS: metFORMIN 500 MG TABLET PO SCH (09:12)
[2017-07-09] MEDS: FERROUS SULFATE 325 MG TABLET. PO SCH ×2 (09:12→17:24)
[2017-07-09] MEDS: ASPIRIN ENTERIC COATED 81 MG TABLET.DR. PO SCH (09:12)
[2017-07-09] MEDS: LISINOPRIL 10 MG TABLET PO SCH (09:12)
[2017-07-09] MEDS: MULTIVITAMIN with MINERAL TABLET. PO SCH (09:12)
--- NOTE | 2017-07-09 09:36 | PDOC2 ---
CLAIRE BANKS [employer] 07/09/17 0936: CARDIAC CONSULT DATE OF CONSULT Date of Consult DATE: 07/09/17 TIME: 09:30 REASON FOR CONSULT Reason for Consult: Bradycardia REFERRING PHYSICIAN Referring Physician: Dr. Granado SOURCE Source: Chart review, Patient HISTORY OF PRESENT ILLNESS HISTORY OF PRESENT ILLNESS This is a 62 yo male who presented from nursing facility secondary to elevated blood glucose. Was noted to be bradycardia by EMS, which prompted this consult. Is on metoprolol at home. 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 Denies any dizziness, lightheadedness, syncope, diaphoresis, SOA, chest pain, or diaphoresis. PAST MEDICAL HISTORY Cardiovascular: AFIB (paroxysmal), CHF, HTN, Hyperlipidemia CENTRAL NERVOUS SYSTEM: CVA (with right-sided hemiplegia and expressive aphasia ) GI: GERD Heme/Onc: Anemia NOS Psych: Anxiety Musculoskeletal: Osteoarthritis Rheumatologic: No pertinent hx Infectious disease: No pertinent hx ENT: No pertinent hx Renal/: No pertinent hx Endocrine: Diabetes Dermatology: No pertinent hx PAST SURGICAL HISTORY Past Surgical History: No pertinent history FAMILY HISTORY Family History: Family History Unknown SOCIAL HISTORY Smoke: No ALCOHOL: none Drugs: None Lives: Long-Term CURRENT MEDICATIONS CURRENT MEDICATIONS Current Medications Medications (Trade) Dose Ordered Sig/Mari Route PRN Reason Start Time Stop Time Status Last Admin Dose Admin Sodium Chloride 1,000 ml @ 1,000 mls/hr Q1H IV 07/08/17 17:08 07/08/17 18:07 DC 07/08/17 17:08 Ondansetron HCl (Zofran) 4 mg 1X ONCE IV 07/08/17 17:15 07/08/17 17:20 DC 07/08/17 18:01 Famotidine (Pepcid) 20 mg 1X ONCE IVP 07/08/17 17:15 07/08/17 17:20 DC 07/08/17 18:01 Aspirin (Ecotrin) 81 mg DAILY08 PO 07/09/17 08:00 07/09/17 09:12 Atorvastatin Calcium (Lipitor) 40 mg QHS PO 07/08/17 21:00 07/08/17 22:08 Ferrous Sulfate (Feosol) 325 mg BIDWMEALS PO 07/08/17 21:00 07/09/17 09:12 Folic Acid (Folic Acid) 1 mg DAILY PO 07/09/17 09:00 07/09/17 09:12 Furosemide (Lasix) 40 mg BID92 PO 07/09/17 09:00 07/09/17 09:12 Lisinopril (Prinivil) 10 mg DAILY PO 07/09/17 09:00 07/09/17 09:12 Metformin HCl (Glucophage) 500 mg DAILYWBKFT PO 07/09/17 08:00 07/09/17 09:12 Pantoprazole Sodium (Protonix) 40 mg DAILYAC PO 07/09/17 07:30 07/09/17 09:12 Prednisone (Prednisone) 80 mg DAILY PO 07/09/17 09:00 07/09/17 09:11 Multivitamins (Thera M Plus) 1 tab DAILY PO 07/09/17 09:00 07/09/17 09:12 Sodium Chloride 1,000 ml @ 125 mls/hr Q8H IV 07/08/17 18:44 07/09/17 18:43 07/09/17 03:47 Insulin Human Regular 150 ml @ 0 mls/hr 1X ONCE IV 07/08/17 19:30 07/08/17 19:31 DC 07/08/17 19:50 Warfarin Sodium (Coumadin Per Pharmacy) 1 each PRN DAILY PRN MC SEE COMMENTS 07/08/17 20:15 07/09/17 08:40 Warfarin Sodium (Coumadin) 5 mg DAILY16 PO 07/08/17 20:30 07/08/17 22:15 Warfarin Sodium (Coumadin) 2 mg DAILY16 PO 07/08/17 20:30 07/08/17 22:15 Potassium Chloride (Klor-Con) 40 meq 1X ONCE PO 07/09/17 08:45 07/09/17 08:46 DC 07/09/17 09:14 ALLERGIES ALLERGIES: Coded Allergies: No Known Drug Allergies (Unverified , 06/03/17) ROS Review of System 14 point ROS conducted with pertinent positives noted above in HPI. PHYSICAL EXAM General: Alert, Oriented X3, Cooperative, No acute distress HEENT: Atraumatic, Mucous membr. moist/pink Lungs: Clear to auscultation, Other (diminished bases ) Heart: Regular rate, Normal S1, Normal S2, Other (tele SR/SB with intermittent junctional rhythm) Abdomen: Soft, No tenderness Extremities: No edema Skin: No significant lesion Neuro: Sensation intact, Other (expressive aphasia ) Psych/Mental Status: Mood NL MUSCULOSKELETAL: Other (right-sided hemiplegia ) VITALS VITALS Vital Signs Date Time Temp Pulse Resp B/P (MAP) Pulse Ox O2 Delivery O2 Flow Rate FiO2 07/09/17 09:12 53 140/94 07/09/17 07:00 98.4 20 98 Nasal Cannula 2.0 98.4 LABS Lab: Laboratory Tests Test 07/08/17 17:35 07/08/17 17:48 07/08/17 20:00 07/08/17 21:10 White Blood Count 6.4 x10^3/uL (4.0-11.0) Red Blood Count 4.04 x10^6/uL (4.30-5.70) Hemoglobin 11.9 g/dL (13.0-17.5) Hematocrit 37.5 % (39.0-53.0) Mean Corpuscular Volume 93 fL (79-100) Mean Corpuscular Hemoglobin 30 pg (25-35) Mean Corpuscular Hemoglobin Concent 32 g/dL (31-37) Red Cell Distribution Width 16.7 % (11.5-14.5) Platelet Count 93 x10^3/uL (140-400) Neutrophils (%) (Auto) 89 % (31-73) Lymphocytes (%) (Auto) 8 % (24-48) Monocytes (%) (Auto) 3 % (0-9) Eosinophils (%) (Auto) 0 % (0-3) Basophils (%) (Auto) 0 % (0-3) Neutrophils # (Auto) 5.7 x10^3uL (1.8-7.7) Lymphocytes # (Auto) 0.5 x10^3/uL (1.0-4.8) Monocytes # (Auto) 0.2 x10^3/uL (0.0-1.1) Eosinophils # (Auto) 0.0 x10^3/uL (0.0-0.7) Basophils # (Auto) 0.0 x10^3/uL (0.0-0.2) Segmented Neutrophils % 88 % (35-66) Band Neutrophils % 1 % (0-9) Lymphocytes % 7 % (24-48) Monocytes % 4 % (0-10) Toxic Granulation Slight Platelet Estimate Decreased (ADEQUATE) Sodium Level 129 mmol/L (136-145) Potassium Level 4.5 mmol/L (3.5-5.1) Chloride Level 90 mmol/L (98-107) Carbon Dioxide Level 31 mmol/L (21-32) Anion Gap 8 (6-14) Blood Urea Nitrogen 22 mg/dL (8-26) Creatinine 1.6 mg/dL (0.7-1.3) Estimated GFR (Cockcroft-Gault) 52.9 BUN/Creatinine Ratio 14 (6-20) Glucose Level 1041 mg/dL (70-99) 710 mg/dL (70-99) Calcium Level 8.8 mg/dL (8.5-10.1) Total Bilirubin 0.6 mg/dL (0.2-1.0) Aspartate Amino Transf (AST/SGOT) 14 U/L (15-37) Alanine Aminotransferase (ALT/SGPT) 38 U/L (16-63) Alkaline Phosphatase 82 U/L (46-116) Total Protein 6.5 g/dL (6.4-8.2) Albumin 3.4 g/dL (3.4-5.0) Albumin/Globulin Ratio 1.1 (1.0-1.7) Lipase 124 U/L (73-393) Urine Collection Type Unknown Urine Color Straw Urine Clarity Clear Urine pH 7.0 Urine Specific [place] 1.020 Urine Protein Negative mg/dL (NEG-TRACE) Urine Glucose (UA) >=1000 mg/dL (NEG) Urine Ketones (Stick) Negative mg/dL (NEG) Urine Blood Negative (NEG) Urine Nitrite Negative (NEG) Urine Bilirubin Negative (NEG) Urine Urobilinogen Dipstick 0.2 mg/dL (0.2 mg/dL) Urine Leukocyte Esterase Negative (NEG) Urine RBC 0 /HPF (0-2) Urine WBC 0 /HPF (0-4) Urine Squamous Epithelial Cells None /LPF Urine Bacteria 0 /HPF (0-FEW) Prothrombin Time 22.2 SEC (11.7-14.0) Prothromb Time International Ratio 2.1 (0.8-1.1) Test 07/08/17 22:49 07/08/17 23:53 07/09/17 00:56 07/09/17 02:01 Glucose (Fingerstick) 417 mg/dL (70-99) 328 mg/dL (70-99) 176 mg/dL (70-99) 172 mg/dL (70-99) Test 07/09/17 03:05 07/09/17 04:11 07/09/17 05:15 07/09/17 06:18 Glucose (Fingerstick) 83 mg/dL (70-99) 92 mg/dL (70-99) 100 mg/dL (70-99) 165 mg/dL (70-99) Test 07/09/17 08:05 07/09/17 08:16 07/09/17 09:17 White Blood Count 7.1 x10^3/uL (4.0-11.0) Red Blood Count 3.78 x10^6/uL (4.30-5.70) Hemoglobin 11.1 g/dL (13.0-17.5) Hematocrit 33.2 % (39.0-53.0) Mean Corpuscular Volume 88 fL (79-100) Mean Corpuscular Hemoglobin 29 pg (25-35) Mean Corpuscular Hemoglobin Concent 33 g/dL (31-37) Red Cell Distribution Width 16.3 % (11.5-14.5) Platelet Count 94 x10^3/uL (140-400) Neutrophils (%) (Auto) 70 % (31-73) Lymphocytes (%) (Auto) 23 % (24-48) Monocytes (%) (Auto) 5 % (0-9) Eosinophils (%) (Auto) 1 % (0-3) Basophils (%) (Auto) 0 % (0-3) Neutrophils # (Auto) 5.0 x10^3uL (1.8-7.7) Lymphocytes # (Auto) 1.7 x10^3/uL (1.0-4.8) Monocytes # (Auto) 0.3 x10^3/uL (0.0-1.1) Eosinophils # (Auto) 0.1 x10^3/uL (0.0-0.7) Basophils # (Auto) 0.0 x10^3/uL (0.0-0.2) Sodium Level 144 mmol/L (136-145) Potassium Level 2.8 mmol/L (3.5-5.1) Chloride Level 105 mmol/L (98-107) Carbon Dioxide Level 33 mmol/L (21-32) Anion Gap 6 (6-14) Blood Urea Nitrogen 17 mg/dL (8-26) Creatinine 1.1 mg/dL (0.7-1.3) Estimated GFR (Cockcroft-Gault) 81.5 Glucose Level 124 mg/dL (70-99) Calcium Level 8.4 mg/dL (8.5-10.1) Glucose (Fingerstick) 117 mg/dL (70-99) 207 mg/dL (70-99) ECHOCARDIOGRAM ECHOCARDIOGRAM <Conclusion> The ejection fraction is severely impaired. EF 25% The distal 2/3rd of the LV is severely hypokinetic. No left ventricle thrombus noted on this study but there is smoke in the LV/LA consistent with low flow state. Doppler and Color Flow revealed mild aortic regurgitation. DATE: 05/31/17 0956 ASSESSMENT/PLAN ASSESSMENT/PLAN 1. Bradyarrhythmia; tele noted with SR/SB with intermittent junctional rhythm 2. PAFIB; on chronic anticoagulation 3. Diabetes with significant hyperglycemia 4. Cardiomyopathy; EF 25% - compensated. 5. Hyponatremia/hypokalemia 6. Hypertension 7. Hyperlipidemia 8. H/o CVA with right-sided hemiplegia and expressive aphasia Recommendations Avoid AV thompson blocking agents No acute indication for PPM; monitor telemetry Correct extracardiac conditions Continue ACEi and diuretic therapy Warfarin for stroke prevention Replace lytes as warranted Supportive carte Problems: ASHLEIGH SCHULTZ MD 07/09/17 1648: CARDIAC CONSULT ALLERGIES ALLERGIES: Coded Allergies: No Known Drug Allergies (Unverified , 06/03/17) ASSESSMENT/PLAN ASSESSMENT/PLAN Patient seen and examined. Agree with above nurse practitioner note. 62-year- old man presenting with severe critical illness with a blood sugar greater than 1000. Supportive care from a cardiac standpoint. Hold AV thompson agents. Monitor on telemetry. No acute indication for pacemaker. Ultimately on an outpatient basis we could consider further evaluation for ICD placement for his cardiomyopathy. Problems: CLAIRE BANKS APRN Jul 09, 2017 09:36 ASHLEIGH SCHULTZ MD Jul 09, 2017 16:48
[2017-07-09] MEDS: POTASSIUM CHLORIDE 10 MEQ in IV NORMAL SALINE 100ML 100 ML IV SCH ×2 (10:40→12:37)
[2017-07-09 11:00] VITALS: BP 143/83
--- NOTE | 2017-07-09 12:52 | PDOC ---
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 Today he was examined at bedside. He is resting comfortably in bed and is not in a cute distress. Pt. appears to look weak. Today his hypoglycemia resolved and so did sinus bradycardia. Added novolog 10 units TID with meals and levemir 20 units at bed time for glucose management. Plan was discussed with the RN. Evaluation for SNU was placed. Pt. is followed by cardiology re: bradycardia. Will continue to monitor for now. Vitals Vitals Vital Signs Date Time Temp Pulse Resp B/P (MAP) Pulse Ox O2 Delivery O2 Flow Rate FiO2 07/09/17 11:00 97.9 57 19 143/83 (103) 99 Nasal Cannula 2.0 97.9 Physical Exam General: Alert, Oriented X3, Cooperative, No acute distress Heart: Regular rate, Normal S1, Normal S2, Other (tele SR/SB with intermittent junctional rhythm) Lungs: Clear Abdomen: Soft, No tenderness Extremities: No cyanosis, No edema Skin: No rashes, No significant lesion Labs LABS Laboratory Tests Test 07/08/17 17:35 07/08/17 17:48 07/08/17 20:00 07/08/17 21:10 White Blood Count 6.4 x10^3/uL (4.0-11.0) Red Blood Count 4.04 x10^6/uL (4.30-5.70) Hemoglobin 11.9 g/dL (13.0-17.5) Hematocrit 37.5 % (39.0-53.0) Mean Corpuscular Volume 93 fL (79-100) Mean Corpuscular Hemoglobin 30 pg (25-35) Mean Corpuscular Hemoglobin Concent 32 g/dL (31-37) Red Cell Distribution Width 16.7 % (11.5-14.5) Platelet Count 93 x10^3/uL (140-400) Neutrophils (%) (Auto) 89 % (31-73) Lymphocytes (%) (Auto) 8 % (24-48) Monocytes (%) (Auto) 3 % (0-9) Eosinophils (%) (Auto) 0 % (0-3) Basophils (%) (Auto) 0 % (0-3) Neutrophils # (Auto) 5.7 x10^3uL (1.8-7.7) Lymphocytes # (Auto) 0.5 x10^3/uL (1.0-4.8) Monocytes # (Auto) 0.2 x10^3/uL (0.0-1.1) Eosinophils # (Auto) 0.0 x10^3/uL (0.0-0.7) Basophils # (Auto) 0.0 x10^3/uL (0.0-0.2) Segmented Neutrophils % 88 % (35-66) Band Neutrophils % 1 % (0-9) Lymphocytes % 7 % (24-48) Monocytes % 4 % (0-10) Toxic Granulation Slight Platelet Estimate Decreased (ADEQUATE) Sodium Level 129 mmol/L (136-145) Potassium Level 4.5 mmol/L (3.5-5.1) Chloride Level 90 mmol/L (98-107) Carbon Dioxide Level 31 mmol/L (21-32) Anion Gap 8 (6-14) Blood Urea Nitrogen 22 mg/dL (8-26) Creatinine 1.6 mg/dL (0.7-1.3) Estimated GFR (Cockcroft-Gault) 52.9 BUN/Creatinine Ratio 14 (6-20) Glucose Level 1041 mg/dL (70-99) 710 mg/dL (70-99) Calcium Level 8.8 mg/dL (8.5-10.1) Total Bilirubin 0.6 mg/dL (0.2-1.0) Aspartate Amino Transf (AST/SGOT) 14 U/L (15-37) Alanine Aminotransferase (ALT/SGPT) 38 U/L (16-63) Alkaline Phosphatase 82 U/L (46-116) Total Protein 6.5 g/dL (6.4-8.2) Albumin 3.4 g/dL (3.4-5.0) Albumin/Globulin Ratio 1.1 (1.0-1.7) Lipase 124 U/L (73-393) Urine Collection Type Unknown Urine Color Straw Urine Clarity Clear Urine pH 7.0 Urine Specific [place] 1.020 Urine Protein Negative mg/dL (NEG-TRACE) Urine Glucose (UA) >=1000 mg/dL (NEG) Urine Ketones (Stick) Negative mg/dL (NEG) Urine Blood Negative (NEG) Urine Nitrite Negative (NEG) Urine Bilirubin Negative (NEG) Urine Urobilinogen Dipstick 0.2 mg/dL (0.2 mg/dL) Urine Leukocyte Esterase Negative (NEG) Urine RBC 0 /HPF (0-2) Urine WBC 0 /HPF (0-4) Urine Squamous Epithelial Cells None /LPF Urine Bacteria 0 /HPF (0-FEW) Prothrombin Time 22.2 SEC (11.7-14.0) Prothromb Time International Ratio 2.1 (0.8-1.1) Test 07/08/17 22:49 07/08/17 23:53 07/09/17 00:56 07/09/17 02:01 Glucose (Fingerstick) 417 mg/dL (70-99) 328 mg/dL (70-99) 176 mg/dL (70-99) 172 mg/dL (70-99) Test 07/09/17 03:05 07/09/17 04:11 07/09/17 05:15 07/09/17 06:18 Glucose (Fingerstick) 83 mg/dL (70-99) 92 mg/dL (70-99) 100 mg/dL (70-99) 165 mg/dL (70-99) Test 07/09/17 08:05 07/09/17 08:16 07/09/17 09:17 07/09/17 10:17 White Blood Count 7.1 x10^3/uL (4.0-11.0) Red Blood Count 3.78 x10^6/uL (4.30-5.70) Hemoglobin 11.1 g/dL (13.0-17.5) Hematocrit 33.2 % (39.0-53.0) Mean Corpuscular Volume 88 fL (79-100) Mean Corpuscular Hemoglobin 29 pg (25-35) Mean Corpuscular Hemoglobin Concent 33 g/dL (31-37) Red Cell Distribution Width 16.3 % (11.5-14.5) Platelet Count 94 x10^3/uL (140-400) Neutrophils (%) (Auto) 70 % (31-73) Lymphocytes (%) (Auto) 23 % (24-48) Monocytes (%) (Auto) 5 % (0-9) Eosinophils (%) (Auto) 1 % (0-3) Basophils (%) (Auto) 0 % (0-3) Neutrophils # (Auto) 5.0 x10^3uL (1.8-7.7) Lymphocytes # (Auto) 1.7 x10^3/uL (1.0-4.8) Monocytes # (Auto) 0.3 x10^3/uL (0.0-1.1) Eosinophils # (Auto) 0.1 x10^3/uL (0.0-0.7) Basophils # (Auto) 0.0 x10^3/uL (0.0-0.2) Sodium Level 144 mmol/L (136-145) Potassium Level 2.8 mmol/L (3.5-5.1) Chloride Level 105 mmol/L (98-107) Carbon Dioxide Level 33 mmol/L (21-32) Anion Gap 6 (6-14) Blood Urea Nitrogen 17 mg/dL (8-26) Creatinine 1.1 mg/dL (0.7-1.3) Estimated GFR (Cockcroft-Gault) 81.5 Glucose Level 124 mg/dL (70-99) Calcium Level 8.4 mg/dL (8.5-10.1) Magnesium Level 1.8 mg/dL (1.8-2.4) Glucose (Fingerstick) 117 mg/dL (70-99) 207 mg/dL (70-99) 229 mg/dL (70-99) Test 07/09/17 11:19 07/09/17 12:20 Glucose (Fingerstick) 220 mg/dL (70-99) 110 mg/dL (70-99) Review of Systems Review of Systems fatigue and weakness Assessment and Plan Assessmemt and Plan Problems Medical Problems: (1) Bradycardia Status: Acute (2) History of CVA (cerebrovascular accident) Status: Acute (3) Hyperglycemia Status: Acute Assessment: Hyperglycemia Bradycardia AFIB (paroxysmal) CHF HTN Hyperlipidemia CVA (with right-sided hemiplegia and expressive aphasia ) GERD Anemia NOS Anxiety Osteoarthritis Diabetes Plan: Added novolog 10 units TID with meals and Levemir 20 units at bed time Continue to hold metoprolol Continue cardiac monitoring SNU evaluation Recheck labs Monitor platelets PT/OT Continue O2 nasal cannula Awaiting cardiology input Problems: Comment Review of Relevant I have reviewed the following items yulissa (where applicable) has been applied. Labs Laboratory Tests Test 07/08/17 17:35 07/08/17 17:48 07/08/17 20:00 07/08/17 21:10 White Blood Count 6.4 x10^3/uL (4.0-11.0) Red Blood Count 4.04 x10^6/uL (4.30-5.70) Hemoglobin 11.9 g/dL (13.0-17.5) Hematocrit 37.5 % (39.0-53.0) Mean Corpuscular Volume 93 fL (79-100) Mean Corpuscular Hemoglobin 30 pg (25-35) Mean Corpuscular Hemoglobin Concent 32 g/dL (31-37) Red Cell Distribution Width 16.7 % (11.5-14.5) Platelet Count 93 x10^3/uL (140-400) Neutrophils (%) (Auto) 89 % (31-73) Lymphocytes (%) (Auto) 8 % (24-48) Monocytes (%) (Auto) 3 % (0-9) Eosinophils (%) (Auto) 0 % (0-3) Basophils (%) (Auto) 0 % (0-3) Neutrophils # (Auto) 5.7 x10^3uL (1.8-7.7) Lymphocytes # (Auto) 0.5 x10^3/uL (1.0-4.8) Monocytes # (Auto) 0.2 x10^3/uL (0.0-1.1) Eosinophils # (Auto) 0.0 x10^3/uL (0.0-0.7) Basophils # (Auto) 0.0 x10^3/uL (0.0-0.2) Segmented Neutrophils % 88 % (35-66) Band Neutrophils % 1 % (0-9) Lymphocytes % 7 % (24-48) Monocytes % 4 % (0-10) Toxic Granulation Slight Platelet Estimate Decreased (ADEQUATE) Sodium Level 129 mmol/L (136-145) Potassium Level 4.5 mmol/L (3.5-5.1) Chloride Level 90 mmol/L (98-107) Carbon Dioxide Level 31 mmol/L (21-32) Anion Gap 8 (6-14) Blood Urea Nitrogen 22 mg/dL (8-26) Creatinine 1.6 mg/dL (0.7-1.3) Estimated GFR (Cockcroft-Gault) 52.9 BUN/Creatinine Ratio 14 (6-20) Glucose Level 1041 mg/dL (70-99) 710 mg/dL (70-99) Calcium Level 8.8 mg/dL (8.5-10.1) Total Bilirubin 0.6 mg/dL (0.2-1.0) Aspartate Amino Transf (AST/SGOT) 14 U/L (15-37) Alanine Aminotransferase (ALT/SGPT) 38 U/L (16-63) Alkaline Phosphatase 82 U/L (46-116) Total Protein 6.5 g/dL (6.4-8.2) Albumin 3.4 g/dL (3.4-5.0) Albumin/Globulin Ratio 1.1 (1.0-1.7) Lipase 124 U/L (73-393) Urine Collection Type Unknown Urine Color Straw Urine Clarity Clear Urine pH 7.0 Urine Specific [place] 1.020 Urine Protein Negative mg/dL (NEG-TRACE) Urine Glucose (UA) >=1000 mg/dL (NEG) Urine Ketones (Stick) Negative mg/dL (NEG) Urine Blood Negative (NEG) Urine Nitrite Negative (NEG) Urine Bilirubin Negative (NEG) Urine Urobilinogen Dipstick 0.2 mg/dL (0.2 mg/dL) Urine Leukocyte Esterase Negative (NEG) Urine RBC 0 /HPF (0-2) Urine WBC 0 /HPF (0-4) Urine Squamous Epithelial Cells None /LPF Urine Bacteria 0 /HPF (0-FEW) Prothrombin Time 22.2 SEC (11.7-14.0) Prothromb Time International Ratio 2.1 (0.8-1.1) Test 07/08/17 22:49 07/08/17 23:53 07/09/17 00:56 07/09/17 02:01 Glucose (Fingerstick) 417 mg/dL (70-99) 328 mg/dL (70-99) 176 mg/dL (70-99) 172 mg/dL (70-99) Test 07/09/17 03:05 07/09/17 04:11 07/09/17 05:15 07/09/17 06:18 Glucose (Fingerstick) 83 mg/dL (70-99) 92 mg/dL (70-99) 100 mg/dL (70-99) 165 mg/dL (70-99) Test 07/09/17 08:05 07/09/17 08:16 07/09/17 09:17 07/09/17 10:17 White Blood Count 7.1 x10^3/uL (4.0-11.0) Red Blood Count 3.78 x10^6/uL (4.30-5.70) Hemoglobin 11.1 g/dL (13.0-17.5) Hematocrit 33.2 % (39.0-53.0) Mean Corpuscular Volume 88 fL (79-100) Mean Corpuscular Hemoglobin 29 pg (25-35) Mean Corpuscular Hemoglobin Concent 33 g/dL (31-37) Red Cell Distribution Width 16.3 % (11.5-14.5) Platelet Count 94 x10^3/uL (140-400) Neutrophils (%) (Auto) 70 % (31-73) Lymphocytes (%) (Auto) 23 % (24-48) Monocytes (%) (Auto) 5 % (0-9) Eosinophils (%) (Auto) 1 % (0-3) Basophils (%) (Auto) 0 % (0-3) Neutrophils # (Auto) 5.0 x10^3uL (1.8-7.7) Lymphocytes # (Auto) 1.7 x10^3/uL (1.0-4.8) Monocytes # (Auto) 0.3 x10^3/uL (0.0-1.1) Eosinophils # (Auto) 0.1 x10^3/uL (0.0-0.7) Basophils # (Auto) 0.0 x10^3/uL (0.0-0.2) Sodium Level 144 mmol/L (136-145) Potassium Level 2.8 mmol/L (3.5-5.1) Chloride Level 105 mmol/L (98-107) Carbon Dioxide Level 33 mmol/L (21-32) Anion Gap 6 (6-14) Blood Urea Nitrogen 17 mg/dL (8-26) Creatinine 1.1 mg/dL (0.7-1.3) Estimated GFR (Cockcroft-Gault) 81.5 Glucose Level 124 mg/dL (70-99) Calcium Level 8.4 mg/dL (8.5-10.1) Magnesium Level 1.8 mg/dL (1.8-2.4) Glucose (Fingerstick) 117 mg/dL (70-99) 207 mg/dL (70-99) 229 mg/dL (70-99) Test 07/09/17 11:19 07/09/17 12:20 Glucose (Fingerstick) 220 mg/dL (70-99) 110 mg/dL (70-99) Laboratory Tests Test 07/08/17 17:35 07/08/17 17:48 07/08/17 20:00 07/08/17 21:10 White Blood Count 6.4 x10^3/uL (4.0-11.0) Red Blood Count 4.04 x10^6/uL (4.30-5.70) Hemoglobin 11.9 g/dL (13.0-17.5) Hematocrit 37.5 % (39.0-53.0) Mean Corpuscular Volume 93 fL (79-100) Mean Corpuscular Hemoglobin 30 pg (25-35) Mean Corpuscular Hemoglobin Concent 32 g/dL (31-37) Red Cell Distribution Width 16.7 % (11.5-14.5) Platelet Count 93 x10^3/uL (140-400) Neutrophils (%) (Auto) 89 % (31-73) Lymphocytes (%) (Auto) 8 % (24-48) Monocytes (%) (Auto) 3 % (0-9) Eosinophils (%) (Auto) 0 % (0-3) Basophils (%) (Auto) 0 % (0-3) Neutrophils # (Auto) 5.7 x10^3uL (1.8-7.7) Lymphocytes # (Auto) 0.5 x10^3/uL (1.0-4.8) Monocytes # (Auto) 0.2 x10^3/uL (0.0-1.1) Eosinophils # (Auto) 0.0 x10^3/uL (0.0-0.7) Basophils # (Auto) 0.0 x10^3/uL (0.0-0.2) Segmented Neutrophils % 88 % (35-66) Band Neutrophils % 1 % (0-9) Lymphocytes % 7 % (24-48) Monocytes % 4 % (0-10) Toxic Granulation Slight Platelet Estimate Decreased (ADEQUATE) Sodium Level 129 mmol/L (136-145) Potassium Level 4.5 mmol/L (3.5-5.1) Chloride Level 90 mmol/L (98-107) Carbon Dioxide Level 31 mmol/L (21-32) Anion Gap 8 (6-14) Blood Urea Nitrogen 22 mg/dL (8-26) Creatinine 1.6 mg/dL (0.7-1.3) Estimated GFR (Cockcroft-Gault) 52.9 BUN/Creatinine Ratio 14 (6-20) Glucose Level 1041 mg/dL (70-99) 710 mg/dL (70-99) Calcium Level 8.8 mg/dL (8.5-10.1) Total Bilirubin 0.6 mg/dL (0.2-1.0) Aspartate Amino Transf (AST/SGOT) 14 U/L (15-37) Alanine Aminotransferase (ALT/SGPT) 38 U/L (16-63) Alkaline Phosphatase 82 U/L (46-116) Total Protein 6.5 g/dL (6.4-8.2) Albumin 3.4 g/dL (3.4-5.0) Albumin/Globulin Ratio 1.1 (1.0-1.7) Lipase 124 U/L (73-393) Urine Collection Type Unknown Urine Color Straw Urine Clarity Clear Urine pH 7.0 Urine Specific [place] 1.020 Urine Protein Negative mg/dL (NEG-TRACE) Urine Glucose (UA) >=1000 mg/dL (NEG) Urine Ketones (Stick) Negative mg/dL (NEG) Urine Blood Negative (NEG) Urine Nitrite Negative (NEG) Urine Bilirubin Negative (NEG) Urine Urobilinogen Dipstick 0.2 mg/dL (0.2 mg/dL) Urine Leukocyte Esterase Negative (NEG) Urine RBC 0 /HPF (0-2) Urine WBC 0 /HPF (0-4) Urine Squamous Epithelial Cells None /LPF Urine Bacteria 0 /HPF (0-FEW) Prothrombin Time 22.2 SEC (11.7-14.0) Prothromb Time International Ratio 2.1 (0.8-1.1) Test 07/08/17 22:49 07/08/17 23:53 07/09/17 00:56 07/09/17 02:01 Glucose (Fingerstick) 417 mg/dL (70-99) 328 mg/dL (70-99) 176 mg/dL (70-99) 172 mg/dL (70-99) Test 07/09/17 03:05 07/09/17 04:11 07/09/17 05:15 07/09/17 06:18 Glucose (Fingerstick) 83 mg/dL (70-99) 92 mg/dL (70-99) 100 mg/dL (70-99) 165 mg/dL (70-99) Test 07/09/17 08:05 07/09/17 08:16 07/09/17 09:17 07/09/17 10:17 White Blood Count 7.1 x10^3/uL (4.0-11.0) Red Blood Count 3.78 x10^6/uL (4.30-5.70) Hemoglobin 11.1 g/dL (13.0-17.5) Hematocrit 33.2 % (39.0-53.0) Mean Corpuscular Volume 88 fL (79-100) Mean Corpuscular Hemoglobin 29 pg (25-35) Mean Corpuscular Hemoglobin Concent 33 g/dL (31-37) Red Cell Distribution Width 16.3 % (11.5-14.5) Platelet Count 94 x10^3/uL (140-400) Neutrophils (%) (Auto) 70 % (31-73) Lymphocytes (%) (Auto) 23 % (24-48) Monocytes (%) (Auto) 5 % (0-9) Eosinophils (%) (Auto) 1 % (0-3) Basophils (%) (Auto) 0 % (0-3) Neutrophils # (Auto) 5.0 x10^3uL (1.8-7.7) Lymphocytes # (Auto) 1.7 x10^3/uL (1.0-4.8) Monocytes # (Auto) 0.3 x10^3/uL (0.0-1.1) Eosinophils # (Auto) 0.1 x10^3/uL (0.0-0.7) Basophils # (Auto) 0.0 x10^3/uL (0.0-0.2) Sodium Level 144 mmol/L (136-145) Potassium Level 2.8 mmol/L (3.5-5.1) Chloride Level 105 mmol/L (98-107) Carbon Dioxide Level 33 mmol/L (21-32) Anion Gap 6 (6-14) Blood Urea Nitrogen 17 mg/dL (8-26) Creatinine 1.1 mg/dL (0.7-1.3) Estimated GFR (Cockcroft-Gault) 81.5 Glucose Level 124 mg/dL (70-99) Calcium Level 8.4 mg/dL (8.5-10.1) Magnesium Level 1.8 mg/dL (1.8-2.4) Glucose (Fingerstick) 117 mg/dL (70-99) 207 mg/dL (70-99) 229 mg/dL (70-99) Test 07/09/17 11:19 07/09/17 12:20 Glucose (Fingerstick) 220 mg/dL (70-99) 110 mg/dL (70-99) Medications Current Medications Fentanyl Citrate (Fentanyl 2ml Vial) 50 mcg PRN Q15MIN PRN IV PAIN GREATER THAN 3/10; Start 07/08/17 at 17:15; Stop 07/09/17 at 08:45; Status DC Sodium Chloride 1,000 ml @ 1,000 mls/hr Q1H IV Last administered on 07/08/17 17:08; Start 07/08/17 at 17:08; Stop 07/08/17 at 18:07; Status DC Ondansetron HCl (Zofran) 4 mg 1X ONCE IV Last administered on 07/08/17 18:01 ; Start 07/08/17 at 17:15; Stop 07/08/17 at 17:20; Status DC Famotidine (Pepcid) 20 mg 1X ONCE IVP Last administered on 07/08/17 18:01; Start 07/08/17 at 17:15; Stop 07/08/17 at 17:20; Status DC Insulin Aspart (NovoLOG) 0-9 UNITS TIDWMEALS SQ ; Start 07/09/17 at 08:00 Dextrose (Dextrose 50%-Water Syringe) 12.5 gm PRN Q15MIN PRN IV SEE COMMENTS; Start 07/08/17 at 18:45 Acetaminophen (Tylenol) 650 mg PRN Q6HRS PRN PO PAIN; Start 07/08/17 at 18:45 Aspirin (Ecotrin) 81 mg DAILY08 PO Last administered on 07/09/17 09:12; Start 07/09/17 at 08:00 Atorvastatin Calcium (Lipitor) 40 mg QHS PO Last administered on 07/08/17 22: 08; Start 07/08/17 at 21:00 Clonazepam (KlonoPIN) 0.5 mg PRN DAILY PRN PO ANXIETY / AGITATION; Start at 18:45 Cyanocobalamin (Vitamin B-12) 1,000 mcg DAILY IM ; Start 07/09/17 at 09:00; Stop 07/09/17 at 09:00; Status DC Ferrous Sulfate (Feosol) 325 mg BIDWMEALS PO Last administered on 07/09/17 09 :12; Start 07/08/17 at 21:00 Folic Acid (Folic Acid) 1 mg DAILY PO Last administered on 07/09/17 09:12; Start 07/09/17 at 09:00 Furosemide (Lasix) 40 mg BID92 PO Last administered on 07/09/17 09:12; Start 07/09/17 at 09:00 Lisinopril (Prinivil) 10 mg DAILY PO Last administered on 07/09/17 09:12; Start 07/09/17 at 09:00 Metformin HCl (Glucophage) 500 mg DAILYWBKFT PO Last administered on 09:12; Start 07/09/17 at 08:00 Pantoprazole Sodium (Protonix) 40 mg DAILYAC PO Last administered on 09:12; Start 07/09/17 at 07:30 Prednisone (Prednisone) 80 mg DAILY PO Last administered on 07/09/17 09:11; Start 07/09/17 at 09:00 Warfarin Sodium (Coumadin) 7 mg DAILY PO ; Start 07/09/17 at 09:00; Stop 07/09 at 09:00; Status DC Non-Formulary Medication 30 ml BID PO ; Start 07/08/17 at 21:00; Stop 07/08/17 at 21:00; Status DC Multivitamins (Thera M Plus) 1 tab DAILY PO Last administered on 07/09/17 09: 12; Start 07/09/17 at 09:00 Ondansetron HCl (Zofran) 4 mg PRN Q8HRS PRN IV NAUSEA/VOMITING; Start 07/08/17 at 18:45; Stop 07/09/17 at 18:44 Sodium Chloride 1,000 ml @ 125 mls/hr Q8H IV Last administered on 07/09/17 12:37; Start 07/08/17 at 18:44; Stop 07/09/17 at 18:43 Acetaminophen (Tylenol) 650 mg PRN Q4HRS PRN PO FEVER; Start 07/08/17 at 18:45 ; Stop 07/08/17 at 18:50; Status DC Insulin Human Regular 150 ml @ 0 mls/hr 1X ONCE IV Last administered on 19:50; Start 07/08/17 at 19:30; Stop 07/08/17 at 19:31; Status DC Warfarin Sodium (Coumadin Per Pharmacy) 1 each PRN DAILY PRN MC SEE COMMENTS Last administered on 07/09/17 08:40; Start 07/08/17 at 20:15 Warfarin Sodium (Coumadin) 5 mg DAILY16 PO Last administered on 07/08/17 22:15 ; Start 07/08/17 at 20:30 Warfarin Sodium (Coumadin) 2 mg DAILY16 PO Last administered on 07/08/17 22:15 ; Start 07/08/17 at 20:30 Potassium Chloride (Klor-Con) 40 meq 1X ONCE PO Last administered on 09:14; Start 07/09/17 at 08:45; Stop 07/09/17 at 08:46; Status DC Potassium Chloride 50 ml @ 50 mls/hr 1X ONCE IV ; Start 07/09/17 at 08:45; Stop 07/09/17 at 09:44; Status UNV Potassium Chloride 10 meq/ Sodium Chloride 105 ml @ 105 mls/hr Q1HR IV Last administered on 07/09/17 12:37; Start 07/09/17 at 09:00; Stop 07/09/17 at 10 :59; Status DC Active Scripts Active Prednisone 20 Mg Tablet 80 Mg PO DAILY 7 Days Metoprolol Tartrate 25 Mg Tablet 25 Mg PO BID 30 Days Folic Acid 1 Mg Tablet 1 Mg PO DAILY 30 Days Cyanocobalamin Injection (Cyanocobalamin (Vitamin B-12)) 1,000 Mcg/1 Ml Vial 1, 000 Mcg IM DAILY 7 Days Reported Multivitamins (Multivitamin) 1 Each Tablet 1 Tab PO DAILY Pro-Stat Liquid (Amino Acids/Protein Hydrolys) 30 Ml Liquid 30 Ml PO BID Pantoprazole Sodium 40 Mg Tablet.dr 1 Tab PO DAILY Metformin Hcl 500 Mg Tablet 500 Mg PO DAILY Lisinopril 10 Mg Tablet 1 Tab PO DAILY Lasix (Furosemide) 40 Mg Tablet 1 Tab PO BID Ferrous Sulfate 325 Mg Tablet 325 Mg PO BID Coumadin (Warfarin Sodium) 5 Mg Tablet 7 Mg PO DAILY Wednesday, Wed, , Wed Clonazepam 0.5 Mg Tablet 1 Tab PO DAILY PRN Atorvastatin Calcium 40 Mg Tablet 1 Tab PO QHS Aspir 81 (Aspirin) 81 Mg Tablet.dr 1 Tab PO DAILY Tylenol (Acetaminophen) 325 Mg Tablet 2 Tab PO PRN Q6HRS PRN Do not exceed 3000mg in 24hr period Vitals/I & O Vital Sign - Last 24 Hours 07/08/17 07/08/17 07/08/17 07/08/17 16:55 17:30 18:00 18:30 Temp 98.7 98.7 Pulse 40 46 38 34 Resp 18 16 16 16 B/P (MAP) 158/65 (96) 172/62 (98) 150/64 (92) 115/48 (70) Pulse Ox 98 96 97 96 O2 Delivery Room Air Room Air Room Air Room Air 07/08/17 07/08/17 07/08/17 07/08/17 18:45 19:45 20:00 20:30 Temp 97.8 97.8 Pulse 34 54 40 39 Resp 16 14 14 18 B/P (MAP) 133/61 (85) 181/86 (117) 141/59 (86) 121/58 (79) Pulse Ox 97 95 97 98 O2 Delivery Room Air Room Air Room Air Room Air 07/08/17 07/08/17 07/09/17 07/09/17 22:57 23:15 03:15 07:00 Temp 97.6 97.9 98.4 97.6 97.9 98.4 Pulse 77 61 68 Resp 19 18 20 B/P (MAP) 125/79 (94) 146/70 (95) 140/94 (109) Pulse Ox 93 99 98 O2 Delivery Room Air Room Air Nasal Cannula Nasal Cannula O2 Flow Rate 2.0 2.0 07/09/17 07/09/17 07/09/17 08:00 09:12 11:00 Temp 97.9 97.9 Pulse 53 57 Resp 19 B/P (MAP) 140/94 143/83 (103) Pulse Ox 99 O2 Delivery Nasal Cannula Nasal Cannula O2 Flow Rate 2.0 2.0 Intake and Output 07/09/17 07/09/17 07/10/17 15:00 23:00 07:00 Intake Total 100 ml Output Total 450 ml Balance -350 ml FELIZ MICHAUD III DO Jul 09, 2017 12:52
[2017-07-09 15:00] VITALS: BP 155/78
[2017-07-09] MEDS: WARFARIN 2 MG TABLET. PO SCH (17:24)
[2017-07-09] MEDS: WARFARIN 5 MG TABLET. PO SCH (17:25)
[2017-07-09 19:20] VITALS: BP 114/57
[2017-07-09] MEDS: ATORVASTATIN CALCIUM 40 MG TABLET. PO SCH (21:17)
[2017-07-09] MEDS: INSULIN DETEMIR 300 UNITS/3 ML INSULN.PEN. SQ SCH (21:21)
[2017-07-09] MEDS ORDERED: INSULIN ASPART 300 UNITS/3 ML INSULN.PEN SQ ONE (21:30)
[2017-07-09 23:48] VITALS: BP 169/81
[2017-07-09 23:55] LABS: MAGNESIUM 1.7 mg/dL (1.8-2.4); POTASSIUM 3.9 mmol/L (3.5-5.1)
[2017-07-10] VITALS (20 sets, daily range): BP systolic 105–204; BP diastolic 50–96
[2017-07-10] MEDS ORDERED: MAGNESIUM SULFATE 2GM 50 ML IV ONE (01:00)
[2017-07-10] MEDS ORDERED: POTASSIUM CHLORIDE 20 MEQ TABLET.ER. PO ONE (01:00)
[2017-07-10] MEDS ORDERED: NITROGLYCERIN PREMIX 250 ML IV PRN (01:45)
[2017-07-10 04:07] LABS: BASO % 0 % (0-3); EOS % 0 % (0-3); HEMOGLOBIN 11.7 g/dL (13.0-17.5); LYMPH # 1.1 x10^3/uL (1.0-4.8); LYMPH % 16 % (24-48); MEAN CORPUSCULAR HEMOGLOBIN 30 pg (25-35); MEAN CORPUSCULAR HGB CONC 33 g/dL (31-37); MEAN CORPUSCULAR VOLUME 89 fL (79-100); MONO % 4 % (0-9); NEUT % 80 % (31-73); PLATELET COUNT 107 x10^3/uL (140-400); RED BLOOD COUNT 3.95 x10^6/uL (4.30-5.70); RED CELL DISTRIBUTION WIDTH 16.5 % (11.5-14.5); WHITE BLOOD COUNT 6.8 x10^3/uL (4.0-11.0)
[2017-07-10 04:41] LABS: CALCIUM 8.7 mg/dL (8.5-10.1); CREATININE 1.2 mg/dL (0.7-1.3); GFR 73.8; POTASSIUM 3.8 mmol/L (3.5-5.1)
[2017-07-10 04:50] LABS: INR 2.1 (0.8-1.1); PROTHROMBIN TIME PATIENT 22.6 SEC (11.7-14.0)
[2017-07-10] MEDS: FERROUS SULFATE 325 MG TABLET. PO SCH ×2 (08:01→17:40)
[2017-07-10] MEDS: ASPIRIN ENTERIC COATED 81 MG TABLET.DR. PO SCH (08:01)
[2017-07-10] MEDS: metFORMIN 500 MG TABLET PO SCH (08:01)
[2017-07-10] MEDS: predniSONE 20 MG TABLET PO SCH (08:01)
[2017-07-10] MEDS: MULTIVITAMIN with MINERAL TABLET. PO SCH (08:01)
[2017-07-10] MEDS: LISINOPRIL 10 MG TABLET PO SCH (08:01)
[2017-07-10] MEDS: PANTOPRAZOLE 40 MG TABLET.DR. PO SCH (08:02)
[2017-07-10] MEDS: FOLIC ACID 1 MG TABLET. PO SCH (08:02)
[2017-07-10] MEDS: FUROSEMIDE 40 MG TABLET. PO SCH ×2 (08:02→14:00)
[2017-07-10] MEDS: INSULIN ASPART 300 UNITS/3 ML INSULN.PEN SQ SCH ×6 (08:03→17:47)
--- NOTE | 2017-07-10 08:50 | PDOC ---
CARDIO Progress Notes Date and Time Date of Service 07/10/2017 Time of Evaluation 0815 Subjective Subjective: No Chest Pain, No shortness of breath, No Palpitations, Other ( eating food, no discomfort) Vitals Vitals Vital Signs Date Time Temp Pulse Resp B/P (MAP) Pulse Ox O2 Delivery O2 Flow Rate FiO2 07/10/17 08:01 31 07/10/17 07:00 11 151/63 (92) 97 Room Air 07/10/17 04:00 98.2 98.2 07/09/17 19:30 2.0 Weight Weight [ ] Laboratory Labs Laboratory Tests Test 07/09/17 09:17 07/09/17 10:17 07/09/17 11:19 07/09/17 12:20 Glucose (Fingerstick) 207 mg/dL (70-99) 229 mg/dL (70-99) 220 mg/dL (70-99) 110 mg/dL (70-99) Test 07/09/17 13:27 07/09/17 14:24 07/09/17 17:04 07/09/17 20:58 Glucose (Fingerstick) 97 mg/dL (70-99) 166 mg/dL (70-99) 446 mg/dL (70-99) 506 mg/dL (70-99) Test 07/09/17 23:30 07/10/17 03:30 07/10/17 08:00 Potassium Level 3.9 mmol/L (3.5-5.1) 3.8 mmol/L (3.5-5.1) Magnesium Level 1.7 mg/dL (1.8-2.4) White Blood Count 6.8 x10^3/uL (4.0-11.0) Red Blood Count 3.95 x10^6/uL (4.30-5.70) Hemoglobin 11.7 g/dL (13.0-17.5) Hematocrit 35.0 % (39.0-53.0) Mean Corpuscular Volume 89 fL (79-100) Mean Corpuscular Hemoglobin 30 pg (25-35) Mean Corpuscular Hemoglobin Concent 33 g/dL (31-37) Red Cell Distribution Width 16.5 % (11.5-14.5) Platelet Count 107 x10^3/uL (140-400) Neutrophils (%) (Auto) 80 % (31-73) Lymphocytes (%) (Auto) 16 % (24-48) Monocytes (%) (Auto) 4 % (0-9) Eosinophils (%) (Auto) 0 % (0-3) Basophils (%) (Auto) 0 % (0-3) Neutrophils # (Auto) 5.4 x10^3uL (1.8-7.7) Lymphocytes # (Auto) 1.1 x10^3/uL (1.0-4.8) Monocytes # (Auto) 0.3 x10^3/uL (0.0-1.1) Eosinophils # (Auto) 0.0 x10^3/uL (0.0-0.7) Basophils # (Auto) 0.0 x10^3/uL (0.0-0.2) Prothrombin Time 22.6 SEC (11.7-14.0) Prothromb Time International Ratio 2.1 (0.8-1.1) Sodium Level 139 mmol/L (136-145) Chloride Level 102 mmol/L (98-107) Carbon Dioxide Level 31 mmol/L (21-32) Anion Gap 6 (6-14) Blood Urea Nitrogen 20 mg/dL (8-26) Creatinine 1.2 mg/dL (0.7-1.3) Estimated GFR (Cockcroft-Gault) 73.8 Glucose Level 294 mg/dL (70-99) Calcium Level 8.7 mg/dL (8.5-10.1) Glucose (Fingerstick) 240 mg/dL (70-99) Physical Exam HEENT: Neck Supple W Full Motion Chest: Symmetric LUNGS: Clear to Auscultation Heart: S1S2, RRR (junctional episodes in the 40s) Abdomen: Soft N/T (obese) Extremities: No Calf Tenderness Neurology: alert, oriented, follow commands Assessment Assessment 1. Asymptomatic Bradyarrhythmia; continue to have junctional rhythm in the 40s but no notable pauses. 2. PAFIB: on coumadin with INR of 2.1. stable. 3. Diabetes with significant hyperglycemia: BG remain uncontrolled 4. 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 compensated. 5. Hyponatremia/hypokalemia: resolved 6. Accelerated Hypertension: prompting transfer to ICU. Improving. 7. Hyperlipidemia 8. 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 Debility Recommendations 1. No AV thompson blocking agents. DC NTG. Start on norvasc for better BP control 2. No indication for pacemaker or AICD at this time. [employer] would be entertained if pt would agree. 3. Plan for future AICD pending optimization. 4. Warfarin for stroke prevention 5. Supportive MISAEL Jarvis APRN Jul 10, 2017 08:50
[2017-07-10] MEDS: amLODIPine BESYLATE 5 MG TABLET PO SCH (10:31)
--- NOTE | 2017-07-10 13:00 | PDOC ---
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 Per RN, he has remained bradycardic over the past 24 hours. Rate drops to the 30's w/ junctional rhythm when he is tired, but sits in the 80's while up and about or eating. Glucose levels continue to decrease, per RN most recently measured at 192. Evaluation for SNU was placed. Pt. is followed by cardiology re: bradycardia. Will continue to monitor for now. Vitals Vitals Vital Signs Date Time Temp Pulse Resp B/P (MAP) Pulse Ox O2 Delivery O2 Flow Rate FiO2 07/10/17 12:00 98.8 52 12 119/55 (76) 97 Room Air 98.8 07/09/17 19:30 2.0 Physical Exam General: Alert, Oriented X3, Cooperative, No acute distress Heart: Regular rate, Normal S1, Normal S2, Other (tele SR/SB with intermittent junctional rhythm) Lungs: Clear Abdomen: Soft, No tenderness Extremities: No cyanosis, No edema Skin: No rashes, No significant lesion Labs LABS Laboratory Tests Test 07/09/17 13:27 07/09/17 14:24 07/09/17 17:04 07/09/17 20:58 Glucose (Fingerstick) 97 mg/dL (70-99) 166 mg/dL (70-99) 446 mg/dL (70-99) 506 mg/dL (70-99) Test 07/09/17 23:30 07/10/17 03:30 07/10/17 08:00 07/10/17 11:22 Potassium Level 3.9 mmol/L (3.5-5.1) 3.8 mmol/L (3.5-5.1) Magnesium Level 1.7 mg/dL (1.8-2.4) 2.6 mg/dL (1.8-2.4) White Blood Count 6.8 x10^3/uL (4.0-11.0) Red Blood Count 3.95 x10^6/uL (4.30-5.70) Hemoglobin 11.7 g/dL (13.0-17.5) Hematocrit 35.0 % (39.0-53.0) Mean Corpuscular Volume 89 fL (79-100) Mean Corpuscular Hemoglobin 30 pg (25-35) Mean Corpuscular Hemoglobin Concent 33 g/dL (31-37) Red Cell Distribution Width 16.5 % (11.5-14.5) Platelet Count 107 x10^3/uL (140-400) Neutrophils (%) (Auto) 80 % (31-73) Lymphocytes (%) (Auto) 16 % (24-48) Monocytes (%) (Auto) 4 % (0-9) Eosinophils (%) (Auto) 0 % (0-3) Basophils (%) (Auto) 0 % (0-3) Neutrophils # (Auto) 5.4 x10^3uL (1.8-7.7) Lymphocytes # (Auto) 1.1 x10^3/uL (1.0-4.8) Monocytes # (Auto) 0.3 x10^3/uL (0.0-1.1) Eosinophils # (Auto) 0.0 x10^3/uL (0.0-0.7) Basophils # (Auto) 0.0 x10^3/uL (0.0-0.2) Prothrombin Time 22.6 SEC (11.7-14.0) Prothromb Time International Ratio 2.1 (0.8-1.1) Sodium Level 139 mmol/L (136-145) Chloride Level 102 mmol/L (98-107) Carbon Dioxide Level 31 mmol/L (21-32) Anion Gap 6 (6-14) Blood Urea Nitrogen 20 mg/dL (8-26) Creatinine 1.2 mg/dL (0.7-1.3) Estimated GFR (Cockcroft-Gault) 73.8 Glucose Level 294 mg/dL (70-99) Calcium Level 8.7 mg/dL (8.5-10.1) Glucose (Fingerstick) 240 mg/dL (70-99) 192 mg/dL (70-99) Review of Systems Review of Systems PT in NAD. NOrmal S1 and S2, slightly bradycardic at bedside check. No apparent SOA. Normal bowel sounds x4. Assessment and Plan Assessmemt and Plan Problems Medical Problems: (1) Bradycardia Status: Acute (2) History of CVA (cerebrovascular accident) Status: Acute (3) Hyperglycemia Status: Acute Hypoglycemia Bradycardia AFIB (paroxysmal) CHF HTN Hyperlipidemia CVA (with right-sided hemiplegia and expressive aphasia ) GERD Anemia NOS Anxiety Osteoarthritis Diabetes PLAN: COntinue holding metoprolol Continue ICU monitoring Continue glucose monitoring PT/OT Consult cardiology Problems: Comment Review of Relevant I have reviewed the following items yulissa (where applicable) has been applied. Labs Laboratory Tests Test 07/08/17 17:35 07/08/17 17:48 07/08/17 20:00 07/08/17 20:50 White Blood Count 6.4 x10^3/uL (4.0-11.0) Red Blood Count 4.04 x10^6/uL (4.30-5.70) Hemoglobin 11.9 g/dL (13.0-17.5) Hematocrit 37.5 % (39.0-53.0) Mean Corpuscular Volume 93 fL (79-100) Mean Corpuscular Hemoglobin 30 pg (25-35) Mean Corpuscular Hemoglobin Concent 32 g/dL (31-37) Red Cell Distribution Width 16.7 % (11.5-14.5) Platelet Count 93 x10^3/uL (140-400) Neutrophils (%) (Auto) 89 % (31-73) Lymphocytes (%) (Auto) 8 % (24-48) Monocytes (%) (Auto) 3 % (0-9) Eosinophils (%) (Auto) 0 % (0-3) Basophils (%) (Auto) 0 % (0-3) Neutrophils # (Auto) 5.7 x10^3uL (1.8-7.7) Lymphocytes # (Auto) 0.5 x10^3/uL (1.0-4.8) Monocytes # (Auto) 0.2 x10^3/uL (0.0-1.1) Eosinophils # (Auto) 0.0 x10^3/uL (0.0-0.7) Basophils # (Auto) 0.0 x10^3/uL (0.0-0.2) Segmented Neutrophils % 88 % (35-66) Band Neutrophils % 1 % (0-9) Lymphocytes % 7 % (24-48) Monocytes % 4 % (0-10) Toxic Granulation Slight Platelet Estimate Decreased (ADEQUATE) Sodium Level 129 mmol/L (136-145) Potassium Level 4.5 mmol/L (3.5-5.1) Chloride Level 90 mmol/L (98-107) Carbon Dioxide Level 31 mmol/L (21-32) Anion Gap 8 (6-14) Blood Urea Nitrogen 22 mg/dL (8-26) Creatinine 1.6 mg/dL (0.7-1.3) Estimated GFR (Cockcroft-Gault) 52.9 BUN/Creatinine Ratio 14 (6-20) Glucose Level 1041 mg/dL (70-99) Calcium Level 8.8 mg/dL (8.5-10.1) Total Bilirubin 0.6 mg/dL (0.2-1.0) Aspartate Amino Transf (AST/SGOT) 14 U/L (15-37) Alanine Aminotransferase (ALT/SGPT) 38 U/L (16-63) Alkaline Phosphatase 82 U/L (46-116) Total Protein 6.5 g/dL (6.4-8.2) Albumin 3.4 g/dL (3.4-5.0) Albumin/Globulin Ratio 1.1 (1.0-1.7) Lipase 124 U/L (73-393) Urine Collection Type Unknown Urine Color Straw Urine Clarity Clear Urine pH 7.0 Urine Specific [place] 1.020 Urine Protein Negative mg/dL (NEG-TRACE) Urine Glucose (UA) >=1000 mg/dL (NEG) Urine Ketones (Stick) Negative mg/dL (NEG) Urine Blood Negative (NEG) Urine Nitrite Negative (NEG) Urine Bilirubin Negative (NEG) Urine Urobilinogen Dipstick 0.2 mg/dL (0.2 mg/dL) Urine Leukocyte Esterase Negative (NEG) Urine RBC 0 /HPF (0-2) Urine WBC 0 /HPF (0-4) Urine Squamous Epithelial Cells None /LPF Urine Bacteria 0 /HPF (0-FEW) Prothrombin Time 22.2 SEC (11.7-14.0) Prothromb Time International Ratio 2.1 (0.8-1.1) Nasal Screen MRSA (PCR) Negative (Negative) Test 07/08/17 21:10 07/08/17 22:49 07/08/17 23:53 07/09/17 00:56 Glucose Level 710 mg/dL (70-99) Glucose (Fingerstick) 417 mg/dL (70-99) 328 mg/dL (70-99) 176 mg/dL (70-99) Test 07/09/17 02:01 07/09/17 03:05 07/09/17 04:11 07/09/17 05:15 Glucose (Fingerstick) 172 mg/dL (70-99) 83 mg/dL (70-99) 92 mg/dL (70-99) 100 mg/dL (70-99) Test 07/09/17 06:18 07/09/17 08:05 07/09/17 08:16 07/09/17 09:17 Glucose (Fingerstick) 165 mg/dL (70-99) 117 mg/dL (70-99) 207 mg/dL (70-99) White Blood Count 7.1 x10^3/uL (4.0-11.0) Red Blood Count 3.78 x10^6/uL (4.30-5.70) Hemoglobin 11.1 g/dL (13.0-17.5) Hematocrit 33.2 % (39.0-53.0) Mean Corpuscular Volume 88 fL (79-100) Mean Corpuscular Hemoglobin 29 pg (25-35) Mean Corpuscular Hemoglobin Concent 33 g/dL (31-37) Red Cell Distribution Width 16.3 % (11.5-14.5) Platelet Count 94 x10^3/uL (140-400) Neutrophils (%) (Auto) 70 % (31-73) Lymphocytes (%) (Auto) 23 % (24-48) Monocytes (%) (Auto) 5 % (0-9) Eosinophils (%) (Auto) 1 % (0-3) Basophils (%) (Auto) 0 % (0-3) Neutrophils # (Auto) 5.0 x10^3uL (1.8-7.7) Lymphocytes # (Auto) 1.7 x10^3/uL (1.0-4.8) Monocytes # (Auto) 0.3 x10^3/uL (0.0-1.1) Eosinophils # (Auto) 0.1 x10^3/uL (0.0-0.7) Basophils # (Auto) 0.0 x10^3/uL (0.0-0.2) Sodium Level 144 mmol/L (136-145) Potassium Level 2.8 mmol/L (3.5-5.1) Chloride Level 105 mmol/L (98-107) Carbon Dioxide Level 33 mmol/L (21-32) Anion Gap 6 (6-14) Blood Urea Nitrogen 17 mg/dL (8-26) Creatinine 1.1 mg/dL (0.7-1.3) Estimated GFR (Cockcroft-Gault) 81.5 Glucose Level 124 mg/dL (70-99) Calcium Level 8.4 mg/dL (8.5-10.1) Magnesium Level 1.8 mg/dL (1.8-2.4) Test 07/09/17 10:17 07/09/17 11:19 07/09/17 12:20 07/09/17 13:27 Glucose (Fingerstick) 229 mg/dL (70-99) 220 mg/dL (70-99) 110 mg/dL (70-99) 97 mg/dL (70-99) Test 07/09/17 14:24 07/09/17 17:04 07/09/17 20:58 07/09/17 23:30 Glucose (Fingerstick) 166 mg/dL (70-99) 446 mg/dL (70-99) 506 mg/dL (70-99) Potassium Level 3.9 mmol/L (3.5-5.1) Magnesium Level 1.7 mg/dL (1.8-2.4) Test 07/10/17 03:30 07/10/17 08:00 07/10/17 11:22 White Blood Count 6.8 x10^3/uL (4.0-11.0) Red Blood Count 3.95 x10^6/uL (4.30-5.70) Hemoglobin 11.7 g/dL (13.0-17.5) Hematocrit 35.0 % (39.0-53.0) Mean Corpuscular Volume 89 fL (79-100) Mean Corpuscular Hemoglobin 30 pg (25-35) Mean Corpuscular Hemoglobin Concent 33 g/dL (31-37) Red Cell Distribution Width 16.5 % (11.5-14.5) Platelet Count 107 x10^3/uL (140-400) Neutrophils (%) (Auto) 80 % (31-73) Lymphocytes (%) (Auto) 16 % (24-48) Monocytes (%) (Auto) 4 % (0-9) Eosinophils (%) (Auto) 0 % (0-3) Basophils (%) (Auto) 0 % (0-3) Neutrophils # (Auto) 5.4 x10^3uL (1.8-7.7) Lymphocytes # (Auto) 1.1 x10^3/uL (1.0-4.8) Monocytes # (Auto) 0.3 x10^3/uL (0.0-1.1) Eosinophils # (Auto) 0.0 x10^3/uL (0.0-0.7) Basophils # (Auto) 0.0 x10^3/uL (0.0-0.2) Prothrombin Time 22.6 SEC (11.7-14.0) Prothromb Time International Ratio 2.1 (0.8-1.1) Sodium Level 139 mmol/L (136-145) Potassium Level 3.8 mmol/L (3.5-5.1) Chloride Level 102 mmol/L (98-107) Carbon Dioxide Level 31 mmol/L (21-32) Anion Gap 6 (6-14) Blood Urea Nitrogen 20 mg/dL (8-26) Creatinine 1.2 mg/dL (0.7-1.3) Estimated GFR (Cockcroft-Gault) 73.8 Glucose Level 294 mg/dL (70-99) Calcium Level 8.7 mg/dL (8.5-10.1) Magnesium Level 2.6 mg/dL (1.8-2.4) Glucose (Fingerstick) 240 mg/dL (70-99) 192 mg/dL (70-99) Laboratory Tests Test 07/09/17 13:27 07/09/17 14:24 07/09/17 17:04 07/09/17 20:58 Glucose (Fingerstick) 97 mg/dL (70-99) 166 mg/dL (70-99) 446 mg/dL (70-99) 506 mg/dL (70-99) Test 07/09/17 23:30 07/10/17 03:30 07/10/17 08:00 07/10/17 11:22 Potassium Level 3.9 mmol/L (3.5-5.1) 3.8 mmol/L (3.5-5.1) Magnesium Level 1.7 mg/dL (1.8-2.4) 2.6 mg/dL (1.8-2.4) White Blood Count 6.8 x10^3/uL (4.0-11.0) Red Blood Count 3.95 x10^6/uL (4.30-5.70) Hemoglobin 11.7 g/dL (13.0-17.5) Hematocrit 35.0 % (39.0-53.0) Mean Corpuscular Volume 89 fL (79-100) Mean Corpuscular Hemoglobin 30 pg (25-35) Mean Corpuscular Hemoglobin Concent 33 g/dL (31-37) Red Cell Distribution Width 16.5 % (11.5-14.5) Platelet Count 107 x10^3/uL (140-400) Neutrophils (%) (Auto) 80 % (31-73) Lymphocytes (%) (Auto) 16 % (24-48) Monocytes (%) (Auto) 4 % (0-9) Eosinophils (%) (Auto) 0 % (0-3) Basophils (%) (Auto) 0 % (0-3) Neutrophils # (Auto) 5.4 x10^3uL (1.8-7.7) Lymphocytes # (Auto) 1.1 x10^3/uL (1.0-4.8) Monocytes # (Auto) 0.3 x10^3/uL (0.0-1.1) Eosinophils # (Auto) 0.0 x10^3/uL (0.0-0.7) Basophils # (Auto) 0.0 x10^3/uL (0.0-0.2) Prothrombin Time 22.6 SEC (11.7-14.0) Prothromb Time International Ratio 2.1 (0.8-1.1) Sodium Level 139 mmol/L (136-145) Chloride Level 102 mmol/L (98-107) Carbon Dioxide Level 31 mmol/L (21-32) Anion Gap 6 (6-14) Blood Urea Nitrogen 20 mg/dL (8-26) Creatinine 1.2 mg/dL (0.7-1.3) Estimated GFR (Cockcroft-Gault) 73.8 Glucose Level 294 mg/dL (70-99) Calcium Level 8.7 mg/dL (8.5-10.1) Glucose (Fingerstick) 240 mg/dL (70-99) 192 mg/dL (70-99) Medications Current Medications Fentanyl Citrate (Fentanyl 2ml Vial) 50 mcg PRN Q15MIN PRN IV PAIN GREATER THAN 3/10; Start 07/08/17 at 17:15; Stop 07/09/17 at 08:45; Status DC Sodium Chloride 1,000 ml @ 1,000 mls/hr Q1H IV Last administered on 07/08/17 17:08; Start 07/08/17 at 17:08; Stop 07/08/17 at 18:07; Status DC Ondansetron HCl (Zofran) 4 mg 1X ONCE IV Last administered on 07/08/17 18:01 ; Start 07/08/17 at 17:15; Stop 07/08/17 at 17:20; Status DC Famotidine (Pepcid) 20 mg 1X ONCE IVP Last administered on 07/08/17 18:01; Start 07/08/17 at 17:15; Stop 07/08/17 at 17:20; Status DC Insulin Aspart (NovoLOG) 0-9 UNITS TIDWMEALS SQ Last administered on 08:04; Start 07/09/17 at 08:00 Dextrose (Dextrose 50%-Water Syringe) 12.5 gm PRN Q15MIN PRN IV SEE COMMENTS; Start 07/08/17 at 18:45 Acetaminophen (Tylenol) 650 mg PRN Q6HRS PRN PO PAIN; Start 07/08/17 at 18:45 Aspirin (Ecotrin) 81 mg DAILY08 PO Last administered on 07/10/17 08:01; Start 07/09/17 at 08:00 Atorvastatin Calcium (Lipitor) 40 mg QHS PO Last administered on 07/09/17 21: 17; Start 07/08/17 at 21:00 Clonazepam (KlonoPIN) 0.5 mg PRN DAILY PRN PO ANXIETY / AGITATION; Start at 18:45 Cyanocobalamin (Vitamin B-12) 1,000 mcg DAILY IM ; Start 07/09/17 at 09:00; Stop 07/09/17 at 09:00; Status DC Ferrous Sulfate (Feosol) 325 mg BIDWMEALS PO Last administered on 07/10/17 08 :01; Start 07/08/17 at 21:00 Folic Acid (Folic Acid) 1 mg DAILY PO Last administered on 07/10/17 08:02; Start 07/09/17 at 09:00 Furosemide (Lasix) 40 mg BID92 PO Last administered on 07/10/17 08:02; Start 07/09/17 at 09:00 Lisinopril (Prinivil) 10 mg DAILY PO Last administered on 07/10/17 08:01; Start 07/09/17 at 09:00 Metformin HCl (Glucophage) 500 mg DAILYWBKFT PO Last administered on 08:01; Start 07/09/17 at 08:00 Pantoprazole Sodium (Protonix) 40 mg DAILYAC PO Last administered on 08:02; Start 07/09/17 at 07:30 Prednisone (Prednisone) 80 mg DAILY PO Last administered on 07/10/17 08:01; Start 07/09/17 at 09:00 Warfarin Sodium (Coumadin) 7 mg DAILY PO ; Start 07/09/17 at 09:00; Stop 07/09 at 09:00; Status DC Non-Formulary Medication 30 ml BID PO ; Start 07/08/17 at 21:00; Stop 07/08/17 at 21:00; Status DC Multivitamins (Thera M Plus) 1 tab DAILY PO Last administered on 07/10/17 08: 01; Start 07/09/17 at 09:00 Ondansetron HCl (Zofran) 4 mg PRN Q8HRS PRN IV NAUSEA/VOMITING; Start 07/08/17 at 18:45; Stop 07/09/17 at 18:44; Status DC Sodium Chloride 1,000 ml @ 125 mls/hr Q8H IV Last administered on 07/09/17 12:37; Start 07/08/17 at 18:44; Stop 07/09/17 at 18:43; Status DC Acetaminophen (Tylenol) 650 mg PRN Q4HRS PRN PO FEVER; Start 07/08/17 at 18:45 ; Stop 07/08/17 at 18:50; Status DC Insulin Human Regular 150 ml @ 0 mls/hr 1X ONCE IV Last administered on 19:50; Start 07/08/17 at 19:30; Stop 07/08/17 at 19:31; Status DC Warfarin Sodium (Coumadin Per Pharmacy) 1 each PRN DAILY PRN MC SEE COMMENTS Last administered on 07/10/17 08:20; Start 07/08/17 at 20:15 Warfarin Sodium (Coumadin) 5 mg DAILY16 PO Last administered on 07/09/17 17: 25; Start 07/08/17 at 20:30 Warfarin Sodium (Coumadin) 2 mg DAILY16 PO Last administered on 07/09/17 17: 24; Start 07/08/17 at 20:30 Potassium Chloride (Klor-Con) 40 meq 1X ONCE PO Last administered on 09:14; Start 07/09/17 at 08:45; Stop 07/09/17 at 08:46; Status DC Potassium Chloride 50 ml @ 50 mls/hr 1X ONCE IV ; Start 07/09/17 at 08:45; Stop 07/09/17 at 09:44; Status UNV Potassium Chloride 10 meq/ Sodium Chloride 105 ml @ 105 mls/hr Q1HR IV Last administered on 07/09/17 12:37; Start 07/09/17 at 09:00; Stop 07/09/17 at 10 :59; Status DC Insulin Aspart (NovoLOG) 10 units TIDAC SQ Last administered on 07/10/17 11: 27; Start 07/09/17 at 16:30 Insulin Detemir (Levemir) 20 units QHS SQ Last administered on 07/09/17 21:21 ; Start 07/09/17 at 21:00 Insulin Aspart (NovoLOG) 9 units 1X ONCE SQ Last administered on 07/09/17 21 :22; Start 07/09/17 at 21:30; Stop 07/09/17 at 21:31; Status DC Magnesium Sulfate/ Dextrose 50 ml @ 25 mls/hr 1X ONCE IV Last administered on 07/10/17 00:58; Start 07/10/17 at 01:00; Stop 07/10/17 at 02:59; Status DC Potassium Chloride (Klor-Con) 20 meq 1X ONCE PO Last administered on 00:58; Start 07/10/17 at 01:00; Stop 07/10/17 at 01:01; Status DC Nitroglycerin/ Dextrose 250 ml @ 0 mls/hr CONT PRN IV SEE I/O RECORD; Start at 01:45 Amlodipine Besylate (Norvasc) 5 mg DAILY PO Last administered on 07/10/17t 10: 31; Start 07/10/17 at 09:00 Active Scripts Active Prednisone 20 Mg Tablet 80 Mg PO DAILY 7 Days Metoprolol Tartrate 25 Mg Tablet 25 Mg PO BID 30 Days Folic Acid 1 Mg Tablet 1 Mg PO DAILY 30 Days Cyanocobalamin Injection (Cyanocobalamin (Vitamin B-12)) 1,000 Mcg/1 Ml Vial 1, 000 Mcg IM DAILY 7 Days Reported Multivitamins (Multivitamin) 1 Each Tablet 1 Tab PO DAILY Pro-Stat Liquid (Amino Acids/Protein Hydrolys) 30 Ml Liquid 30 Ml PO BID Pantoprazole Sodium 40 Mg Tablet.dr 1 Tab PO DAILY Metformin Hcl 500 Mg Tablet 500 Mg PO DAILY Lisinopril 10 Mg Tablet 1 Tab PO DAILY Lasix (Furosemide) 40 Mg Tablet 1 Tab PO BID Ferrous Sulfate 325 Mg Tablet 325 Mg PO BID Coumadin (Warfarin Sodium) 5 Mg Tablet 7 Mg PO DAILY Wednesday, Wed, , Wed Clonazepam 0.5 Mg Tablet 1 Tab PO DAILY PRN Atorvastatin Calcium 40 Mg Tablet 1 Tab PO QHS Aspir 81 (Aspirin) 81 Mg Tablet.dr 1 Tab PO DAILY Tylenol (Acetaminophen) 325 Mg Tablet 2 Tab PO PRN Q6HRS PRN Do not exceed 3000mg in 24hr period Vitals/I & O Vital Sign - Last 24 Hours 07/09/17 07/09/17 07/09/17 07/09/17 15:00 19:20 19:30 23:48 Temp 98.3 98.1 98.7 98.3 98.1 98.7 Pulse 80 41 65 Resp 20 18 15 B/P (MAP) 155/78 (103) 114/57 (76) 169/81 (110) Pulse Ox 97 97 98 O2 Delivery Nasal Cannula Room Air Nasal Cannula Room Air O2 Flow Rate 2.0 2.0 07/10/17 07/10/17 07/10/17 07/10/17 01:15 01:15 01:15 01:30 Temp 98.0 98.0 Pulse 38 38 Resp 12 12 B/P (MAP) 204/96 (132) 201/72 (115) 143/61 (88) Pulse Ox 98 98 O2 Delivery Room Air Room Air Room Air 07/10/17 07/10/17 07/10/17 07/10/17 01:45 02:00 02:15 02:45 Pulse 56 37 42 34 Resp 13 14 19 14 B/P (MAP) 105/68 (80) 160/65 (96) 134/61 (85) 200/70 (113) Pulse Ox 96 97 94 97 O2 Delivery Room Air Room Air Room Air Room Air 07/10/17 07/10/17 07/10/17 07/10/17 03:00 03:30 04:00 04:00 Temp 98.2 98.2 Pulse 36 52 52 Resp 06 08 11 B/P (MAP) 177/83 (114) 153/64 (93) 119/53 (75) Pulse Ox 97 93 95 O2 Delivery Room Air Room Air Room Air Room Air 07/10/17 07/10/17 07/10/17 07/10/17 05:00 06:00 07:00 08:00 Pulse 30 51 42 Resp 07 12 11 B/P (MAP) 155/63 (93) 172/67 (102) 151/63 (92) Pulse Ox 96 98 97 O2 Delivery Room Air Room Air Room Air Room Air 07/10/17 07/10/17 07/10/17 07/10/17 08:00 08:01 09:00 10:00 Temp 98.1 98.1 Pulse 50 31 42 52 Resp 12 11 16 B/P (MAP) 174/81 (112) 149/53 (85) 157/74 (101) Pulse Ox 98 97 97 O2 Delivery Room Air Room Air Room Air 07/10/17 07/10/17 07/10/17 10:31 11:00 12:00 Temp 98.8 98.8 Pulse 67 48 52 Resp 12 12 B/P (MAP) 157/74 138/57 (84) 119/55 (76) Pulse Ox 97 97 O2 Delivery Room Air Room Air Intake and Output 07/10/17 07/10/17 07/11/17 15:00 23:00 07:00 Intake Total 150 ml Output Total 840 ml Balance -690 ml FELIZ MICHAUD K III DO Jul 10, 2017 13:00
[2017-07-10] MEDS: ATORVASTATIN CALCIUM 40 MG TABLET. PO SCH (21:30)
[2017-07-10] MEDS: INSULIN DETEMIR 300 UNITS/3 ML INSULN.PEN. SQ SCH (21:34)
[2017-07-10] MEDS ORDERED: INSULIN ASPART 300 UNITS/3 ML INSULN.PEN SQ ONE (22:00)
[2017-07-11 03:08] VITALS: BP 146/79
[2017-07-11 05:37] LABS: BASO % 0 % (0-3); EOS % 0 % (0-3); HEMATOCRIT 36.1 % (39.0-53.0); LYMPH # 1.6 x10^3/uL (1.0-4.8); LYMPH % 22 % (24-48); MEAN CORPUSCULAR HEMOGLOBIN 30 pg (25-35); MEAN CORPUSCULAR HGB CONC 33 g/dL (31-37); MEAN CORPUSCULAR VOLUME 89 fL (79-100); MONO % 5 % (0-9); NEUT % 73 % (31-73); PLATELET COUNT 102 x10^3/uL (140-400); RED BLOOD COUNT 4.06 x10^6/uL (4.30-5.70); WHITE BLOOD COUNT 7.6 x10^3/uL (4.0-11.0)
[2017-07-11 05:44] LABS: INR 2.2 (0.8-1.1); PROTHROMBIN TIME PATIENT 23.3 SEC (11.7-14.0)
[2017-07-11 06:22] LABS: CALCIUM 8.5 mg/dL (8.5-10.1); CREATININE 1.1 mg/dL (0.7-1.3); GFR 81.5
[2017-07-11 06:23] LABS: POTASSIUM 3.3 mmol/L (3.5-5.1)
[2017-07-11 07:00] VITALS: BP 167/69
[2017-07-11] MEDS: INSULIN ASPART 300 UNITS/3 ML INSULN.PEN SQ SCH ×6 (08:00→17:50)
[2017-07-11] MEDS: predniSONE 20 MG TABLET PO SCH (09:08)
[2017-07-11] MEDS: ASPIRIN ENTERIC COATED 81 MG TABLET.DR. PO SCH (09:08)
[2017-07-11] MEDS: FERROUS SULFATE 325 MG TABLET. PO SCH ×2 (09:08→17:41)
[2017-07-11] MEDS: FUROSEMIDE 40 MG TABLET. PO SCH ×2 (09:08→12:40)
[2017-07-11] MEDS: metFORMIN 500 MG TABLET PO SCH (09:09)
[2017-07-11] MEDS: amLODIPine BESYLATE 5 MG TABLET PO SCH (09:09)
[2017-07-11] MEDS: MULTIVITAMIN with MINERAL TABLET. PO SCH (09:09)
[2017-07-11] MEDS: PANTOPRAZOLE 40 MG TABLET.DR. PO SCH (09:09)
[2017-07-11] MEDS: FOLIC ACID 1 MG TABLET. PO SCH (09:09)
[2017-07-11] MEDS: LISINOPRIL 10 MG TABLET PO SCH (09:20)
[2017-07-11 10:47] VITALS: BP 120/56
--- NOTE | 2017-07-11 12:02 | PDOC ---
PROGRESS NOTES Subjective Subjective The patient feels mildly better since yesterday. Objective Objective Vital Signs Date Time Temp Pulse Resp B/P (MAP) Pulse Ox O2 Delivery O2 Flow Rate FiO2 07/11/17 10:47 97.9 40 17 120/56 (77) 94 Room Air 97.9 07/09/17 19:30 2.0 Physical Exam Abdomen: Normal bowel sounds Heart: Other (bradycardic) General: No acute distress Lungs: Clear to auscultation Assessment Assessment Problems Medical Problems: (1) Bradycardia Status: Acute (2) History of CVA (cerebrovascular accident) Status: Acute (3) Hyperglycemia Status: Acute 1. Bradyarrhythmia; released to the low 40s last night. No significant pauses. Minimally symptomatic. We'll continue to monitor. Coumadin on hold in case the patient requires device. 2. PAFIB: Continue medical treatment. 3. Diabetes with significant hyperglycemia 4. 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 compensated. 5. Hyponatremia/hypokalemia: resolved 6. Accelerated Hypertension: Improving. 7. Hyperlipidemia 8. 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 Debility Comment Review of Relevant I have reviewed the following items yulissa (where applicable) has been applied. Labs Laboratory Tests Test 07/09/17 12:20 07/09/17 13:27 07/09/17 14:24 07/09/17 17:04 Glucose (Fingerstick) 110 mg/dL (70-99) 97 mg/dL (70-99) 166 mg/dL (70-99) 446 mg/dL (70-99) Test 07/09/17 20:58 07/09/17 23:30 07/10/17 03:30 07/10/17 08:00 Glucose (Fingerstick) 506 mg/dL (70-99) 240 mg/dL (70-99) Potassium Level 3.9 mmol/L (3.5-5.1) 3.8 mmol/L (3.5-5.1) Magnesium Level 1.7 mg/dL (1.8-2.4) 2.6 mg/dL (1.8-2.4) White Blood Count 6.8 x10^3/uL (4.0-11.0) Red Blood Count 3.95 x10^6/uL (4.30-5.70) Hemoglobin 11.7 g/dL (13.0-17.5) Hematocrit 35.0 % (39.0-53.0) Mean Corpuscular Volume 89 fL (79-100) Mean Corpuscular Hemoglobin 30 pg (25-35) Mean Corpuscular Hemoglobin Concent 33 g/dL (31-37) Red Cell Distribution Width 16.5 % (11.5-14.5) Platelet Count 107 x10^3/uL (140-400) Neutrophils (%) (Auto) 80 % (31-73) Lymphocytes (%) (Auto) 16 % (24-48) Monocytes (%) (Auto) 4 % (0-9) Eosinophils (%) (Auto) 0 % (0-3) Basophils (%) (Auto) 0 % (0-3) Neutrophils # (Auto) 5.4 x10^3uL (1.8-7.7) Lymphocytes # (Auto) 1.1 x10^3/uL (1.0-4.8) Monocytes # (Auto) 0.3 x10^3/uL (0.0-1.1) Eosinophils # (Auto) 0.0 x10^3/uL (0.0-0.7) Basophils # (Auto) 0.0 x10^3/uL (0.0-0.2) Prothrombin Time 22.6 SEC (11.7-14.0) Prothromb Time International Ratio 2.1 (0.8-1.1) Sodium Level 139 mmol/L (136-145) Chloride Level 102 mmol/L (98-107) Carbon Dioxide Level 31 mmol/L (21-32) Anion Gap 6 (6-14) Blood Urea Nitrogen 20 mg/dL (8-26) Creatinine 1.2 mg/dL (0.7-1.3) Estimated GFR (Cockcroft-Gault) 73.8 Glucose Level 294 mg/dL (70-99) Calcium Level 8.7 mg/dL (8.5-10.1) Test 07/10/17 11:22 07/10/17 16:10 07/10/17 20:52 07/11/17 01:14 Glucose (Fingerstick) 192 mg/dL (70-99) 360 mg/dL (70-99) 535 mg/dL (70-99) 160 mg/dL (70-99) Test 07/11/17 05:10 07/11/17 07:49 07/11/17 11:42 White Blood Count 7.6 x10^3/uL (4.0-11.0) Red Blood Count 4.06 x10^6/uL (4.30-5.70) Hemoglobin 12.0 g/dL (13.0-17.5) Hematocrit 36.1 % (39.0-53.0) Mean Corpuscular Volume 89 fL (79-100) Mean Corpuscular Hemoglobin 30 pg (25-35) Mean Corpuscular Hemoglobin Concent 33 g/dL (31-37) Red Cell Distribution Width 17.0 % (11.5-14.5) Platelet Count 102 x10^3/uL (140-400) Neutrophils (%) (Auto) 73 % (31-73) Lymphocytes (%) (Auto) 22 % (24-48) Monocytes (%) (Auto) 5 % (0-9) Eosinophils (%) (Auto) 0 % (0-3) Basophils (%) (Auto) 0 % (0-3) Neutrophils # (Auto) 5.5 x10^3uL (1.8-7.7) Lymphocytes # (Auto) 1.6 x10^3/uL (1.0-4.8) Monocytes # (Auto) 0.4 x10^3/uL (0.0-1.1) Eosinophils # (Auto) 0.0 x10^3/uL (0.0-0.7) Basophils # (Auto) 0.0 x10^3/uL (0.0-0.2) Prothrombin Time 23.3 SEC (11.7-14.0) Prothromb Time International Ratio 2.2 (0.8-1.1) Sodium Level 141 mmol/L (136-145) Potassium Level 3.3 mmol/L (3.5-5.1) Chloride Level 103 mmol/L (98-107) Carbon Dioxide Level 30 mmol/L (21-32) Anion Gap 8 (6-14) Blood Urea Nitrogen 21 mg/dL (8-26) Creatinine 1.1 mg/dL (0.7-1.3) Estimated GFR (Cockcroft-Gault) 81.5 Glucose Level 78 mg/dL (70-99) Calcium Level 8.5 mg/dL (8.5-10.1) Glucose (Fingerstick) 124 mg/dL (70-99) 189 mg/dL (70-99) Laboratory Tests Test 07/10/17 16:10 07/10/17 20:52 07/11/17 01:14 07/11/17 05:10 Glucose (Fingerstick) 360 mg/dL (70-99) 535 mg/dL (70-99) 160 mg/dL (70-99) White Blood Count 7.6 x10^3/uL (4.0-11.0) Red Blood Count 4.06 x10^6/uL (4.30-5.70) Hemoglobin 12.0 g/dL (13.0-17.5) Hematocrit 36.1 % (39.0-53.0) Mean Corpuscular Volume 89 fL (79-100) Mean Corpuscular Hemoglobin 30 pg (25-35) Mean Corpuscular Hemoglobin Concent 33 g/dL (31-37) Red Cell Distribution Width 17.0 % (11.5-14.5) Platelet Count 102 x10^3/uL (140-400) Neutrophils (%) (Auto) 73 % (31-73) Lymphocytes (%) (Auto) 22 % (24-48) Monocytes (%) (Auto) 5 % (0-9) Eosinophils (%) (Auto) 0 % (0-3) Basophils (%) (Auto) 0 % (0-3) Neutrophils # (Auto) 5.5 x10^3uL (1.8-7.7) Lymphocytes # (Auto) 1.6 x10^3/uL (1.0-4.8) Monocytes # (Auto) 0.4 x10^3/uL (0.0-1.1) Eosinophils # (Auto) 0.0 x10^3/uL (0.0-0.7) Basophils # (Auto) 0.0 x10^3/uL (0.0-0.2) Prothrombin Time 23.3 SEC (11.7-14.0) Prothromb Time International Ratio 2.2 (0.8-1.1) Sodium Level 141 mmol/L (136-145) Potassium Level 3.3 mmol/L (3.5-5.1) Chloride Level 103 mmol/L (98-107) Carbon Dioxide Level 30 mmol/L (21-32) Anion Gap 8 (6-14) Blood Urea Nitrogen 21 mg/dL (8-26) Creatinine 1.1 mg/dL (0.7-1.3) Estimated GFR (Cockcroft-Gault) 81.5 Glucose Level 78 mg/dL (70-99) Calcium Level 8.5 mg/dL (8.5-10.1) Test 07/11/17 07:49 07/11/17 11:42 Glucose (Fingerstick) 124 mg/dL (70-99) 189 mg/dL (70-99) Medications Current Medications Fentanyl Citrate (Fentanyl 2ml Vial) 50 mcg PRN Q15MIN PRN IV PAIN GREATER THAN 3/10; Start 07/08/17 at 17:15; Stop 07/09/17 at 08:45; Status DC Sodium Chloride 1,000 ml @ 1,000 mls/hr Q1H IV Last administered on 07/08/17 17:08; Start 07/08/17 at 17:08; Stop 07/08/17 at 18:07; Status DC Ondansetron HCl (Zofran) 4 mg 1X ONCE IV Last administered on 07/08/17 18:01 ; Start 07/08/17 at 17:15; Stop 07/08/17 at 17:20; Status DC Famotidine (Pepcid) 20 mg 1X ONCE IVP Last administered on 07/08/17 18:01; Start 07/08/17 at 17:15; Stop 07/08/17 at 17:20; Status DC Insulin Aspart (NovoLOG) 0-9 UNITS TIDWMEALS SQ Last administered on 17:46; Start 07/09/17 at 08:00 Dextrose (Dextrose 50%-Water Syringe) 12.5 gm PRN Q15MIN PRN IV SEE COMMENTS; Start 07/08/17 at 18:45 Acetaminophen (Tylenol) 650 mg PRN Q6HRS PRN PO PAIN; Start 07/08/17 at 18:45 Aspirin (Ecotrin) 81 mg DAILY08 PO Last administered on 07/11/17 09:08; Start 07/09/17 at 08:00 Atorvastatin Calcium (Lipitor) 40 mg QHS PO Last administered on 07/10/17 21: 30; Start 07/08/17 at 21:00 Clonazepam (KlonoPIN) 0.5 mg PRN DAILY PRN PO ANXIETY / AGITATION; Start at 18:45 Cyanocobalamin (Vitamin B-12) 1,000 mcg DAILY IM ; Start 07/09/17 at 09:00; Stop 07/09/17 at 09:00; Status DC Ferrous Sulfate (Feosol) 325 mg BIDWMEALS PO Last administered on 07/11/17 09 :08; Start 07/08/17 at 21:00 Folic Acid (Folic Acid) 1 mg DAILY PO Last administered on 07/11/17 09:09; Start 07/09/17 at 09:00 Furosemide (Lasix) 40 mg BID92 PO Last administered on 07/11/17 09:08; Start 07/09/17 at 09:00 Lisinopril (Prinivil) 10 mg DAILY PO Last administered on 07/11/17 09:20; Start 07/09/17 at 09:00 Metformin HCl (Glucophage) 500 mg DAILYWBKFT PO Last administered on 09:09; Start 07/09/17 at 08:00 Pantoprazole Sodium (Protonix) 40 mg DAILYAC PO Last administered on 09:09; Start 07/09/17 at 07:30 Prednisone (Prednisone) 80 mg DAILY PO Last administered on 07/11/17 09:08; Start 07/09/17 at 09:00 Warfarin Sodium (Coumadin) 7 mg DAILY PO ; Start 07/09/17 at 09:00; Stop 07/09 at 09:00; Status DC Non-Formulary Medication 30 ml BID PO ; Start 07/08/17 at 21:00; Stop 07/08/17 at 21:00; Status DC Multivitamins (Thera M Plus) 1 tab DAILY PO Last administered on 07/11/17 09: 09; Start 07/09/17 at 09:00 Ondansetron HCl (Zofran) 4 mg PRN Q8HRS PRN IV NAUSEA/VOMITING; Start 07/08/17 at 18:45; Stop 07/09/17 at 18:44; Status DC Sodium Chloride 1,000 ml @ 125 mls/hr Q8H IV Last administered on 07/09/17 12:37; Start 07/08/17 at 18:44; Stop 07/09/17 at 18:43; Status DC Acetaminophen (Tylenol) 650 mg PRN Q4HRS PRN PO FEVER; Start 07/08/17 at 18:45 ; Stop 07/08/17 at 18:50; Status DC Insulin Human Regular 150 ml @ 0 mls/hr 1X ONCE IV Last administered on 19:50; Start 07/08/17 at 19:30; Stop 07/08/17 at 19:31; Status DC Warfarin Sodium (Coumadin Per Pharmacy) 1 each PRN DAILY PRN MC SEE COMMENTS Last administered on 07/10/17 08:20; Start 07/08/17 at 20:15 Warfarin Sodium (Coumadin) 5 mg DAILY16 PO Last administered on 07/09/17 17: 25; Start 07/08/17 at 20:30; Stop 07/10/17 at 13:25; Status DC Warfarin Sodium (Coumadin) 2 mg DAILY16 PO Last administered on 07/09/17 17: 24; Start 07/08/17 at 20:30; Stop 07/10/17 at 13:25; Status DC Potassium Chloride (Klor-Con) 40 meq 1X ONCE PO Last administered on 09:14; Start 07/09/17 at 08:45; Stop 07/09/17 at 08:46; Status DC Potassium Chloride 50 ml @ 50 mls/hr 1X ONCE IV ; Start 07/09/17 at 08:45; Stop 07/09/17 at 09:44; Status UNV Potassium Chloride 10 meq/ Sodium Chloride 105 ml @ 105 mls/hr Q1HR IV Last administered on 07/09/17 12:37; Start 07/09/17 at 09:00; Stop 07/09/17 at 10 :59; Status DC Insulin Aspart (NovoLOG) 10 units TIDAC SQ Last administered on 07/11/17 09: 18; Start 07/09/17 at 16:30 Insulin Detemir (Levemir) 20 units QHS SQ Last administered on 07/10/17 21:34 ; Start 07/09/17 at 21:00 Insulin Aspart (NovoLOG) 9 units 1X ONCE SQ Last administered on 07/09/17 21 :22; Start 07/09/17 at 21:30; Stop 07/09/17 at 21:31; Status DC Magnesium Sulfate/ Dextrose 50 ml @ 25 mls/hr 1X ONCE IV Last administered on 07/10/17 00:58; Start 07/10/17 at 01:00; Stop 07/10/17 at 02:59; Status DC Potassium Chloride (Klor-Con) 20 meq 1X ONCE PO Last administered on 00:58; Start 07/10/17 at 01:00; Stop 07/10/17 at 01:01; Status DC Nitroglycerin/ Dextrose 250 ml @ 0 mls/hr CONT PRN IV SEE I/O RECORD; Start at 01:45 Amlodipine Besylate (Norvasc) 5 mg DAILY PO Last administered on 07/11/17 09: 09; Start 07/10/17 at 09:00 Insulin Aspart (NovoLOG) 30 units 1X ONCE SQ Last administered on 07/10/17 21:35; Start 07/10/17 at 22:00; Stop 07/10/17 at 22:01; Status DC Active Scripts Active Prednisone 20 Mg Tablet 80 Mg PO DAILY 7 Days Metoprolol Tartrate 25 Mg Tablet 25 Mg PO BID 30 Days Folic Acid 1 Mg Tablet 1 Mg PO DAILY 30 Days Cyanocobalamin Injection (Cyanocobalamin (Vitamin B-12)) 1,000 Mcg/1 Ml Vial 1, 000 Mcg IM DAILY 7 Days Reported Multivitamins (Multivitamin) 1 Each Tablet 1 Tab PO DAILY Pro-Stat Liquid (Amino Acids/Protein Hydrolys) 30 Ml Liquid 30 Ml PO BID Pantoprazole Sodium 40 Mg Tablet.dr 1 Tab PO DAILY Metformin Hcl 500 Mg Tablet 500 Mg PO DAILY Lisinopril 10 Mg Tablet 1 Tab PO DAILY Lasix (Furosemide) 40 Mg Tablet 1 Tab PO BID Ferrous Sulfate 325 Mg Tablet 325 Mg PO BID Coumadin (Warfarin Sodium) 5 Mg Tablet 7 Mg PO DAILY Wednesday, Wed, , Wed Clonazepam 0.5 Mg Tablet 1 Tab PO DAILY PRN Atorvastatin Calcium 40 Mg Tablet 1 Tab PO QHS Aspir 81 (Aspirin) 81 Mg Tablet.dr 1 Tab PO DAILY Tylenol (Acetaminophen) 325 Mg Tablet 2 Tab PO PRN Q6HRS PRN Do not exceed 3000mg in 24hr period Vitals/I & O Vital Sign - Last 24 Hours 07/10/17 07/10/17 07/10/17 07/10/17 16:15 19:43 19:56 22:41 Temp 98.3 98.5 98.2 98.3 98.5 98.2 Pulse 60 48 39 Resp 17 17 17 B/P (MAP) 137/58 (84) 125/55 (78) 120/50 (73) Pulse Ox 96 96 94 O2 Delivery Room Air Room Air Room Air Room Air 07/11/17 07/11/17 07/11/17 07/11/17 03:08 07:00 08:10 09:09 Temp 98.2 98.0 98.2 98.0 Pulse 50 61 61 Resp 16 18 B/P (MAP) 146/79 (101) 167/69 (101) 167/69 Pulse Ox 93 98 O2 Delivery Room Air Room Air Room Air 07/11/17 07/11/17 09:20 10:47 Temp 97.9 97.9 Pulse 61 40 Resp 17 B/P (MAP) 167/69 120/56 (77) Pulse Ox 94 O2 Delivery Room Air ONELIA GONZALEZ MD Jul 11, 2017 12:02
--- NOTE | 2017-07-11 14:59 | PDOC ---
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 Today pt. was examined at bedside. Pt. was given potassium. Possible PPN placement soon, per RN. Pt. is followed by cardiology re : bradycardia. Will continue to monitor for now. Vitals Vitals Vital Signs Date Time Temp Pulse Resp B/P (MAP) Pulse Ox O2 Delivery O2 Flow Rate FiO2 07/11/17 10:47 97.9 40 17 120/56 (77) 94 Room Air 97.9 Physical Exam General: Alert, Oriented X3, Cooperative, No acute distress Heart: Normal S1, Normal S2, Other (bradycardic) Lungs: Clear Abdomen: Normal bowel sounds, No masses Extremities: No cyanosis, No edema Skin: No rashes, No significant lesion Labs LABS Laboratory Tests Test 07/10/17 16:10 07/10/17 20:52 07/11/17 01:14 07/11/17 05:10 Glucose (Fingerstick) 360 mg/dL (70-99) 535 mg/dL (70-99) 160 mg/dL (70-99) White Blood Count 7.6 x10^3/uL (4.0-11.0) Red Blood Count 4.06 x10^6/uL (4.30-5.70) Hemoglobin 12.0 g/dL (13.0-17.5) Hematocrit 36.1 % (39.0-53.0) Mean Corpuscular Volume 89 fL (79-100) Mean Corpuscular Hemoglobin 30 pg (25-35) Mean Corpuscular Hemoglobin Concent 33 g/dL (31-37) Red Cell Distribution Width 17.0 % (11.5-14.5) Platelet Count 102 x10^3/uL (140-400) Neutrophils (%) (Auto) 73 % (31-73) Lymphocytes (%) (Auto) 22 % (24-48) Monocytes (%) (Auto) 5 % (0-9) Eosinophils (%) (Auto) 0 % (0-3) Basophils (%) (Auto) 0 % (0-3) Neutrophils # (Auto) 5.5 x10^3uL (1.8-7.7) Lymphocytes # (Auto) 1.6 x10^3/uL (1.0-4.8) Monocytes # (Auto) 0.4 x10^3/uL (0.0-1.1) Eosinophils # (Auto) 0.0 x10^3/uL (0.0-0.7) Basophils # (Auto) 0.0 x10^3/uL (0.0-0.2) Prothrombin Time 23.3 SEC (11.7-14.0) Prothromb Time International Ratio 2.2 (0.8-1.1) Sodium Level 141 mmol/L (136-145) Potassium Level 3.3 mmol/L (3.5-5.1) Chloride Level 103 mmol/L (98-107) Carbon Dioxide Level 30 mmol/L (21-32) Anion Gap 8 (6-14) Blood Urea Nitrogen 21 mg/dL (8-26) Creatinine 1.1 mg/dL (0.7-1.3) Estimated GFR (Cockcroft-Gault) 81.5 Glucose Level 78 mg/dL (70-99) Calcium Level 8.5 mg/dL (8.5-10.1) Test 07/11/17 07:49 07/11/17 11:42 Glucose (Fingerstick) 124 mg/dL (70-99) 189 mg/dL (70-99) Review of Systems Review of Systems fatigue and weakness Assessment and Plan Assessmemt and Plan Problems Medical Problems: (1) Bradycardia Status: Acute (2) History of CVA (cerebrovascular accident) Status: Acute (3) Hyperglycemia Status: Acute Assessment: Hypoglycemia Bradycardia AFIB (paroxysmal) CHF HTN Hyperlipidemia 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 Labs Laboratory Tests Test 07/09/17 17:04 07/09/17 20:58 07/09/17 23:30 07/10/17 03:30 Glucose (Fingerstick) 446 mg/dL (70-99) 506 mg/dL (70-99) Potassium Level 3.9 mmol/L (3.5-5.1) 3.8 mmol/L (3.5-5.1) Magnesium Level 1.7 mg/dL (1.8-2.4) 2.6 mg/dL (1.8-2.4) White Blood Count 6.8 x10^3/uL (4.0-11.0) Red Blood Count 3.95 x10^6/uL (4.30-5.70) Hemoglobin 11.7 g/dL (13.0-17.5) Hematocrit 35.0 % (39.0-53.0) Mean Corpuscular Volume 89 fL (79-100) Mean Corpuscular Hemoglobin 30 pg (25-35) Mean Corpuscular Hemoglobin Concent 33 g/dL (31-37) Red Cell Distribution Width 16.5 % (11.5-14.5) Platelet Count 107 x10^3/uL (140-400) Neutrophils (%) (Auto) 80 % (31-73) Lymphocytes (%) (Auto) 16 % (24-48) Monocytes (%) (Auto) 4 % (0-9) Eosinophils (%) (Auto) 0 % (0-3) Basophils (%) (Auto) 0 % (0-3) Neutrophils # (Auto) 5.4 x10^3uL (1.8-7.7) Lymphocytes # (Auto) 1.1 x10^3/uL (1.0-4.8) Monocytes # (Auto) 0.3 x10^3/uL (0.0-1.1) Eosinophils # (Auto) 0.0 x10^3/uL (0.0-0.7) Basophils # (Auto) 0.0 x10^3/uL (0.0-0.2) Prothrombin Time 22.6 SEC (11.7-14.0) Prothromb Time International Ratio 2.1 (0.8-1.1) Sodium Level 139 mmol/L (136-145) Chloride Level 102 mmol/L (98-107) Carbon Dioxide Level 31 mmol/L (21-32) Anion Gap 6 (6-14) Blood Urea Nitrogen 20 mg/dL (8-26) Creatinine 1.2 mg/dL (0.7-1.3) Estimated GFR (Cockcroft-Gault) 73.8 Glucose Level 294 mg/dL (70-99) Calcium Level 8.7 mg/dL (8.5-10.1) Test 07/10/17 08:00 07/10/17 11:22 07/10/17 16:10 07/10/17 20:52 Glucose (Fingerstick) 240 mg/dL (70-99) 192 mg/dL (70-99) 360 mg/dL (70-99) 535 mg/dL (70-99) Test 07/11/17 01:14 07/11/17 05:10 07/11/17 07:49 07/11/17 11:42 Glucose (Fingerstick) 160 mg/dL (70-99) 124 mg/dL (70-99) 189 mg/dL (70-99) White Blood Count 7.6 x10^3/uL (4.0-11.0) Red Blood Count 4.06 x10^6/uL (4.30-5.70) Hemoglobin 12.0 g/dL (13.0-17.5) Hematocrit 36.1 % (39.0-53.0) Mean Corpuscular Volume 89 fL (79-100) Mean Corpuscular Hemoglobin 30 pg (25-35) Mean Corpuscular Hemoglobin Concent 33 g/dL (31-37) Red Cell Distribution Width 17.0 % (11.5-14.5) Platelet Count 102 x10^3/uL (140-400) Neutrophils (%) (Auto) 73 % (31-73) Lymphocytes (%) (Auto) 22 % (24-48) Monocytes (%) (Auto) 5 % (0-9) Eosinophils (%) (Auto) 0 % (0-3) Basophils (%) (Auto) 0 % (0-3) Neutrophils # (Auto) 5.5 x10^3uL (1.8-7.7) Lymphocytes # (Auto) 1.6 x10^3/uL (1.0-4.8) Monocytes # (Auto) 0.4 x10^3/uL (0.0-1.1) Eosinophils # (Auto) 0.0 x10^3/uL (0.0-0.7) Basophils # (Auto) 0.0 x10^3/uL (0.0-0.2) Prothrombin Time 23.3 SEC (11.7-14.0) Prothromb Time International Ratio 2.2 (0.8-1.1) Sodium Level 141 mmol/L (136-145) Potassium Level 3.3 mmol/L (3.5-5.1) Chloride Level 103 mmol/L (98-107) Carbon Dioxide Level 30 mmol/L (21-32) Anion Gap 8 (6-14) Blood Urea Nitrogen 21 mg/dL (8-26) Creatinine 1.1 mg/dL (0.7-1.3) Estimated GFR (Cockcroft-Gault) 81.5 Glucose Level 78 mg/dL (70-99) Calcium Level 8.5 mg/dL (8.5-10.1) Laboratory Tests Test 07/10/17 16:10 07/10/17 20:52 07/11/17 01:14 07/11/17 05:10 Glucose (Fingerstick) 360 mg/dL (70-99) 535 mg/dL (70-99) 160 mg/dL (70-99) White Blood Count 7.6 x10^3/uL (4.0-11.0) Red Blood Count 4.06 x10^6/uL (4.30-5.70) Hemoglobin 12.0 g/dL (13.0-17.5) Hematocrit 36.1 % (39.0-53.0) Mean Corpuscular Volume 89 fL (79-100) Mean Corpuscular Hemoglobin 30 pg (25-35) Mean Corpuscular Hemoglobin Concent 33 g/dL (31-37) Red Cell Distribution Width 17.0 % (11.5-14.5) Platelet Count 102 x10^3/uL (140-400) Neutrophils (%) (Auto) 73 % (31-73) Lymphocytes (%) (Auto) 22 % (24-48) Monocytes (%) (Auto) 5 % (0-9) Eosinophils (%) (Auto) 0 % (0-3) Basophils (%) (Auto) 0 % (0-3) Neutrophils # (Auto) 5.5 x10^3uL (1.8-7.7) Lymphocytes # (Auto) 1.6 x10^3/uL (1.0-4.8) Monocytes # (Auto) 0.4 x10^3/uL (0.0-1.1) Eosinophils # (Auto) 0.0 x10^3/uL (0.0-0.7) Basophils # (Auto) 0.0 x10^3/uL (0.0-0.2) Prothrombin Time 23.3 SEC (11.7-14.0) Prothromb Time International Ratio 2.2 (0.8-1.1) Sodium Level 141 mmol/L (136-145) Potassium Level 3.3 mmol/L (3.5-5.1) Chloride Level 103 mmol/L (98-107) Carbon Dioxide Level 30 mmol/L (21-32) Anion Gap 8 (6-14) Blood Urea Nitrogen 21 mg/dL (8-26) Creatinine 1.1 mg/dL (0.7-1.3) Estimated GFR (Cockcroft-Gault) 81.5 Glucose Level 78 mg/dL (70-99) Calcium Level 8.5 mg/dL (8.5-10.1) Test 07/11/17 07:49 07/11/17 11:42 Glucose (Fingerstick) 124 mg/dL (70-99) 189 mg/dL (70-99) Medications Current Medications Fentanyl Citrate (Fentanyl 2ml Vial) 50 mcg PRN Q15MIN PRN IV PAIN GREATER THAN 3/10; Start 07/08/17 at 17:15; Stop 07/09/17 at 08:45; Status DC Sodium Chloride 1,000 ml @ 1,000 mls/hr Q1H IV Last administered on 07/08/17 17:08; Start 07/08/17 at 17:08; Stop 07/08/17 at 18:07; Status DC Ondansetron HCl (Zofran) 4 mg 1X ONCE IV Last administered on 07/08/17 18:01 ; Start 07/08/17 at 17:15; Stop 07/08/17 at 17:20; Status DC Famotidine (Pepcid) 20 mg 1X ONCE IVP Last administered on 07/08/17 18:01; Start 07/08/17 at 17:15; Stop 07/08/17 at 17:20; Status DC Insulin Aspart (NovoLOG) 0-9 UNITS TIDWMEALS SQ Last administered on 12:41; Start 07/09/17 at 08:00 Dextrose (Dextrose 50%-Water Syringe) 12.5 gm PRN Q15MIN PRN IV SEE COMMENTS; Start 07/08/17 at 18:45 Acetaminophen (Tylenol) 650 mg PRN Q6HRS PRN PO PAIN; Start 07/08/17 at 18:45 Aspirin (Ecotrin) 81 mg DAILY08 PO Last administered on 07/11/17 09:08; Start 07/09/17 at 08:00 Atorvastatin Calcium (Lipitor) 40 mg QHS PO Last administered on 07/10/17 21: 30; Start 07/08/17 at 21:00 Clonazepam (KlonoPIN) 0.5 mg PRN DAILY PRN PO ANXIETY / AGITATION; Start at 18:45 Cyanocobalamin (Vitamin B-12) 1,000 mcg DAILY IM ; Start 07/09/17 at 09:00; Stop 07/09/17 at 09:00; Status DC Ferrous Sulfate (Feosol) 325 mg BIDWMEALS PO Last administered on 07/11/17 09 :08; Start 07/08/17 at 21:00 Folic Acid (Folic Acid) 1 mg DAILY PO Last administered on 07/11/17 09:09; Start 07/09/17 at 09:00 Furosemide (Lasix) 40 mg BID92 PO Last administered on 07/11/17 12:40; Start 07/09/17 at 09:00 Lisinopril (Prinivil) 10 mg DAILY PO Last administered on 07/11/17 09:20; Start 07/09/17 at 09:00 Metformin HCl (Glucophage) 500 mg DAILYWBKFT PO Last administered on 09:09; Start 07/09/17 at 08:00 Pantoprazole Sodium (Protonix) 40 mg DAILYAC PO Last administered on 09:09; Start 07/09/17 at 07:30 Prednisone (Prednisone) 80 mg DAILY PO Last administered on 07/11/17 09:08; Start 07/09/17 at 09:00 Warfarin Sodium (Coumadin) 7 mg DAILY PO ; Start 07/09/17 at 09:00; Stop 07/09 at 09:00; Status DC Non-Formulary Medication 30 ml BID PO ; Start 07/08/17 at 21:00; Stop 07/08/17 at 21:00; Status DC Multivitamins (Thera M Plus) 1 tab DAILY PO Last administered on 07/11/17 09: 09; Start 07/09/17 at 09:00 Ondansetron HCl (Zofran) 4 mg PRN Q8HRS PRN IV NAUSEA/VOMITING; Start 07/08/17 at 18:45; Stop 07/09/17 at 18:44; Status DC Sodium Chloride 1,000 ml @ 125 mls/hr Q8H IV Last administered on 07/09/17 12:37; Start 07/08/17 at 18:44; Stop 07/09/17 at 18:43; Status DC Acetaminophen (Tylenol) 650 mg PRN Q4HRS PRN PO FEVER; Start 07/08/17 at 18:45 ; Stop 07/08/17 at 18:50; Status DC Insulin Human Regular 150 ml @ 0 mls/hr 1X ONCE IV Last administered on 19:50; Start 07/08/17 at 19:30; Stop 07/08/17 at 19:31; Status DC Warfarin Sodium (Coumadin Per Pharmacy) 1 each PRN DAILY PRN MC SEE COMMENTS Last administered on 07/10/17 08:20; Start 07/08/17 at 20:15 Warfarin Sodium (Coumadin) 5 mg DAILY16 PO Last administered on 07/09/17 17: 25; Start 07/08/17 at 20:30; Stop 07/10/17 at 13:25; Status DC Warfarin Sodium (Coumadin) 2 mg DAILY16 PO Last administered on 07/09/17 17: 24; Start 07/08/17 at 20:30; Stop 07/10/17 at 13:25; Status DC Potassium Chloride (Klor-Con) 40 meq 1X ONCE PO Last administered on 09:14; Start 07/09/17 at 08:45; Stop 07/09/17 at 08:46; Status DC Potassium Chloride 50 ml @ 50 mls/hr 1X ONCE IV ; Start 07/09/17 at 08:45; Stop 07/09/17 at 09:44; Status UNV Potassium Chloride 10 meq/ Sodium Chloride 105 ml @ 105 mls/hr Q1HR IV Last administered on 07/09/17 12:37; Start 07/09/17 at 09:00; Stop 07/09/17 at 10 :59; Status DC Insulin Aspart (NovoLOG) 10 units TIDAC SQ Last administered on 07/11/17 12: 45; Start 07/09/17 at 16:30 Insulin Detemir (Levemir) 20 units QHS SQ Last administered on 07/10/17 21:34 ; Start 07/09/17 at 21:00 Insulin Aspart (NovoLOG) 9 units 1X ONCE SQ Last administered on 07/09/17 21 :22; Start 07/09/17 at 21:30; Stop 07/09/17 at 21:31; Status DC Magnesium Sulfate/ Dextrose 50 ml @ 25 mls/hr 1X ONCE IV Last administered on 07/10/17 00:58; Start 07/10/17 at 01:00; Stop 07/10/17 at 02:59; Status DC Potassium Chloride (Klor-Con) 20 meq 1X ONCE PO Last administered on 00:58; Start 07/10/17 at 01:00; Stop 07/10/17 at 01:01; Status DC Nitroglycerin/ Dextrose 250 ml @ 0 mls/hr CONT PRN IV SEE I/O RECORD; Start at 01:45 Amlodipine Besylate (Norvasc) 5 mg DAILY PO Last administered on 07/11/17 09: 09; Start 07/10/17 at 09:00 Insulin Aspart (NovoLOG) 30 units 1X ONCE SQ Last administered on 07/10/17 21:35; Start 07/10/17 at 22:00; Stop 07/10/17 at 22:01; Status DC Active Scripts Active Prednisone 20 Mg Tablet 80 Mg PO DAILY 7 Days Metoprolol Tartrate 25 Mg Tablet 25 Mg PO BID 30 Days Folic Acid 1 Mg Tablet 1 Mg PO DAILY 30 Days Cyanocobalamin Injection (Cyanocobalamin (Vitamin B-12)) 1,000 Mcg/1 Ml Vial 1, 000 Mcg IM DAILY 7 Days Reported Multivitamins (Multivitamin) 1 Each Tablet 1 Tab PO DAILY Pro-Stat Liquid (Amino Acids/Protein Hydrolys) 30 Ml Liquid 30 Ml PO BID Pantoprazole Sodium 40 Mg Tablet.dr 1 Tab PO DAILY Metformin Hcl 500 Mg Tablet 500 Mg PO DAILY Lisinopril 10 Mg Tablet 1 Tab PO DAILY Lasix (Furosemide) 40 Mg Tablet 1 Tab PO BID Ferrous Sulfate 325 Mg Tablet 325 Mg PO BID Coumadin (Warfarin Sodium) 5 Mg Tablet 7 Mg PO DAILY Wednesday, Wed, , Wed Clonazepam 0.5 Mg Tablet 1 Tab PO DAILY PRN Atorvastatin Calcium 40 Mg Tablet 1 Tab PO QHS Aspir 81 (Aspirin) 81 Mg Tablet.dr 1 Tab PO DAILY Tylenol (Acetaminophen) 325 Mg Tablet 2 Tab PO PRN Q6HRS PRN Do not exceed 3000mg in 24hr period Vitals/I & O Vital Sign - Last 24 Hours 07/10/17 07/10/17 07/10/17 07/10/17 16:15 19:43 19:56 22:41 Temp 98.3 98.5 98.2 98.3 98.5 98.2 Pulse 60 48 39 Resp 17 B/P (MAP) 137/58 (84) 125/55 (78) 120/50 (73) Pulse Ox 96 96 94 O2 Delivery Room Air Room Air Room Air Room Air 07/11/17 07/11/17 07/11/17 07/11/17 03:08 07:00 08:10 09:09 Temp 98.2 98.0 98.2 98.0 Pulse 50 61 61 Resp 16 18 B/P (MAP) 146/79 (101) 167/69 (101) 167/69 Pulse Ox 93 98 O2 Delivery Room Air Room Air Room Air 07/11/17 07/11/17 09:20 10:47 Temp 97.9 97.9 Pulse 61 40 Resp 17 B/P (MAP) 167/69 120/56 (77) Pulse Ox 94 O2 Delivery Room Air Intake and Output 07/11/17 07/11/17 07/12/17 15:00 23:00 07:00 Output Total 1450 ml Balance -1450 ml FELIZ MICHAUD III DO Jul 11, 2017 14:59
[2017-07-11 15:00] VITALS: BP 142/59
[2017-07-11] MEDS ORDERED: POTASSIUM CHLORIDE 20 MEQ TABLET.ER. PO ONE (15:00)
[2017-07-11 19:34] VITALS: BP 115/54
[2017-07-11] MEDS: ATORVASTATIN CALCIUM 40 MG TABLET. PO SCH (21:32)
[2017-07-11] MEDS: INSULIN DETEMIR 300 UNITS/3 ML INSULN.PEN. SQ SCH (21:36)
[2017-07-11 23:00] VITALS: BP 117/55
[2017-07-12 03:39] VITALS: BP 128/62
[2017-07-12 08:00] VITALS: BP 169/81
[2017-07-12] MEDS: FUROSEMIDE 40 MG TABLET. PO SCH ×2 (08:48→14:25)
[2017-07-12] MEDS: FOLIC ACID 1 MG TABLET. PO SCH (08:48)
[2017-07-12] MEDS: metFORMIN 500 MG TABLET PO SCH (08:48)
[2017-07-12] MEDS: LISINOPRIL 10 MG TABLET PO SCH (08:49)
[2017-07-12] MEDS: MULTIVITAMIN with MINERAL TABLET. PO SCH (08:50)
[2017-07-12] MEDS: PANTOPRAZOLE 40 MG TABLET.DR. PO SCH (08:50)
[2017-07-12] MEDS: predniSONE 20 MG TABLET PO SCH (08:50)
[2017-07-12] MEDS: FERROUS SULFATE 325 MG TABLET. PO SCH ×2 (08:50→17:38)
[2017-07-12] MEDS: ASPIRIN ENTERIC COATED 81 MG TABLET.DR. PO SCH (08:50)
[2017-07-12] MEDS: amLODIPine BESYLATE 5 MG TABLET PO SCH (08:50)
[2017-07-12] MEDS: INSULIN ASPART 300 UNITS/3 ML INSULN.PEN SQ SCH ×6 (09:05→17:45)
[2017-07-12 09:40] LABS: BASO % 0 % (0-3); EOS % 0 % (0-3); HEMOGLOBIN 12.4 g/dL (13.0-17.5); LYMPH # 1.8 x10^3/uL (1.0-4.8); LYMPH % 23 % (24-48); MEAN CORPUSCULAR HEMOGLOBIN 29 pg (25-35); MEAN CORPUSCULAR HGB CONC 33 g/dL (31-37); MEAN CORPUSCULAR VOLUME 90 fL (79-100); MONO % 5 % (0-9); NEUT % 72 % (31-73); PLATELET COUNT 116 x10^3/uL (140-400); RED BLOOD COUNT 4.23 x10^6/uL (4.30-5.70); WHITE BLOOD COUNT 7.6 x10^3/uL (4.0-11.0)
[2017-07-12 09:57] LABS: CREATININE 1.2 mg/dL (0.7-1.3); GFR 73.8; POTASSIUM 3.9 mmol/L (3.5-5.1)
[2017-07-12 10:01] LABS: INR 1.6 (0.8-1.1); PROTHROMBIN TIME PATIENT 17.9 SEC (11.7-14.0)
[2017-07-12 11:00] VITALS: BP 118/60
--- NOTE | 2017-07-12 13:44 | PDOC ---
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 History of Present Illness History of Present Illness admit for hypoglycemia and bradycardia. now hyperglycemia, will add back some meal dose insulin at ID s/p CVA years ago, right hemiparesis persists I discussed at [facility], Pacer vs AICD, he did not want to maximize mortality benefit, and said "if it is my time to go, let me go" I reviewed code status, and he wants to be DNR, DNI, I asked him to discuss this with his family, he reports he only has a half-brother, will DC pérez, may DC soon iveth at rest, near rate 40 Vitals Vitals Vital Signs Date Time Temp Pulse Resp B/P (MAP) Pulse Ox O2 Delivery O2 Flow Rate FiO2 07/12/17 11:00 98.1 61 16 118/60 (79) 95 Room Air 98.1 Physical Exam General: Alert, Oriented X3, Cooperative, No acute distress Heart: Normal S1, Normal S2, Other (bradycardic) Lungs: Clear Abdomen: Normal bowel sounds, No masses Extremities: No cyanosis, No edema Skin: No rashes, No significant lesion Labs LABS Laboratory Tests Test 07/11/17 17:11 07/11/17 21:22 07/12/17 07:45 07/12/17 08:50 Glucose (Fingerstick) 347 mg/dL (70-99) 348 mg/dL (70-99) 240 mg/dL (70-99) White Blood Count 7.6 x10^3/uL (4.0-11.0) Red Blood Count 4.23 x10^6/uL (4.30-5.70) Hemoglobin 12.4 g/dL (13.0-17.5) Hematocrit 38.0 % (39.0-53.0) Mean Corpuscular Volume 90 fL (79-100) Mean Corpuscular Hemoglobin 29 pg (25-35) Mean Corpuscular Hemoglobin Concent 33 g/dL (31-37) Red Cell Distribution Width 17.0 % (11.5-14.5) Platelet Count 116 x10^3/uL (140-400) Neutrophils (%) (Auto) 72 % (31-73) Lymphocytes (%) (Auto) 23 % (24-48) Monocytes (%) (Auto) 5 % (0-9) Eosinophils (%) (Auto) 0 % (0-3) Basophils (%) (Auto) 0 % (0-3) Neutrophils # (Auto) 5.5 x10^3uL (1.8-7.7) Lymphocytes # (Auto) 1.8 x10^3/uL (1.0-4.8) Monocytes # (Auto) 0.4 x10^3/uL (0.0-1.1) Eosinophils # (Auto) 0.0 x10^3/uL (0.0-0.7) Basophils # (Auto) 0.0 x10^3/uL (0.0-0.2) Prothrombin Time 17.9 SEC (11.7-14.0) Prothromb Time International Ratio 1.6 (0.8-1.1) Sodium Level 140 mmol/L (136-145) Potassium Level 3.9 mmol/L (3.5-5.1) Chloride Level 102 mmol/L (98-107) Carbon Dioxide Level 33 mmol/L (21-32) Anion Gap 5 (6-14) Blood Urea Nitrogen 22 mg/dL (8-26) Creatinine 1.2 mg/dL (0.7-1.3) Estimated GFR (Cockcroft-Gault) 73.8 Glucose Level 214 mg/dL (70-99) Calcium Level 9.0 mg/dL (8.5-10.1) Test 07/12/17 11:42 Glucose (Fingerstick) 247 mg/dL (70-99) Review of Systems Review of Systems no n,.v.d right arm weakness, leg, no new Assessment and Plan Assessmemt and Plan Problems Medical Problems: (1) Bradycardia Status: Acute (2) History of CVA (cerebrovascular accident) Status: Acute (3) Hyperglycemia Status: Acute Problems: Comment Review of Relevant I have reviewed the following items yulissa (where applicable) has been applied. Labs Laboratory Tests Test 07/10/17 16:10 07/10/17 20:52 07/11/17 01:14 07/11/17 05:10 Glucose (Fingerstick) 360 mg/dL (70-99) 535 mg/dL (70-99) 160 mg/dL (70-99) White Blood Count 7.6 x10^3/uL (4.0-11.0) Red Blood Count 4.06 x10^6/uL (4.30-5.70) Hemoglobin 12.0 g/dL (13.0-17.5) Hematocrit 36.1 % (39.0-53.0) Mean Corpuscular Volume 89 fL (79-100) Mean Corpuscular Hemoglobin 30 pg (25-35) Mean Corpuscular Hemoglobin Concent 33 g/dL (31-37) Red Cell Distribution Width 17.0 % (11.5-14.5) Platelet Count 102 x10^3/uL (140-400) Neutrophils (%) (Auto) 73 % (31-73) Lymphocytes (%) (Auto) 22 % (24-48) Monocytes (%) (Auto) 5 % (0-9) Eosinophils (%) (Auto) 0 % (0-3) Basophils (%) (Auto) 0 % (0-3) Neutrophils # (Auto) 5.5 x10^3uL (1.8-7.7) Lymphocytes # (Auto) 1.6 x10^3/uL (1.0-4.8) Monocytes # (Auto) 0.4 x10^3/uL (0.0-1.1) Eosinophils # (Auto) 0.0 x10^3/uL (0.0-0.7) Basophils # (Auto) 0.0 x10^3/uL (0.0-0.2) Prothrombin Time 23.3 SEC (11.7-14.0) Prothromb Time International Ratio 2.2 (0.8-1.1) Sodium Level 141 mmol/L (136-145) Potassium Level 3.3 mmol/L (3.5-5.1) Chloride Level 103 mmol/L (98-107) Carbon Dioxide Level 30 mmol/L (21-32) Anion Gap 8 (6-14) Blood Urea Nitrogen 21 mg/dL (8-26) Creatinine 1.1 mg/dL (0.7-1.3) Estimated GFR (Cockcroft-Gault) 81.5 Glucose Level 78 mg/dL (70-99) Calcium Level 8.5 mg/dL (8.5-10.1) Test 07/11/17 07:49 07/11/17 11:42 07/11/17 17:11 07/11/17 21:22 Glucose (Fingerstick) 124 mg/dL (70-99) 189 mg/dL (70-99) 347 mg/dL (70-99) 348 mg/dL (70-99) Test 07/12/17 07:45 07/12/17 08:50 07/12/17 11:42 Glucose (Fingerstick) 240 mg/dL (70-99) 247 mg/dL (70-99) White Blood Count 7.6 x10^3/uL (4.0-11.0) Red Blood Count 4.23 x10^6/uL (4.30-5.70) Hemoglobin 12.4 g/dL (13.0-17.5) Hematocrit 38.0 % (39.0-53.0) Mean Corpuscular Volume 90 fL (79-100) Mean Corpuscular Hemoglobin 29 pg (25-35) Mean Corpuscular Hemoglobin Concent 33 g/dL (31-37) Red Cell Distribution Width 17.0 % (11.5-14.5) Platelet Count 116 x10^3/uL (140-400) Neutrophils (%) (Auto) 72 % (31-73) Lymphocytes (%) (Auto) 23 % (24-48) Monocytes (%) (Auto) 5 % (0-9) Eosinophils (%) (Auto) 0 % (0-3) Basophils (%) (Auto) 0 % (0-3) Neutrophils # (Auto) 5.5 x10^3uL (1.8-7.7) Lymphocytes # (Auto) 1.8 x10^3/uL (1.0-4.8) Monocytes # (Auto) 0.4 x10^3/uL (0.0-1.1) Eosinophils # (Auto) 0.0 x10^3/uL (0.0-0.7) Basophils # (Auto) 0.0 x10^3/uL (0.0-0.2) Prothrombin Time 17.9 SEC (11.7-14.0) Prothromb Time International Ratio 1.6 (0.8-1.1) Sodium Level 140 mmol/L (136-145) Potassium Level 3.9 mmol/L (3.5-5.1) Chloride Level 102 mmol/L (98-107) Carbon Dioxide Level 33 mmol/L (21-32) Anion Gap 5 (6-14) Blood Urea Nitrogen 22 mg/dL (8-26) Creatinine 1.2 mg/dL (0.7-1.3) Estimated GFR (Cockcroft-Gault) 73.8 Glucose Level 214 mg/dL (70-99) Calcium Level 9.0 mg/dL (8.5-10.1) Laboratory Tests Test 07/11/17 17:11 07/11/17 21:22 07/12/17 07:45 07/12/17 08:50 Glucose (Fingerstick) 347 mg/dL (70-99) 348 mg/dL (70-99) 240 mg/dL (70-99) White Blood Count 7.6 x10^3/uL (4.0-11.0) Red Blood Count 4.23 x10^6/uL (4.30-5.70) Hemoglobin 12.4 g/dL (13.0-17.5) Hematocrit 38.0 % (39.0-53.0) Mean Corpuscular Volume 90 fL (79-100) Mean Corpuscular Hemoglobin 29 pg (25-35) Mean Corpuscular Hemoglobin Concent 33 g/dL (31-37) Red Cell Distribution Width 17.0 % (11.5-14.5) Platelet Count 116 x10^3/uL (140-400) Neutrophils (%) (Auto) 72 % (31-73) Lymphocytes (%) (Auto) 23 % (24-48) Monocytes (%) (Auto) 5 % (0-9) Eosinophils (%) (Auto) 0 % (0-3) Basophils (%) (Auto) 0 % (0-3) Neutrophils # (Auto) 5.5 x10^3uL (1.8-7.7) Lymphocytes # (Auto) 1.8 x10^3/uL (1.0-4.8) Monocytes # (Auto) 0.4 x10^3/uL (0.0-1.1) Eosinophils # (Auto) 0.0 x10^3/uL (0.0-0.7) Basophils # (Auto) 0.0 x10^3/uL (0.0-0.2) Prothrombin Time 17.9 SEC (11.7-14.0) Prothromb Time International Ratio 1.6 (0.8-1.1) Sodium Level 140 mmol/L (136-145) Potassium Level 3.9 mmol/L (3.5-5.1) Chloride Level 102 mmol/L (98-107) Carbon Dioxide Level 33 mmol/L (21-32) Anion Gap 5 (6-14) Blood Urea Nitrogen 22 mg/dL (8-26) Creatinine 1.2 mg/dL (0.7-1.3) Estimated GFR (Cockcroft-Gault) 73.8 Glucose Level 214 mg/dL (70-99) Calcium Level 9.0 mg/dL (8.5-10.1) Test 07/12/17 11:42 Glucose (Fingerstick) 247 mg/dL (70-99) Medications Current Medications Fentanyl Citrate (Fentanyl 2ml Vial) 50 mcg PRN Q15MIN PRN IV PAIN GREATER THAN 3/10; Start 07/08/17 at 17:15; Stop 07/09/17 at 08:45; Status DC Sodium Chloride 1,000 ml @ 1,000 mls/hr Q1H IV Last administered on 07/08/17 17:08; Start 07/08/17 at 17:08; Stop 07/08/17 at 18:07; Status DC Ondansetron HCl (Zofran) 4 mg 1X ONCE IV Last administered on 07/08/17 18:01 ; Start 07/08/17 at 17:15; Stop 07/08/17 at 17:20; Status DC Famotidine (Pepcid) 20 mg 1X ONCE IVP Last administered on 07/08/17 18:01; Start 07/08/17 at 17:15; Stop 07/08/17 at 17:20; Status DC Insulin Aspart (NovoLOG) 0-9 UNITS TIDWMEALS SQ Last administered on 12:43; Start 07/09/17 at 08:00 Dextrose (Dextrose 50%-Water Syringe) 12.5 gm PRN Q15MIN PRN IV SEE COMMENTS; Start 07/08/17 at 18:45 Acetaminophen (Tylenol) 650 mg PRN Q6HRS PRN PO PAIN; Start 07/08/17 at 18:45 Aspirin (Ecotrin) 81 mg DAILY08 PO Last administered on 07/12/17 08:50; Start 07/09/17 at 08:00 Atorvastatin Calcium (Lipitor) 40 mg QHS PO Last administered on 07/11/17 21: 32; Start 07/08/17 at 21:00 Clonazepam (KlonoPIN) 0.5 mg PRN DAILY PRN PO ANXIETY / AGITATION; Start at 18:45 Cyanocobalamin (Vitamin B-12) 1,000 mcg DAILY IM ; Start 07/09/17 at 09:00; Stop 07/09/17 at 09:00; Status DC Ferrous Sulfate (Feosol) 325 mg BIDWMEALS PO Last administered on 07/12/17 08 :50; Start 07/08/17 at 21:00 Folic Acid (Folic Acid) 1 mg DAILY PO Last administered on 07/12/17 08:48; Start 07/09/17 at 09:00 Furosemide (Lasix) 40 mg BID92 PO Last administered on 07/12/17 08:48; Start 07/09/17 at 09:00 Lisinopril (Prinivil) 10 mg DAILY PO Last administered on 07/12/17 08:49; Start 07/09/17 at 09:00 Metformin HCl (Glucophage) 500 mg DAILYWBKFT PO Last administered on 08:48; Start 07/09/17 at 08:00 Pantoprazole Sodium (Protonix) 40 mg DAILYAC PO Last administered on 08:50; Start 07/09/17 at 07:30 Prednisone (Prednisone) 80 mg DAILY PO Last administered on 07/12/17 08:50; Start 07/09/17 at 09:00 Warfarin Sodium (Coumadin) 7 mg DAILY PO ; Start 07/09/17 at 09:00; Stop 07/09 at 09:00; Status DC Non-Formulary Medication 30 ml BID PO ; Start 07/08/17 at 21:00; Stop 07/08/17 at 21:00; Status DC Multivitamins (Thera M Plus) 1 tab DAILY PO Last administered on 07/12/17 08: 50; Start 07/09/17 at 09:00 Ondansetron HCl (Zofran) 4 mg PRN Q8HRS PRN IV NAUSEA/VOMITING; Start 07/08/17 at 18:45; Stop 07/09/17 at 18:44; Status DC Sodium Chloride 1,000 ml @ 125 mls/hr Q8H IV Last administered on 07/09/17 12:37; Start 07/08/17 at 18:44; Stop 07/09/17 at 18:43; Status DC Acetaminophen (Tylenol) 650 mg PRN Q4HRS PRN PO FEVER; Start 07/08/17 at 18:45 ; Stop 07/08/17 at 18:50; Status DC Insulin Human Regular 150 ml @ 0 mls/hr 1X ONCE IV Last administered on 19:50; Start 07/08/17 at 19:30; Stop 07/08/17 at 19:31; Status DC Warfarin Sodium (Coumadin Per Pharmacy) 1 each PRN DAILY PRN MC SEE COMMENTS Last administered on 07/10/17 08:20; Start 07/08/17 at 20:15 Warfarin Sodium (Coumadin) 5 mg DAILY16 PO Last administered on 07/09/17 17: 25; Start 07/08/17 at 20:30; Stop 07/10/17 at 13:25; Status DC Warfarin Sodium (Coumadin) 2 mg DAILY16 PO Last administered on 07/09/17 17: 24; Start 07/08/17 at 20:30; Stop 07/10/17 at 13:25; Status DC Potassium Chloride (Klor-Con) 40 meq 1X ONCE PO Last administered on 09:14; Start 07/09/17 at 08:45; Stop 07/09/17 at 08:46; Status DC Potassium Chloride 50 ml @ 50 mls/hr 1X ONCE IV ; Start 07/09/17 at 08:45; Stop 07/09/17 at 09:44; Status UNV Potassium Chloride 10 meq/ Sodium Chloride 105 ml @ 105 mls/hr Q1HR IV Last administered on 07/09/17 12:37; Start 07/09/17 at 09:00; Stop 07/09/17 at 10 :59; Status DC Insulin Aspart (NovoLOG) 10 units TIDAC SQ Last administered on 07/12/17 12: 42; Start 07/09/17 at 16:30 Insulin Detemir (Levemir) 20 units QHS SQ Last administered on 07/11/17 21:36 ; Start 07/09/17 at 21:00 Insulin Aspart (NovoLOG) 9 units 1X ONCE SQ Last administered on 07/09/17 21 :22; Start 07/09/17 at 21:30; Stop 07/09/17 at 21:31; Status DC Magnesium Sulfate/ Dextrose 50 ml @ 25 mls/hr 1X ONCE IV Last administered on 07/10/17 00:58; Start 07/10/17 at 01:00; Stop 07/10/17 at 02:59; Status DC Potassium Chloride (Klor-Con) 20 meq 1X ONCE PO Last administered on 00:58; Start 07/10/17 at 01:00; Stop 07/10/17 at 01:01; Status DC Nitroglycerin/ Dextrose 250 ml @ 0 mls/hr CONT PRN IV SEE I/O RECORD; Start at 01:45 Amlodipine Besylate (Norvasc) 5 mg DAILY PO Last administered on 07/12/17 08: 50; Start 07/10/17 at 09:00 Insulin Aspart (NovoLOG) 30 units 1X ONCE SQ Last administered on 07/10/17 21:35; Start 07/10/17 at 22:00; Stop 07/10/17 at 22:01; Status DC Potassium Chloride (Klor-Con) 40 meq 1X ONCE PO Last administered on 15:00; Start 07/11/17 at 15:00; Stop 07/11/17 at 15:01; Status DC Active Scripts Active Prednisone 20 Mg Tablet 80 Mg PO DAILY 7 Days Metoprolol Tartrate 25 Mg Tablet 25 Mg PO BID 30 Days Folic Acid 1 Mg Tablet 1 Mg PO DAILY 30 Days Cyanocobalamin Injection (Cyanocobalamin (Vitamin B-12)) 1,000 Mcg/1 Ml Vial 1, 000 Mcg IM DAILY 7 Days Reported Multivitamins (Multivitamin) 1 Each Tablet 1 Tab PO DAILY Pro-Stat Liquid (Amino Acids/Protein Hydrolys) 30 Ml Liquid 30 Ml PO BID Pantoprazole Sodium 40 Mg Tablet.dr 1 Tab PO DAILY Metformin Hcl 500 Mg Tablet 500 Mg PO DAILY Lisinopril 10 Mg Tablet 1 Tab PO DAILY Lasix (Furosemide) 40 Mg Tablet 1 Tab PO BID Ferrous Sulfate 325 Mg Tablet 325 Mg PO BID Coumadin (Warfarin Sodium) 5 Mg Tablet 7 Mg PO DAILY Wednesday, Wed, , Wed Clonazepam 0.5 Mg Tablet 1 Tab PO DAILY PRN Atorvastatin Calcium 40 Mg Tablet 1 Tab PO QHS Aspir 81 (Aspirin) 81 Mg Tablet.dr 1 Tab PO DAILY Tylenol (Acetaminophen) 325 Mg Tablet 2 Tab PO PRN Q6HRS PRN Do not exceed 3000mg in 24hr period Vitals/I & O Vital Sign - Last 24 Hours 07/11/17 07/11/17 07/11/17 07/11/17 15:00 19:34 19:57 23:00 Temp 97.8 98.2 97.9 97.8 98.2 97.9 Pulse 65 44 48 Resp 16 B/P (MAP) 142/59 (86) 115/54 (74) 117/55 (75) Pulse Ox 94 94 95 O2 Delivery Room Air Room Air Room Air Room Air 07/12/17 07/12/17 07/12/17 07/12/17 03:39 08:00 08:00 08:49 Temp 98.2 98.1 98.2 98.1 Pulse 44 62 61 Resp 16 16 B/P (MAP) 128/62 (84) 169/81 (110) 169/81 Pulse Ox 95 98 O2 Delivery Room Air Room Air Room Air 07/12/17 07/12/17 08:50 11:00 Temp 98.1 98.1 Pulse 61 61 Resp 16 B/P (MAP) 169/81 118/60 (79) Pulse Ox 95 O2 Delivery Room Air Intake and Output 07/11/17 07/11/17 07/12/17 15:00 23:00 07:00 Intake Total 300 ml Output Total 1450 ml 600 ml 2100 ml Balance -1450 ml -300 ml -2100 ml HUBER LI MD Jul 12, 2017 13:44
--- NOTE | 2017-07-12 14:51 | PDOC ---
MISAEL SANCHEZ WEBMETHODS ARCHITECT 07/12/17 1451: CARDIO Progress Notes Date and Time Date of Service 07/12/2017 Time of Evaluation 1430 Subjective Subjective: No Chest Pain, No shortness of breath, No Palpitations Vitals Vitals Vital Signs Date Time Temp Pulse Resp B/P (MAP) Pulse Ox O2 Delivery O2 Flow Rate FiO2 07/12/17 11:00 98.1 61 16 118/60 (79) 95 Room Air 98.1 Weight Weight [ ] Input and Output Intake and Output Intake and Output 07/12/17 07:00 Intake Total 300 ml Output Total 4150 ml Balance -3850 ml Intake Oral 300 ml Output Urine Total 4150 ml Laboratory Labs Laboratory Tests Test 07/11/17 17:11 07/11/17 21:22 07/12/17 07:45 07/12/17 08:50 Glucose (Fingerstick) 347 mg/dL (70-99) 348 mg/dL (70-99) 240 mg/dL (70-99) White Blood Count 7.6 x10^3/uL (4.0-11.0) Red Blood Count 4.23 x10^6/uL (4.30-5.70) Hemoglobin 12.4 g/dL (13.0-17.5) Hematocrit 38.0 % (39.0-53.0) Mean Corpuscular Volume 90 fL (79-100) Mean Corpuscular Hemoglobin 29 pg (25-35) Mean Corpuscular Hemoglobin Concent 33 g/dL (31-37) Red Cell Distribution Width 17.0 % (11.5-14.5) Platelet Count 116 x10^3/uL (140-400) Neutrophils (%) (Auto) 72 % (31-73) Lymphocytes (%) (Auto) 23 % (24-48) Monocytes (%) (Auto) 5 % (0-9) Eosinophils (%) (Auto) 0 % (0-3) Basophils (%) (Auto) 0 % (0-3) Neutrophils # (Auto) 5.5 x10^3uL (1.8-7.7) Lymphocytes # (Auto) 1.8 x10^3/uL (1.0-4.8) Monocytes # (Auto) 0.4 x10^3/uL (0.0-1.1) Eosinophils # (Auto) 0.0 x10^3/uL (0.0-0.7) Basophils # (Auto) 0.0 x10^3/uL (0.0-0.2) Prothrombin Time 17.9 SEC (11.7-14.0) Prothromb Time International Ratio 1.6 (0.8-1.1) Sodium Level 140 mmol/L (136-145) Potassium Level 3.9 mmol/L (3.5-5.1) Chloride Level 102 mmol/L (98-107) Carbon Dioxide Level 33 mmol/L (21-32) Anion Gap 5 (6-14) Blood Urea Nitrogen 22 mg/dL (8-26) Creatinine 1.2 mg/dL (0.7-1.3) Estimated GFR (Cockcroft-Gault) 73.8 Glucose Level 214 mg/dL (70-99) Calcium Level 9.0 mg/dL (8.5-10.1) Test 07/12/17 11:42 Glucose (Fingerstick) 247 mg/dL (70-99) Physical Exam HEENT: Neck Supple W Full Motion Chest: Symmetric LUNGS: Clear to Auscultation Heart: S1S2, RRR (junctional episodes in the 40s) Abdomen: Soft N/T (obese) Extremities: No Calf Tenderness Neurology: alert, oriented, follow commands Assessment Assessment 1. Asymptomatic Bradyarrhythmia; continue to have junctional rhythm in the 40s but no notable pauses but with frequent PVCs 2. PAFIB: Junctional. 3. Diabetes with significant hyperglycemia: BG remain uncontrolled 4. 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 compensated. 5. Hyponatremia/hypokalemia: resolved 6. Accelerated Hypertension: better 7. Hyperlipidemia 8. 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 Debility; right arm contraction Recommendations 1. No AV thompson blocking agents at this time. DC NTG. Continue with norvasc. 2. No known recent ischemic workup. Will consider for ischemic w/u as LHC but will need to discuss with family as well given that pt has likely vascular dementia and has refused procedure per staff initially but now reconsidering. 3. AICD consideration pending result of #2 3. Warfarin for stroke prevention on hold for possible procedure. INR 1.6 4. supportive care. will discuss with primary reliner ASHLEIGH SCHULTZ MD 07/12/17 1410: CARDIO Progress Notes Plan Plan Pt. seen and examined. Agree with above LEASING MANAGER note. I had a long discussion with Mr. Mcmillan about indications for pacemakers, risks , benefits and alternatives. He states that he has lived a good life and does not want further interventions. In this setting, cath or pacer would not be appropriate. He understands the risks of not getting above w/u done in light of his cardiomyopathy and bradycardia. Would favor palliative care consult. Thanks. Pls call with questions. MISAEL SANCHEZ APRN Jul 12, 2017 14:51 ASHLEIGH SCHULTZ MD Jul 12, 2017 21:50
[2017-07-12 15:00] VITALS: BP 101/57
[2017-07-12 19:40] VITALS: BP 106/36
[2017-07-12] MEDS ORDERED: INSULIN DETEMIR 300 UNITS/3 ML INSULN.PEN. SQ SCH (21:00)
[2017-07-12] MEDS: ATORVASTATIN CALCIUM 40 MG TABLET. PO SCH (21:39)
[2017-07-12 23:56] VITALS: BP 132/58
[2017-07-13 03:59] VITALS: BP 156/72
[2017-07-13 05:23] LABS: INR 1.3 (0.8-1.1); PROTHROMBIN TIME PATIENT 15.3 SEC (11.7-14.0)
[2017-07-13 05:24] LABS: BASO % 0 % (0-3); EOS % 0 % (0-3); HEMATOCRIT 36.8 % (39.0-53.0); HEMOGLOBIN 12.2 g/dL (13.0-17.5); LYMPH # 1.7 x10^3/uL (1.0-4.8); LYMPH % 20 % (24-48); MEAN CORPUSCULAR HEMOGLOBIN 30 pg (25-35); MEAN CORPUSCULAR HGB CONC 33 g/dL (31-37); MEAN CORPUSCULAR VOLUME 89 fL (79-100); MONO % 5 % (0-9); NEUT % 75 % (31-73); PLATELET COUNT 115 x10^3/uL (140-400); RED BLOOD COUNT 4.12 x10^6/uL (4.30-5.70); RED CELL DISTRIBUTION WIDTH 16.7 % (11.5-14.5); WHITE BLOOD COUNT 8.5 x10^3/uL (4.0-11.0)
[2017-07-13 05:46] LABS: CALCIUM 8.9 mg/dL (8.5-10.1); CREATININE 1.3 mg/dL (0.7-1.3); GFR 67.2; POTASSIUM 3.7 mmol/L (3.5-5.1)
[2017-07-13 07:00] VITALS: BP 187/82
[2017-07-13] MEDS: predniSONE 20 MG TABLET PO SCH (08:20)
[2017-07-13] MEDS: PANTOPRAZOLE 40 MG TABLET.DR. PO SCH (08:20)
[2017-07-13] MEDS: FERROUS SULFATE 325 MG TABLET. PO SCH (08:20)
[2017-07-13] MEDS: MULTIVITAMIN with MINERAL TABLET. PO SCH (08:21)
[2017-07-13] MEDS: ASPIRIN ENTERIC COATED 81 MG TABLET.DR. PO SCH (08:21)
[2017-07-13] MEDS: amLODIPine BESYLATE 5 MG TABLET PO SCH (08:21)
[2017-07-13] MEDS: metFORMIN 500 MG TABLET PO SCH (08:21)
[2017-07-13] MEDS: FOLIC ACID 1 MG TABLET. PO SCH (08:21)
[2017-07-13] MEDS: FUROSEMIDE 40 MG TABLET. PO SCH ×2 (08:21→14:53)
[2017-07-13] MEDS: LISINOPRIL 10 MG TABLET PO SCH (08:22)
[2017-07-13] MEDS: INSULIN ASPART 300 UNITS/3 ML INSULN.PEN SQ SCH ×4 (08:41→12:00)
[2017-07-13 10:48] VITALS: BP 100/46
[2017-07-13] MEDS ORDERED: AMLO2.5T2 PO (12:08)
[2017-07-13 14:55] VITALS: BP 116/58
[2017-07-13] MEDS ORDERED: WARFARIN 7.5 MG TABLET. PO ONE (16:00)
--- NOTE | 2017-08-11 23:01 | PDOC3 ---
Discharge Summary Visit Information Date of Admission: Jul 08, 2017 Date of Discharge: Jul 13, 2017 Admitting Diagnosis: hyperglycemia Final Diagnosis Hyperglycemia w. 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 thrombocytopenia Problems Medical Problems: (1) Bradycardia Status: Acute (2) History of CVA (cerebrovascular accident) Status: Acute (3) Hyperglycemia Status: Acute Brief Hospital Course Allergies Allergies Coded Allergies Type Severity Reaction Last Updated Verified No Known Drug Allergies 06/03/17 No Brief Hospital Course Mr. Mcmillan is a 62 old admit from nursing facility secondary to elevated blood glucose. then bradycardia by EMS, on metoprolol at home. CV consulte,d Patient does have a h/o CVA with right-sided hemiplegia and expressive aphasia was hypoglycmic at [place], now hyperglycemia, will add back some meal dose insulin at [place] s/p CVA years ago, right hemiparesis persists CV team discused Pacer vs AICD, he did not want to maximize mortality benefit, and said "if it is my time to go, let me go" I reviewed code status, and he wants to be DNR, DNI, Discharge Information Condition at Discharge: Improved Follow Up: Weeks Disposition/Orders: D/C to Another Facility (skilled to half-way) Scheduled Amino Acids/Protein Hydrolys (Pro-Stat Liquid), 30 ML PO BID, (Reported) Amlodipine Besylate (Norvasc), 1 TAB PO DAILY Aspirin (Aspir 81), 1 TAB PO DAILY, (Reported) Atorvastatin Calcium (Atorvastatin Calcium), 1 TAB PO QHS, (Reported) Cyanocobalamin (Vitamin B-12) (Cyanocobalamin Injection), 1,000 MCG IM DAILY Ferrous Sulfate (Ferrous Sulfate), 325 MG PO BID, (Reported) Folic Acid (Folic Acid), 1 MG PO DAILY Furosemide (Lasix), 1 TAB PO BID, (Reported) Lisinopril (Lisinopril), 1 TAB PO DAILY, (Reported) Metformin Hcl (Metformin Hcl), 500 MG PO DAILY, (Reported) Metoprolol Tartrate (Metoprolol Tartrate), 25 MG PO BID Multivitamin (Multivitamins), 1 TAB PO DAILY, (Reported) Pantoprazole Sodium (Pantoprazole Sodium), 1 TAB PO DAILY, (Reported) Prednisone (Prednisone), 80 MG PO DAILY Warfarin Sodium (Coumadin), 7 MG PO DAILY, (Reported) Scheduled PRN Acetaminophen (Tylenol), 2 TAB PO PRN Q6HRS PRN for PAIN, (Reported) Clonazepam (Clonazepam), 1 TAB PO DAILY PRN for ANXIETY / AGITATION, (Reported) Patient Instructions Patient Instructions > 30 min face to face HUBER LI MD Aug 11, 2017 23:01
== END 2017-07-13 16:14 | DRG 682 ==
LOC: ER 16:55 → 2 SOUTH 17:25 → 5 SOUTH 17:25 → UNDOADMIN 17:25 → 1 WEST ICU 07-10 01:15 → 2 NORTH 07-10 13:15
PROVIDERS: ADMIT Internal Medicine; ATTEND Internal Medicine
DX: N17.0 Acute kidney failure with tubular necrosis (principal); E11.00 Type 2 diabetes mellitus with hyperosmolarity without nonketotic hyperglycemic-hyperosmolar coma (NKHHC); G93.41 Metabolic encephalopathy; E87.0 Hyperosmolality and hypernatremia; I13.0 Hypertensive heart and chronic kidney disease with heart failure and stage 1 through stage 4 chronic kidney disease, or unspecified chronic kidney disease; E87.1 Hypo-osmolality and hyponatremia; I50.22 Chronic systolic (congestive) heart failure; I69.351 Hemiplegia and hemiparesis following cerebral infarction affecting right dominant side; I42.9 Cardiomyopathy, unspecified; E11.649 Type 2 diabetes mellitus with hypoglycemia without coma; I49.8 Other specified cardiac arrhythmias; Z66 Do not resuscitate; E78.5 Hyperlipidemia, unspecified; E87.6 Hypokalemia; E78.00 Pure hypercholesterolemia, unspecified; E11.65 Type 2 diabetes mellitus with hyperglycemia; I48.0 Paroxysmal atrial fibrillation; M19.90 Unspecified osteoarthritis, unspecified site; M62.421 Contracture of muscle, right upper arm; D64.9 Anemia, unspecified; K21.9 Gastro-esophageal reflux disease without esophagitis; F41.9 Anxiety disorder, unspecified; G47.00 Insomnia, unspecified; Z79.01 Long term (current) use of anticoagulants; I69.320 Aphasia following cerebral infarction; Z83.3 Family history of diabetes mellitus; Z87.11 Personal history of peptic ulcer disease; Z79.4 Long term (current) use of insulin; N18.2 Chronic kidney disease, stage 2 (mild)
CPT/HCPCS: 36415; 80048; 80053; 81001; 82947; 82962; 83690; 83735; 84132; 85007; 85025; 85610; 87641; 93005; J1815; J2405; J7030; J7060; J7512; S0028; 97530; 97535

== ENCOUNTER 2020-09-08 21:27 | Inpatient (IN) | payer MEDICARE, MEDICAID ==
[~2020-09-08] VITALS: Ht 188 cm; Wt 107.0 kg
[~2020-09-08 21:27] MED LIST changes: +AMLO2.5T2 PO; +CARV12.511 PO; -CARV12.52 PO; +CLON-77 PO; -CLON0.5T3 PO; -FERR-26 PO; +FERR325T14 PO; +LISI10TA16 PO; -LISI10TA2 PO; +METF500T16 PO; -METF500T4 PO; +MULT-445 PO; -MULT1TAB52 PO; -PANT40TA5 PO; +PANT40TA77 PO; -SPIR25TA3 PO; +SPIR25TA5 PO; -WARF-78 PO; +WARF5TAB2 PO
[2020-09-08] MEDS ORDERED: DEXAMETHASONE SOD PHOS 20 MG/5 ML VIAL. IVP ONE (21:45)
[2020-09-08] MEDS ORDERED: cefTRIAXone IV Push 1 GM VIAL. IVP ONE (21:45)
[2020-09-08 21:52] LABS: BASO # 0.2 x10^3/uL (0.0-0.2); BASO % 1 % (0-3); EOS # 0.3 x10^3/uL (0.0-0.7); EOS % 2 % (0-3); HEMATOCRIT 37.1 % (39.0-53.0); HEMOGLOBIN 12.3 g/dL (13.0-17.5); LYMPH # 2.8 x10^3/uL (1.0-4.8); LYMPH % 18 % (24-48); MEAN CORPUSCULAR HEMOGLOBIN 29 pg (25-35); MEAN CORPUSCULAR HGB CONC 33 g/dL (31-37); MEAN CORPUSCULAR VOLUME 87 fL (79-100); MONO # 0.6 x10^3/uL (0.0-1.1); MONO % 4 % (0-9); NEUT # 11.5 x10^3/uL (1.8-7.7); NEUT % 75 % (31-73); PLATELET COUNT 226 x10^3/uL (140-400); RED BLOOD COUNT 4.25 x10^6/uL (4.30-5.70); WHITE BLOOD COUNT 15.3 x10^3/uL (4.0-11.0)
[2020-09-08 22:01] LABS: CALCIUM 8.9 mg/dL (8.5-10.1); CREATININE 1.4 mg/dL (0.7-1.3); GFR 61.2; POTASSIUM 4.6 mmol/L (3.5-5.1)
[2020-09-08 22:07] LABS: ALBUMIN 3.6 g/dL (3.4-5.0); ALBUMIN/GLOBULIN RATIO 0.9 (1.0-1.7); TOTAL BILIRUBIN 0.7 mg/dL (0.2-1.0); TOTAL PROTEIN 7.8 g/dL (6.4-8.2)
--- NOTE | 2020-09-08 22:14 | RAD ---
EXAM: CHEST 1 VIEW History: Shortness of breath COMPARISON: None available. TECHNIQUE: Single portable radiograph of the chest Findings/ impression: Low lung volumes and technique accentuates heart size and pulmonary vascularity. Bibasilar lung airsp nasim opacities likely atelectasis or infiltrates. Small bilateral pleural effusions. Mild prominent bi lateral interstitial lung markings could be mild congestive changes.. Electronically signed by: Gilbert Roy MD (09/08/2020 10:09 PM) [id number]
[2020-09-08] MEDS ORDERED: IPRATRPIUM/ALBUTEROL 0.5/2.5MG 3 ML NEBU. NEB ONE (23:00)
--- NOTE | 2020-09-08 23:23 | ED.ADGEN ---
Past Medical History Past Medical History: Diabetes-Type II, GERD, High Cholesterol, Hypertension, Stroke Additional Past Medical Histor: ulcerative colitis, aphasia Past Surgical History: Other Additional Past Surgical Histo: UNKNOWN Smoking Status: Never Smoker Alcohol Use: Occasionally Drug Use: None General Adult EDM: Chief Complaint: SHORTNESS OF BREATH HPI: HPI: Patient 65-year-old male who presents to the emergency room in respiratory distress. Patient has a history of COPD and was diagnosed with novel coronavirus 6 weeks prior to arrival. He started having shortness of breath at 7 PM. This progressively got worse. Upon EMS arrival he had a pulse ox of 76%. They gave him DuoNeb treatments and then placed him on a nonrebreather. Sandy ent denies any chest pain. History is limited due to patient's respiratory distress. Review of Systems: Review of Systems: Complete ROS is negative unless otherwise documented in HPI Current Medications: Current Medications Medications (Trade) Dose Ordered Sig/Mari Start Time Stop Time Status Last Admin Dose Admin Albuterol/ Ipratropium (Duoneb) 3 ml 1X ONCE 09/08/20 23:00 09/08/20 23:01 DC Ceftriaxone Sodium (Rocephin) 1 gm 1X ONCE 09/08/20 21:45 09/08/20 21:46 DC 09/08/20 22:19 1 GM Dexamethasone Sodium Phosphate (Decadron) 10 mg 1X ONCE 09/08/20 21:45 09/08/20 21:46 DC 09/08/20 22:19 10 MG Allergies: Allergies: Allergies Coded Allergies Type Severity Reaction Last Updated Verified No Known Drug Allergies 06/03/17 No Physical Exam: PE: General: Awake, alert, moderate distress. Well Nourished, well hydrated. Cooperative HEENT: Atraumatic, EOMI, PERRL, airway patent, moist oral mucosa Neck: Supple, trachea midline Respiratory: Respiratory distress, increased work of breathing, diffuse inspiratory and expiratory wheezing with minimal crackles CV: RRR, no murmur, cap refill <2 GI: Soft, nondistended, nontender, no masses MSK: No obvious deformities Skin: Warm, dry, intact Neuro: A&O x3, speech NL, sensory and motor grossly intact, no focal deficits Psych: Normal affect, normal mood, not suicidal or homicidal Current Patient Data: Labs: Laboratory Tests Test 09/08/20 21:45 White Blood Count 15.3 x10^3/uL (4.0-11.0) H Red Blood Count 4.25 x10^6/uL (4.30-5.70) L Hemoglobin 12.3 g/dL (13.0-17.5) L Hematocrit 37.1 % (39.0-53.0) L Mean Corpuscular Volume 87 fL (79-100) Mean Corpuscular Hemoglobin 29 pg (25-35) Mean Corpuscular Hemoglobin Concent 33 g/dL (31-37) Red Cell Distribution Width 16.0 % (11.5-14.5) H Platelet Count 226 x10^3/uL (140-400) Neutrophils (%) (Auto) 75 % (31-73) H Lymphocytes (%) (Auto) 18 % (24-48) L Monocytes (%) (Auto) 4 % (0-9) Eosinophils (%) (Auto) 2 % (0-3) Basophils (%) (Auto) 1 % (0-3) Neutrophils # (Auto) 11.5 x10^3/uL (1.8-7.7) H Lymphocytes # (Auto) 2.8 x10^3/uL (1.0-4.8) Monocytes # (Auto) 0.6 x10^3/uL (0.0-1.1) Eosinophils # (Auto) 0.3 x10^3/uL (0.0-0.7) Basophils # (Auto) 0.2 x10^3/uL (0.0-0.2) Sodium Level 137 mmol/L (136-145) Potassium Level 4.6 mmol/L (3.5-5.1) Chloride Level 105 mmol/L (98-107) Carbon Dioxide Level 26 mmol/L (21-32) Anion Gap 6 (6-14) Blood Urea Nitrogen 21 mg/dL (8-26) Creatinine 1.4 mg/dL (0.7-1.3) H Estimated GFR (Cockcroft-Gault) 61.2 BUN/Creatinine Ratio 15 (6-20) Glucose Level 125 mg/dL (70-99) H Calcium Level 8.9 mg/dL (8.5-10.1) Total Bilirubin 0.7 mg/dL (0.2-1.0) Aspartate Amino Transferase (AST) 25 U/L (15-37) Alanine Aminotransferase (ALT) 33 U/L (16-63) Alkaline Phosphatase 71 U/L (46-116) Troponin I Quantitative < 0.017 ng/mL (0.000-0.055) Total Protein 7.8 g/dL (6.4-8.2) Albumin 3.6 g/dL (3.4-5.0) Albumin/Globulin Ratio 0.9 (1.0-1.7) L Laboratory Tests 09/08/20 21:45 Laboratory Tests 09/08/20 21:45 Vital Signs: Vital Signs Date Time Temp Pulse Resp B/P (MAP) Pulse Ox O2 Delivery O2 Flow Rate FiO2 09/08/20 21:38 97.4 90 28 140/90 (107) 90 NonRebreather Mask 15.0 97.4 EKG: EKG: [] Heart Score: Risk Factors: Risk Factors: DM, Current or recent (<one month) smoker, HTN, HLP, family history of CAD, obesity. Risk Scores: Score 0 - 3: 2.5% MACE over next 6 weeks - Discharge Home Score 4 - 6: 20.3% MACE over next 6 weeks - Admit for Clinical Observation Score 7 - 10: 72.7% MACE over next 6 weeks - Early Invasive Strategies Radiology/Procedures: Radiology/Procedures: [] Course & Med Decision Making: Course & Med Decision Making Pertinent Labs and Imaging studies reviewed. (See chart for details) Patient is a 65-year-old man with a history of COPD who presents the emergency room complaining of severe shortness of breath. On exam, patient has diffuse severe wheezing, decreased breath sounds, tachypnea, respiratory distress. Patient is likely having a severe COPD exacerbation. He had Covid 6 weeks ago. Steroids and DuoNeb treatments were ordered. Due to hypoxia patient is requiring oxygen. Patient does need BiPAP at this time. Chest x-ray was ordered due to his severe shortness of breath to rule out other pathology. Basic labs were also ordered. On reevaluation, patient is significantly improved on BiPAP. ABG after an hour on BiPAP is normal. Work up was reviewed and was remarkable for respiratory failure. At this time, patient would benefit from further work up and management. Patient is not stable for discharge at this time. Results, vitals, interventions, and plan was discussed with the patient. Patient was given opportunity to ask any questions and are in agreement with plan for admission. Patient was discussed with admitting physician and bridge admission orders were placed. Further care will be managed by inpatient team.. Walt Disclaimer: Walt Disclaimer: This electronic medical record was generated, in whole or in part, using a voice recognition dictation system. Departure Departure Impression: Primary Impression: COPD (chronic obstructive pulmonary disease) Additional Impression: Respiratory failure with hypoxia Disposition: ADMITTED INPT THIS HOSP Condition: IMPROVED Referrals: ABDI ADKINS MD (PCP) Problem Qualifiers FISH SHERMAN MD Sep 08, 2020 23:22
[2020-09-08 23:58] LABS: BASE EXCESS ABG -3 mmol/L (-3-3); HCO3 ABG 22 mmol/L (21-28); PCO2 ABG 39 mmHg (35-46); PO2 ABG 80 mmHg (65-108); SAT O2 ABG 95 % (92-99)
[2020-09-08 23:59] LABS: FIO2 ABG 40
[2020-09-09 02:45] VITALS: BP 155/79
[2020-09-09] MEDS ORDERED: ONDA4TAB7 PO (03:16)
[2020-09-09] MEDS ORDERED: FURO40TA4 PO (03:16)
[2020-09-09] MEDS ORDERED: INSU100V13 SQ (03:17)
[2020-09-09] MEDS ORDERED: MAGN400T5 PO (03:18)
[2020-09-09] MEDS ORDERED: METF10007 PO (03:18)
[2020-09-09] MEDS ORDERED: PANT20TA2 PO (03:20)
[2020-09-09] MEDS ORDERED: INSU100C4 SQ (03:20)
[2020-09-09] MEDS ORDERED: SERT25TA PO (03:21)
[2020-09-09] MEDS ORDERED: ASCO500C PO (03:22)
[2020-09-09] MEDS ORDERED: ALBU2.5V8 IH (03:22)
[2020-09-09] MEDS ORDERED: AMLO-186 PO (03:22)
[2020-09-09] MEDS ORDERED: BREO ELLIPTA 11 EACH IH (03:23)
[2020-09-09] MEDS ORDERED: CARV12.511 PO (03:24)
[2020-09-09] MEDS ORDERED: APIX5TAB PO (03:25)
--- NOTE | 2020-09-09 03:47 | EKG ---
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
[2020-09-09] MEDS ORDERED: MORPHINE SULFATE 4 MG/ML VIAL. IV PRN (04:00)
[2020-09-09 07:00] VITALS: BP 138/71
--- NOTE | 2020-09-09 09:36 | PDOC1 ---
History and Physical Date of Service: DOS: DATE: 09/09/20 TIME: 09:33 Chief Complaint: Chief Complain: SOB History of Present Illness: HPI: 65-year-old male who presents to the emergency room in respiratory distress. Patient has a history of COPD and was diagnosed with novel coronavirus 6 weeks prior to arrival. He started having shortness of breath at 7 PM. This progressively got worse. Upon EMS arrival he had a pulse ox of 76%. They gave him DuoNeb treatments and then placed him on a nonrebreather. Patient denies a ny chest pain. History is limited due to patient's respiratory distress. Past Medical/Surgical History: PMH/PSH: Past Medical History: Diabetes-Type II, GERD, High Cholesterol, Hypertension, Stroke, ulcerative colitis, aphasia Past Surgical History: UNKNOWN Allergies: Allergies: Coded Allergies: No Known Drug Allergies (Unverified , 06/03/17) Family History: Family History: Reviewed with no relevant findings Social History: Social History: Smoking Status: Never Smoker Alcohol Use: Occasionally Drug Use: None Current Medications: Current Medications Current Medications Ceftriaxone Sodium (Rocephin) 1 gm 1X ONCE IVP Last administered on 09/08/20at 22:19; Start 09/08/20 at 21:45; Stop 09/08/20 at 21:46; Status DC Dexamethasone Sodium Phosphate (Decadron) 10 mg 1X ONCE IVP Last administered on 09/08/20at 22:19; Start 09/08/20 at 21:45; Stop 09/08/20 at 21:46; Status DC Albuterol/ Ipratropium (Duoneb) 3 ml 1X ONCE NEB Last administered on 09/08/20at 23:00; Start 09/08/20 at 23:00; Stop 09/08/20 at 23:01; Status DC Active Scripts Active Folic Acid 1 Mg Tablet 1 Mg PO DAILY 30 Days Reported Eliquis (Apixaban) 5 Mg Tablet 5 Mg PO BID Carvedilol (Carvedilol) 12.5 Mg Tablet 12.5 Mg PO BID Breo Ellipta 100-25 Mcg Inh (Fluticasone/Vilanterol) 1 Each Aer.pow.ba 1 Puff IH DAILY Vitamin C (Ascorbic Acid) 500 Mg Capsule.er 1 Cap PO DAILY 30 Days Amlodipine Besylate 5 Mg Tablet 5 Mg PO DAILY Proair Hfa (Albuterol Sulfate) 8.5 Gm Hfa.aer.ad 2 Puff IH PRN Q4-6HRS PRN 21 Days Zoloft (Sertraline Hcl) 25 Mg Tablet 3 Tab PO DAILY Protonix (Pantoprazole Sodium) 20 Mg Tablet.dr 1 Tab PO HS Novolog (Insulin Aspart) 100 Unit/1 Ml Cartridge 13 Unit SQ TIDAC Metformin Hcl 1,000 Mg Tablet 1,000 Mg PO BIDWMEALS Magnesium Oxide 400 Mg Tablet 1 Tab PO BID Levemir (Insulin Detemir) 100 Unit/1 Ml Vial 10 Unit SQ HS Furosemide 40 Mg Tablet 1 Tab PO DAILY Zofran (Ondansetron Hcl) 4 Mg Tablet 1 Tab PO Q4HRS PRN Multivitamins (Multivitamin) 1 Each Tablet 1 Tab PO DAILY Metformin Hcl 500 Mg Tablet 500 Mg PO DAILY Lisinopril 10 Mg Tablet 1 Tab PO DAILY Ferrous Sulfate 325 Mg Tablet 325 Mg PO BID Atorvastatin Calcium 40 Mg Tablet 1 Tab PO QHS Tylenol (Acetaminophen) 325 Mg Tablet 2 Tab PO PRN Q6HRS PRN Do not exceed 3000mg in 24hr period ROS: Review of Systems Review of System REVIEW OF SYSTEMS: GENERAL: Denies weakness SKIN: No bruising, hair changes or rashes. EYES: No blurred, double or loss of vision. NOSE AND THROAT: No history of nosebleeds, hoarseness or sore throat. HEART: No history of palpitations, chest pain or shortness of breath on exertion. LUNGS: Denies cough, hemoptysis, wheezing or shortness of breath. GASTROINTESTINAL: Denies changes in appetite, nausea, vomiting, diarrhea or constipation. GENITOURINARY: No history of frequency, urgency, hesitancy or nocturia. NEUROLOGIC: Denies history of numbness, tingling, or tremor. PSYCHIATRIC: No history of panic, anxiety or depression. ENDOCRINE: No history of heat or cold intolerance, polyuria or polydipsia. EXTREMITIES: Denies joint pain, pain on walking or stiffness. Physical Exam: Vital Signs: Vital Signs Date Time Temp Pulse Resp B/P (MAP) Pulse Ox O2 Delivery O2 Flow Rate FiO2 09/09/20 07:00 96.3 86 20 138/71 (93) 100 Nasal Cannula 4.0 96.3 Physcial Exam: GEN: No apparent distress. Alert and oriented HEENT: Normal cephalic, atraumatic, external auditory canals are patent EYES: Extraocular muscles are intact, pupil are equally round and reactive to light and accommodation MUSCULOSKELETAL: Well developed , well nourished, good range of motion ENDOCRINE: No thyromegaly was palpated LYMPHATICS: No cervical chain or axillary nodes were noted HEMATOPOIETIC: No bruising NECK: Supple, no JVD, no thyromegaly was noted LUNGS: Clear to auscultation in all lung downey without rhonchi or wheezing HEART: RRR, S!, S2 present. Peripheral pulses intact, no obvious murmurs noted ABDOMEN: Soft, nontender. Positive bowel sounds, no organomegaly, normal bowel sounds EXTREMITIES: Without clubbing, cyanosis, or edema. Pedal pulses intact. Negative Homans sign NEUROLOGIC: Normal speech and tone. A&O x 3, moves all extremities, no obvious focal deficits PSYCHIATRIC: Normal affect, normal mood. Stable SKIN: No ulcerations or rashes, good skin turgor, no jaundice VASCULAR: Good capillary refill, neurovascular bundle appears to be intact Labs: Labs: Laboratory Tests Test 09/08/20 21:45 09/08/20 22:36 09/09/20 07:49 White Blood Count 15.3 x10^3/uL (4.0-11.0) Red Blood Count 4.25 x10^6/uL (4.30-5.70) Hemoglobin 12.3 g/dL (13.0-17.5) Hematocrit 37.1 % (39.0-53.0) Mean Corpuscular Volume 87 fL (79-100) Mean Corpuscular Hemoglobin 29 pg (25-35) Mean Corpuscular Hemoglobin Concent 33 g/dL (31-37) Red Cell Distribution Width 16.0 % (11.5-14.5) Platelet Count 226 x10^3/uL (140-400) Neutrophils (%) (Auto) 75 % (31-73) Lymphocytes (%) (Auto) 18 % (24-48) Monocytes (%) (Auto) 4 % (0-9) Eosinophils (%) (Auto) 2 % (0-3) Basophils (%) (Auto) 1 % (0-3) Neutrophils # (Auto) 11.5 x10^3/uL (1.8-7.7) Lymphocytes # (Auto) 2.8 x10^3/uL (1.0-4.8) Monocytes # (Auto) 0.6 x10^3/uL (0.0-1.1) Eosinophils # (Auto) 0.3 x10^3/uL (0.0-0.7) Basophils # (Auto) 0.2 x10^3/uL (0.0-0.2) Sodium Level 137 mmol/L (136-145) Potassium Level 4.6 mmol/L (3.5-5.1) Chloride Level 105 mmol/L (98-107) Carbon Dioxide Level 26 mmol/L (21-32) Anion Gap 6 (6-14) Blood Urea Nitrogen 21 mg/dL (8-26) Creatinine 1.4 mg/dL (0.7-1.3) Estimated GFR (Cockcroft-Gault) 61.2 BUN/Creatinine Ratio 15 (6-20) Glucose Level 125 mg/dL (70-99) Calcium Level 8.9 mg/dL (8.5-10.1) Total Bilirubin 0.7 mg/dL (0.2-1.0) Aspartate Amino Transf (AST/SGOT) 25 U/L (15-37) Alanine Aminotransferase (ALT/SGPT) 33 U/L (16-63) Alkaline Phosphatase 71 U/L (46-116) Troponin I Quantitative < 0.017 ng/mL (0.000-0.055) Total Protein 7.8 g/dL (6.4-8.2) Albumin 3.6 g/dL (3.4-5.0) Albumin/Globulin Ratio 0.9 (1.0-1.7) O2 Saturation 95 % (92-99) Arterial Blood pH 7.37 (7.35-7.45) Arterial Blood pCO2 at Patient Temp 39 mmHg (35-46) Arterial Blood pO2 at Patient Temp 80 mmHg (65-108) Arterial Blood HCO3 22 mmol/L (21-28) Arterial Blood Base Excess -3 mmol/L (-3-3) FiO2 40 Glucose (Fingerstick) 168 mg/dL (70-99) Laboratory Tests Test 09/08/20 21:45 09/08/20 22:36 09/09/20 07:49 White Blood Count 15.3 x10^3/uL (4.0-11.0) Red Blood Count 4.25 x10^6/uL (4.30-5.70) Hemoglobin 12.3 g/dL (13.0-17.5) Hematocrit 37.1 % (39.0-53.0) Mean Corpuscular Volume 87 fL (79-100) Mean Corpuscular Hemoglobin 29 pg (25-35) Mean Corpuscular Hemoglobin Concent 33 g/dL (31-37) Red Cell Distribution Width 16.0 % (11.5-14.5) Platelet Count 226 x10^3/uL (140-400) Neutrophils (%) (Auto) 75 % (31-73) Lymphocytes (%) (Auto) 18 % (24-48) Monocytes (%) (Auto) 4 % (0-9) Eosinophils (%) (Auto) 2 % (0-3) Basophils (%) (Auto) 1 % (0-3) Neutrophils # (Auto) 11.5 x10^3/uL (1.8-7.7) Lymphocytes # (Auto) 2.8 x10^3/uL (1.0-4.8) Monocytes # (Auto) 0.6 x10^3/uL (0.0-1.1) Eosinophils # (Auto) 0.3 x10^3/uL (0.0-0.7) Basophils # (Auto) 0.2 x10^3/uL (0.0-0.2) Sodium Level 137 mmol/L (136-145) Potassium Level 4.6 mmol/L (3.5-5.1) Chloride Level 105 mmol/L (98-107) Carbon Dioxide Level 26 mmol/L (21-32) Anion Gap 6 (6-14) Blood Urea Nitrogen 21 mg/dL (8-26) Creatinine 1.4 mg/dL (0.7-1.3) Estimated GFR (Cockcroft-Gault) 61.2 BUN/Creatinine Ratio 15 (6-20) Glucose Level 125 mg/dL (70-99) Calcium Level 8.9 mg/dL (8.5-10.1) Total Bilirubin 0.7 mg/dL (0.2-1.0) Aspartate Amino Transf (AST/SGOT) 25 U/L (15-37) Alanine Aminotransferase (ALT/SGPT) 33 U/L (16-63) Alkaline Phosphatase 71 U/L (46-116) Troponin I Quantitative < 0.017 ng/mL (0.000-0.055) Total Protein 7.8 g/dL (6.4-8.2) Albumin 3.6 g/dL (3.4-5.0) Albumin/Globulin Ratio 0.9 (1.0-1.7) O2 Saturation 95 % (92-99) Arterial Blood pH 7.37 (7.35-7.45) Arterial Blood pCO2 at Patient Temp 39 mmHg (35-46) Arterial Blood pO2 at Patient Temp 80 mmHg (65-108) Arterial Blood HCO3 22 mmol/L (21-28) Arterial Blood Base Excess -3 mmol/L (-3-3) FiO2 40 Glucose (Fingerstick) 168 mg/dL (70-99) Images: Images CXR impression: Low lung volumes and technique accentuates heart size and pulmonary vascularity. Bibasilar lung airspace opacities likely atelectasis or infiltrates. Small bilateral pleural effusions. Mild prominent bilateral interstitial lung markings could be mild congestive changes.. Assessment/Plan Assessment/Plan Acute hypoxic respiratory failure COPD exacerbation History of Covid infection CHF with a EF of 25% in 2017 on echocardiogram HILARIO due to vasomotor nephropathy Reactive leukocytosis Normocytic anemia due to chronic disease Admit to medicine for further management Pulmonology consult for COPD Strict I's and O's Restart home medications Will attempt trial diuresis IV Eliquis for DVT prophylaxis Protonix GI prophylaxis ADA diet Full code Discussed with RN and SW Disposition inpatient management as above Surrogate decision maker is Kalli Justifications for Admission Other Justification NATHAN VILCHIS MD Sep 09, 2020 09:36
--- NOTE | 2020-09-09 09:54 | CONS ---
DATE OF CONSULTATION: PULMONARY CONSULTATION ATTENDING PHYSICIAN: Jarred Yuen MD. REASON FOR CONSULTATION: Dyspnea, respiratory failure. HISTORY OF PRESENT ILLNESS: The patient is a 65-year-old male who has past medical history of cardiomyopathy with an EF of 25% based on echo in 2017. He also has 30+ years of tobacco use. He was brought into the hospital with shortness of breath. The patient was diagnosed with coronavirus 6 weeks prior to arrival. The patient was hypoxic on arrival with saturations of 76%. He was given breathing treatments and placed on a nonrebreather mask. The patient denies any chest pains. He has not been febrile since hospitalization. The patient's chest x-ray was reviewed. There is evidence of bilateral interstitial infiltrates and small bilateral pleural effusions. Findings are more suggestive of congestive heart failure. I have been asked to see him for further evaluation. PAST MEDICAL HISTORY: Type 2 diabetes, GERD, dyslipidemia, hypertension, stroke, history of cardiomyopathy with an EF of 25% in 2017 echo, and history of likely COPD. PAST SURGICAL HISTORY: None recently. ALLERGIES: None. MEDICATIONS: Reviewed as listed in the MRAD. REVIEW OF SYSTEMS: Ten-point system obtained. Pertinent positives discussed in my history of present illness, otherwise noncontributory. All systems that were negative were reviewed as well. FAMILY HISTORY: Noncontributory to lungs. PHYSICAL EXAMINATION: VITAL SIGNS: Reviewed. Currently, he is on 15 liters oxygen mask as saturation 96%. Due to COVID suspicion, no physical exam done. He is afebrile. He has no paradoxical breathing. SKIN: No skin rash. EXTREMITIES: No leg edema. LABORATORY DATA: Reviewed. White cell count 15.3, hemoglobin 12.3 and platelets are 226. ABGs with a pH of 7.37, pCO2 of 39, pO2 of 80 on 40% FiO2. BUN 21, creatinine 1.4. IMPRESSION: 1. Acute hypoxic respiratory failure, likely secondary to acute systolic congestive heart failure. The patient with known history of ejection fraction of 25% in 2017. Cannot exclude the possibility of residual infiltrates from COVID infection. 2. Underlying chronic obstructive pulmonary disease, also complained of respiratory failure. 3. History of coronavirus-19 infection diagnosed 6 weeks prior to arrival. Repeat test is pending. RECOMMENDATIONS: 1. We will continue present oxygen to keep saturation 92 and above. 2. Trial of diuresis. 3. Follow chest x-ray post-diuresis. 4. Rule out COVID-19. 5. Repeat echocardiogram. 6. Bronchodilators via nebulizer once COVID ruled out. 7. We will hold off on steroids for now. 8. Discussed with RN. CHRIS GUERRERO MD DR: MARYLOU/jenna JOB#: [id number] / [id number]
[2020-09-09] MEDS ORDERED: FUROSEMIDE 40 MG/4 ML VIAL. IVP ONE (10:00)
--- NOTE | 2020-09-09 10:00 | NUR ---
Wound Care Wound Type/Assessment: Pt seen for R great toe DFU. Upon assessment, pt has a small intact, eschar covered ulcer on the plantar surface of his great toe. Area is dry, stable and intact, no fluctuance or redness noted. Area skin prepped and left YAYA. No other wounds noted on full skin inspection. Treatment Recommendations/Plan: skin prep Education provided: to pt re: DFUs, foot checks Offloading surface/device: Pt should have diabetic footwear Recommended Referrals/Tests: n/a Discharge Recommendations for dressings: YAYA
[2020-09-09 11:00] VITALS: BP 144/77
[2020-09-09] MEDS ORDERED: DEXTROSE 50% 25 GM / 50ML DISP.SYRIN. IV PRN ×2 (12:45→17:30)
[2020-09-09] MEDS: INSULIN LISPRO 300 UNITS/3 ML VIAL. SQ SCH ×3 (13:28→17:11)
[2020-09-09 15:00] VITALS: BP 144/70
[2020-09-09] MEDS ORDERED: ACETAMINOPHEN 325 MG TABLET. PO PRN ×2 (15:15→17:30)
[2020-09-09] MEDS: CARVEDILOL 12.5 MG TABLET. PO SCH (16:13)
--- NOTE | 2020-09-09 16:25 | NUR ---
SS following for discharge planning. SS reviewed pt chart and discussed with pt RN. Pt is resident from [facility], ; fax [phone]. Pt has history of COVID19 from 08/02/2020. Pt is currently on nasal canula oxygen. [place] reporting that pt does not need COVID19 test to return. SS will continue to follow for discharge planning.
[2020-09-09] MEDS ORDERED: SENNOSIDES 8.6 MG TABLET PO PRN (17:30)
[2020-09-09] MEDS ORDERED: DOCUSATE SODIUM 100 MG CAPSULE. PO PRN (17:30)
[2020-09-09] MEDS ORDERED: ONDANSETRON PF 4 MG/2 ML VIAL. IVP PRN (17:30)
[2020-09-09 19:53] VITALS: BP 119/60
[2020-09-09] MEDS: PANTOPRAZOLE 40 MG TABLET.DR. PO SCH (21:36)
[2020-09-09] MEDS: APIXABAN 5 MG TABLET. PO SCH (21:36)
[2020-09-09] MEDS: ATORVASTATIN CALCIUM 40 MG TABLET. PO SCH (21:36)
[2020-09-09] MEDS: INSULIN GLARGINE SYRINGE. SQ SCH (21:37)
[2020-09-09 23:40] VITALS: BP 132/73
[2020-09-10 03:43] VITALS: BP 140/75
[2020-09-10 07:00] VITALS: BP 136/71
[2020-09-10] MEDS: INSULIN LISPRO 300 UNITS/3 ML VIAL. SQ SCH ×6 (08:00→16:52)
[2020-09-10 08:05] LABS: BASO % 0 % (0-3); EOS # 0.1 x10^3/uL (0.0-0.7); EOS % 1 % (0-3); HEMATOCRIT 33.8 % (39.0-53.0); HEMOGLOBIN 10.9 g/dL (13.0-17.5); LYMPH # 1.9 x10^3/uL (1.0-4.8); LYMPH % 26 % (24-48); MEAN CORPUSCULAR HEMOGLOBIN 28 pg (25-35); MEAN CORPUSCULAR HGB CONC 32 g/dL (31-37); MEAN CORPUSCULAR VOLUME 87 fL (79-100); MONO # 0.4 x10^3/uL (0.0-1.1); MONO % 6 % (0-9); NEUT # 4.9 x10^3/uL (1.8-7.7); NEUT % 68 % (31-73); PLATELET COUNT 196 x10^3/uL (140-400); RED BLOOD COUNT 3.87 x10^6/uL (4.30-5.70); RED CELL DISTRIBUTION WIDTH 15.8 % (11.5-14.5); WHITE BLOOD COUNT 7.2 x10^3/uL (4.0-11.0)
[2020-09-10 08:23] LABS: CALCIUM 8.5 mg/dL (8.5-10.1); CREATININE 1.5 mg/dL (0.7-1.3); GFR 56.5; MAGNESIUM 2.1 mg/dL (1.8-2.4); PHOSPHORUS 3.4 mg/dL (2.6-4.7); POTASSIUM 4.1 mmol/L (3.5-5.1)
[2020-09-10] MEDS: APIXABAN 5 MG TABLET. PO SCH ×2 (08:55→20:35)
[2020-09-10] MEDS: SERTRALINE 25 MG TABLET. PO SCH (08:55)
[2020-09-10] MEDS: ASCORBIC ACID 500 MG TABLET PO SCH (08:55)
[2020-09-10] MEDS: CARVEDILOL 12.5 MG TABLET. PO SCH ×2 (08:55→16:53)
[2020-09-10] MEDS ORDERED: ENOXAPARIN 30 MG/0.3 ML SYRINGE. SQ SCH (09:00)
[2020-09-10 11:00] VITALS: BP 116/64
--- NOTE | 2020-09-10 11:44 | NUR ---
SS following up with discharge planning. SS reviewed pt chart and discussed with pt RN. Pt is currently requiring oxygen at four liters nasal canula. Pt is from [facility], ; fax [phone]. Possible discharge back to facility today. SS phoned and faxed clinical updates to [facility] [place]Note 2] and [facility]. SS will continue to follow for discharge planning.
--- NOTE | 2020-09-10 11:52 | PDOC ---
PULMONARY PROGRESS NOTES DATE: 09/10/20 TIME: 11:46 Subjective Pt. is resting on 4 liters N/C afebrile no overnight concerns Vitals Vital Signs Date Time Temp Pulse Resp B/P (MAP) Pulse Ox O2 Delivery O2 Flow Rate FiO2 09/10/20 09:26 94 Nasal Cannula 4.0 09/10/20 08:55 70 136/71 09/10/20 07:00 97.4 18 97.4 ROS: No Nausea, No Chest Pain, No Abdominal Pain, No Increase Cough General: Alert Lungs: Clear Cardiovascular: S1, S2 Abdomen: Soft, Non-tender Neuro Exam: Alert, Oriented Skin: Warm, Dry Labs Laboratory Tests Test 09/08/20 21:45 09/08/20 22:36 09/09/20 07:49 09/09/20 12:05 White Blood Count 15.3 x10^3/uL (4.0-11.0) Red Blood Count 4.25 x10^6/uL (4.30-5.70) Hemoglobin 12.3 g/dL (13.0-17.5) Hematocrit 37.1 % (39.0-53.0) Mean Corpuscular Volume 87 fL (79-100) Mean Corpuscular Hemoglobin 29 pg (25-35) Mean Corpuscular Hemoglobin Concent 33 g/dL (31-37) Red Cell Distribution Width 16.0 % (11.5-14.5) Platelet Count 226 x10^3/uL (140-400) Neutrophils (%) (Auto) 75 % (31-73) Lymphocytes (%) (Auto) 18 % (24-48) Monocytes (%) (Auto) 4 % (0-9) Eosinophils (%) (Auto) 2 % (0-3) Basophils (%) (Auto) 1 % (0-3) Neutrophils # (Auto) 11.5 x10^3/uL (1.8-7.7) Lymphocytes # (Auto) 2.8 x10^3/uL (1.0-4.8) Monocytes # (Auto) 0.6 x10^3/uL (0.0-1.1) Eosinophils # (Auto) 0.3 x10^3/uL (0.0-0.7) Basophils # (Auto) 0.2 x10^3/uL (0.0-0.2) Sodium Level 137 mmol/L (136-145) Potassium Level 4.6 mmol/L (3.5-5.1) Chloride Level 105 mmol/L (98-107) Carbon Dioxide Level 26 mmol/L (21-32) Anion Gap 6 (6-14) Blood Urea Nitrogen 21 mg/dL (8-26) Creatinine 1.4 mg/dL (0.7-1.3) Estimated GFR (Cockcroft-Gault) 61.2 BUN/Creatinine Ratio 15 (6-20) Glucose Level 125 mg/dL (70-99) Calcium Level 8.9 mg/dL (8.5-10.1) Total Bilirubin 0.7 mg/dL (0.2-1.0) Aspartate Amino Transf (AST/SGOT) 25 U/L (15-37) Alanine Aminotransferase (ALT/SGPT) 33 U/L (16-63) Alkaline Phosphatase 71 U/L (46-116) Troponin I Quantitative < 0.017 ng/mL (0.000-0.055) Total Protein 7.8 g/dL (6.4-8.2) Albumin 3.6 g/dL (3.4-5.0) Albumin/Globulin Ratio 0.9 (1.0-1.7) O2 Saturation 95 % (92-99) Arterial Blood pH 7.37 (7.35-7.45) Arterial Blood pCO2 at Patient Temp 39 mmHg (35-46) Arterial Blood pO2 at Patient Temp 80 mmHg (65-108) Arterial Blood HCO3 22 mmol/L (21-28) Arterial Blood Base Excess -3 mmol/L (-3-3) FiO2 40 Glucose (Fingerstick) 168 mg/dL (70-99) 194 mg/dL (70-99) Test 09/09/20 16:53 09/09/20 21:21 09/10/20 07:17 09/10/20 07:20 Glucose (Fingerstick) 182 mg/dL (70-99) 126 mg/dL (70-99) 126 mg/dL (70-99) White Blood Count 7.2 x10^3/uL (4.0-11.0) Red Blood Count 3.87 x10^6/uL (4.30-5.70) Hemoglobin 10.9 g/dL (13.0-17.5) Hematocrit 33.8 % (39.0-53.0) Mean Corpuscular Volume 87 fL (79-100) Mean Corpuscular Hemoglobin 28 pg (25-35) Mean Corpuscular Hemoglobin Concent 32 g/dL (31-37) Red Cell Distribution Width 15.8 % (11.5-14.5) Platelet Count 196 x10^3/uL (140-400) Neutrophils (%) (Auto) 68 % (31-73) Lymphocytes (%) (Auto) 26 % (24-48) Monocytes (%) (Auto) 6 % (0-9) Eosinophils (%) (Auto) 1 % (0-3) Basophils (%) (Auto) 0 % (0-3) Neutrophils # (Auto) 4.9 x10^3/uL (1.8-7.7) Lymphocytes # (Auto) 1.9 x10^3/uL (1.0-4.8) Monocytes # (Auto) 0.4 x10^3/uL (0.0-1.1) Eosinophils # (Auto) 0.1 x10^3/uL (0.0-0.7) Basophils # (Auto) 0.0 x10^3/uL (0.0-0.2) Sodium Level 147 mmol/L (136-145) Potassium Level 4.1 mmol/L (3.5-5.1) Chloride Level 108 mmol/L (98-107) Carbon Dioxide Level 30 mmol/L (21-32) Anion Gap 9 (6-14) Blood Urea Nitrogen 26 mg/dL (8-26) Creatinine 1.5 mg/dL (0.7-1.3) Estimated GFR (Cockcroft-Gault) 56.5 Glucose Level 108 mg/dL (70-99) Calcium Level 8.5 mg/dL (8.5-10.1) Phosphorus Level 3.4 mg/dL (2.6-4.7) Magnesium Level 2.1 mg/dL (1.8-2.4) Laboratory Tests Test 09/09/20 12:05 09/09/20 16:53 09/09/20 21:21 09/10/20 07:17 Glucose (Fingerstick) 194 mg/dL (70-99) 182 mg/dL (70-99) 126 mg/dL (70-99) White Blood Count 7.2 x10^3/uL (4.0-11.0) Red Blood Count 3.87 x10^6/uL (4.30-5.70) Hemoglobin 10.9 g/dL (13.0-17.5) Hematocrit 33.8 % (39.0-53.0) Mean Corpuscular Volume 87 fL (79-100) Mean Corpuscular Hemoglobin 28 pg (25-35) Mean Corpuscular Hemoglobin Concent 32 g/dL (31-37) Red Cell Distribution Width 15.8 % (11.5-14.5) Platelet Count 196 x10^3/uL (140-400) Neutrophils (%) (Auto) 68 % (31-73) Lymphocytes (%) (Auto) 26 % (24-48) Monocytes (%) (Auto) 6 % (0-9) Eosinophils (%) (Auto) 1 % (0-3) Basophils (%) (Auto) 0 % (0-3) Neutrophils # (Auto) 4.9 x10^3/uL (1.8-7.7) Lymphocytes # (Auto) 1.9 x10^3/uL (1.0-4.8) Monocytes # (Auto) 0.4 x10^3/uL (0.0-1.1) Eosinophils # (Auto) 0.1 x10^3/uL (0.0-0.7) Basophils # (Auto) 0.0 x10^3/uL (0.0-0.2) Sodium Level 147 mmol/L (136-145) Potassium Level 4.1 mmol/L (3.5-5.1) Chloride Level 108 mmol/L (98-107) Carbon Dioxide Level 30 mmol/L (21-32) Anion Gap 9 (6-14) Blood Urea Nitrogen 26 mg/dL (8-26) Creatinine 1.5 mg/dL (0.7-1.3) Estimated GFR (Cockcroft-Gault) 56.5 Glucose Level 108 mg/dL (70-99) Calcium Level 8.5 mg/dL (8.5-10.1) Phosphorus Level 3.4 mg/dL (2.6-4.7) Magnesium Level 2.1 mg/dL (1.8-2.4) Test 09/10/20 07:20 Glucose (Fingerstick) 126 mg/dL (70-99) Medications Active Scripts Medications Dose Route/Sig Max Daily Dose Days Date Category Dose Instructions Eliquis (Apixaban) 5 Mg Tablet 5 Mg PO BID 09/09/20 Reported Carvedilol (Carvedilol) 12.5 Mg Tablet 12.5 Mg PO BID 09/09/20 Reported Breo Ellipta 100-25 Mcg Inh (Fluticasone/Vilanterol) 1 Each Aer.pow.ba 1 Puff IH DAILY 09/09/20 Reported Vitamin C (Ascorbic Acid) 500 Mg Capsule.er 1 Cap PO DAILY 30 09/09/20 Reported Amlodipine Besylate 5 Mg Tablet 5 Mg PO DAILY 09/09/20 Reported Proair Hfa (Albuterol Sulfate) 8.5 Gm Hfa.aer.ad 2 Puff IH PRN Q4-6HRS PRN 21 09/09/20 Reported Zoloft (Sertraline Hcl) 25 Mg Tablet 3 Tab PO DAILY 09/09/20 Reported Protonix (Pantoprazole Sodium) 20 Mg Tablet.dr 1 Tab PO HS 09/09/20 Reported Novolog (Insulin Aspart) 100 Unit/1 Ml Cartridge 13 Unit SQ TIDAC 09/09/20 Reported Metformin Hcl 1,000 Mg Tablet 1,000 Mg PO BIDWMEALS 09/09/20 Reported Magnesium Oxide 400 Mg Tablet 1 Tab PO BID 09/09/20 Reported Levemir (Insulin Detemir) 100 Unit/1 Ml Vial 10 Unit SQ HS 09/09/20 Reported Furosemide 40 Mg Tablet 1 Tab PO DAILY 09/09/20 Reported Zofran (Ondansetron Hcl) 4 Mg Tablet 1 Tab PO Q4HRS PRN 09/09/20 Reported Ferrous Sulfate 325 Mg Tablet 325 Mg PO BID 05/28/17 Reported Atorvastatin Calcium 40 Mg Tablet 1 Tab PO QHS 05/28/17 Reported Tylenol (Acetaminophen) 325 Mg Tablet 2 Tab PO PRN Q6HRS PRN 05/28/17 Reported Do not exceed 3000mg in 24hr period Comments CXR Findings/ impression: Low lung volumes and technique accentuates heart size and pulmonary vascularity. Bibasilar lung airspace opacities likely atelectasis or infiltrates. Small bilateral pleural effusions. Mild prominent bilateral interstitial lung markings could be mild congestive changes.. Impression . IMPRESSION: 1. Acute hypoxic respiratory failure, likely secondary to acute systolic congestive heart failure. The patient with known history of ejection fraction of 25% in 2017. Cannot exclude the possibility of residual infiltrates from COVID infection. 2. Underlying chronic obstructive pulmonary disease, also complained of respiratory failure. 3. History of coronavirus-19 infection diagnosed 6 weeks prior to arrival. Repeat test is pending. Plan . RECOMMENDATIONS: We will continue present oxygen to keep saturation 92 and above ,remains on 4 liters N/C Follow cardiology recs -- diuresis. Follow CXR Await repeat ECHO No need for steroids or ABX DVT/GI PPX D/W RN Ok to D/C from our stand point CHRIS GUERRERO MD Sep 10, 2020 11:52
--- NOTE | 2020-09-10 14:25 | PDOC ---
[facility] PROGRESS NOTE Date of Service DOS: DATE: 09/10/20 TIME: 14:23 Chief Complaint Chief Complaint Acute hypoxic respiratory failure COPD exacerbation History of Covid infection CHF with a EF of 25% in 2017 on echocardiogram HILARIO due to vasomotor nephropathy Reactive leukocytosis Normocytic anemia due to chronic disease Admit to medicine for further management Pulmonology consult for COPD Pending repeat echo after Covid test returns Strict I's and O's Restart home medications Will attempt trial diuresis IV Eliquis for DVT prophylaxis Protonix GI prophylaxis ADA diet Full code Discussed with RN and SW Disposition inpatient management as above anticipate discharge within the next 24 hours Surrogate decision maker is Kalli History of Present Illness History of Present Illness 09/10/2020 No acute events overnight. Patient seen and examined bedside. BiPAP was not necessary overnight. Patient is saturating 97% on 4 L nasal cannula. Patient's chart, labs, images were reviewed and discussed with RN 65-year-old male who presents to the emergency room in respiratory distress. Patient has a history of COPD and was diagnosed with novel coronavirus 6 weeks prior to arrival. He started having shortness of breath at 7 PM. This progressively got worse. Upon EMS arrival he had a pulse ox of 76%. They gave him DuoNeb treatments and then placed him on a nonrebreather. Patient denies any chest pain. History is limited due to patient's respiratory distress. Vitals/I&O Vitals/I&O: Vital Signs Date Time Temp Pulse Resp B/P (MAP) Pulse Ox O2 Delivery O2 Flow Rate FiO2 09/10/20 11:00 98.1 73 22 116/64 (81) 98 Nasal Cannula 4.0 98.1 I & O 09/09/20 09/09/20 09/10/20 15:00 23:00 07:00 Intake Total 360 ml 180 ml 300 ml Output Total 250 ml 100 ml Balance 110 ml 80 ml 300 ml Physical Exam Lungs: Clear Labs Labs: Laboratory Tests Test 09/09/20 16:53 09/09/20 21:21 09/10/20 07:17 09/10/20 07:20 Glucose (Fingerstick) 182 mg/dL (70-99) 126 mg/dL (70-99) 126 mg/dL (70-99) White Blood Count 7.2 x10^3/uL (4.0-11.0) Red Blood Count 3.87 x10^6/uL (4.30-5.70) Hemoglobin 10.9 g/dL (13.0-17.5) Hematocrit 33.8 % (39.0-53.0) Mean Corpuscular Volume 87 fL (79-100) Mean Corpuscular Hemoglobin 28 pg (25-35) Mean Corpuscular Hemoglobin Concent 32 g/dL (31-37) Red Cell Distribution Width 15.8 % (11.5-14.5) Platelet Count 196 x10^3/uL (140-400) Neutrophils (%) (Auto) 68 % (31-73) Lymphocytes (%) (Auto) 26 % (24-48) Monocytes (%) (Auto) 6 % (0-9) Eosinophils (%) (Auto) 1 % (0-3) Basophils (%) (Auto) 0 % (0-3) Neutrophils # (Auto) 4.9 x10^3/uL (1.8-7.7) Lymphocytes # (Auto) 1.9 x10^3/uL (1.0-4.8) Monocytes # (Auto) 0.4 x10^3/uL (0.0-1.1) Eosinophils # (Auto) 0.1 x10^3/uL (0.0-0.7) Basophils # (Auto) 0.0 x10^3/uL (0.0-0.2) Sodium Level 147 mmol/L (136-145) Potassium Level 4.1 mmol/L (3.5-5.1) Chloride Level 108 mmol/L (98-107) Carbon Dioxide Level 30 mmol/L (21-32) Anion Gap 9 (6-14) Blood Urea Nitrogen 26 mg/dL (8-26) Creatinine 1.5 mg/dL (0.7-1.3) Estimated GFR (Cockcroft-Gault) 56.5 Glucose Level 108 mg/dL (70-99) Calcium Level 8.5 mg/dL (8.5-10.1) Phosphorus Level 3.4 mg/dL (2.6-4.7) Magnesium Level 2.1 mg/dL (1.8-2.4) Test 09/10/20 11:22 Glucose (Fingerstick) 165 mg/dL (70-99) Assessment and Plan Assessmemt and Plan Problems Medical Problems: (1) COPD (chronic obstructive pulmonary disease) Status: Acute (2) Respiratory failure with hypoxia Status: Acute Comment Review of Relevant I have reviewed the following items yulissa (where applicable) has been applied. Medications: Current Medications Medications (Trade) Dose Ordered Sig/Mari Route PRN Reason Start Time Stop Time Status Last Admin Dose Admin Apixaban (Eliquis) 5 mg BID PO 09/09/20 21:00 09/10/20 08:55 Atorvastatin Calcium (Lipitor) 40 mg QHS PO 09/09/20 21:00 09/09/20 21:36 Carvedilol (Coreg) 12.5 mg BIDWMEALS PO 09/09/20 17:00 09/10/20 08:55 Sertraline HCl (Zoloft) 75 mg DAILY PO 09/10/20 09:00 09/10/20 08:55 Ascorbic Acid (Vitamin C) 500 mg DAILY PO 09/10/20 09:00 09/10/20 08:55 Insulin Human Lispro (HumaLOG) 13 units TIDWMEALS SQ 09/09/20 17:00 09/10/20 12:14 Insulin Glargine (Lantus Syringe) 10 unit QHS SQ 09/09/20 21:00 09/09/20 21:37 Pantoprazole Sodium (Protonix) 40 mg QHS PO 09/09/20 21:00 09/09/20 21:36 Justifications for Admission Other Justification COPD Exac NATHAN VILCHIS MD Sep 10, 2020 14:25
[2020-09-10 15:05] VITALS: BP 138/75
[2020-09-10 19:22] VITALS: BP 125/70
[2020-09-10] MEDS: ATORVASTATIN CALCIUM 40 MG TABLET. PO SCH (20:35)
[2020-09-10] MEDS: PANTOPRAZOLE 40 MG TABLET.DR. PO SCH (20:35)
[2020-09-10] MEDS: INSULIN GLARGINE SYRINGE. SQ SCH (21:57)
[2020-09-10 23:41] VITALS: BP 131/71
[2020-09-11 02:50] VITALS: BP 136/67
[2020-09-11 07:00] VITALS: BP 142/82
[2020-09-11] MEDS: INSULIN LISPRO 300 UNITS/3 ML VIAL. SQ SCH ×4 (08:00→12:00)
[2020-09-11] MEDS: CARVEDILOL 12.5 MG TABLET. PO SCH (08:35)
[2020-09-11] MEDS: APIXABAN 5 MG TABLET. PO SCH (08:36)
[2020-09-11] MEDS: SERTRALINE 25 MG TABLET. PO SCH (08:36)
[2020-09-11] MEDS: ASCORBIC ACID 500 MG TABLET PO SCH (08:36)
[2020-09-11 09:16] LABS: CALCIUM 8.8 mg/dL (8.5-10.1); CREATININE 1.4 mg/dL (0.7-1.3); GFR 61.2; MAGNESIUM 2.2 mg/dL (1.8-2.4); POTASSIUM 4.1 mmol/L (3.5-5.1)
[2020-09-11] MEDS ORDERED: ANTI-COAG MONITOR BY PHARMACY. MC PRN (09:30)
--- NOTE | 2020-09-11 10:51 | PDOC ---
PULMONARY PROGRESS NOTES DATE: 09/11/20 TIME: 10:50 Subjective Pt. is resting on 4 liters N/C afebrile No increased SOB or cough no overnight concerns Vitals Vital Signs Date Time Temp Pulse Resp B/P (MAP) Pulse Ox O2 Delivery O2 Flow Rate FiO2 09/11/20 08:35 68 142/82 09/11/20 08:00 Nasal Cannula 3.0 09/11/20 07:00 97.2 18 92 97.2 ROS: No Nausea, No Chest Pain, No Abdominal Pain, No Increase Cough General: Alert Lungs: Clear Cardiovascular: S1, S2 Abdomen: Soft, Non-tender Neuro Exam: Alert, Oriented Skin: Warm, Dry Labs Laboratory Tests Test 09/09/20 12:05 09/09/20 16:53 09/09/20 21:21 09/10/20 07:17 Glucose (Fingerstick) 194 mg/dL (70-99) 182 mg/dL (70-99) 126 mg/dL (70-99) White Blood Count 7.2 x10^3/uL (4.0-11.0) Red Blood Count 3.87 x10^6/uL (4.30-5.70) Hemoglobin 10.9 g/dL (13.0-17.5) Hematocrit 33.8 % (39.0-53.0) Mean Corpuscular Volume 87 fL (79-100) Mean Corpuscular Hemoglobin 28 pg (25-35) Mean Corpuscular Hemoglobin Concent 32 g/dL (31-37) Red Cell Distribution Width 15.8 % (11.5-14.5) Platelet Count 196 x10^3/uL (140-400) Neutrophils (%) (Auto) 68 % (31-73) Lymphocytes (%) (Auto) 26 % (24-48) Monocytes (%) (Auto) 6 % (0-9) Eosinophils (%) (Auto) 1 % (0-3) Basophils (%) (Auto) 0 % (0-3) Neutrophils # (Auto) 4.9 x10^3/uL (1.8-7.7) Lymphocytes # (Auto) 1.9 x10^3/uL (1.0-4.8) Monocytes # (Auto) 0.4 x10^3/uL (0.0-1.1) Eosinophils # (Auto) 0.1 x10^3/uL (0.0-0.7) Basophils # (Auto) 0.0 x10^3/uL (0.0-0.2) Sodium Level 147 mmol/L (136-145) Potassium Level 4.1 mmol/L (3.5-5.1) Chloride Level 108 mmol/L (98-107) Carbon Dioxide Level 30 mmol/L (21-32) Anion Gap 9 (6-14) Blood Urea Nitrogen 26 mg/dL (8-26) Creatinine 1.5 mg/dL (0.7-1.3) Estimated GFR (Cockcroft-Gault) 56.5 Glucose Level 108 mg/dL (70-99) Calcium Level 8.5 mg/dL (8.5-10.1) Phosphorus Level 3.4 mg/dL (2.6-4.7) Magnesium Level 2.1 mg/dL (1.8-2.4) Test 09/10/20 07:20 09/10/20 11:22 09/10/20 16:19 09/10/20 20:26 Glucose (Fingerstick) 126 mg/dL (70-99) 165 mg/dL (70-99) 85 mg/dL (70-99) 108 mg/dL (70-99) Test 09/11/20 08:02 09/11/20 08:22 Glucose (Fingerstick) 91 mg/dL (70-99) Sodium Level 146 mmol/L (136-145) Potassium Level 4.1 mmol/L (3.5-5.1) Chloride Level 109 mmol/L (98-107) Carbon Dioxide Level 27 mmol/L (21-32) Anion Gap 10 (6-14) Blood Urea Nitrogen 25 mg/dL (8-26) Creatinine 1.4 mg/dL (0.7-1.3) Estimated GFR (Cockcroft-Gault) 61.2 Glucose Level 88 mg/dL (70-99) Calcium Level 8.8 mg/dL (8.5-10.1) Magnesium Level 2.2 mg/dL (1.8-2.4) Laboratory Tests Test 09/10/20 11:22 09/10/20 16:19 09/10/20 20:26 09/11/20 08:02 Glucose (Fingerstick) 165 mg/dL (70-99) 85 mg/dL (70-99) 108 mg/dL (70-99) 91 mg/dL (70-99) Test 09/11/20 08:22 Sodium Level 146 mmol/L (136-145) Potassium Level 4.1 mmol/L (3.5-5.1) Chloride Level 109 mmol/L (98-107) Carbon Dioxide Level 27 mmol/L (21-32) Anion Gap 10 (6-14) Blood Urea Nitrogen 25 mg/dL (8-26) Creatinine 1.4 mg/dL (0.7-1.3) Estimated GFR (Cockcroft-Gault) 61.2 Glucose Level 88 mg/dL (70-99) Calcium Level 8.8 mg/dL (8.5-10.1) Magnesium Level 2.2 mg/dL (1.8-2.4) Medications Active Scripts Medications Dose Route/Sig Max Daily Dose Days Date Category Dose Instructions Eliquis (Apixaban) 5 Mg Tablet 5 Mg PO BID 09/09/20 Reported Carvedilol (Carvedilol) 12.5 Mg Tablet 12.5 Mg PO BID 09/09/20 Reported Breo Ellipta 100-25 Mcg Inh (Fluticasone/Vilanterol) 1 Each Aer.pow.ba 1 Puff IH DAILY 09/09/20 Reported Vitamin C (Ascorbic Acid) 500 Mg Capsule.er 1 Cap PO DAILY 30 09/09/20 Reported Amlodipine Besylate 5 Mg Tablet 5 Mg PO DAILY 09/09/20 Reported Proair Hfa (Albuterol Sulfate) 8.5 Gm Hfa.aer.ad 2 Puff IH PRN Q4-6HRS PRN 21 09/09/20 Reported Zoloft (Sertraline Hcl) 25 Mg Tablet 3 Tab PO DAILY 09/09/20 Reported Protonix (Pantoprazole Sodium) 20 Mg Tablet.dr 1 Tab PO HS 09/09/20 Reported Novolog (Insulin Aspart) 100 Unit/1 Ml Cartridge 13 Unit SQ TIDAC 09/09/20 Reported Metformin Hcl 1,000 Mg Tablet 1,000 Mg PO BIDWMEALS 09/09/20 Reported Magnesium Oxide 400 Mg Tablet 1 Tab PO BID 09/09/20 Reported Levemir (Insulin Detemir) 100 Unit/1 Ml Vial 10 Unit SQ HS 09/09/20 Reported Furosemide 40 Mg Tablet 1 Tab PO DAILY 09/09/20 Reported Zofran (Ondansetron Hcl) 4 Mg Tablet 1 Tab PO Q4HRS PRN 09/09/20 Reported Ferrous Sulfate 325 Mg Tablet 325 Mg PO BID 05/28/17 Reported Atorvastatin Calcium 40 Mg Tablet 1 Tab PO QHS 05/28/17 Reported Tylenol (Acetaminophen) 325 Mg Tablet 2 Tab PO PRN Q6HRS PRN 05/28/17 Reported Do not exceed 3000mg in 24hr period Comments CXR Findings/ impression: Low lung volumes and technique accentuates heart size and pulmonary vascularity. Bibasilar lung airspace opacities likely atelectasis or infiltrates. Small bilateral pleural effusions. Mild prominent bilateral interstitial lung markings could be mild congestive changes.. Impression . IMPRESSION: 1. Acute hypoxic respiratory failure, likely secondary to acute systolic congestive heart failure. The patient with known history of ejection fraction of 25% in 2017. Cannot exclude the possibility of residual infiltrates from COVID infection. 2. Underlying chronic obstructive pulmonary disease, also complained of respiratory failure. 3. History of coronavirus-19 infection diagnosed 6 weeks prior to arrival. Plan . RECOMMENDATIONS: We will continue present oxygen to keep saturation 92 and above ,remains on 4 liters N/C Follow cardiology recs -- diuresis. Follow CXR No need for steroids or ABX DVT/GI PPX D/W RN Ok to D/C from our stand point, we will follow PRN please call with questions or concerns Thank you CHRIS GUERRERO MD Sep 11, 2020 10:51
[2020-09-11 11:00] VITALS: BP 132/74
--- NOTE | 2020-09-11 12:29 | NUR ---
SS following up with discharge planning. SS reviewed pt chart and discussed with pt RN. Pt is currently requiring oxygen at three liters nasal canula. Pt is LT resident from [facility], ; fax [phone]. Recovered COVID19. PT/OT recommended nursing home unit. Probable discharge today. Pt had ECHO. Currently awaiting for ECHO to be read. SS will continue to follow for discharge planning.
--- NOTE | 2020-09-11 12:33 | CARD ---
MR#: [id number] Date of Study: 09/11/2020 Ordering Physician: CHRIS GUERRERO, Referring Physician: CHRIS GUERRERO, Tech: Shona Godinez APPROVED REPORT EXAM: Two-dimensional and M-mode echocardiogram with Doppler and color Doppler. Other Information HR: 76bpm INDICATION Congestive Heart Failure 2D DIMENSIONS RVDd3.3 (2.9-3.5cm)Left Atrium(2D)5.0 (1.6-4.0cm) IVSd1.3 (0.7-1.1cm)Aortic Root(2D)3.7 (2.0-3.7cm) LVDd6.6 (3.9-5.9cm)LVOT Diameter2.1 (1.8-2.4cm) PWd1.4 (0.7-1.1cm)LVDs5.9 (2.5-4.0cm) FS (%) 11.1 %SV52.3 ml LVEF(%)23.6 (>50%) Aortic Valve AoV Peak Bryan.109.1cm/sAoV VTI23.8cm AO Peak GR.4.8mmHgLVOT VTI 14.87cm AO Mean GR.3mmHg Mitral Valve MV E Pzxsgpti634.7cm/sMV DECEL [id number] MV A Erwgfzhf85.6cm/sE/A Ratio3.3 TDI Lateral E' P. V8.70cm/sMedial E' P. V3.46cm/s E/Lateral E'14.8E/Medial E'37.2 Tricuspid Valve TR P. [id number]/sRAP [id number] TR Peak Gr.17mmHg Pulmonary Vein S1 Hepxgqqo69.2cm/sS2 Fjfsxztg96.35cm/s D2 Eqksbcop41.4cm/s LEFT VENTRICLE The Left Ventricle is mildly to moderately dilated. There is moderate concentric left ventricular hyp ertrophy. The systolic function is severely impaired. The Ejection Fraction is 25%. There is global h ypokinesis of the left ventricle. Transmitral Doppler flow pattern is Grade II-pseudonormal filling d ynamics. RIGHT VENTRICLE The right ventricle is moderately dilated. There is normal right ventricular wall thickness. RV Systo lic function is mildly reduced. ATRIA The left atrium is moderately dilated. The right atrium is mildly dilated. The interatrial septum is intact with no evidence for an atrial septal defect or patent foramen ovale as noted on 2-D or Dopple r imaging. AORTIC VALVE The aortic valve is mildly thickened. Doppler and Color Flow revealed trace aortic regurgitation. The re is no significant aortic valvular stenosis. Calculated aortic valve area is 2.12 cm2 with maximum pressure gradient of 6 mmHg and mean pressure gradient of 3 mmHg. MITRAL VALVE The mitral valve is mildly thickened. There is no evidence of mitral valve prolapse. There is no mitr al valve stenosis. Doppler and Color-flow revealed trace mitral regurgitation. TRICUSPID VALVE The tricuspid valve is normal in structure and function. Doppler and Color Flow revealed trace tricus pid regurgitation with an estimated PAP of 20 mmHg. There is no tricuspid valve stenosis. PULMONIC VALVE The pulmonic valve is not well visualized. Doppler and Color Flow revealed no pulmonic valvular regur gitation. There is no pulmonic valvular stenosis. GREAT VESSELS The aortic root is normal in size. The IVC was not visualized. PERICARDIAL EFFUSION There is small left pleural effusion. There is no evidence of significant pericardial effusion. Critical Notification Critical Value: No <Conclusion> The systolic function is severely impaired. The Ejection Fraction is 25%. There is global hypokinesis of the left ventricle. There is small left pleural effusion. Signed by : Sunny Munoz, Electronically Approved : 09/11/2020 12:32:31
[2020-09-11 15:00] VITALS: BP 123/73
--- NOTE | 2020-09-11 15:09 | SNU/HH DC ---
DISCHARGE ORDERS DISCHARGE INFORMATION: FINAL DIAGNOSIS Problems Medical Problems: (1) COPD (chronic obstructive pulmonary disease) Status: Acute (2) Respiratory failure with hypoxia Status: Acute CONDITION ON DISCHARGE: Stable CODE STATUS: Code Status: Full SNF: SNF STAY <30 DAYS: Yes POST DISCHARGE ORDERS: ACTIVITY ORDERS: Activity as tolerated WEIGHT BEARING STATUS: As tolerated DIET AFTER DISCHARGE: Cardiac WOUND/INCISION CARE: No wound care needed CHECKS AFTER DISCHARGE: CHECKS AFTER DISCHARGE: Check blood press - daily, Check blood sugar, ac/hs, Check your Temp as needed, Weigh Yourself Daily FOLLOW-UP: PHYSICIAN FOLLOW-UP: PCP within 2 weeks ADDITIONAL FOLLOW-UP: Cardiology and pulmonology as needed LAB ORDERS FOR FOLLOW-UP: CBC, CMP TREATMENT/EQUIPMENT ORDERS: ADAPTIVE EQUIPMENT NEEDED: Wheelchair RESPIRATORY EQUIPMENT NEEDED: Oxygen Physical Therapy For: Evalulation/Treatment Occupational Therapy For: Evaluation/Treatment Speech Language Pathology For: Swallow Cognition DISCHARGE MEDICATIONS: Home Meds Reported Medications Apixaban (ELIQUIS) 5 Mg Tablet, 5 MG PO BID, TAB 09/09/20 Carvedilol (CARVEDILOL ) 12.5 Mg Tablet, 12.5 MG PO BID for CARDIAC, TAB 09/09/20 Fluticasone/Vilanterol (BREO ELLIPTA 100-25 MCG INH) 1 Each Aer.pow.ba, 1 PUFF IH DAILY, INHALER 09/09/20 Ascorbic Acid (VITAMIN C) 500 Mg Capsule.er, 1 CAP PO DAILY for 30 Days, #30 CAP 0 Refills 09/09/20 Amlodipine Besylate (AMLODIPINE BESYLATE) 5 Mg Tablet, 5 MG PO DAILY, TAB 09/09/20 Albuterol Sulfate (Proair Hfa) 8.5 Gm Hfa.aer.ad, 2 PUFF IH PRN Q4-6HRS PRN for wheezing for 21 Days, #1 INHALER 0 Refills 09/09/20 Sertraline Hcl (ZOLOFT) 25 Mg Tablet, 3 TAB PO DAILY, #30 TAB 2 Refills 09/09/20 Pantoprazole Sodium (PROTONIX) 20 Mg Tablet.dr, 1 TAB PO HS, #30 TAB 09/09/20 Insulin Aspart (NOVOLOG) 100 Unit/1 Ml Cartridge, 13 UNIT SQ TIDAC, EACH 09/09/20 Metformin Hcl (METFORMIN HCL) 1,000 Mg Tablet, 1000 MG PO BIDWMEALS, TAB 1/11/21 Magnesium Oxide (MAGNESIUM OXIDE) 400 Mg Tablet, 1 TAB PO BID, #60 TAB 5 Refills 09/09/20 Insulin Detemir (LEVEMIR) 100 Unit/1 Ml Vial, 10 UNIT SQ HS, VIAL 09/09/20 Furosemide (FUROSEMIDE) 40 Mg Tablet, 1 TAB PO DAILY, #30 TAB 5 Refills 09/09/20 Ondansetron Hcl (ZOFRAN) 4 Mg Tablet, 1 TAB PO Q4HRS PRN for NAUSEA/VOMITING, #20 TAB 09/09/20 Ferrous Sulfate (FERROUS SULFATE) 325 Mg Tablet, 325 MG PO BID, TAB 05/28/17 Atorvastatin Calcium (ATORVASTATIN CALCIUM) 40 Mg Tablet, 1 TAB PO QHS, #90 TAB 3 Refills 05/28/17 Acetaminophen (TYLENOL) 325 Mg Tablet, 2 TAB PO PRN Q6HRS PRN for PAIN, #30 TAB Do not exceed 3000mg in 24hr period 05/28/17 Discontinued Reported Medications Amino Acids/Protein Hydrolys (Pro-Stat Liquid) 30 Ml Liquid, 30 ML PO BID, LIQUID 05/28/17 Pantoprazole Sodium (PANTOPRAZOLE SODIUM ) 40 Mg Tablet.dr, 1 TAB PO DAILY, #30 TAB 3 Refills 05/28/17 Furosemide (LASIX) 40 Mg Tablet, 1 TAB PO BID, #90 TAB 1 Refill 05/28/17 Warfarin Sodium (COUMADIN) 5 Mg Tablet, 7 MG PO DAILY, TAB Wednesday, Tue, Thur, Sat 05/28/17 Clonazepam (CLONAZEPAM ) 0.5 Mg Tablet, 1 TAB PO DAILY PRN for ANXIETY / AGITATION, #30 TAB 05/28/17 Aspirin (ASPIR 81) 81 Mg Tablet.dr, 1 TAB PO DAILY, #30 TAB 5 Refills 05/28/17 Discontinued Scripts Amlodipine Besylate (NORVASC) 2.5 Mg Tablet, 1 TAB PO DAILY, #30 TAB 2 Refills Prov:HUBER LI MD 07/13/17 Prednisone (PREDNISONE) 20 Mg Tablet, 80 MG PO DAILY for 7 Days, #28 TAB Prov:RAE CARMICHAEL MD 06/04/17 Metoprolol Tartrate (METOPROLOL TARTRATE) 25 Mg Tablet, 25 MG PO BID for 30 Days, #60 TAB Prov:RAE CARMICHAEL MD 06/04/17 Cyanocobalamin (Vitamin B-12) (CYANOCOBALAMIN INJECTION) 1,000 Mcg/1 Ml Vial, 1000 MCG IM DAILY for 7 Days, EACH Prov:RAE CARMICHAEL MD 06/04/17 NATHAN VILCHIS MD Sep 11, 2020 15:09
--- NOTE | 2020-09-11 16:12 | NUR ---
SS following up with discharge planning. Discharge orders received for return to [facility], ; fax [phone]. SS phoned and faxed discharge orders. Pt will discharge today and return to [facility] at 1700. [facility] providing stretcher transport through [facility]. Pt and pt's RN notified. SS left voicemail for pt's family.
--- NOTE | 2020-09-11 16:41 | NUR ---
Discharge Note: MANUEL SAGASTUME CHAIM Discharge instructions and discharge home medications reviewed with Patient and a copy given. All questions have been answered and understanding verbalized. The following instructions and handouts were given: respiratory failure. Patient discharged to [facility] with transport via [facility]. Report called to ALISA Sam at the facility.
--- NOTE | 2020-09-12 19:02 | PDOC3 ---
[facility]-Discharge Summary Date of Admission: Date of Admission: Sep 09, 2020 Date of Discharge: Date of Discharge: Sep 11, 2020 Discharge Diagnosis: Discharge Diagnosis: Acute hypoxic respiratory failure COPD exacerbation History of Covid infection CHF with a EF of 25% in 2017 on echocardiogram HILARIO due to vasomotor nephropathy Reactive leukocytosis Normocytic anemia due to chronic disease Hospital Course: Hospital Course: Patient improved with steroids and breathing treatments and diuresis. He was able to maintain the rest of his baseline O2 saturation on home O2. He will return to [facility]. Rest of his hospital course was uneventful. 09/10/2020 No acute events overnight. Patient seen and examined bedside. BiPAP was not necessary overnight. Patient is saturating 97% on 4 L nasal cannula. Patient's chart, labs, images were reviewed and discussed with RN 65-year-old male who presents to the emergency room in respiratory distress. Patient has a history of COPD and was diagnosed with novel coronavirus 6 weeks prior to arrival. He started having shortness of breath at 7 PM. This progressively got worse. Upon EMS arrival he had a pulse ox of 76%. They gave him DuoNeb treatments and then placed him on a nonrebreather. Patient denies any chest pain. History is limited due to patient's respiratory distress. Disposition: Disposition/Orders: D/C to Another Facility Activity: Activity: Resume previous activity Diet: Diet: Cardiac Medications: Home Meds Reported Medications Apixaban (ELIQUIS) 5 Mg Tablet, 5 MG PO BID, TAB 09/09/20 Carvedilol (CARVEDILOL ) 12.5 Mg Tablet, 12.5 MG PO BID for CARDIAC, TAB 09/09/20 Fluticasone/Vilanterol (BREO ELLIPTA 100-25 MCG INH) 1 Each Aer.pow.ba, 1 PUFF IH DAILY, INHALER 09/09/20 Ascorbic Acid (VITAMIN C) 500 Mg Capsule.er, 1 CAP PO DAILY for 30 Days, #30 CAP 0 Refills 09/09/20 Amlodipine Besylate (AMLODIPINE BESYLATE) 5 Mg Tablet, 5 MG PO DAILY, TAB 09/09/20 Albuterol Sulfate (Proair Hfa) 8.5 Gm Hfa.aer.ad, 2 PUFF IH PRN Q4-6HRS PRN for wheezing for 21 Days, #1 INHALER 0 Refills 09/09/20 Sertraline Hcl (ZOLOFT) 25 Mg Tablet, 3 TAB PO DAILY, #30 TAB 2 Refills 09/09/20 Pantoprazole Sodium (PROTONIX) 20 Mg Tablet.dr, 1 TAB PO HS, #30 TAB 09/09/20 Insulin Aspart (NOVOLOG) 100 Unit/1 Ml Cartridge, 13 UNIT SQ TIDAC, EACH 09/09/20 Metformin Hcl (METFORMIN HCL) 1,000 Mg Tablet, 1000 MG PO BIDWMEALS, TAB 09/09/20 Magnesium Oxide (MAGNESIUM OXIDE) 400 Mg Tablet, 1 TAB PO BID, #60 TAB 5 Refills 09/09/20 Insulin Detemir (LEVEMIR) 100 Unit/1 Ml Vial, 10 UNIT SQ HS, VIAL 09/09/20 Furosemide (FUROSEMIDE) 40 Mg Tablet, 1 TAB PO DAILY, #30 TAB 5 Refills 09/09/20 Ondansetron Hcl (ZOFRAN) 4 Mg Tablet, 1 TAB PO Q4HRS PRN for NAUSEA/VOMITING, #20 TAB 09/09/20 Ferrous Sulfate (FERROUS SULFATE) 325 Mg Tablet, 325 MG PO BID, TAB 05/28/17 Atorvastatin Calcium (ATORVASTATIN CALCIUM) 40 Mg Tablet, 1 TAB PO QHS, #90 TAB 3 Refills 05/28/17 Acetaminophen (TYLENOL) 325 Mg Tablet, 2 TAB PO PRN Q6HRS PRN for PAIN, #30 TAB Do not exceed 3000mg in 24hr period 05/28/17 Discontinued Reported Medications Amino Acids/Protein Hydrolys (Pro-Stat Liquid) 30 Ml Liquid, 30 ML PO BID, LIQUID 05/28/17 Pantoprazole Sodium (PANTOPRAZOLE SODIUM ) 40 Mg Tablet.dr, 1 TAB PO DAILY, #30 TAB 3 Refills 05/28/17 Furosemide (LASIX) 40 Mg Tablet, 1 TAB PO BID, #90 TAB 1 Refill 05/28/17 Warfarin Sodium (COUMADIN) 5 Mg Tablet, 7 MG PO DAILY, TAB Wednesday, Wed, , 05/28/17 Clonazepam (CLONAZEPAM ) 0.5 Mg Tablet, 1 TAB PO DAILY PRN for ANXIETY / AGITATION, #30 TAB 05/28/17 Aspirin (ASPIR 81) 81 Mg Tablet.dr, 1 TAB PO DAILY, #30 TAB 5 Refills 05/28/17 Discontinued Scripts Amlodipine Besylate (NORVASC) 2.5 Mg Tablet, 1 TAB PO DAILY, #30 TAB 2 Refills Prov:HUBER LI MD 07/13/17 Prednisone (PREDNISONE) 20 Mg Tablet, 80 MG PO DAILY for 7 Days, #28 TAB Prov:RAE CARMICHAEL MD 06/04/17 Metoprolol Tartrate (METOPROLOL TARTRATE) 25 Mg Tablet, 25 MG PO BID for 30 Da ys, #60 TAB Prov:RAE CARMICHAEL MD 06/04/17 Cyanocobalamin (Vitamin B-12) (CYANOCOBALAMIN INJECTION) 1,000 Mcg/1 Ml Vial, 1000 MCG IM DAILY for 7 Days, EACH Prov:RAE CARMICHAEL MD 06/04/17 Scheduled Amlodipine Besylate (Amlodipine Besylate), 5 MG PO DAILY, (Reported) Apixaban (Eliquis), 5 MG PO BID, (Reported) Ascorbic Acid (Vitamin C), 1 CAP PO DAILY, (Reported) Atorvastatin Calcium (Atorvastatin Calcium), 1 TAB PO QHS, (Reported) Carvedilol (Carvedilol ), 12.5 MG PO BID, (Reported) Ferrous Sulfate (Ferrous Sulfate), 325 MG PO BID, (Reported) Fluticasone/Vilanterol (Breo Ellipta 100-25 Mcg Inh), 1 PUFF IH DAILY, (Reported) Furosemide (Furosemide), 1 TAB PO DAILY, (Reported) Insulin Aspart (Novolog), 13 UNIT SQ TIDAC, (Reported) Insulin Detemir (Levemir), 10 UNIT SQ HS, (Reported) Magnesium Oxide (Magnesium Oxide), 1 TAB PO BID, (Reported) Metformin Hcl (Metformin Hcl), 1,000 MG PO BIDWMEALS, (Reported) Pantoprazole Sodium (Protonix), 1 TAB PO HS, (Reported) Sertraline Hcl (Zoloft), 3 TAB PO DAILY, (Reported) Scheduled PRN Acetaminophen (Tylenol), 2 TAB PO PRN Q6HRS PRN for PAIN, (Reported) Albuterol Sulfate (Proair Hfa), 2 PUFF IH PRN Q4-6HRS PRN for wheezing, (Reported) Ondansetron Hcl (Zofran), 1 TAB PO Q4HRS PRN for NAUSEA/VOMITING, (Reported) Discontinued Medications Amino Acids/Protein Hydrolys (Pro-Stat Liquid), 30 ML PO BID, (Reported) Discontinued Reason: not on Amlodipine Besylate (Norvasc), 1 TAB PO DAILY Discontinued Reason: changed Aspirin (Aspir 81), 1 TAB PO DAILY, (Reported) Discontinued Reason: not on Clonazepam (Clonazepam ), 1 TAB PO DAILY PRN for ANXIETY / AGITATION, (Reported) Discontinued Reason: not on Cyanocobalamin (Vitamin B-12) (Cyanocobalamin Injection), 1,000 MCG IM DAILY Discontinued Reason: not on Furosemide (Lasix), 1 TAB PO BID, (Reported) Discontinued Reason: not on Metoprolol Tartrate (Metoprolol Tartrate), 25 MG PO BID Discontinued Reason: not on Pantoprazole Sodium (Pantoprazole Sodium ), 1 TAB PO DAILY, (Reported) Discontinued Reason: changed Prednisone (Prednisone), 80 MG PO DAILY Discontinued Reason: not on Warfarin Sodium (Coumadin), 7 MG PO DAILY, (Reported) Discontinued Reason: not on Total Time: Total Time: Total time spent was 50 minutes in preparing scripts, discharge planning with SW and RN, and preparing this discharge summary. Patient seen and examined on day of discharge. Justicifation of Admission Dx: Justifications for Admission: Justification of Admission Dx: Yes Respiratory Failure: Severe Resp Distress NATHAN VILCHIS MD Sep 12, 2020 19:02
== END 2020-09-11 16:45 | DRG 189 ==
LOC: ER 21:27 → 2 SOUTH 23:27
PROVIDERS: ADMIT Family Medicine; ATTEND Family Medicine
PROC: 5A09357 Assistance with Respiratory Ventilation, Less than 24 Consecutive Hours, Continuous Positive Airway Pressure (ICD-10-PCS; principal; 2020-09-08)
PROC: 5A09357 Assistance with Respiratory Ventilation, Less than 24 Consecutive Hours, Continuous Positive Airway Pressure (ICD-10-PCS; 2020-09-10)
DX: J96.01 Acute respiratory failure with hypoxia (principal); N17.0 Acute kidney failure with tubular necrosis; J44.1 Chronic obstructive pulmonary disease with (acute) exacerbation; K51.90 Ulcerative colitis, unspecified, without complications; I42.9 Cardiomyopathy, unspecified; I11.0 Hypertensive heart disease with heart failure; I50.9 Heart failure, unspecified; D63.8 Anemia in other chronic diseases classified elsewhere; D72.828 Other elevated white blood cell count; E11.9 Type 2 diabetes mellitus without complications; E78.00 Pure hypercholesterolemia, unspecified; E78.5 Hyperlipidemia, unspecified; K21.9 Gastro-esophageal reflux disease without esophagitis; Z86.16 Personal history of COVID-19; Z86.73 Personal history of transient ischemic attack (TIA), and cerebral infarction without residual deficits
CPT/HCPCS: 36415; 36600; 71045; 80048; 80053; 82805; 82962; 83735; 84100; 84484; 85025; 93005; 93306; 94640; 94660; 94760; 96374; 96375; 99285; J0696; J1100; J1815; J1940; 97110-GP; 97530-GO; 97535-GO; G0378

== ENCOUNTER 2021-04-25 15:32 | Inpatient (IN) | payer MEDICARE, MEDICAID ==
[~2021-04-25] VITALS: Ht 188 cm; Wt 87.2 kg
[~2021-04-25 15:32] MED LIST changes: +ALBU2.5V8 IH; +AMLO-186 PO; +APIX5TAB PO; +ASCO500C PO; +BREO ELLIPTA 11 EACH IH; +FURO40TA4 PO; +INSU100C4 SQ; +INSU100V13 SQ; +MAGN400T5 PO; +METF10007 PO; +ONDA4TAB7 PO; +PANT20TA2 PO; +SERT25TA PO
[2021-04-25 16:02] LABS: BASO # 0.1 x10^3/uL (0.0-0.2); BASO % 1 % (0-3); EOS # 0.1 x10^3/uL (0.0-0.7); EOS % 2 % (0-3); HEMATOCRIT 35.7 % (39.0-53.0); HEMOGLOBIN 11.8 g/dL (13.0-17.5); LYMPH # 1.4 x10^3/uL (1.0-4.8); LYMPH % 29 % (24-48); MEAN CORPUSCULAR HEMOGLOBIN 28 pg (25-35); MEAN CORPUSCULAR HGB CONC 33 g/dL (31-37); MEAN CORPUSCULAR VOLUME 84 fL (79-100); MONO # 0.3 x10^3/uL (0.0-1.1); MONO % 6 % (0-9); NEUT % 62 % (31-73); PLATELET COUNT 187 x10^3/uL (140-400); RED BLOOD COUNT 4.28 x10^6/uL (4.30-5.70); RED CELL DISTRIBUTION WIDTH 19.8 % (11.5-14.5); WHITE BLOOD COUNT 4.8 x10^3/uL (4.0-11.0)
--- NOTE | 2021-04-25 16:11 | RAD ---
EXAM: CHEST 1 VIEW History: Altered mental status COMPARISON: 09/08/2020 TECHNIQUE: Single portable radiograph of the chest FINDINGS: Low lung volumes and technique accentuates heart and pulmonary vascularity. Mild prominent bilateral interstitial lung markings likely mild congestive changes. Right lower lobe lung consolidat ion changes likely pneumonia or atelectasis and small right pleural effusion. IMPRESSION: 1.Right lower lobe lung consolidation changes likely pneumonia or atelectasis and small right pleural effusion. 2. Mild congestive changes. Electronically signed by: Gilbert Roy MD (04/25/2021 4:09 PM) [id number]
[2021-04-25 16:20] LABS: CALCIUM 7.5 mg/dL (8.5-10.1); CREATININE 1.3 mg/dL (0.7-1.3); GFR 66.4
[2021-04-25 16:25] LABS: ALBUMIN 2.7 g/dL (3.4-5.0); ALBUMIN/GLOBULIN RATIO 0.9 (1.0-1.7); TOTAL BILIRUBIN 1.2 mg/dL (0.2-1.0); TOTAL PROTEIN 5.6 g/dL (6.4-8.2)
--- NOTE | 2021-04-25 16:25 | RAD ---
CT HEAD/BRAIN WO Clinical indications: Altered mental status COMPARISON: None available. Technique: Noncontrast axial cross sectional scanning of the head was performed. PQRS compliance Statement One or more of the following individualized dose reduction techniques were utilized for this study: 1. Automated exposure control 2. Adjustment of the mA and/or kV according to patient size 3. Use of iterative reconstruction technique Findings: No acute intracranial hemorrhage or midline shift or mass-effect or hydrocephalus or extra- axial fluid collection is seen. There is a moderate-sized area of encephalomalacia involving the uppe r left frontal lobe consistent with old infarct. There is a moderate-sized area of ventricular white matter hypodensity of the posterior right parietal lobe which could represent a subacute infarct. The re is moderate bilateral periventricular white matter hypodensity consistent with chronic small vesse l ischemic disease in this age group. No skull fracture or pneumocephalus is seen. No opacification o f the mastoid sinuses or the middle ear cavities or the paranasal sinuses is seen. The maxillary sinu ses are not completely seen in this study. There is soft tissue air within the left and right infrate mporal fossa. Origin is uncertain. There is a small amount of air within the superior sagittal sinus seen on image 39 series 6. IMPRESSION: No acute intracranial hemorrhage is seen. 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 Evaluation for acute infarct with a noncontrast MRI gisele dy of the brain may be helpful. Small amount of air within the superior sagittal sinus. This could be related to air embolism. MRI st udy of the brain may be helpful for further evaluation. Soft tissue air is seen within the infratempo ral fossa bilaterally of uncertain origin. Electronically signed by: Ervin Ramirez MD (04/25/2021 4:23 PM) [id number]
[2021-04-25 16:46] LABS: BILIRUBIN,URINE SMALL (NEG); CLARITY,URINE CLOUDY; COLOR,URINE AMBER; NITRITE,URINE NEGATIVE (NEG); PH,URINE 5.5 (<5.0-8.0); PROTEIN,URINE 100 mg/dL (NEG-TRACE)
[2021-04-25 16:51] LABS: RBC,URINE >40 /HPF (0-2)
[2021-04-25 16:52] LABS: BACTERIA,URINE 0 /HPF (0-FEW); HYALINE CASTS, URINE FEW /HPF; WBC,URINE OCC /HPF (0-4)
[2021-04-25] MEDS ORDERED: POTASSIUM BICARB 20 MEQ EFFERVESCENT TABLET. PO ONE (17:30)
--- NOTE | 2021-04-25 18:40 | EKG ---
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
--- NOTE | 2021-04-25 21:24 | PHYS DOC ---
Past Medical History Past Medical History: Diabetes-Type II, GERD, High Cholesterol, Hypertension, Stroke Additional Past Medical Histor: ulcerative colitis, aphasia, flaccid right side, eliquis, 2 Li O2, Past Surgical History: Other Additional Past Surgical Histo: UNKNOWN Smoking Status: Unknown if ever smoked Alcohol Use: None Drug Use: None General Adult EDM: Chief Complaint: SHORTNESS OF BREATH HPI: HPI: Patient is a 66 year old male sent to the emergency department by [facility] for not answering his yes or no questions quick enough. Patient report was given by ED radio aerial installer who states that the [facility] staff reports patient only answers in yes or no questions since his old stroke, states that he was not answering quick enough so they became concerned and sent him straight to the emergency department for evaluation. Transport radio aerial installer does not report any other physical complaints or physical concerns from the [facility]pc. 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 DO NOT RESUSCITATE. Review of Systems: Review of Systems: 14 body systems of review of systems have been reviewed. See HPI for pertinent positives and negative responses, otherwise all other systems are negative, nonpertinent or noncontributory. Constitutional: Negative except as outlined in HPI above. Skin: Negative except as outlined in HPI above. Eyes: Negative except as outlined in HPI above. HENT: Negative except as outlined in HPI above. Respiratory: Negative except as outlined in HPI above. Cardiovascular: Negative except as outlined in HPI above. GI: Negative except as outlined in HPI above. : Negative except as outlined in HPI above. Musculoskeletal: Negative except as outlined in HPI above. Integument: Negative except as outlined in HPI above. Neurologic: Negative except as outlined in HPI above. Endocrine: Negative except as outlined in HPI above. Lymphatic: Negative except as outlined in HPI above. Psychiatric: Negative except as outlined in HPI above. Heart Score: C/O Chest Pain: No Risk Factors: Risk Factors: DM, Current or recent (<one month) smoker, HTN, HLP, family history of CAD, obesity. Risk Scores: Score 0 - 3: 2.5% MACE over next 6 weeks - Discharge Home Score 4 - 6: 20.3% MACE over next 6 weeks - Admit for Clinical Observation Score 7 - 10: 72.7% MACE over next 6 weeks - Early Invasive Strategies Current Medications: Current Medications Medications (Trade) Dose Ordered Sig/Mari Start Time Stop Time Status Last Admin Dose Admin Potassium Bicarbonate (Potassium Effervescent Tablet) 40 meq 1X ONCE 04/25/21 17:30 04/25/21 17:31 DC 04/25/21 19:18 40 MEQ Allergies: Allergies: Allergies Coded Allergies Type Severity Reaction Last Updated Verified No Known Drug Allergies 04/15/21 No Physical Exam: PE: Constitutional: Well developed, well nourished, no acute distress, non-toxic appearance. 66-year-old male in no apparent distress. HENT: Normocephalic, atraumatic. Eyes: Conjunctiva normal, no discharge. Neck: Normal range of motion, no stridor. Cardiovascular: No cyanosis appreciated, distal cap refill less than 2 seconds. Lungs & Thorax: Patient is in no respiratory distress, no audible adventitious lung sounds appreciated. Abdomen: Nontender, no abnormalities noted. Skin: Warm, dry, no erythema, no rash. Back: No tenderness, no deformities. Extremities: No tenderness, no cyanosis, no clubbing, ROM intact, no edema. Neurologic: Alert, unable to answer orientation questions related to old CVA, abnormal motor function related to old CVA, abnormal sensory function related to old CVA, ultimate focal deficits related to old CVA. Psychologic: Affect normal, judgement normal, mood normal. Current Patient Data: Labs: Laboratory Tests Test 04/25/21 15:48 04/25/21 16:30 White Blood Count 4.8 x10^3/uL (4.0-11.0) Red Blood Count 4.28 x10^6/uL (4.30-5.70) L Hemoglobin 11.8 g/dL (13.0-17.5) L Hematocrit 35.7 % (39.0-53.0) L Mean Corpuscular Volume 84 fL (79-100) Mean Corpuscular Hemoglobin 28 pg (25-35) Mean Corpuscular Hemoglobin Concent 33 g/dL (31-37) Red Cell Distribution Width 19.8 % (11.5-14.5) H Platelet Count 187 x10^3/uL (140-400) Neutrophils (%) (Auto) 62 % (31-73) Lymphocytes (%) (Auto) 29 % (24-48) Monocytes (%) (Auto) 6 % (0-9) Eosinophils (%) (Auto) 2 % (0-3) Basophils (%) (Auto) 1 % (0-3) Neutrophils # (Auto) 3.0 x10^3/uL (1.8-7.7) Lymphocytes # (Auto) 1.4 x10^3/uL (1.0-4.8) Monocytes # (Auto) 0.3 x10^3/uL (0.0-1.1) Eosinophils # (Auto) 0.1 x10^3/uL (0.0-0.7) Basophils # (Auto) 0.1 x10^3/uL (0.0-0.2) Sodium Level 142 mmol/L (136-145) Potassium Level 3.0 mmol/L (3.5-5.1) L Chloride Level 108 mmol/L (98-107) H Carbon Dioxide Level 27 mmol/L (21-32) Anion Gap 7 (6-14) Blood Urea Nitrogen 19 mg/dL (8-26) Creatinine 1.3 mg/dL (0.7-1.3) Estimated GFR (Cockcroft-Gault) 66.4 BUN/Creatinine Ratio 15 (6-20) Glucose Level 111 mg/dL (70-99) H Calcium Level 7.5 mg/dL (8.5-10.1) L Total Bilirubin 1.2 mg/dL (0.2-1.0) H Aspartate Amino Transferase (AST) 65 U/L (15-37) H Alanine Aminotransferase (ALT) 66 U/L (16-63) H Alkaline Phosphatase 147 U/L (46-116) H Creatine Kinase 107 U/L (39-308) Creatine Kinase MB (Mass) 1.8 ng/mL (0.0-3.6) Creatine Kinase MB Relative Index 1.7 % (0-4) Troponin I Quantitative < 0.017 ng/mL (0.000-0.055) VP-Oea-N-Type Natriuretic Peptide 07869 pg/mL (0-124) H Total Protein 5.6 g/dL (6.4-8.2) L Albumin 2.7 g/dL (3.4-5.0) L Albumin/Globulin Ratio 0.9 (1.0-1.7) L Urine Collection Type Unknown Urine Color Cherelle Urine Clarity Cloudy Urine pH 5.5 (<5.0-8.0) Urine Specific [place] 1.020 (1.000-1.030) Urine Protein 100 mg/dL (NEG-TRACE) Urine Glucose (UA) Negative mg/dL (NEG) Urine Ketones (Stick) Trace mg/dL (NEG) Urine Blood Large (NEG) Urine Nitrite Negative (NEG) Urine Bilirubin Small (NEG) Urine Urobilinogen Dipstick 1.0 mg/dL (0.2 mg/dL) Urine Leukocyte Esterase Trace (NEG) Urine RBC >40 /HPF (0-2) Urine WBC Occ /HPF (0-4) Urine Bacteria 0 /HPF (0-FEW) Urine Hyaline Casts Few /HPF Urine Mucus Mod /LPF Laboratory Tests 04/25/21 15:48 Laboratory Tests 04/25/21 15:48 Vital Signs: Vital Signs Date Time Temp Pulse Resp B/P (MAP) Pulse Ox O2 Delivery O2 Flow Rate FiO2 04/25/21 19:04 76 125/84 (98) 98 Nasal Cannula 2.0 04/25/21 15:34 98.7 12 98.7 EKG: EKG: [] Radiology/Procedures: Radiology/Procedures: [] Course & Med Decision Making: Course & Med Decision Making Pertinent Labs and Imaging studies reviewed. (See chart for details) 66-year-old male, vital signs reviewed, presents to the emergency department via EMS. It is uncertain the exact reason patient was sent by [facility] staff however patient apparently is not answering with his yes or no answers quick enough for fpc satisfaction. Patient has suffered from an old CVA. Will order CT head, cardiorespiratory/neurovascular labs. Urinalysis assay. CT head concerning for acute process, was contacted by radiologist who recommended MRI of brain without contrast. Test ordered. Contacted by MRI director, was told I am unable to order MRI even though was recommended by their radiologist, must go through neurologist instead. Contacted neurologist Dr. Duncan, discussed patient case and ED work-up, Dr. Duncan agrees patient requires MRI. Test ordered. MRI study incomplete, per vocational technical education director, patient unable to remain still for adequate study. Called and discussed this with neurologist Dr. Duncan who states will see patient in morning. No further treatment needed other than every 4 hour neuro checks. Called and discussed patient case and ED work-up with inpatient management physician Dr. Bejarano who agrees patient presentation requires admission to hospital medical surgical unit diagnosis CVA, altered mental status, elevated BNP., Patient awaiting inpatient room number from housekeeping supervisor. Per fpc fascia and transfer forms, patient is a DO NOT RESUSCITATE. Dragon Disclaimer: Dragon Disclaimer: This electronic medical record was generated, in whole or in part, using a voice recognition dictation system. NIHSS Stroke Scale NIH Stroke Scale: NIH Stroke Scale Response (Comments) Value Level of Consciousness: 0 Alert/Responsive 0 LOC Questions: 2 Answers neither correct 2 LOC Commands: 2 Perform neither task 2 Best Gaze: 0 Normal 0 Visual: 0 No visual loss 0 Facial Palsy: 2 Partial paralysis 2 Motor - Left Arm 2 Some effort 2 Motor - Right Arm 2 Some effort 2 Motor - Left Leg 2 Some effort 2 Motor: Right Leg 2 Some effort 2 Limb Ataxia: 2 Two limbs 2 Sensory: 2 Severe to total loss 2 Best Language: 3 Mute 3 Dysathria: 2 Severe 2 Extinction and Inattention: 2 Extinction 2 Total 25 Departure Departure Impression: Primary Impression: Altered mental status Qualified Codes: R41.82 - Altered mental status, unspecified Additional Impressions: CVA (cerebral vascular accident) Qualified Codes: I63.9 - Cerebral infarction, unspecified Elevated brain natriuretic peptide (BNP) level Abnormal CT scan, head Disposition: ADMITTED INPATIENT Admitting Physician: LORI (Admit to telemetry unit to Dr. Bejarano.) Condition: GUARDED Referrals: BRUNA ARAGON MD (PCP) NAZANIN LE APRN Apr 25, 2021 21:24
[2021-04-25 23:42] VITALS: BP 109/74
[2021-04-26 02:54] VITALS: BP 135/90
[2021-04-26 07:00] VITALS: BP 125/78
[2021-04-26] MEDS ORDERED: PANT40TA77 PO (10:04)
[2021-04-26] MEDS ORDERED: GLUC1KIT SQ (10:04)
[2021-04-26] MEDS ORDERED: IPRA3AMP29 NEB (10:04)
[2021-04-26] MEDS ORDERED: SERT-268 PO (10:04)
[2021-04-26] MEDS ORDERED: MULT-445 PO (10:04)
[2021-04-26] MEDS ORDERED: POTA-163 PO (10:04)
[2021-04-26] MEDS ORDERED: METF500T16 PO (10:04)
[2021-04-26 11:00] VITALS: BP 119/83
[2021-04-26] MEDS ORDERED: ANTI-COAG MONITOR BY PHARMACY. MC PRN (11:45)
[2021-04-26] MEDS ORDERED: IPRATRPIUM/ALBUTEROL 0.5/2.5MG 3 ML NEBU. NEB SCH (12:00)
[2021-04-26] MEDS ORDERED: ALBUTEROL SULFATE 2.5 MG/3 ML NEBU. NEB SCH (12:00)
[2021-04-26] MEDS: MAGNESIUM OXIDE 400 MG TABLET PO SCH ×2 (12:00→20:43)
[2021-04-26] MEDS ORDERED: ALBUTEROL SULFATE 2.5 MG/3 ML NEBU. NEB PRN (12:30)
[2021-04-26] MEDS: IPRATRPIUM/ALBUTEROL 0.5/2.5MG 3 ML NEBU. NEB SCH ×3 (12:30→20:00)
[2021-04-26] MEDS: APIXABAN 5 MG TABLET. PO SCH ×2 (13:46→20:43)
[2021-04-26] MEDS: PANTOPRAZOLE 40 MG TABLET.DR. PO SCH (13:46)
[2021-04-26] MEDS: FUROSEMIDE 40 MG TABLET. PO SCH (13:47)
[2021-04-26] MEDS: CARVEDILOL 12.5 MG TABLET. PO SCH ×2 (13:47→14:14)
[2021-04-26] MEDS: PIPERACILLIN/TAZOBACTAM 3.375 GM in IV NORMAL SALINE 50ML 50 ML IV SCH ×3 (13:47→23:59)
[2021-04-26] MEDS: FERROUS SULFATE 325 MG TABLET. PO SCH ×2 (13:47→14:14)
--- NOTE | 2021-04-26 14:07 | PDOC2 ---
GI CONSULT Reason For Consult: PEG tube displacement HPI: HPI: 66 year old male sent to the emergency department by long term change in behavior. Per d/w nurse and speech, he had a speech eval at [place] and had a restricted diet. The facility advanced his diet and he has aspirated. He has no hisptry of a prior PEG tube. On admission, he was found to be anemic with Hgb 11.8 and have elevated LFTs with T bili 1,2, AST 65, ALT 66 and Alk phos 147 He did undergo EGD and Colon by Pr [facility] 06/03/17 that demosntrated atrophic gastritis internal hemorrhoids transverse colon polyp s/p cold polypectomy s/p colon biopsies from right/transverse and left colon for uc Limited HPI related to old CVA with neurologic deficits, patient answers yes or no questions only. 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 DO NOT RESUSCITATE. PMH: PMH: Past Medical History Past Medical History: Diabetes-Type II, GERD, High Cholesterol, Hypertension, Stroke Additional Past Medical Histor: ulcerative colitis, aphasia, flaccid right side, eliquis, 2 Li O2, Past Surgical History: Other Additional Past Surgical Histo: UNKNOWN Smoking Status: Unknown if ever smoked Alcohol Use: None Drug Use: None FH: Family History: Other Social History: Smoke: No ALCOHOL: none Drugs: None ROS: unable to obtain VItals: Vitals: Vital Signs Date Time Temp Pulse Resp B/P (MAP) Pulse Ox O2 Delivery O2 Flow Rate FiO2 04/26/21 13:47 80 04/26/21 11:00 96.4 18 119/83 (95) 99 Room Air 96.4 04/26/21 02:54 2.0 Labs: Labs: Laboratory Tests Test 04/25/21 15:48 04/25/21 16:30 04/25/21 21:30 04/26/21 07:44 White Blood Count 4.8 x10^3/uL (4.0-11.0) Red Blood Count 4.28 x10^6/uL (4.30-5.70) Hemoglobin 11.8 g/dL (13.0-17.5) Hematocrit 35.7 % (39.0-53.0) Mean Corpuscular Volume 84 fL (79-100) Mean Corpuscular Hemoglobin 28 pg (25-35) Mean Corpuscular Hemoglobin Concent 33 g/dL (31-37) Red Cell Distribution Width 19.8 % (11.5-14.5) Platelet Count 187 x10^3/uL (140-400) Neutrophils (%) (Auto) 62 % (31-73) Lymphocytes (%) (Auto) 29 % (24-48) Monocytes (%) (Auto) 6 % (0-9) Eosinophils (%) (Auto) 2 % (0-3) Basophils (%) (Auto) 1 % (0-3) Neutrophils # (Auto) 3.0 x10^3/uL (1.8-7.7) Lymphocytes # (Auto) 1.4 x10^3/uL (1.0-4.8) Monocytes # (Auto) 0.3 x10^3/uL (0.0-1.1) Eosinophils # (Auto) 0.1 x10^3/uL (0.0-0.7) Basophils # (Auto) 0.1 x10^3/uL (0.0-0.2) Sodium Level 142 mmol/L (136-145) Potassium Level 3.0 mmol/L (3.5-5.1) Chloride Level 108 mmol/L (98-107) Carbon Dioxide Level 27 mmol/L (21-32) Anion Gap 7 (6-14) Blood Urea Nitrogen 19 mg/dL (8-26) Creatinine 1.3 mg/dL (0.7-1.3) Estimated GFR (Cockcroft-Gault) 66.4 BUN/Creatinine Ratio 15 (6-20) Glucose Level 111 mg/dL (70-99) Calcium Level 7.5 mg/dL (8.5-10.1) Total Bilirubin 1.2 mg/dL (0.2-1.0) Aspartate Amino Transf (AST/SGOT) 65 U/L (15-37) Alanine Aminotransferase (ALT/SGPT) 66 U/L (16-63) Alkaline Phosphatase 147 U/L (46-116) Creatine Kinase 107 U/L (39-308) Creatine Kinase MB (Mass) 1.8 ng/mL (0.0-3.6) Creatine Kinase MB Relative Index 1.7 % (0-4) Troponin I Quantitative < 0.017 ng/mL (0.000-0.055) OX-Lcl-R-Type Natriuretic Peptide 01917 pg/mL (0-124) Total Protein 5.6 g/dL (6.4-8.2) Albumin 2.7 g/dL (3.4-5.0) Albumin/Globulin Ratio 0.9 (1.0-1.7) Urine Collection Type Unknown Urine Color Cherelle Urine Clarity Cloudy Urine pH 5.5 (<5.0-8.0) Urine Specific [place] 1.020 (1.000-1.030) Urine Protein 100 mg/dL (NEG-TRACE) Urine Glucose (UA) Negative mg/dL (NEG) Urine Ketones (Stick) Trace mg/dL (NEG) Urine Blood Large (NEG) Urine Nitrite Negative (NEG) Urine Bilirubin Small (NEG) Urine Urobilinogen Dipstick 1.0 mg/dL (0.2 mg/dL) Urine Leukocyte Esterase Trace (NEG) Urine RBC >40 /HPF (0-2) Urine WBC Occ /HPF (0-4) Urine Bacteria 0 /HPF (0-FEW) Urine Hyaline Casts Few /HPF Urine Mucus Mod /LPF SARS-CoV-2 Antigen (Rapid) Negative (NEGATIVE) Glucose (Fingerstick) 83 mg/dL (70-99) Test 04/26/21 11:46 Glucose (Fingerstick) 93 mg/dL (70-99) Imaging: Imaging: [facility] [address] [place], [place] [id number] IMAGING REPORT Addendum PATIENT: MANUEL SAGASTUME ACCOUNT: [id number] : 1955 LOCATION: ER AGE: 66 SEX: M EXAM STATUS: PRE ER ORD. PHYSICIAN: NAZANIN LE APRN REASON: Altered mental status PROCEDURE: CT HEAD WO CONTRAST ADDENDUM ADDENDUM #1 Addendum: FOR INTERNAL CODING PURPOSES Critical result: Findings discussed with the emergency room physician at 04/25/2021 4:31 PM. RESULT CODE: (C) Electronically signed by: Cindy Ramirez MD (04/25/2021 4:35 PM) [id number] CT HEAD/BRAIN WO Clinical indications: Altered mental status COMPARISON: None available. Technique: Noncontrast axial cross sectional scanning of the head was performed. PQRS compliance Statement One or more of the following individualized dose reduction techniques were utilized for this study: 1. Automated exposure control 2. Adjustment of the mA and/or kV according to patient size 3. Use of iterative reconstruction technique Findings: No acute intracranial hemorrhage or midline shift or mass-effect or hydrocephalus or extra-axial fluid collection is seen. There is a moderate-sized area of encephalomalacia involving the upper left frontal lobe consistent with old infarct. There is a moderate-sized area of ventricular white matter hypodensity of the posterior right parietal lobe which could represent a subacute infarct. There is moderate bilateral periventricular white matter hypodensity consistent with chronic small vessel ischemic disease in this age group. No skull fracture or pneumocephalus is seen. No opacification of the mastoid sinuses or the middle ear cavities or the paranasal sinuses is seen. The maxillary sinuses are not completely seen in this study. There is soft tissue air within the left and right infratemporal fossa. Origin is uncertain. There is a small amount of air within the superior sagittal sinus seen on image 39 series 6. IMPRESSION: No acute intracranial hemorrhage is seen. 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 Evaluation for acute infarct with a noncontrast MRI study of the brain may be helpful. Small amount of air within the superior sagittal sinus. This could be related to air embolism. MRI study of the brain may be helpful for further evaluation. Soft tissue air is seen within the infratemporal fossa bilaterally of uncertain origin. Electronically signed by: Cindy Ramirez MD (04/25/2021 4:23 PM) [id number] DICTATED AND SIGNED BY: CINDY RAMIREZ MD DATE: 04/25/21 1629 CC: NAZANIN LE APRN; LING PLEITEZ DO ~ CT HEAD/BRAIN WO Clinical indications: Altered mental status COMPARISON: None available. Technique: Noncontrast axial cross sectional scanning of the head was performed. PQRS compliance Statement One or more of the following individualized dose reduction techniques were utilized for this study: 1. Automated exposure control 2. Adjustment of the mA and/or kV according to patient size 3. Use of iterative reconstruction technique Findings: No acute intracranial hemorrhage or midline shift or mass-effect or hydrocephalus or extra-axial fluid collection is seen. There is a moderate-sized area of encephalomalacia involving the upper left frontal lobe consistent with old infarct. There is a moderate-sized area of ventricular white matter hypodensity of the posterior right parietal lobe which could represent a subacute infarct. There is moderate bilateral periventricular white matter hypodensity consistent with chronic small vessel ischemic disease in this age group. No skull fracture or pneumocephalus is seen. No opacification of the mastoid sinuses or the middle ear cavities or the paranasal sinuses is seen. The maxillary sinuses are not completely seen in this study. There is soft tissue air within the left and right infratemporal fossa. Origin is uncertain. There is a small amount of air within the superior sagittal sinus seen on image 39 series 6. IMPRESSION: No acute intracranial hemorrhage is seen. 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 Evaluation for acute infarct with a noncontrast MRI study of the brain may be helpful. Small amount of air within the superior sagittal sinus. This could be related to air embolism. MRI study of the brain may be helpful for further evaluation. Soft tissue air is seen within the infratemporal fossa bilaterally of uncertain origin. Electronically signed by: Cindy Ramirez MD (04/25/2021 4:23 PM) [id number] DICTATED and SIGNED BY: CINDY RAMIREZ MD DATE: 04/25/21 [id number] PE: GEN: NAD HEENT: Atraumatic, PERRLA LUNGS: CTAB HEART: RRR, no murmurs ABD: NABS, S/ND/NT, no masses EXTREMITY: No edema SKIN: No rashes, no jaundice A/P: A/P: A&P 1) Dysphagia: Await Speech eval (Ongoing) 2) Malnutrition 3) Anemia: Hgb 11.8. Will check iron studies 4) Elevated LFTs: T bili 1,2, AST 65, ALT 66 and Alk phos 147. check hepatitis serologies and abd JACKIE Rodrigues MD Apr 26, 2021 14:07
--- NOTE | 2021-04-26 14:11 | PDOC ---
GENERAL General: History and physical [id number] VITAL SIGNS Vital Signs/I&O: Vital Signs Date Time Temp Pulse Resp B/P (MAP) Pulse Ox O2 Delivery O2 Flow Rate FiO2 04/26/21 13:47 80 04/26/21 11:00 96.4 18 119/83 (95) 99 Room Air 96.4 04/26/21 02:54 2.0 I & O 04/25/21 04/25/21 04/26/21 15:00 23:00 07:00 Intake Total 20 ml Balance 20 ml ALLERGIES Allergies: Allergies Coded Allergies Type Severity Reaction Last Updated Verified No Known Drug Allergies 04/15/21 No MEDS Medications: Current Medications Medications (Trade) Dose Ordered Sig/Mari Route PRN Reason Start Time Stop Time Status Last Admin Dose Admin Potassium Bicarbonate (Potassium Effervescent Tablet) 40 meq 1X ONCE PO 04/25/21 17:30 04/25/21 17:31 DC 04/25/21 19:18 Amlodipine Besylate (Norvasc) 5 mg DAILY PO 04/26/21 12:00 04/26/21 13:47 Apixaban (Eliquis) 5 mg BID PO 04/26/21 12:00 04/26/21 13:46 Carvedilol (Coreg) 12.5 mg BIDWMEALS PO 04/26/21 12:00 04/26/21 13:47 Ferrous Sulfate (Feosol) 325 mg BIDWMEALS PO 04/26/21 12:00 04/26/21 13:47 Furosemide (Lasix) 40 mg DAILY PO 04/26/21 12:00 04/26/21 13:47 Pantoprazole Sodium (Protonix) 40 mg DAILYAC PO 04/26/21 11:30 04/26/21 13:46 Piperacillin Sod/ Tazobactam Sod 3.375 gm/Sodium Chloride 50 ml @ 100 mls/hr Q6HRS IV 04/26/21 12:00 04/26/21 13:47 LAB Lab: Laboratory Tests Test 04/25/21 15:48 04/25/21 16:30 04/25/21 21:30 04/26/21 07:44 White Blood Count 4.8 x10^3/uL (4.0-11.0) Red Blood Count 4.28 x10^6/uL (4.30-5.70) L Hemoglobin 11.8 g/dL (13.0-17.5) L Hematocrit 35.7 % (39.0-53.0) L Mean Corpuscular Volume 84 fL (79-100) Mean Corpuscular Hemoglobin 28 pg (25-35) Mean Corpuscular Hemoglobin Concent 33 g/dL (31-37) Red Cell Distribution Width 19.8 % (11.5-14.5) H Platelet Count 187 x10^3/uL (140-400) Neutrophils (%) (Auto) 62 % (31-73) Lymphocytes (%) (Auto) 29 % (24-48) Monocytes (%) (Auto) 6 % (0-9) Eosinophils (%) (Auto) 2 % (0-3) Basophils (%) (Auto) 1 % (0-3) Neutrophils # (Auto) 3.0 x10^3/uL (1.8-7.7) Lymphocytes # (Auto) 1.4 x10^3/uL (1.0-4.8) Monocytes # (Auto) 0.3 x10^3/uL (0.0-1.1) Eosinophils # (Auto) 0.1 x10^3/uL (0.0-0.7) Basophils # (Auto) 0.1 x10^3/uL (0.0-0.2) Sodium Level 142 mmol/L (136-145) Potassium Level 3.0 mmol/L (3.5-5.1) L Chloride Level 108 mmol/L (98-107) H Carbon Dioxide Level 27 mmol/L (21-32) Anion Gap 7 (6-14) Blood Urea Nitrogen 19 mg/dL (8-26) Creatinine 1.3 mg/dL (0.7-1.3) Estimated GFR (Cockcroft-Gault) 66.4 BUN/Creatinine Ratio 15 (6-20) Glucose Level 111 mg/dL (70-99) H Calcium Level 7.5 mg/dL (8.5-10.1) L Total Bilirubin 1.2 mg/dL (0.2-1.0) H Aspartate Amino Transferase (AST) 65 U/L (15-37) H Alanine Aminotransferase (ALT) 66 U/L (16-63) H Alkaline Phosphatase 147 U/L (46-116) H Creatine Kinase 107 U/L (39-308) Creatine Kinase MB (Mass) 1.8 ng/mL (0.0-3.6) Creatine Kinase MB Relative Index 1.7 % (0-4) Troponin I Quantitative < 0.017 ng/mL (0.000-0.055) GR-Jts-N-Type Natriuretic Peptide 68021 pg/mL (0-124) H Total Protein 5.6 g/dL (6.4-8.2) L Albumin 2.7 g/dL (3.4-5.0) L Albumin/Globulin Ratio 0.9 (1.0-1.7) L Urine Collection Type Unknown Urine Color Cherelle Urine Clarity Cloudy Urine pH 5.5 (<5.0-8.0) Urine Specific [place] 1.020 (1.000-1.030) Urine Protein 100 mg/dL (NEG-TRACE) Urine Glucose (UA) Negative mg/dL (NEG) Urine Ketones (Stick) Trace mg/dL (NEG) Urine Blood Large (NEG) Urine Nitrite Negative (NEG) Urine Bilirubin Small (NEG) Urine Urobilinogen Dipstick 1.0 mg/dL (0.2 mg/dL) Urine Leukocyte Esterase Trace (NEG) Urine RBC >40 /HPF (0-2) Urine WBC Occ /HPF (0-4) Urine Bacteria 0 /HPF (0-FEW) Urine Hyaline Casts Few /HPF Urine Mucus Mod /LPF SARS-CoV-2 Antigen (Rapid) Negative (NEGATIVE) Glucose (Fingerstick) 83 mg/dL (70-99) Test 04/26/21 11:46 Glucose (Fingerstick) 93 mg/dL (70-99) Laboratory Tests 04/25/21 15:48 Laboratory Tests 04/25/21 15:48 Justifications for Admission Other Justification COPD Exac JOSH QUIÑONES MD Apr 26, 2021 14:10
[2021-04-26 15:00] VITALS: BP 120/84
--- NOTE | 2021-04-26 15:10 | HP ---
ADMIT DATE: 04/26/2021 HISTORY OF PRESENT ILLNESS: This patient is a 66-year-old man with a history of a debilitating stroke that has left him with dense right-sided hemiparesis. He typically does not speak or interact much from the record; however, his group home facility was concerned that his interactiveness had declined and he was not as responsive. He was brought in yesterday evening for assessment. I am seeing him this afternoon in the company of his nurse. She tells me that he has perked up some overnight. She also reports that in her conversation with the group home facility, she discovered that he has been vaccinated for COVID earlier this year. No fever or chills are reported. No cough or congestion. There are no obvious sick contacts. The group home facility also reported that he had failed his swallow study in late December and since that time, they have been feeding him a mechanical soft diet. Apparently, there were ongoing discussions there about whether he needs a PEG tube. The group home team did not know why that has been held up. I did not speak with any next of kin today. The patient is not able to engage in decision making around feeding tube. He is listed as a do not resuscitate. The patient appears comfortable in bed. He denies any pain. All other systems reviewed and negative. PAST MEDICAL HISTORY: 1. Debilitating stroke that has left him with a right hemiparesis. He lives in a group home. 2. Swallow deficit. 3. Hypertension. MEDICATIONS: Please see the medication reconciliation form. SOCIAL HISTORY: As outlined above the patient lives in group home. There is no reported tobacco, alcohol or illicit drugs. FAMILY HISTORY: Reviewed in full and noncontributory to the present illness. PHYSICAL EXAMINATION: VITAL SIGNS: Reviewed since admission and are notable for that the patient has been afebrile. Blood pressure has been in the 100s-130s over 80, heart rate is in the 70s-80s and regular. He is breathing comfortably and saturating normally on room air. GENERAL: The patient is a debilitated 66-year-old man. He is alert and interactive with monosyllabic responses in no acute distress. HEENT: Unremarkable. NECK: Soft and supple. No adenopathy or thyromegaly noted. CHEST: Clear to auscultation. HEART: S1, S2 normal. Regular rate and rhythm. No murmurs or gallops are noted. ABDOMEN: Soft, nontender, nondistended. No masses or organomegaly noted. EXTREMITIES: Notable for dense right hemiparesis. LABORATORY AND OTHER STUDIES: Admission white count is 4.8, hemoglobin is 11.8, platelet count is 187. Chemistry panel is notable for an admission potassium level of 3.0. Liver function test is mildly elevated. Creatinine is 1.3. A rapid COVID-19 antigen test is negative. Urinalysis is notable for hematuria. No pyuria noted. IMAGING: Chest x-ray is demonstrating a right lower lobe pneumonia. CT head is notable for subacute infarct of the right posterior parietal region. Old infarct of the upper left frontal lobe is noted. MR brain is recommended. ASSESSMENT AND PLAN: Impression: A 66-year-old man with chronic debility, who resides in a group home facility, admitted with altered mental status, found to have a right lower lobe pneumonia in the setting of impaired swallow. We have consulted speech pathology to reassess his swallow. We will also consult GI and will need to get with his next of kin in decision making around PEG tube placement. He seems to have failed the mechanical soft diet. In the meanwhile we will hold his diet. We will need to follow him closely clinically; however, he does have a significantly depressed ejection fraction and so will not be a good candidate for intravenous fluids. His BNP on admission is 18,000. We appreciate Neurology consultation. We will attempt to complete his MR brain today. We have written for his home medications and covered his aspiration pneumonia with broad spectrum antibiotics and the patient's stay is most appropriate as we anticipate a length of stay of at least 2-3 midnights while we work this through. The patient is on Eliquis and that will serve as DVT prophylaxis as well. SANCHO/MICHAEL : SANCHO/jenna TID: [id number]
--- NOTE | 2021-04-26 15:25 | PDOC2 ---
NEUROLOGY CONSULT Date of Service DOS: DATE: 04/26/21 TIME: 15:04 Reason for Consult Reason for Consult: Altered mental status, abnormal head CT Source Source: Caregiver (Chantelle Milton), Chart review History of Present Illness History of Present Illness The patient is a 66-year-old right-handed male sent from [facility] with altered mental status. He has had a speech evaluation at [facility] and apparently a PEG tube was recommended. However, here in our hospital, he passed his swallowing evaluation. Patient has an abnormal head CT as reviewed below. He cannot give any history. There is no listed history of any recent head trauma. He has had a left hemispheric stroke with right hemiparesis and aphasia. There is no notation of any seizure history. He has been in the shelter for 9 years Past Medical History Cardiovascular: CHF, Hyperlipidemia Pulmonary: COPD CENTRAL NERVOUS SYSTEM: CVA (Right hemiparesis and aphasia) GI: GERD, Inflam bowel disease (Ulcerative colitis) Infectious disease: Other (COVID-19) Renal/: UTI Endocrine: Diabetes (Type II) Past Surgical History Past Surgical History: No pertinent history Family History Family History: No pertinent hx (Unable to obtain) Social History Social History He says "hell no," when I ask if he smokes or uses alcohol. [facility] Current Medications Current Medications Current Medications Potassium Bicarbonate (Potassium Effervescent Tablet) 40 meq 1X ONCE PO Last administered on 04/25/21at 19:18; Start 04/25/21 at 17:30; Stop 04/25/21 at 17:31; Status DC Amlodipine Besylate (Norvasc) 5 mg DAILY PO Last administered on 04/26/21at 13:47; Start 04/26/21 at 12:00 Apixaban (Eliquis) 5 mg BID PO Last administered on 04/26/21at 13:46; Start 04/26/21 at 12:00 Atorvastatin Calcium (Lipitor) 40 mg QHS PO ; Start 04/26/21 at 21:00 Carvedilol (Coreg) 12.5 mg BIDWMEALS PO Last administered on 04/26/21at 13:47; Start 04/26/21 at 12:00 Ferrous Sulfate (Feosol) 325 mg BIDWMEALS PO Last administered on 04/26/21at 13:47; Start 04/26/21 at 12:00 Furosemide (Lasix) 40 mg DAILY PO Last administered on 04/26/21at 13:47; Start 04/26/21 at 12:00 Albuterol/ Ipratropium (Duoneb) 3 ml Q4HRS NEB ; Start 04/26/21 at 12:00; Stop 04/26/21 at 12:30; Status DC Magnesium Oxide (Magnesium Oxide) 400 mg BID PO ; Start 04/26/21 at 12:00 Pantoprazole Sodium (Protonix) 40 mg DAILYAC PO Last administered on 04/26/21at 13:46; Start 04/26/21 at 11:30 Non-Formulary Medication (Fluticasone/ Vilanterol (Breo Ellipta 100-25 Mcg Inh)) 1 puff DAILY IH ; Start 04/27/21 at 09:00; Status UNV Potassium Chloride (Klor-Con) 20 meq DAILYWBKFT PRN PO hypokalemia; Start 04/26/21 at 11:45 Sertraline HCl (Zoloft) 100 mg DAILY PO ; Start 04/27/21 at 12:00 Piperacillin Sod/ Tazobactam Sod 3.375 gm/Sodium Chloride 50 ml @ 100 mls/hr Q6HRS IV Last administered on 04/26/21at 13:47; Start 04/26/21 at 12:00 Info (Anti-Coagulation Monitoring By Pharmacy) 1 each PRN DAILY PRN MC PER PROTOCOL; Start 04/26/21 at 11:45 Albuterol Sulfate (Ventolin Neb Soln) 2.5 mg Q6HRS NEB ; Start 04/26/21 at 12:00; Stop 04/26/21 at 12:30; Status DC Budesonide (Pulmicort) 0.5 mg RTBID NEB ; Start 04/26/21 at 20:00 Albuterol Sulfate (Ventolin Neb Soln) 2.5 mg PRN Q6HRS PRN NEB WHEEZING; Start 04/26/21 at 12:30 Albuterol/ Ipratropium (Duoneb) 3 ml RTQID NEB ; Start 04/26/21 at 12:30 Active Scripts Active Reported Multivitamins (Multivitamin) 1 Each Tablet 1 Tab PO DAILY Potassium Chloride 20 Meq Tablet.er 20 Meq PO DAILY PRN Glucagon Emergency Kit (Glucagon,Human Recombinant) 1 Mg Kit 1 Mg SQ PRN Duoneb 0.5-3(2.5) Mg/3 Ml (Albuterol/Ipratropium) 3 Ml Ampul.neb 3 Ml NEB Q4HRS Sertraline Hcl 100 Mg Tablet 100 Mg PO DAILY Pantoprazole Sodium (Pantoprazole Sodium) 40 Mg Tablet.dr 40 Mg PO DAILYAC Metformin Hcl 500 Mg Tablet 500 Mg PO BIDWMEALS Eliquis (Apixaban) 5 Mg Tablet 5 Mg PO BID Carvedilol (Carvedilol) 12.5 Mg Tablet 12.5 Mg PO BID Breo Ellipta 100-25 Mcg Inh (Fluticasone/Vilanterol) 1 Each Aer.pow.ba 1 Puff IH DAILY Amlodipine Besylate 5 Mg Tablet 5 Mg PO DAILY Magnesium Oxide 400 Mg Tablet 1 Tab PO BID Furosemide 40 Mg Tablet 1 Tab PO DAILY Ferrous Sulfate 325 Mg Tablet 325 Mg PO BID Atorvastatin Calcium 40 Mg Tablet 1 Tab PO QHS Allergies Allergies: Coded Allergies: No Known Drug Allergies (Unverified , 04/15/21) ROS Review of System No fevers, chills, weight loss, chest pain, hematochezia, melena, dysuria; positive for dyspnea. Otherwise 14-point review of systems negative Physical Exam Physical Examination General: Well-developed, well-nourished black male in no acute distress HEENT: Normocephalic andatraumatic. Tympanic membranes clear.Temporal arteriespulsatile and nontender. Neck: Supple without bruit, no meningismus Musculoskeletal: Stability:see neurologic. Gait exam:see neurologic. Tone:see neurologic.Strength:see neurologic. Neurological: Mental Status: orientation, memory, attention span/concentration, language, fund of knowledge: aphasic, receptive and expressive, does answer a few questions such as whether he smokes. Cranial Nerves:Pupils equal and reactive to light, extraocular movements areintact, visual downey are full to confrontation. Facial sensation is normal. There is a right central facial weakness. Vestibulo- ocular reflex is intact. Palate elevates and tongue protrudes in midline. All other cranial related problems are negative except as mentioned before.Reflexes:2+ and symmetric with extensor plantar response on right, flexor on left. Motor: 2/5 spastic right hemiparesis. Coordination:Finger-nose finger and coyb-ex-thma testing are normal. Rapid alternating movements and fine finger movements intact on the left. Gait:Not tested. Sensory:Normal pinprick, vibration, light touch, proprioception. Vitals VITALS Vital Signs Date Time Temp Pulse Resp B/P (MAP) Pulse Ox O2 Delivery O2 Flow Rate FiO2 04/26/21 13:47 80 04/26/21 11:00 96.4 18 119/83 (95) 99 Room Air 96.4 04/26/21 02:54 2.0 Labs Labs Laboratory Tests Test 04/25/21 15:48 04/25/21 16:30 04/25/21 21:30 04/26/21 07:44 White Blood Count 4.8 x10^3/uL (4.0-11.0) Red Blood Count 4.28 x10^6/uL (4.30-5.70) Hemoglobin 11.8 g/dL (13.0-17.5) Hematocrit 35.7 % (39.0-53.0) Mean Corpuscular Volume 84 fL (79-100) Mean Corpuscular Hemoglobin 28 pg (25-35) Mean Corpuscular Hemoglobin Concent 33 g/dL (31-37) Red Cell Distribution Width 19.8 % (11.5-14.5) Platelet Count 187 x10^3/uL (140-400) Neutrophils (%) (Auto) 62 % (31-73) Lymphocytes (%) (Auto) 29 % (24-48) Monocytes (%) (Auto) 6 % (0-9) Eosinophils (%) (Auto) 2 % (0-3) Basophils (%) (Auto) 1 % (0-3) Neutrophils # (Auto) 3.0 x10^3/uL (1.8-7.7) Lymphocytes # (Auto) 1.4 x10^3/uL (1.0-4.8) Monocytes # (Auto) 0.3 x10^3/uL (0.0-1.1) Eosinophils # (Auto) 0.1 x10^3/uL (0.0-0.7) Basophils # (Auto) 0.1 x10^3/uL (0.0-0.2) Sodium Level 142 mmol/L (136-145) Potassium Level 3.0 mmol/L (3.5-5.1) Chloride Level 108 mmol/L (98-107) Carbon Dioxide Level 27 mmol/L (21-32) Anion Gap 7 (6-14) Blood Urea Nitrogen 19 mg/dL (8-26) Creatinine 1.3 mg/dL (0.7-1.3) Estimated GFR (Cockcroft-Gault) 66.4 BUN/Creatinine Ratio 15 (6-20) Glucose Level 111 mg/dL (70-99) Calcium Level 7.5 mg/dL (8.5-10.1) Total Bilirubin 1.2 mg/dL (0.2-1.0) Aspartate Amino Transf (AST/SGOT) 65 U/L (15-37) Alanine Aminotransferase (ALT/SGPT) 66 U/L (16-63) Alkaline Phosphatase 147 U/L (46-116) Creatine Kinase 107 U/L (39-308) Creatine Kinase MB (Mass) 1.8 ng/mL (0.0-3.6) Creatine Kinase MB Relative Index 1.7 % (0-4) Troponin I Quantitative < 0.017 ng/mL (0.000-0.055) OU-Slw-Y-Type Natriuretic Peptide 41467 pg/mL (0-124) Total Protein 5.6 g/dL (6.4-8.2) Albumin 2.7 g/dL (3.4-5.0) Albumin/Globulin Ratio 0.9 (1.0-1.7) Urine Collection Type Unknown Urine Color Cherelle Urine Clarity Cloudy Urine pH 5.5 (<5.0-8.0) Urine Specific [place] 1.020 (1.000-1.030) Urine Protein 100 mg/dL (NEG-TRACE) Urine Glucose (UA) Negative mg/dL (NEG) Urine Ketones (Stick) Trace mg/dL (NEG) Urine Blood Large (NEG) Urine Nitrite Negative (NEG) Urine Bilirubin Small (NEG) Urine Urobilinogen Dipstick 1.0 mg/dL (0.2 mg/dL) Urine Leukocyte Esterase Trace (NEG) Urine RBC >40 /HPF (0-2) Urine WBC Occ /HPF (0-4) Urine Bacteria 0 /HPF (0-FEW) Urine Hyaline Casts Few /HPF Urine Mucus Mod /LPF SARS-CoV-2 Antigen (Rapid) Negative (NEGATIVE) Glucose (Fingerstick) 83 mg/dL (70-99) Test 04/26/21 11:46 Glucose (Fingerstick) 93 mg/dL (70-99) Laboratory Tests Test 04/25/21 15:48 04/25/21 16:30 04/25/21 21:30 04/26/21 07:44 White Blood Count 4.8 x10^3/uL (4.0-11.0) Red Blood Count 4.28 x10^6/uL (4.30-5.70) Hemoglobin 11.8 g/dL (13.0-17.5) Hematocrit 35.7 % (39.0-53.0) Mean Corpuscular Volume 84 fL (79-100) Mean Corpuscular Hemoglobin 28 pg (25-35) Mean Corpuscular Hemoglobin Concent 33 g/dL (31-37) Red Cell Distribution Width 19.8 % (11.5-14.5) Platelet Count 187 x10^3/uL (140-400) Neutrophils (%) (Auto) 62 % (31-73) Lymphocytes (%) (Auto) 29 % (24-48) Monocytes (%) (Auto) 6 % (0-9) Eosinophils (%) (Auto) 2 % (0-3) Basophils (%) (Auto) 1 % (0-3) Neutrophils # (Auto) 3.0 x10^3/uL (1.8-7.7) Lymphocytes # (Auto) 1.4 x10^3/uL (1.0-4.8) Monocytes # (Auto) 0.3 x10^3/uL (0.0-1.1) Eosinophils # (Auto) 0.1 x10^3/uL (0.0-0.7) Basophils # (Auto) 0.1 x10^3/uL (0.0-0.2) Sodium Level 142 mmol/L (136-145) Potassium Level 3.0 mmol/L (3.5-5.1) Chloride Level 108 mmol/L (98-107) Carbon Dioxide Level 27 mmol/L (21-32) Anion Gap 7 (6-14) Blood Urea Nitrogen 19 mg/dL (8-26) Creatinine 1.3 mg/dL (0.7-1.3) Estimated GFR (Cockcroft-Gault) 66.4 BUN/Creatinine Ratio 15 (6-20) Glucose Level 111 mg/dL (70-99) Calcium Level 7.5 mg/dL (8.5-10.1) Total Bilirubin 1.2 mg/dL (0.2-1.0) Aspartate Amino Transf (AST/SGOT) 65 U/L (15-37) Alanine Aminotransferase (ALT/SGPT) 66 U/L (16-63) Alkaline Phosphatase 147 U/L (46-116) Creatine Kinase 107 U/L (39-308) Creatine Kinase MB (Mass) 1.8 ng/mL (0.0-3.6) Creatine Kinase MB Relative Index 1.7 % (0-4) Troponin I Quantitative < 0.017 ng/mL (0.000-0.055) EV-Lhi-U-Type Natriuretic Peptide 15039 pg/mL (0-124) Total Protein 5.6 g/dL (6.4-8.2) Albumin 2.7 g/dL (3.4-5.0) Albumin/Globulin Ratio 0.9 (1.0-1.7) Urine Collection Type Unknown Urine Color Cherelle Urine Clarity Cloudy Urine pH 5.5 (<5.0-8.0) Urine Specific [place] 1.020 (1.000-1.030) Urine Protein 100 mg/dL (NEG-TRACE) Urine Glucose (UA) Negative mg/dL (NEG) Urine Ketones (Stick) Trace mg/dL (NEG) Urine Blood Large (NEG) Urine Nitrite Negative (NEG) Urine Bilirubin Small (NEG) Urine Urobilinogen Dipstick 1.0 mg/dL (0.2 mg/dL) Urine Leukocyte Esterase Trace (NEG) Urine RBC >40 /HPF (0-2) Urine WBC Occ /HPF (0-4) Urine Bacteria 0 /HPF (0-FEW) Urine Hyaline Casts Few /HPF Urine Mucus Mod /LPF SARS-CoV-2 Antigen (Rapid) Negative (NEGATIVE) Glucose (Fingerstick) 83 mg/dL (70-99) Test 04/26/21 11:46 Glucose (Fingerstick) 93 mg/dL (70-99) Images Images CT HEAD/BRAIN WO Clinical indications: Altered mental status COMPARISON: None available. Technique: Noncontrast axial cross sectional scanning of the head was performed. PQRS compliance Statement One or more of the following individualized dose reduction techniques were utilized for this study: 1. Automated exposure control 2. Adjustment of the mA and/or kV according to patient size 3. Use of iterative reconstruction technique Findings: No acute intracranial hemorrhage or midline shift or mass-effect or hydrocephalus or extra-axial fluid collection is seen. There is a moderate-sized area of encephalomalacia involving the upper left frontal lobe consistent with old infarct. There is a moderate-sized area of ventricular white matter hypodensity of the posterior right parietal lobe which could represent a subacute infarct. There is moderate bilateral periventricular white matter hypodensity consistent with chronic small vessel ischemic disease in this age group. No skull fracture or pneumocephalus is seen. No opacification of the mastoid sinuses or the middle ear cavities or the paranasal sinuses is seen. The maxillary sinuses are not completely seen in this study. There is soft tissue air within the left and right infratemporal fossa. Origin is uncertain. There is a small amount of air within the superior sagittal sinus seen on image 39 series 6. IMPRESSION: No acute intracranial hemorrhage is seen. 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 Evaluation for acute infarct with a noncontrast MRI study of the brain may be helpful. Small amount of air within the superior sagittal sinus. This could be related to air embolism. MRI study of the brain may be helpful for further evaluation. Soft tissue air is seen within the infratemporal fossa bilaterally of uncertain origin. Assessment/Plan Assessment/Plan Impression: Strange CT scan showing air in the area of the sagittal sinus and int raparenchymally, no recent trauma, no evidence of CSF leak through the sinuses, it is difficult to know what to make of this especially given the stable clinical exam, this may be just an old finding. Prior left hemispheric stroke, possible subacute right parietal stroke, no evidence of new stroke Mental status changes may been related to his aspiration (?) Pneumonia, but he did pass his swallow evaluation here. Recommendations: We tried to do a brain MRI last night but the patient was too restless. I believe the risks outweigh the benefits of sedating him for an MRI, given the stable clinical picture Further stroke work-up such as CT angiogram or echocardiogram is not indicated. Note that he is already on apixaban and a statin. Observe 1 more night and aim for discharge tomorrow Consider repeat head CT in a month or 2. I consider ENT or neurosurgical consultation, but I do not believe that is necessary given the above discussion Fully discussed with patient's significant other, Kalli Milton Also discussed with Dr. Jean Thank you for letting me help with the patient's care. JOHNNIE HOPKINS MD Apr 26, 2021 15:25
[2021-04-26] MEDS ORDERED: POTASSIUM BICARB 20 MEQ EFFERVESCENT TABLET. PO ONE (17:30)
--- NOTE | 2021-04-26 18:00 | RAD ---
EXAMINATION: US ABDOMEN COMPLETE INDICATION: 66 years, Male, elevated liver function test. COMPARISON: None TECHNIQUE: Grayscale, color Doppler and limited spectral Doppler images of the abdomen were obtained. FINDINGS: LIVER: SIZE (LENGTH): 17.2 cm. ECHOGENICITY: Increased PARENCHYMA: Homogeneous echotexture. No discrete focal lesion. INTRAHEPATIC BILE DUCTS: Nondilated. PORTAL VEIN: Patent with normal hepatopedal flow. GALLBLADDER: GALLBLADDER WALL THICKNESS: 2.7 mm MORPHOLOGY: Normal morphology. Mild submucosal edema in the gallbladder wall. No wall hyperemia. LUMEN: Biliary sludge. COMMON BILE DUCT DIAMETER: 1.5 mm RIGHT KIDNEY: MEASURES: 11.9 cm in length. MORPHOLOGY/PARENCHYMA: Normal corticomedullary differentiation with no shadowing calculus or discrete masses. COLLECTING SYSTEM: No hydronephrosis. LEFT KIDNEY: MEASURES: 11.0 cm in length MORPHOLOGY/PARENCHYMA: Normal corticomedullary differentiation with no shadowing calculus or discrete masses. COLLECTING SYSTEM: No hydronephrosis. SPLEEN: SIZE (LENGTH): 10.6 cm PARENCHYMA: Unremarkable. PANCREAS: Obscured by overlying bowel gas. OTHER: RETROPERITONEUM, INFERIOR VENA CAVA: Obscured by overlying bowel gas. AORTA: Normal caliber measures up to 2.2 cm FLUID: Small amount of ascites in the right upper abdomen. Small to moderate bilateral pleural effusi ons. IMPRESSION: 1. Mild to moderate diffuse hepatic steatosis. No biliary ductal dilation. 2. Gallbladder biliary sludge. Submucosal edema throughout the gallbladder wall, nonspecific findings and likely secondary to fluid overload. No other sonographic evidence of acute cholecystitis. 3. Small amount of ascites in the right upper abdomen. 4. Small to moderate bilateral pleural effusions. Electronically signed by: Adrianne Torres MD (04/26/2021 5:57 PM) [facility]
[2021-04-26 19:40] VITALS: BP 112/75
[2021-04-26] MEDS: BUDESONIDE 0.5 MG/2 ML NEBU. NEB SCH (20:00)
[2021-04-26] MEDS: ATORVASTATIN CALCIUM 40 MG TABLET. PO SCH (20:43)
[2021-04-26 22:37] VITALS: BP 111/69
[2021-04-27 03:05] VITALS: BP 115/66
[2021-04-27 05:43] LABS: ALBUMIN 2.9 g/dL (3.4-5.0); ALBUMIN/GLOBULIN RATIO 0.9 (1.0-1.7); CALCIUM 8.6 mg/dL (8.5-10.1); CREATININE 1.3 mg/dL (0.7-1.3); GFR 66.4; POTASSIUM 3.7 mmol/L (3.5-5.1); TOTAL BILIRUBIN 1.6 mg/dL (0.2-1.0); TOTAL PROTEIN 6.2 g/dL (6.4-8.2)
[2021-04-27 05:49] LABS: BASO % 0 % (0-3); EOS # 0.1 x10^3/uL (0.0-0.7); EOS % 2 % (0-3); HEMATOCRIT 35.2 % (39.0-53.0); HEMOGLOBIN 11.7 g/dL (13.0-17.5); LYMPH # 1.3 x10^3/uL (1.0-4.8); LYMPH % 27 % (24-48); MEAN CORPUSCULAR HEMOGLOBIN 28 pg (25-35); MEAN CORPUSCULAR HGB CONC 33 g/dL (31-37); MEAN CORPUSCULAR VOLUME 84 fL (79-100); MONO # 0.3 x10^3/uL (0.0-1.1); MONO % 7 % (0-9); NEUT # 3.2 x10^3/uL (1.8-7.7); NEUT % 64 % (31-73); PLATELET COUNT 171 x10^3/uL (140-400); RED CELL DISTRIBUTION WIDTH 19.7 % (11.5-14.5); WHITE BLOOD COUNT 4.9 x10^3/uL (4.0-11.0)
[2021-04-27] MEDS: PIPERACILLIN/TAZOBACTAM 3.375 GM in IV NORMAL SALINE 50ML 50 ML IV SCH ×4 (06:11→23:23)
[2021-04-27 07:00] VITALS: BP 118/63
[2021-04-27] MEDS: IPRATRPIUM/ALBUTEROL 0.5/2.5MG 3 ML NEBU. NEB SCH ×4 (07:08→20:37)
[2021-04-27] MEDS: BUDESONIDE 0.5 MG/2 ML NEBU. NEB SCH ×2 (07:08→20:37)
[2021-04-27] MEDS ORDERED: NON FORMULARY ITEM (Fluticasone/Vilanterol (Breo Ellipta 100-25 Mcg Inh) 1 PUFF) IH SCH (09:00)
[2021-04-27] MEDS: MAGNESIUM OXIDE 400 MG TABLET PO SCH ×2 (10:33→20:25)
[2021-04-27] MEDS: POTASSIUM CHLORIDE 20 MEQ TABLET.ER. PO PRN (10:33)
[2021-04-27] MEDS: APIXABAN 5 MG TABLET. PO SCH ×2 (10:33→20:25)
[2021-04-27] MEDS: FERROUS SULFATE 325 MG TABLET. PO SCH ×2 (10:34→18:13)
[2021-04-27] MEDS: FUROSEMIDE 40 MG TABLET. PO SCH (10:34)
[2021-04-27] MEDS: PANTOPRAZOLE 40 MG TABLET.DR. PO SCH (10:34)
[2021-04-27] MEDS: CARVEDILOL 12.5 MG TABLET. PO SCH ×2 (10:35→18:14)
[2021-04-27 11:07] VITALS: BP 113/77
[2021-04-27] MEDS: SERTRALINE 50 MG TABLET. PO SCH (12:10)
--- NOTE | 2021-04-27 13:48 | PDOC ---
Date of Service: DATE: 04/27/21 TIME: 13:44 Subjective: Subjective: Wants to know why he is here? IMPRESSION: 1. Mild to moderate diffuse hepatic steatosis. No biliary ductal dilation. 2. Gallbladder biliary sludge. Submucosal edema throughout the gallbladder wall, nonspecific findings and likely secondary to fluid overload. No other sonographic evidence of acute cholecystitis. 3. Small amount of ascites in the right upper abdomen. 4. Small to moderate bilateral pleural effusions. Objective: Vital Signs: Vital Signs Date Time Temp Pulse Resp B/P (MAP) Pulse Ox O2 Delivery O2 Flow Rate FiO2 04/27/21 11:07 97.7 72 16 113/77 (89) 97 Nasal Cannula 2.0 97.7 Labs: Laboratory Tests Test 04/26/21 16:37 04/26/21 21:34 04/27/21 04:10 04/27/21 06:51 Glucose (Fingerstick) 112 mg/dL (70-99) 125 mg/dL (70-99) 91 mg/dL (70-99) White Blood Count 4.9 x10^3/uL (4.0-11.0) Red Blood Count 4.20 x10^6/uL (4.30-5.70) Hemoglobin 11.7 g/dL (13.0-17.5) Hematocrit 35.2 % (39.0-53.0) Mean Corpuscular Volume 84 fL (79-100) Mean Corpuscular Hemoglobin 28 pg (25-35) Mean Corpuscular Hemoglobin Concent 33 g/dL (31-37) Red Cell Distribution Width 19.7 % (11.5-14.5) Platelet Count 171 x10^3/uL (140-400) Neutrophils (%) (Auto) 64 % (31-73) Lymphocytes (%) (Auto) 27 % (24-48) Monocytes (%) (Auto) 7 % (0-9) Eosinophils (%) (Auto) 2 % (0-3) Basophils (%) (Auto) 0 % (0-3) Neutrophils # (Auto) 3.2 x10^3/uL (1.8-7.7) Lymphocytes # (Auto) 1.3 x10^3/uL (1.0-4.8) Monocytes # (Auto) 0.3 x10^3/uL (0.0-1.1) Eosinophils # (Auto) 0.1 x10^3/uL (0.0-0.7) Basophils # (Auto) 0.0 x10^3/uL (0.0-0.2) Sodium Level 142 mmol/L (136-145) Potassium Level 3.7 mmol/L (3.5-5.1) Chloride Level 105 mmol/L (98-107) Carbon Dioxide Level 29 mmol/L (21-32) Anion Gap 8 (6-14) Blood Urea Nitrogen 21 mg/dL (8-26) Creatinine 1.3 mg/dL (0.7-1.3) Estimated GFR (Cockcroft-Gault) 66.4 BUN/Creatinine Ratio 16 (6-20) Glucose Level 94 mg/dL (70-99) Calcium Level 8.6 mg/dL (8.5-10.1) Iron Level 32 ug/dL (65-175) Total Iron Binding Capacity 259 ug/dL (250-450) Iron Saturation 12 % (15-34) Total Bilirubin 1.6 mg/dL (0.2-1.0) Aspartate Amino Transf (AST/SGOT) 72 U/L (15-37) Alanine Aminotransferase (ALT/SGPT) 81 U/L (16-63) Alkaline Phosphatase 150 U/L (46-116) Total Protein 6.2 g/dL (6.4-8.2) Albumin 2.9 g/dL (3.4-5.0) Albumin/Globulin Ratio 0.9 (1.0-1.7) Test 04/27/21 11:17 Glucose (Fingerstick) 106 mg/dL (70-99) Physical Exam: Physical Exam: GEN: NAD HEENT: OP clear CV: S1S2 without murmurs, rubs, or gallops RESP: CTAB without wheezing, rhonchi, or crackles ABD: NABS, SNT/ND EXT: No edema Assessment & Plan: Assessment : 1) Dysphagia: Await Speech eval (Ongoing) 2) Malnutrition 3) Anemia: Hgb 11.8. Await iron studies 4) Elevated LFTs: T bili 1,2, AST 65, ALT 66 and Alk phos 147. Abd sono with hepatic steatosis. Await hepatitis serologies Plan: Await ;abs. Back to SNF when primary says okay Justicifation of Admission Dx: Justifications for Admission: Justification of Admission Dx: Yes Respiratory Failure: Severe Resp Distress JACKIE LOERA MD Apr 27, 2021 13:48
--- NOTE | 2021-04-27 14:15 | PDOC ---
PROGRESS NOTES Date of Service DATE: 04/27/21 TIME: 14:12 Assessment Problems Medical Problems: (1) Abnormal CT scan, head Status: Acute (2) Altered mental status Status: Acute (3) CVA (cerebral vascular accident) Status: Acute (4) Elevated brain natriuretic peptide (BNP) level Status: Acute Strange CT scan showing air in the area of the sagittal sinus and intraparenchymally, no recent trauma, no evidence of CSF leak through the sinuses, it is difficult to know what to make of this especially given the stable clinical exam, this may be just an old finding. Prior left hemispheric stroke, possible subacute right parietal stroke, no evidence of new stroke Mental status changes may been related to his aspiration (?) pneumonia, but he did pass his swallow evaluation here. Plan OK for discharge Repeat head CT in a month, RX on paper chart Subjective No complaints Objective Vital Signs Date Time Temp Pulse Resp B/P (MAP) Pulse Ox O2 Delivery O2 Flow Rate FiO2 04/27/21 11:07 97.7 72 16 113/77 (89) 97 Nasal Cannula 2.0 97.7 Intake and Output0 04/27/21 07:00 Intake Total 80 ml Balance 80 ml Intake Oral 80 ml # Voids 4 PHYSICAL EXAM Alert. Global aphasia, can tell me his name and follow a few commands PERRL. EOMI. CN: right central facial weakness Muscle tone: spastic on right. Muscle strength: 2/5 on right DTR: 2+ Plantar reflex: extensor on right, flexor on left. Gait: not examined in bed. Sensory exam: no abnormal findings. No cerebellar signs elicited. Review of Relevant I have reviewed the following items yulissa (where applicable) has been applied. Labs Laboratory Tests Test 04/25/21 15:48 04/25/21 16:30 04/25/21 21:30 04/26/21 07:44 White Blood Count 4.8 x10^3/uL (4.0-11.0) Red Blood Count 4.28 x10^6/uL (4.30-5.70) Hemoglobin 11.8 g/dL (13.0-17.5) Hematocrit 35.7 % (39.0-53.0) Mean Corpuscular Volume 84 fL (79-100) Mean Corpuscular Hemoglobin 28 pg (25-35) Mean Corpuscular Hemoglobin Concent 33 g/dL (31-37) Red Cell Distribution Width 19.8 % (11.5-14.5) Platelet Count 187 x10^3/uL (140-400) Neutrophils (%) (Auto) 62 % (31-73) Lymphocytes (%) (Auto) 29 % (24-48) Monocytes (%) (Auto) 6 % (0-9) Eosinophils (%) (Auto) 2 % (0-3) Basophils (%) (Auto) 1 % (0-3) Neutrophils # (Auto) 3.0 x10^3/uL (1.8-7.7) Lymphocytes # (Auto) 1.4 x10^3/uL (1.0-4.8) Monocytes # (Auto) 0.3 x10^3/uL (0.0-1.1) Eosinophils # (Auto) 0.1 x10^3/uL (0.0-0.7) Basophils # (Auto) 0.1 x10^3/uL (0.0-0.2) Sodium Level 142 mmol/L (136-145) Potassium Level 3.0 mmol/L (3.5-5.1) Chloride Level 108 mmol/L (98-107) Carbon Dioxide Level 27 mmol/L (21-32) Anion Gap 7 (6-14) Blood Urea Nitrogen 19 mg/dL (8-26) Creatinine 1.3 mg/dL (0.7-1.3) Estimated GFR (Cockcroft-Gault) 66.4 BUN/Creatinine Ratio 15 (6-20) Glucose Level 111 mg/dL (70-99) Calcium Level 7.5 mg/dL (8.5-10.1) Total Bilirubin 1.2 mg/dL (0.2-1.0) Aspartate Amino Transf (AST/SGOT) 65 U/L (15-37) Alanine Aminotransferase (ALT/SGPT) 66 U/L (16-63) Alkaline Phosphatase 147 U/L (46-116) Creatine Kinase 107 U/L (39-308) Creatine Kinase MB (Mass) 1.8 ng/mL (0.0-3.6) Creatine Kinase MB Relative Index 1.7 % (0-4) Troponin I Quantitative < 0.017 ng/mL (0.000-0.055) ES-Kqy-G-Type Natriuretic Peptide 75614 pg/mL (0-124) Total Protein 5.6 g/dL (6.4-8.2) Albumin 2.7 g/dL (3.4-5.0) Albumin/Globulin Ratio 0.9 (1.0-1.7) Urine Collection Type Unknown Urine Color Cherelle Urine Clarity Cloudy Urine pH 5.5 (<5.0-8.0) Urine Specific [place] 1.020 (1.000-1.030) Urine Protein 100 mg/dL (NEG-TRACE) Urine Glucose (UA) Negative mg/dL (NEG) Urine Ketones (Stick) Trace mg/dL (NEG) Urine Blood Large (NEG) Urine Nitrite Negative (NEG) Urine Bilirubin Small (NEG) Urine Urobilinogen Dipstick 1.0 mg/dL (0.2 mg/dL) Urine Leukocyte Esterase Trace (NEG) Urine RBC >40 /HPF (0-2) Urine WBC Occ /HPF (0-4) Urine Bacteria 0 /HPF (0-FEW) Urine Hyaline Casts Few /HPF Urine Mucus Mod /LPF SARS-CoV-2 RNA (NICKO) Negative (Negative) SARS-CoV-2 Antigen (Rapid) Negative (NEGATIVE) Glucose (Fingerstick) 83 mg/dL (70-99) Test 04/26/21 11:46 04/26/21 16:37 04/26/21 21:34 04/27/21 04:10 Glucose (Fingerstick) 93 mg/dL (70-99) 112 mg/dL (70-99) 125 mg/dL (70-99) White Blood Count 4.9 x10^3/uL (4.0-11.0) Red Blood Count 4.20 x10^6/uL (4.30-5.70) Hemoglobin 11.7 g/dL (13.0-17.5) Hematocrit 35.2 % (39.0-53.0) Mean Corpuscular Volume 84 fL (79-100) Mean Corpuscular Hemoglobin 28 pg (25-35) Mean Corpuscular Hemoglobin Concent 33 g/dL (31-37) Red Cell Distribution Width 19.7 % (11.5-14.5) Platelet Count 171 x10^3/uL (140-400) Neutrophils (%) (Auto) 64 % (31-73) Lymphocytes (%) (Auto) 27 % (24-48) Monocytes (%) (Auto) 7 % (0-9) Eosinophils (%) (Auto) 2 % (0-3) Basophils (%) (Auto) 0 % (0-3) Neutrophils # (Auto) 3.2 x10^3/uL (1.8-7.7) Lymphocytes # (Auto) 1.3 x10^3/uL (1.0-4.8) Monocytes # (Auto) 0.3 x10^3/uL (0.0-1.1) Eosinophils # (Auto) 0.1 x10^3/uL (0.0-0.7) Basophils # (Auto) 0.0 x10^3/uL (0.0-0.2) Sodium Level 142 mmol/L (136-145) Potassium Level 3.7 mmol/L (3.5-5.1) Chloride Level 105 mmol/L (98-107) Carbon Dioxide Level 29 mmol/L (21-32) Anion Gap 8 (6-14) Blood Urea Nitrogen 21 mg/dL (8-26) Creatinine 1.3 mg/dL (0.7-1.3) Estimated GFR (Cockcroft-Gault) 66.4 BUN/Creatinine Ratio 16 (6-20) Glucose Level 94 mg/dL (70-99) Calcium Level 8.6 mg/dL (8.5-10.1) Iron Level 32 ug/dL (65-175) Total Iron Binding Capacity 259 ug/dL (250-450) Iron Saturation 12 % (15-34) Total Bilirubin 1.6 mg/dL (0.2-1.0) Aspartate Amino Transf (AST/SGOT) 72 U/L (15-37) Alanine Aminotransferase (ALT/SGPT) 81 U/L (16-63) Alkaline Phosphatase 150 U/L (46-116) Total Protein 6.2 g/dL (6.4-8.2) Albumin 2.9 g/dL (3.4-5.0) Albumin/Globulin Ratio 0.9 (1.0-1.7) Test 04/27/21 06:51 04/27/21 11:17 Glucose (Fingerstick) 91 mg/dL (70-99) 106 mg/dL (70-99) Laboratory Tests Test 04/26/21 16:37 04/26/21 21:34 04/27/21 04:10 04/27/21 06:51 Glucose (Fingerstick) 112 mg/dL (70-99) 125 mg/dL (70-99) 91 mg/dL (70-99) White Blood Count 4.9 x10^3/uL (4.0-11.0) Red Blood Count 4.20 x10^6/uL (4.30-5.70) Hemoglobin 11.7 g/dL (13.0-17.5) Hematocrit 35.2 % (39.0-53.0) Mean Corpuscular Volume 84 fL (79-100) Mean Corpuscular Hemoglobin 28 pg (25-35) Mean Corpuscular Hemoglobin Concent 33 g/dL (31-37) Red Cell Distribution Width 19.7 % (11.5-14.5) Platelet Count 171 x10^3/uL (140-400) Neutrophils (%) (Auto) 64 % (31-73) Lymphocytes (%) (Auto) 27 % (24-48) Monocytes (%) (Auto) 7 % (0-9) Eosinophils (%) (Auto) 2 % (0-3) Basophils (%) (Auto) 0 % (0-3) Neutrophils # (Auto) 3.2 x10^3/uL (1.8-7.7) Lymphocytes # (Auto) 1.3 x10^3/uL (1.0-4.8) Monocytes # (Auto) 0.3 x10^3/uL (0.0-1.1) Eosinophils # (Auto) 0.1 x10^3/uL (0.0-0.7) Basophils # (Auto) 0.0 x10^3/uL (0.0-0.2) Sodium Level 142 mmol/L (136-145) Potassium Level 3.7 mmol/L (3.5-5.1) Chloride Level 105 mmol/L (98-107) Carbon Dioxide Level 29 mmol/L (21-32) Anion Gap 8 (6-14) Blood Urea Nitrogen 21 mg/dL (8-26) Creatinine 1.3 mg/dL (0.7-1.3) Estimated GFR (Cockcroft-Gault) 66.4 BUN/Creatinine Ratio 16 (6-20) Glucose Level 94 mg/dL (70-99) Calcium Level 8.6 mg/dL (8.5-10.1) Iron Level 32 ug/dL (65-175) Total Iron Binding Capacity 259 ug/dL (250-450) Iron Saturation 12 % (15-34) Total Bilirubin 1.6 mg/dL (0.2-1.0) Aspartate Amino Transf (AST/SGOT) 72 U/L (15-37) Alanine Aminotransferase (ALT/SGPT) 81 U/L (16-63) Alkaline Phosphatase 150 U/L (46-116) Total Protein 6.2 g/dL (6.4-8.2) Albumin 2.9 g/dL (3.4-5.0) Albumin/Globulin Ratio 0.9 (1.0-1.7) Test 04/27/21 11:17 Glucose (Fingerstick) 106 mg/dL (70-99) Microbiology 04/25/21 Urine Culture - Final, Complete Medications Current Medications Potassium Bicarbonate (Potassium Effervescent Tablet) 40 meq 1X ONCE PO Last administered on 04/25/21at 19:18; Start 04/25/21 at 17:30; Stop 04/25/21 at 17:31; Status DC Amlodipine Besylate (Norvasc) 5 mg DAILY PO Last administered on 04/27/21at 10:34; Start 04/26/21 at 12:00 Apixaban (Eliquis) 5 mg BID PO Last administered on 04/27/21at 10:33; Start 04/26/21 at 12:00 Atorvastatin Calcium (Lipitor) 40 mg QHS PO Last administered on 04/26/21at 20:43; Start 04/26/21 at 21:00 Carvedilol (Coreg) 12.5 mg BIDWMEALS PO Last administered on 04/27/21at 10:35; Start 04/26/21 at 12:00 Ferrous Sulfate (Feosol) 325 mg BIDWMEALS PO Last administered on 04/27/21at 10:34; Start 04/26/21 at 12:00 Furosemide (Lasix) 40 mg DAILY PO Last administered on 04/27/21at 10:34; Start 04/26/21 at 12:00 Albuterol/ Ipratropium (Duoneb) 3 ml Q4HRS NEB ; Start 04/26/21 at 12:00; Stop 04/26/21 at 12:30; Status DC Magnesium Oxide (Magnesium Oxide) 400 mg BID PO Last administered on 04/27/21at 10:33; Start 04/26/21 at 12:00 Pantoprazole Sodium (Protonix) 40 mg DAILYAC PO Last administered on 04/27/21at 10:34; Start 04/26/21 at 11:30 Non-Formulary Medication (Fluticasone/ Vilanterol (Breo Ellipta 100-25 Mcg Inh)) 1 puff DAILY IH ; Start 04/27/21 at 09:00; Status UNV Potassium Chloride (Klor-Con) 20 meq DAILYWBKFT PRN PO hypokalemia Last administered on 04/27/21at 10:33; Start 04/26/21 at 11:45 Sertraline HCl (Zoloft) 100 mg DAILY PO Last administered on 04/27/21at 12:10; Start 04/27/21 at 12:00 Piperacillin Sod/ Tazobactam Sod 3.375 gm/Sodium Chloride 50 ml @ 100 mls/hr Q6HRS IV Last administered on 04/27/21at 12:09; Start 04/26/21 at 12:00 Info (Anti-Coagulation Monitoring By Pharmacy) 1 each PRN DAILY PRN MC PER PROTOCOL; Start 04/26/21 at 11:45 Albuterol Sulfate (Ventolin Neb Soln) 2.5 mg Q6HRS NEB ; Start 04/26/21 at 12:00; Stop 04/26/21 at 12:30; Status DC Budesonide (Pulmicort) 0.5 mg RTBID NEB ; Start 04/26/21 at 20:00 Albuterol Sulfate (Ventolin Neb Soln) 2.5 mg PRN Q6HRS PRN NEB WHEEZING; Start 04/26/21 at 12:30 Albuterol/ Ipratropium (Duoneb) 3 ml RTQID NEB ; Start 04/26/21 at 12:30 Potassium Bicarbonate (Potassium Effervescent Tablet) 20 meq 1X ONCE PO Last administered on 04/26/21at 18:28; Start 04/26/21 at 17:30; Stop 04/26/21 at 17:31; Status DC Active Scripts Active Reported Multivitamins (Multivitamin) 1 Each Tablet 1 Tab PO DAILY Potassium Chloride 20 Meq Tablet.er 20 Meq PO DAILY PRN Glucagon Emergency Kit (Glucagon,Human Recombinant) 1 Mg Kit 1 Mg SQ PRN Duoneb 0.5-3(2.5) Mg/3 Ml (Albuterol/Ipratropium) 3 Ml Ampul.neb 3 Ml NEB Q4HRS Sertraline Hcl 100 Mg Tablet 100 Mg PO DAILY Pantoprazole Sodium (Pantoprazole Sodium) 40 Mg Tablet.dr 40 Mg PO DAILYAC Metformin Hcl 500 Mg Tablet 500 Mg PO BIDWMEALS Eliquis (Apixaban) 5 Mg Tablet 5 Mg PO BID Carvedilol (Carvedilol) 12.5 Mg Tablet 12.5 Mg PO BID Breo Ellipta 100-25 Mcg Inh (Fluticasone/Vilanterol) 1 Each Aer.pow.ba 1 Puff IH DAILY Amlodipine Besylate 5 Mg Tablet 5 Mg PO DAILY Magnesium Oxide 400 Mg Tablet 1 Tab PO BID Furosemide 40 Mg Tablet 1 Tab PO DAILY Ferrous Sulfate 325 Mg Tablet 325 Mg PO BID Atorvastatin Calcium 40 Mg Tablet 1 Tab PO QHS Vitals/I & O Vital Sign - Last 24 Hours 04/26/21 04/26/21 04/26/21 04/26/21 15:00 19:40 20:02 22:37 Temp 96.8 97.7 98.3 96.8 97.7 98.3 Pulse 86 76 76 Resp 18 16 18 B/P (MAP) 120/84 (96) 112/75 (87) 111/69 (83) Pulse Ox 97 92 94 O2 Delivery Nasal Cannula Nasal Cannula Nasal Cannula Nasal Cannula O2 Flow Rate 2.0 2.0 2.0 2.0 04/27/21 04/27/21 04/27/21 04/27/21 03:05 07:00 08:15 10:34 Temp 98.4 98.1 98.4 98.1 Pulse 73 71 71 Resp 16 18 B/P (MAP) 115/66 (82) 118/63 (81) 118/63 Pulse Ox 96 98 O2 Delivery Nasal Cannula Nasal Cannula Nasal Cannula O2 Flow Rate 2.0 2.0 2.0 04/27/21 04/27/21 10:35 11:07 Temp 97.7 97.7 Pulse 71 72 Resp 16 B/P (MAP) 118/63 113/77 (89) Pulse Ox 97 O2 Delivery Nasal Cannula O2 Flow Rate 2.0 Intake and Output 04/26/21 04/26/21 04/27/21 15:00 23:00 07:00 Intake Total 0 ml 80 ml 0 ml Balance 0 ml 80 ml 0 ml Justicifation of Admission Dx: Justifications for Admission: Justification of Admission Dx: Yes Respiratory Failure: Severe Resp Distress JOHNNIE HOPKINS MD Apr 27, 2021 14:15
[2021-04-27 15:00] VITALS: BP 102/67
--- NOTE | 2021-04-27 17:45 | PDOC ---
GENERAL General: Patient examined chart reviewed discussed with nursing. Patient is much more alert today and interactive. Appreciate neurology input. Sounds like he is cleared for discharge we will get with his longterm tomorrow on transferring back. He can discharge on 7 more days of Augmentin 875 mg twice daily for sinusitis. Continue current management otherwise. Problems: (1) Abnormal CT scan, head (2) CVA (cerebral vascular accident) (3) Altered mental status VITAL SIGNS Vital Signs/I&O: Vital Signs Date Time Temp Pulse Resp B/P (MAP) Pulse Ox O2 Delivery O2 Flow Rate FiO2 04/27/21 15:37 96 Nasal Cannula 2.0 04/27/21 15:00 98.2 71 18 102/67 (79) 98.2 I & O 04/26/21 04/26/21 04/27/21 15:00 23:00 07:00 Intake Total 0 ml 80 ml 0 ml Balance 0 ml 80 ml 0 ml Patient is much more alert this evening pleasant interactive responds appropriately to questions more conversational tonight HEENT exam is unremarkable for acute abnormality Chest is clear to auscultation Heart S1-S2 normal regular rate and rhythm no murmurs or gallops are noted Abdomen soft nontender nondistended no masses organomegaly noted Extremity exam is unchanged from prior ALLERGIES Allergies: Allergies Coded Allergies Type Severity Reaction Last Updated Verified No Known Drug Allergies 04/15/21 No MEDS Medications: Current Medications Medications (Trade) Dose Ordered Sig/Mari Start Time Stop Time Status Last Admin Dose Admin Albuterol Sulfate (Ventolin Neb Soln) 2.5 mg PRN Q6HRS PRN 04/26/21 12:30 Albuterol/ Ipratropium (Duoneb) 3 ml RTQID 04/26/21 12:30 04/27/21 15:37 Amlodipine Besylate (Norvasc) 5 mg DAILY 04/26/21 12:00 04/27/21 10:34 Apixaban (Eliquis) 5 mg BID 04/26/21 12:00 04/27/21 10:33 Atorvastatin Calcium (Lipitor) 40 mg QHS 04/26/21 21:00 04/26/21 20:43 Budesonide (Pulmicort) 0.5 mg RTBID 04/26/21 20:00 Carvedilol (Coreg) 12.5 mg BIDWMEALS 04/26/21 12:00 04/27/21 10:35 Ferrous Sulfate (Feosol) 325 mg BIDWMEALS 04/26/21 12:00 04/27/21 10:34 Furosemide (Lasix) 40 mg DAILY 04/26/21 12:00 04/27/21 10:34 Info (Anti-Coagulation Monitoring By Pharmacy) 1 each PRN DAILY PRN 04/26/21 11:45 Magnesium Oxide (Magnesium Oxide) 400 mg BID 04/26/21 12:00 04/27/21 10:33 Non-Formulary Medication (Fluticasone/ Vilanterol (Breo Ellipta 100-25 Mcg Inh)) 1 puff DAILY 04/27/21 09:00 UNV Pantoprazole Sodium (Protonix) 40 mg DAILYAC 04/26/21 11:30 04/27/21 10:34 Piperacillin Sod/ Tazobactam Sod 3.375 gm/Sodium Chloride 50 ml @ 100 mls/hr Q6HRS 04/26/21 12:00 04/27/21 12:09 Potassium Bicarbonate (Potassium Effervescent Tablet) 20 meq 1X ONCE 04/26/21 17:30 04/26/21 17:31 DC 04/26/21 18:28 Potassium Chloride (Klor-Con) 20 meq DAILYWBKFT PRN 04/26/21 11:45 04/27/21 10:33 Sertraline HCl (Zoloft) 100 mg DAILY 04/27/21 12:00 04/27/21 12:10 Current Medications Medications (Trade) Dose Ordered Sig/Mari Route PRN Reason Start Time Stop Time Status Last Admin Dose Admin Atorvastatin Calcium (Lipitor) 40 mg QHS PO 04/26/21 21:00 04/26/21 20:43 Sertraline HCl (Zoloft) 100 mg DAILY PO 04/27/21 12:00 04/27/21 12:10 LAB Lab: Laboratory Tests Test 04/26/21 21:34 04/27/21 04:10 04/27/21 06:51 04/27/21 11:17 Glucose (Fingerstick) 125 mg/dL (70-99) H 91 mg/dL (70-99) 106 mg/dL (70-99) H White Blood Count 4.9 x10^3/uL (4.0-11.0) Red Blood Count 4.20 x10^6/uL (4.30-5.70) L Hemoglobin 11.7 g/dL (13.0-17.5) L Hematocrit 35.2 % (39.0-53.0) L Mean Corpuscular Volume 84 fL (79-100) Mean Corpuscular Hemoglobin 28 pg (25-35) Mean Corpuscular Hemoglobin Concent 33 g/dL (31-37) Red Cell Distribution Width 19.7 % (11.5-14.5) H Platelet Count 171 x10^3/uL (140-400) Neutrophils (%) (Auto) 64 % (31-73) Lymphocytes (%) (Auto) 27 % (24-48) Monocytes (%) (Auto) 7 % (0-9) Eosinophils (%) (Auto) 2 % (0-3) Basophils (%) (Auto) 0 % (0-3) Neutrophils # (Auto) 3.2 x10^3/uL (1.8-7.7) Lymphocytes # (Auto) 1.3 x10^3/uL (1.0-4.8) Monocytes # (Auto) 0.3 x10^3/uL (0.0-1.1) Eosinophils # (Auto) 0.1 x10^3/uL (0.0-0.7) Basophils # (Auto) 0.0 x10^3/uL (0.0-0.2) Sodium Level 142 mmol/L (136-145) Potassium Level 3.7 mmol/L (3.5-5.1) Chloride Level 105 mmol/L (98-107) Carbon Dioxide Level 29 mmol/L (21-32) Anion Gap 8 (6-14) Blood Urea Nitrogen 21 mg/dL (8-26) Creatinine 1.3 mg/dL (0.7-1.3) Estimated GFR (Cockcroft-Gault) 66.4 BUN/Creatinine Ratio 16 (6-20) Glucose Level 94 mg/dL (70-99) Calcium Level 8.6 mg/dL (8.5-10.1) Iron Level 32 ug/dL (65-175) L Total Iron Binding Capacity 259 ug/dL (250-450) Iron Saturation 12 % (15-34) L Total Bilirubin 1.6 mg/dL (0.2-1.0) H Aspartate Amino Transferase (AST) 72 U/L (15-37) H Alanine Aminotransferase (ALT) 81 U/L (16-63) H Alkaline Phosphatase 150 U/L (46-116) H Total Protein 6.2 g/dL (6.4-8.2) L Albumin 2.9 g/dL (3.4-5.0) L Albumin/Globulin Ratio 0.9 (1.0-1.7) L Test 04/27/21 17:04 Glucose (Fingerstick) 124 mg/dL (70-99) H Laboratory Tests 04/27/21 04:10 Laboratory Tests 04/27/21 04:10 ASSESSMENT & PLAN A&P Plan as noted above This note was created using [employer] and may have omissions and/or errors due to the nature of real-time voice sw[employer]ish masseuse. Justifications for Admission Other Justification COPD Exac Problem Qualifiers (1) CVA (cerebral vascular accident): CVA mechanism: unspecified Qualified Codes: I63.9 - Cerebral infarction, unspecified (2) Altered mental status: Altered mental status type: unspecified Qualified Codes: R41.82 - Altered mental status, unspecified JOSH QUIÑONES MD Apr 27, 2021 17:44
[2021-04-27 19:22] VITALS: BP 93/68
[2021-04-27] MEDS: ATORVASTATIN CALCIUM 40 MG TABLET. PO SCH (20:25)
[2021-04-27 22:36] VITALS: BP 111/72
[2021-04-28 02:47] VITALS: BP 96/63
[2021-04-28] MEDS: PIPERACILLIN/TAZOBACTAM 3.375 GM in IV NORMAL SALINE 50ML 50 ML IV SCH ×4 (05:25→23:38)
[2021-04-28 07:00] VITALS: BP 90/66
[2021-04-28] MEDS: IPRATRPIUM/ALBUTEROL 0.5/2.5MG 3 ML NEBU. NEB SCH ×4 (07:17→20:18)
[2021-04-28] MEDS: BUDESONIDE 0.5 MG/2 ML NEBU. NEB SCH ×2 (07:17→20:18)
[2021-04-28] MEDS: FERROUS SULFATE 325 MG TABLET. PO SCH ×2 (08:52→17:54)
[2021-04-28] MEDS: PANTOPRAZOLE 40 MG TABLET.DR. PO SCH (08:52)
[2021-04-28] MEDS: CARVEDILOL 12.5 MG TABLET. PO SCH ×2 (08:52→17:54)
[2021-04-28] MEDS: MAGNESIUM OXIDE 400 MG TABLET PO SCH ×2 (08:52→20:49)
[2021-04-28] MEDS: POTASSIUM CHLORIDE 20 MEQ TABLET.ER. PO PRN (08:53)
--- NOTE | 2021-04-28 08:53 | PDOC ---
PROGRESS NOTES Date of Service DATE: 04/28/21 TIME: 08:52 Assessment Problems Medical Problems: (1) Abnormal CT scan, head Status: Acute (2) Altered mental status Status: Acute (3) CVA (cerebral vascular accident) Status: Acute (4) Elevated brain natriuretic peptide (BNP) level Status: Acute Strange CT scan showing air in the area of the sagittal sinus and intraparenchymally, no recent trauma, no evidence of CSF leak through the sinuses, it is difficult to know what to make of this especially given the stable clinical exam, this may be just an old finding. Prior left hemispheric stroke, possible subacute right parietal stroke, no evidence of new stroke Mental status changes may been related to his aspiration (?) pneumonia, but he did pass his swallow evaluation here. Plan OK for discharge Repeat head CT in a month, RX on paper chart for [facility] to arrange I will keep an eye out for the results a month from now Subjective No complaints Objective Vital Signs Date Time Temp Pulse Resp B/P (MAP) Pulse Ox O2 Delivery O2 Flow Rate FiO2 04/28/21 07:18 94 Nasal Cannula 2.0 04/28/21 02:47 98.3 72 18 96/63 (74) 98.3 Intake and Output 04/28/21 07:00 Intake Total 680 ml Balance 680 ml Intake Oral 680 ml # Voids 6 PHYSICAL EXAM Alert. Global aphasia, can tell me his name and follow a few commands PERRL. EOMI. CN: right central facial weakness Muscle tone: spastic on right. Muscle strength: 2/5 on right DTR: 2+ Plantar reflex: extensor on right, flexor on left. Gait: not examined in bed. Sensory exam: no abnormal findings. No cerebellar signs elicited. Review of Relevant I have reviewed the following items yulissa (where applicable) has been applied. Labs Laboratory Tests Test 04/26/21 11:46 04/26/21 16:37 04/26/21 21:34 04/27/21 04:10 Glucose (Fingerstick) 93 mg/dL (70-99) 112 mg/dL (70-99) 125 mg/dL (70-99) White Blood Count 4.9 x10^3/uL (4.0-11.0) Red Blood Count 4.20 x10^6/uL (4.30-5.70) Hemoglobin 11.7 g/dL (13.0-17.5) Hematocrit 35.2 % (39.0-53.0) Mean Corpuscular Volume 84 fL (79-100) Mean Corpuscular Hemoglobin 28 pg (25-35) Mean Corpuscular Hemoglobin Concent 33 g/dL (31-37) Red Cell Distribution Width 19.7 % (11.5-14.5) Platelet Count 171 x10^3/uL (140-400) Neutrophils (%) (Auto) 64 % (31-73) Lymphocytes (%) (Auto) 27 % (24-48) Monocytes (%) (Auto) 7 % (0-9) Eosinophils (%) (Auto) 2 % (0-3) Basophils (%) (Auto) 0 % (0-3) Neutrophils # (Auto) 3.2 x10^3/uL (1.8-7.7) Lymphocytes # (Auto) 1.3 x10^3/uL (1.0-4.8) Monocytes # (Auto) 0.3 x10^3/uL (0.0-1.1) Eosinophils # (Auto) 0.1 x10^3/uL (0.0-0.7) Basophils # (Auto) 0.0 x10^3/uL (0.0-0.2) Sodium Level 142 mmol/L (136-145) Potassium Level 3.7 mmol/L (3.5-5.1) Chloride Level 105 mmol/L (98-107) Carbon Dioxide Level 29 mmol/L (21-32) Anion Gap 8 (6-14) Blood Urea Nitrogen 21 mg/dL (8-26) Creatinine 1.3 mg/dL (0.7-1.3) Estimated GFR (Cockcroft-Gault) 66.4 BUN/Creatinine Ratio 16 (6-20) Glucose Level 94 mg/dL (70-99) Calcium Level 8.6 mg/dL (8.5-10.1) Iron Level 32 ug/dL (65-175) Total Iron Binding Capacity 259 ug/dL (250-450) Iron Saturation 12 % (15-34) Total Bilirubin 1.6 mg/dL (0.2-1.0) Aspartate Amino Transf (AST/SGOT) 72 U/L (15-37) Alanine Aminotransferase (ALT/SGPT) 81 U/L (16-63) Alkaline Phosphatase 150 U/L (46-116) Total Protein 6.2 g/dL (6.4-8.2) Albumin 2.9 g/dL (3.4-5.0) Albumin/Globulin Ratio 0.9 (1.0-1.7) Test 04/27/21 06:51 04/27/21 11:17 04/27/21 17:04 04/27/21 20:55 Glucose (Fingerstick) 91 mg/dL (70-99) 106 mg/dL (70-99) 124 mg/dL (70-99) 126 mg/dL (70-99) Test 04/28/21 08:00 Glucose (Fingerstick) 122 mg/dL (70-99) Laboratory Tests Test 04/27/21 11:17 04/27/21 17:04 04/27/21 20:55 04/28/21 08:00 Glucose (Fingerstick) 106 mg/dL (70-99) 124 mg/dL (70-99) 126 mg/dL (70-99) 122 mg/dL (70-99) Microbiology 04/25/21 Urine Culture - Final, Complete Medications Current Medications Potassium Bicarbonate (Potassium Effervescent Tablet) 40 meq 1X ONCE PO Last administered on 04/25/21at 19:18; Start 04/25/21 at 17:30; Stop 04/25/21 at 17:31; Status DC Amlodipine Besylate (Norvasc) 5 mg DAILY PO Last administered on 04/27/21at 10:34; Start 04/26/21 at 12:00 Apixaban (Eliquis) 5 mg BID PO Last administered on 04/27/21at 20:25; Start 04/26/21 at 12:00 Atorvastatin Calcium (Lipitor) 40 mg QHS PO Last administered on 04/27/21at 20:25; Start 04/26/21 at 21:00 Carvedilol (Coreg) 12.5 mg BIDWMEALS PO Last administered on 04/27/21at 18:14; Start 04/26/21 at 12:00 Ferrous Sulfate (Feosol) 325 mg BIDWMEALS PO Last administered on 04/27/21at 18:13; Start 04/26/21 at 12:00 Furosemide (Lasix) 40 mg DAILY PO Last administered on 04/27/21at 10:34; Start 04/26/21 at 12:00 Albuterol/ Ipratropium (Duoneb) 3 ml Q4HRS NEB ; Start 04/26/21 at 12:00; Stop 04/26/21 at 12:30; Status DC Magnesium Oxide (Magnesium Oxide) 400 mg BID PO Last administered on 04/27/21at 20:25; Start 04/26/21 at 12:00 Pantoprazole Sodium (Protonix) 40 mg DAILYAC PO Last administered on 04/27/21at 10:34; Start 04/26/21 at 11:30 Non-Formulary Medication (Fluticasone/ Vilanterol (Breo Ellipta 100-25 Mcg Inh)) 1 puff DAILY IH ; Start 04/27/21 at 09:00; Status UNV Potassium Chloride (Klor-Con) 20 meq DAILYWBKFT PRN PO hypokalemia Last administered on 04/27/21at 10:33; Start 04/26/21 at 11:45 Sertraline HCl (Zoloft) 100 mg DAILY PO Last administered on 04/27/21at 12:10; Start 04/27/21 at 12:00 Piperacillin Sod/ Tazobactam Sod 3.375 gm/Sodium Chloride 50 ml @ 100 mls/hr Q6HRS IV Last administered on 04/28/21at 05:25; Start 04/26/21 at 12:00 Info (Anti-Coagulation Monitoring By Pharmacy) 1 each PRN DAILY PRN MC PER PROTOCOL; Start 04/26/21 at 11:45 Albuterol Sulfate (Ventolin Neb Soln) 2.5 mg Q6HRS NEB ; Start 04/26/21 at 12:00; Stop 04/26/21 at 12:30; Status DC Budesonide (Pulmicort) 0.5 mg RTBID NEB Last administered on 04/28/21at 07:17; Start 04/26/21 at 20:00 Albuterol Sulfate (Ventolin Neb Soln) 2.5 mg PRN Q6HRS PRN NEB WHEEZING; Start 04/26/21 at 12:30 Albuterol/ Ipratropium (Duoneb) 3 ml RTQID NEB Last administered on 04/28/21at 07:17; Start 04/26/21 at 12:30 Potassium Bicarbonate (Potassium Effervescent Tablet) 20 meq 1X ONCE PO Last administered on 04/26/21at 18:28; Start 04/26/21 at 17:30; Stop 04/26/21 at 17:31; Status DC Active Scripts Active Reported Multivitamins (Multivitamin) 1 Each Tablet 1 Tab PO DAILY Potassium Chloride 20 Meq Tablet.er 20 Meq PO DAILY PRN Glucagon Emergency Kit (Glucagon,Human Recombinant) 1 Mg Kit 1 Mg SQ PRN Duoneb 0.5-3(2.5) Mg/3 Ml (Albuterol/Ipratropium) 3 Ml Ampul.neb 3 Ml NEB Q4HRS Sertraline Hcl 100 Mg Tablet 100 Mg PO DAILY Pantoprazole Sodium (Pantoprazole Sodium) 40 Mg Tablet.dr 40 Mg PO DAILYAC Metformin Hcl 500 Mg Tablet 500 Mg PO BIDWMEALS Eliquis (Apixaban) 5 Mg Tablet 5 Mg PO BID Carvedilol (Carvedilol) 12.5 Mg Tablet 12.5 Mg PO BID Breo Ellipta 100-25 Mcg Inh (Fluticasone/Vilanterol) 1 Each Aer.pow.ba 1 Puff IH DAILY Amlodipine Besylate 5 Mg Tablet 5 Mg PO DAILY Magnesium Oxide 400 Mg Tablet 1 Tab PO BID Furosemide 40 Mg Tablet 1 Tab PO DAILY Ferrous Sulfate 325 Mg Tablet 325 Mg PO BID Atorvastatin Calcium 40 Mg Tablet 1 Tab PO QHS Vitals/I & O Vital Sign - Last 24 Hours 04/27/21 04/27/21 04/27/21 04/27/21 10:34 10:35 11:07 15:00 Temp 97.7 98.2 97.7 98.2 Pulse 71 71 72 71 Resp 16 18 B/P (MAP) 118/63 118/63 113/77 (89) 102/67 (79) Pulse Ox 97 95 O2 Delivery Nasal Cannula Nasal Cannula O2 Flow Rate 2.0 2.0 04/27/21 04/27/21 04/27/21 04/27/21 15:37 18:14 19:22 19:36 Temp 98.1 98.1 Pulse 80 70 Resp 16 B/P (MAP) 93/68 (76) Pulse Ox 96 94 O2 Delivery Nasal Cannula Nasal Cannula Nasal Cannula O2 Flow Rate 2.0 2.0 2.0 04/27/21 04/27/21 04/28/21 04/28/21 20:39 22:36 02:47 07:18 Temp 98.7 98.3 98.7 98.3 Pulse 73 72 Resp 16 18 B/P (MAP) 111/72 (85) 96/63 (74) Pulse Ox 94 95 95 94 O2 Delivery Nasal Cannula Nasal Cannula Nasal Cannula Nasal Cannula O2 Flow Rate 2.0 2.0 2.0 2.0 Intake and Output 04/27/21 04/27/21 04/28/21 15:00 23:00 07:00 Intake Total 460 ml 220 ml 0 ml Balance 460 ml 220 ml 0 ml Justicifation of Admission Dx: Justifications for Admission: Justification of Admission Dx: Yes Respiratory Failure: Severe Resp Distress JOHNNIE HOPKINS MD Apr 28, 2021 08:53
[2021-04-28 08:54] LABS: BASO % 0 % (0-3); EOS # 0.1 x10^3/uL (0.0-0.7); EOS % 2 % (0-3); HEMATOCRIT 37.4 % (39.0-53.0); HEMOGLOBIN 12.3 g/dL (13.0-17.5); LYMPH % 20 % (24-48); MEAN CORPUSCULAR HEMOGLOBIN 28 pg (25-35); MEAN CORPUSCULAR HGB CONC 33 g/dL (31-37); MEAN CORPUSCULAR VOLUME 85 fL (79-100); MONO # 0.4 x10^3/uL (0.0-1.1); MONO % 7 % (0-9); NEUT # 3.7 x10^3/uL (1.8-7.7); NEUT % 70 % (31-73); PLATELET COUNT 178 x10^3/uL (140-400); RED BLOOD COUNT 4.42 x10^6/uL (4.30-5.70); RED CELL DISTRIBUTION WIDTH 20.1 % (11.5-14.5); WHITE BLOOD COUNT 5.3 x10^3/uL (4.0-11.0)
[2021-04-28] MEDS: APIXABAN 5 MG TABLET. PO SCH ×2 (08:54→20:49)
[2021-04-28] MEDS: FUROSEMIDE 40 MG TABLET. PO SCH (08:54)
[2021-04-28] MEDS: SERTRALINE 50 MG TABLET. PO SCH (08:54)
[2021-04-28 09:14] LABS: ALBUMIN 3.1 g/dL (3.4-5.0); ALBUMIN/GLOBULIN RATIO 0.9 (1.0-1.7); CALCIUM 8.6 mg/dL (8.5-10.1); CREATININE 1.5 mg/dL (0.7-1.3); GFR 56.3; POTASSIUM 3.7 mmol/L (3.5-5.1); TOTAL BILIRUBIN 1.3 mg/dL (0.2-1.0); TOTAL PROTEIN 6.4 g/dL (6.4-8.2)
[2021-04-28 10:39] LABS: ANISOCYTOSIS MOD; PLT ESTIMATE ADEQUATE (ADEQUATE)
[2021-04-28 11:00] VITALS: BP 115/71
--- NOTE | 2021-04-28 12:34 | PDOC ---
Date of Service: DATE: 04/28/21 TIME: 12:28 Subjective: Subjective: No history from pt. Nurse says tolerating dysphagia diet. Other notes reviewed - ?plans to DC to SNU soon? Objective: Objective: IMPRESSIONS: Pt demo's s/s aspiration associated w/swallow of thin liquids and solids. Would modify diet and f/u to determine if pt able to safely advance diet back to [facility] soft w/thin. Unclear if pt currently back to baseline at this time. Suspect repeat pneumonia may be related to intake of solids and diet being advanced at facility from that recommended per videoswallow. RECOMMENDATIONS: Initiate dysphagia I w/honey thick liquids. Diet orders entered. Precautions posted. ISABEL Schaeffer. Meds w/honey thick, 1 at a time. Will f/u per POC. Vital Signs: Vital Signs Date Time Temp Pulse Resp B/P (MAP) Pulse Ox O2 Delivery O2 Flow Rate FiO2 04/28/21 11:30 94 Nasal Cannula 2.0 04/28/21 11:00 97.3 69 20 115/71 (86) 97.3 Labs: Laboratory Tests Test 04/27/21 17:04 04/27/21 20:55 04/28/21 08:00 04/28/21 12:19 Glucose (Fingerstick) 124 mg/dL (70-99) 126 mg/dL (70-99) 122 mg/dL (70-99) 163 mg/dL (70-99) Imaging: Abd US IMPRESSION: 1. Mild to moderate diffuse hepatic steatosis. No biliary ductal dilation. 2. Gallbladder biliary sludge. Submucosal edema throughout the gallbladder wall, nonspecific findings and likely secondary to fluid overload. No other sonographic evidence of acute cholecystitis. 3. Small amount of ascites in the right upper abdomen. 4. Small to moderate bilateral pleural effusions. PE: GEN: chronically ill LUNGS: NC 2L HEART: RR ABD: non-distended NEURO/PSYCH: sleeping, did not respond when I called his name A/P: H/o CVA, dysphagia JOHN - stable, no bleeding, last 'scopes 2017 Elevated LFTs - better, viral Hep panel negative Hepatic steatosis, GB sludge COVID negative -- Tolerating dysphagia diet. DC per primary. Justicifation of Admission Dx: Justifications for Admission: Justification of Admission Dx: Yes Respiratory Failure: Severe Resp Distress GARY FELIPE Apr 28, 2021 12:34
[2021-04-28 14:17] VITALS: BP 92/62
--- NOTE | 2021-04-28 14:18 | NUR ---
SS following for discharge planning. SS reviewed pt chart and discussed with pt RN. Pt is LTC resident from [facility], ; fax [phone]. Pt is currently requiring oxygen at two liters nasal canula. COVID19 negative. Pt on IV Zosyn and PO Lasix. SS will continue to follow for discharge planning.
--- NOTE | 2021-04-28 18:27 | PDOC ---
[employer] PROGRESS NOTE Date of Service DOS: DATE: 04/28/21 TIME: 18:22 Chief Complaint Chief Complaint Aspiration pneumonia Dysphagia History of Present Illness History of Present Illness 04/28/2021: Patient afebrile with no acute events overnight. Currently tolerating dysphagia diet and p.o. meds. No plans for PEG tube, per GI. We will continue treatment of likely aspiration pneumonia with IV antibiotics, and look to likely discharge on Augmentin tomorrow or the next day. Per neurology, no chest status change may related to aspiration pneumonia. Okay to discharge per neurology. Will plan to discharge back to his SNU tomorrow Vitals/I&O Vitals/I&O: Vital Signs Date Time Temp Pulse Resp B/P (MAP) Pulse Ox O2 Delivery O2 Flow Rate FiO2 04/28/21 17:54 72 92/62 04/28/21 14:17 96.6 20 92 Nasal Cannula 2.0 96.6 I & O 0 04/27/21 04/27/21 04/28/21 15:00 23:00 07:00 Intake Total 460 ml 220 ml 0 ml Balance 460 ml 220 ml 0 ml Physical Exam General: Alert, Cooperative, No acute distress Heart: Regular rate Lungs: Crackles Abdomen: Soft, No tenderness Extremities: No clubbing, No cyanosis Skin: No rashes, No breakdown Labs Labs: Laboratory Tests Test 04/27/21 20:55 04/28/21 06:05 04/28/21 08:00 04/28/21 12:19 Glucose (Fingerstick) 126 mg/dL (70-99) 122 mg/dL (70-99) 163 mg/dL (70-99) White Blood Count 5.3 x10^3/uL (4.0-11.0) Red Blood Count 4.42 x10^6/uL (4.30-5.70) Hemoglobin 12.3 g/dL (13.0-17.5) Hematocrit 37.4 % (39.0-53.0) Mean Corpuscular Volume 85 fL (79-100) Mean Corpuscular Hemoglobin 28 pg (25-35) Mean Corpuscular Hemoglobin Concent 33 g/dL (31-37) Red Cell Distribution Width 20.1 % (11.5-14.5) Platelet Count 178 x10^3/uL (140-400) Neutrophils (%) (Auto) 70 % (31-73) Lymphocytes (%) (Auto) 20 % (24-48) Monocytes (%) (Auto) 7 % (0-9) Eosinophils (%) (Auto) 2 % (0-3) Basophils (%) (Auto) 0 % (0-3) Neutrophils # (Auto) 3.7 x10^3/uL (1.8-7.7) Lymphocytes # (Auto) 1.0 x10^3/uL (1.0-4.8) Monocytes # (Auto) 0.4 x10^3/uL (0.0-1.1) Eosinophils # (Auto) 0.1 x10^3/uL (0.0-0.7) Basophils # (Auto) 0.0 x10^3/uL (0.0-0.2) Platelet Estimate Adequate (ADEQUATE) Large Platelets Few Anisocytosis Mod Sodium Level 143 mmol/L (136-145) Potassium Level 3.7 mmol/L (3.5-5.1) Chloride Level 105 mmol/L (98-107) Carbon Dioxide Level 29 mmol/L (21-32) Anion Gap 9 (6-14) Blood Urea Nitrogen 17 mg/dL (8-26) Creatinine 1.5 mg/dL (0.7-1.3) Estimated GFR (Cockcroft-Gault) 56.3 BUN/Creatinine Ratio 11 (6-20) Glucose Level 118 mg/dL (70-99) Calcium Level 8.6 mg/dL (8.5-10.1) Total Bilirubin 1.3 mg/dL (0.2-1.0) Aspartate Amino Transf (AST/SGOT) 44 U/L (15-37) Alanine Aminotransferase (ALT/SGPT) 62 U/L (16-63) Alkaline Phosphatase 131 U/L (46-116) Total Protein 6.4 g/dL (6.4-8.2) Albumin 3.1 g/dL (3.4-5.0) Albumin/Globulin Ratio 0.9 (1.0-1.7) Test 04/28/21 16:23 Glucose (Fingerstick) 128 mg/dL (70-99) Assessment and Plan Assessmemt and Plan Problems Medical Problems: (1) Abnormal CT scan, head Status: Acute (2) Altered mental status Status: Acute (3) CVA (cerebral vascular accident) Status: Acute (4) Elevated brain natriuretic peptide (BNP) level Status: Acute Comment Review of Relevant I have reviewed the following items yulissa (where applicable) has been applied. Justifications for Admission Other Justification COPD Exac VEE THAKUR MD Apr 28, 2021 18:27
[2021-04-28 19:00] VITALS: BP 114/71
[2021-04-28] MEDS: ATORVASTATIN CALCIUM 40 MG TABLET. PO SCH (20:49)
[2021-04-28 22:57] VITALS: BP 100/68
[2021-04-29 02:56] VITALS: BP 101/69
[2021-04-29] MEDS: PIPERACILLIN/TAZOBACTAM 3.375 GM in IV NORMAL SALINE 50ML 50 ML IV SCH ×4 (05:46→23:43)
[2021-04-29] MEDS: BUDESONIDE 0.5 MG/2 ML NEBU. NEB SCH ×2 (07:27→20:55)
[2021-04-29] MEDS: IPRATRPIUM/ALBUTEROL 0.5/2.5MG 3 ML NEBU. NEB SCH ×4 (07:27→20:55)
[2021-04-29 07:46] VITALS: BP 109/74
--- NOTE | 2021-04-29 08:31 | PDOC ---
PROGRESS NOTES Date of Service DATE: 04/29/21 TIME: 08:30 Assessment Problems Medical Problems: (1) Abnormal CT scan, head Status: Acute (2) Altered mental status Status: Acute (3) CVA (cerebral vascular accident) Status: Acute (4) Elevated brain natriuretic peptide (BNP) level Status: Acute Strange CT scan showing air in the area of the sagittal sinus and intraparenchymally, no recent trauma, no evidence of CSF leak through the sinuses, it is difficult to know what to make of this especially given the stable clinical exam, this may be just an old finding. Prior left hemispheric stroke, possible subacute right parietal stroke, no evidence of new stroke Mental status changes may been related to his aspiration (?) pneumonia, but he did pass his swallow evaluation here. Plan OK for discharge Repeat head CT in a month, RX on paper chart for longterm to arrange I will keep an eye out for the results a month from now Subjective No complaints Objective Vital Signs Date Time Temp Pulse Resp B/P (MAP) Pulse Ox O2 Delivery O2 Flow Rate FiO2 04/29/21 07:46 98.9 77 20 109/74 (86) 97 Nasal Cannula 2.0 98.9 Intake and Output 04/29/21 07:00 Intake Total 570 ml Output Total 200 ml Balance 370 ml Intake Oral 570 ml Output Urine Total 200 ml # Voids 8 # Bowel Movements 1 PHYSICAL EXAM Sitting up feeding himself breakfast with the left hand Alert. Global aphasia, can tell me his name and follow a few commands PERRL. EOMI. CN: right central facial weakness Muscle tone: spastic on right. Muscle strength: 2/5 on right DTR: 2+ Plantar reflex: extensor on right, flexor on left. Gait: not examined in bed. Sensory exam: no abnormal findings. No cerebellar signs elicited. Review of Relevant I have reviewed the following items yulissa (where applicable) has been applied. Labs Laboratory Tests Test 04/27/21 11:17 04/27/21 17:04 04/27/21 20:55 04/28/21 06:05 Glucose (Fingerstick) 106 mg/dL (70-99) 124 mg/dL (70-99) 126 mg/dL (70-99) White Blood Count 5.3 x10^3/uL (4.0-11.0) Red Blood Count 4.42 x10^6/uL (4.30-5.70) Hemoglobin 12.3 g/dL (13.0-17.5) Hematocrit 37.4 % (39.0-53.0) Mean Corpuscular Volume 85 fL (79-100) Mean Corpuscular Hemoglobin 28 pg (25-35) Mean Corpuscular Hemoglobin Concent 33 g/dL (31-37) Red Cell Distribution Width 20.1 % (11.5-14.5) Platelet Count 178 x10^3/uL (140-400) Neutrophils (%) (Auto) 70 % (31-73) Lymphocytes (%) (Auto) 20 % (24-48) Monocytes (%) (Auto) 7 % (0-9) Eosinophils (%) (Auto) 2 % (0-3) Basophils (%) (Auto) 0 % (0-3) Neutrophils # (Auto) 3.7 x10^3/uL (1.8-7.7) Lymphocytes # (Auto) 1.0 x10^3/uL (1.0-4.8) Monocytes # (Auto) 0.4 x10^3/uL (0.0-1.1) Eosinophils # (Auto) 0.1 x10^3/uL (0.0-0.7) Basophils # (Auto) 0.0 x10^3/uL (0.0-0.2) Platelet Estimate Adequate (ADEQUATE) Large Platelets Few Anisocytosis Mod Sodium Level 143 mmol/L (136-145) Potassium Level 3.7 mmol/L (3.5-5.1) Chloride Level 105 mmol/L (98-107) Carbon Dioxide Level 29 mmol/L (21-32) Anion Gap 9 (6-14) Blood Urea Nitrogen 17 mg/dL (8-26) Creatinine 1.5 mg/dL (0.7-1.3) Estimated GFR (Cockcroft-Gault) 56.3 BUN/Creatinine Ratio 11 (6-20) Glucose Level 118 mg/dL (70-99) Calcium Level 8.6 mg/dL (8.5-10.1) Total Bilirubin 1.3 mg/dL (0.2-1.0) Aspartate Amino Transf (AST/SGOT) 44 U/L (15-37) Alanine Aminotransferase (ALT/SGPT) 62 U/L (16-63) Alkaline Phosphatase 131 U/L (46-116) Total Protein 6.4 g/dL (6.4-8.2) Albumin 3.1 g/dL (3.4-5.0) Albumin/Globulin Ratio 0.9 (1.0-1.7) Test 04/28/21 08:00 04/28/21 12:19 04/28/21 16:23 04/28/21 20:37 Glucose (Fingerstick) 122 mg/dL (70-99) 163 mg/dL (70-99) 128 mg/dL (70-99) 135 mg/dL (70-99) Test 04/29/21 07:53 Glucose (Fingerstick) 115 mg/dL (70-99) Laboratory Tests Test 04/28/21 12:19 04/28/21 16:23 04/28/21 20:37 04/29/21 07:53 Glucose (Fingerstick) 163 mg/dL (70-99) 128 mg/dL (70-99) 135 mg/dL (70-99) 115 mg/dL (70-99) Microbiology 04/25/21 Urine Culture - Final, Complete Medications Current Medications Potassium Bicarbonate (Potassium Effervescent Tablet) 40 meq 1X ONCE PO Last administered on 04/25/21at 19:18; Start 04/25/21 at 17:30; Stop 04/25/21 at 17:31; Status DC Amlodipine Besylate (Norvasc) 5 mg DAILY PO Last administered on 04/27/21at 10:34; Start 04/26/21 at 12:00 Apixaban (Eliquis) 5 mg BID PO Last administered on 04/28/21at 20:49; Start 04/26/21 at 12:00 Atorvastatin Calcium (Lipitor) 40 mg QHS PO Last administered on 04/28/21at 20:49; Start 04/26/21 at 21:00 Carvedilol (Coreg) 12.5 mg BIDWMEALS PO Last administered on 04/28/21at 17:54; Start 04/26/21 at 12:00 Ferrous Sulfate (Feosol) 325 mg BIDWMEALS PO Last administered on 04/28/21at 17:54; Start 04/26/21 at 12:00 Furosemide (Lasix) 40 mg DAILY PO Last administered on 04/28/21at 08:54; Start 04/26/21 at 12:00 Albuterol/ Ipratropium (Duoneb) 3 ml Q4HRS NEB ; Start 04/26/21 at 12:00; Stop 04/26/21 at 12:30; Status DC Magnesium Oxide (Magnesium Oxide) 400 mg BID PO Last administered on 04/28/21at 20:49; Start 04/26/21 at 12:00 Pantoprazole Sodium (Protonix) 40 mg DAILYAC PO Last administered on 04/28/21at 08:52; Start 04/26/21 at 11:30 Non-Formulary Medication (Fluticasone/ Vilanterol (Breo Ellipta 100-25 Mcg Inh)) 1 puff DAILY IH ; Start 04/27/21 at 09:00; Status UNV Potassium Chloride (Klor-Con) 20 meq DAILYWBKFT PRN PO hypokalemia Last administered on 04/28/21at 08:53; Start 04/26/21 at 11:45 Sertraline HCl (Zoloft) 100 mg DAILY PO Last administered on 04/28/21at 08:54; Start 04/27/21 at 12:00 Piperacillin Sod/ Tazobactam Sod 3.375 gm/Sodium Chloride 50 ml @ 100 mls/hr Q6HRS IV Last administered on 04/29/21at 05:46; Start 04/26/21 at 12:00 Info (Anti-Coagulation Monitoring By Pharmacy) 1 each PRN DAILY PRN MC PER PROTOCOL; Start 04/26/21 at 11:45 Albuterol Sulfate (Ventolin Neb Soln) 2.5 mg Q6HRS NEB ; Start 04/26/21 at 12:00; Stop 04/26/21 at 12:30; Status DC Budesonide (Pulmicort) 0.5 mg RTBID NEB Last administered on 04/29/21at 07:27; Start 04/26/21 at 20:00 Albuterol Sulfate (Ventolin Neb Soln) 2.5 mg PRN Q6HRS PRN NEB WHEEZING; Start 04/26/21 at 12:30 Albuterol/ Ipratropium (Duoneb) 3 ml RTQID NEB Last administered on 04/29/21at 07:27; Start 04/26/21 at 12:30 Potassium Bicarbonate (Potassium Effervescent Tablet) 20 meq 1X ONCE PO Last administered on 04/26/21at 18:28; Start 04/26/21 at 17:30; Stop 04/26/21 at 17:31; Status DC Active Scripts Active Reported Multivitamins (Multivitamin) 1 Each Tablet 1 Tab PO DAILY Potassium Chloride 20 Meq Tablet.er 20 Meq PO DAILY PRN Glucagon Emergency Kit (Glucagon,Human Recombinant) 1 Mg Kit 1 Mg SQ PRN Duoneb 0.5-3(2.5) Mg/3 Ml (Albuterol/Ipratropium) 3 Ml Ampul.neb 3 Ml NEB Q4HRS Sertraline Hcl 100 Mg Tablet 100 Mg PO DAILY Pantoprazole Sodium (Pantoprazole Sodium) 40 Mg Tablet.dr 40 Mg PO DAILYAC Metformin Hcl 500 Mg Tablet 500 Mg PO BIDWMEALS Eliquis (Apixaban) 5 Mg Tablet 5 Mg PO BID Carvedilol (Carvedilol) 12.5 Mg Tablet 12.5 Mg PO BID Breo Ellipta 100-25 Mcg Inh (Fluticasone/Vilanterol) 1 Each Aer.pow.ba 1 Puff IH DAILY Amlodipine Besylate 5 Mg Tablet 5 Mg PO DAILY Magnesium Oxide 400 Mg Tablet 1 Tab PO BID Furosemide 40 Mg Tablet 1 Tab PO DAILY Ferrous Sulfate 325 Mg Tablet 325 Mg PO BID Atorvastatin Calcium 40 Mg Tablet 1 Tab PO QHS Vitals/I & O Vital Sign - Last 24 Hours 04/28/21 04/28/21 04/28/21 04/28/21 08:52 11:00 11:30 14:17 Temp 97.3 96.6 97.3 96.6 Pulse 69 69 72 Resp 20 20 B/P (MAP) 90/66 115/71 (86) 92/62 (72) Pulse Ox 98 94 92 O2 Delivery Nasal Cannula Nasal Cannula Nasal Cannula O2 Flow Rate 2.0 2.0 2.0 04/28/21 04/28/21 04/28/21 04/28/21 17:54 19:00 19:49 20:19 Temp 97.5 97.5 Pulse 72 73 Resp 18 B/P (MAP) 92/62 114/71 (85) Pulse Ox 96 95 O2 Delivery Nasal Cannula Nasal Cannula Nasal Cannula O2 Flow Rate 2.0 2.0 2.0 04/28/21 04/28/21 04/29/21 04/29/21 20:20 22:57 02:56 07:30 Temp 98.1 98.1 98.1 98.1 Pulse 75 71 Resp 18 19 B/P (MAP) 100/68 (79) 101/69 (80) Pulse Ox 95 97 96 O2 Delivery Nasal Cannula Nasal Cannula Nasal Cannula Nasal Cannula O2 Flow Rate 2.0 2.0 2.0 2.0 04/29/21 07:46 Temp 98.9 98.9 Pulse 77 Resp 20 B/P (MAP) 109/74 (86) Pulse Ox 97 O2 Delivery Nasal Cannula O2 Flow Rate 2.0 Intake and Output 04/28/21 04/28/21 04/29/21 15:00 23:00 07:00 Intake Total 50 ml 0 ml 520 ml Output Total 200 ml Balance 50 ml -200 ml 520 ml Justicifation of Admission Dx: Justifications for Admission: Justification of Admission Dx: Yes Respiratory Failure: Severe Resp Distress JOHNNIE HOPKINS MD Apr 29, 2021 08:31
[2021-04-29] MEDS: APIXABAN 5 MG TABLET. PO SCH ×2 (08:51→20:54)
[2021-04-29] MEDS: FERROUS SULFATE 325 MG TABLET. PO SCH ×2 (08:52→17:38)
[2021-04-29] MEDS: SERTRALINE 50 MG TABLET. PO SCH (08:52)
[2021-04-29] MEDS: CARVEDILOL 12.5 MG TABLET. PO SCH ×2 (08:52→17:36)
[2021-04-29] MEDS: MAGNESIUM OXIDE 400 MG TABLET PO SCH ×2 (08:52→20:54)
[2021-04-29] MEDS: FUROSEMIDE 40 MG TABLET. PO SCH (08:52)
[2021-04-29] MEDS: PANTOPRAZOLE 40 MG TABLET.DR. PO SCH (08:53)
--- NOTE | 2021-04-29 09:56 | PDOC ---
Date of Service: DATE: 04/29/21 TIME: 09:55 Objective: Objective: D/w nursing - tolerated breakfast, to DC today. Vital Signs: Vital Signs Date Time Temp Pulse Resp B/P (MAP) Pulse Ox O2 Delivery O2 Flow Rate FiO2 04/29/21 08:52 77 109/74 04/29/21 07:46 98.9 20 97 Nasal Cannula 2.0 98.9 Labs: Laboratory Tests Test 04/28/21 12:19 04/28/21 16:23 04/28/21 20:37 04/29/21 07:53 Glucose (Fingerstick) 163 mg/dL 128 mg/dL 135 mg/dL 115 mg/dL PE: GEN: NAD LUNGS: clear, NC 2L HEART: RRR ABD: S/ND/NT NEURO/PSYCH: awake and alert, mumbles and says "yeah" A/P: H/o CVA, dysphagia - tolerating diet -- DC per primary. Justicifation of Admission Dx: Justifications for Admission: Justification of Admission Dx: Yes Respiratory Failure: Severe Resp Distress GARY FELIPE Apr 29, 2021 09:56
[2021-04-29 11:00] VITALS: BP 97/59
--- NOTE | 2021-04-29 11:36 | PDOC ---
[employer] PROGRESS NOTE Date of Service DOS: DATE: 04/29/21 TIME: 11:23 Chief Complaint Chief Complaint Aspiration pneumonia Dysphagia History of Present Illness History of Present Illness 04/28/2021: Patient afebrile with no acute events overnight. Currently tolerating dysphagia diet and p.o. meds. No plans for PEG tube, per GI. We will continue treatment of likely aspiration pneumonia with IV antibiotics, and look to likely discharge on Augmentin tomorrow or the next day. Per neurology, no chest status change may related to aspiration pneumonia. Okay to discharge per neurology. Will plan to discharge back to his SNU tomorrow 04/29/2021: Patient seen and evaluated bedside. Afebrile overnight. Currently breathing on 2 L nasal cannula. He is now tolerating dysphagia I diet, per ST. Will change to oral Augmentin and look to discharge back to his long-term care facility today. Greater than 30 minutes spent managing discharge this patient. Vitals/I&O Vitals/I&O: Vital Signs Date Time Temp Pulse Resp B/P (MAP) Pulse Ox O2 Delivery O2 Flow Rate FiO2 04/29/21 08:52 77 109/74 04/29/21 08:00 Nasal Cannula 2.0 04/29/21 07:46 98.9 20 97 98.9 I & O 04/28/21 04/28/21 04/29/21 15:00 23:00 07:00 Intake Total 50 ml 0 ml 520 ml Output Total 200 ml Balance 50 ml -200 ml 520 ml Physical Exam General: Alert, Cooperative, No acute distress Heart: Regular rate Lungs: Crackles Abdomen: Soft, No tenderness Extremities: No clubbing, No cyanosis Skin: No rashes, No breakdown Labs Labs: Laboratory Tests Test 04/28/21 12:19 04/28/21 16:23 04/28/21 20:37 04/29/21 07:53 Glucose (Fingerstick) 163 mg/dL (70-99) 128 mg/dL (70-99) 135 mg/dL (70-99) 115 mg/dL (70-99) Assessment and Plan Assessmemt and Plan Problems Medical Problems: (1) Abnormal CT scan, head Status: Acute (2) Altered mental status Status: Acute (3) CVA (cerebral vascular accident) Status: Acute (4) Elevated brain natriuretic peptide (BNP) level Status: Acute Comment Review of Relevant I have reviewed the following items yulissa (where applicable) has been applied. Justifications for Admission Other Justification COPD Exac VEE THAKUR MD Apr 29, 2021 11:36
--- NOTE | 2021-04-29 11:42 | PDOC3 ---
Discharge Summary Visit Information Date of Admission: Apr 26, 2021 Date of Discharge: Apr 29, 2021 Final Diagnosis Problems Medical Problems: (1) Abnormal CT scan, head Status: Acute (2) Altered mental status Status: Acute (3) CVA (cerebral vascular accident) Status: Acute (4) Elevated brain natriuretic peptide (BNP) level Status: Acute Brief Hospital Course Allergies Allergies Coded Allergies Type Severity Reaction Last Updated Verified No Known Drug Allergies 04/15/21 No Vital Signs Vital Signs Date Time Temp Pulse Resp B/P (MAP) Pulse Ox O2 Delivery O2 Flow Rate FiO2 04/29/21 08:52 77 109/74 04/29/21 08:00 Nasal Cannula 2.0 04/29/21 07:46 98.9 20 97 98.9 Lab Results Laboratory Tests Test 04/27/21 17:04 04/27/21 20:55 04/28/21 06:05 04/28/21 08:00 Glucose (Fingerstick) 124 mg/dL (70-99) 126 mg/dL (70-99) 122 mg/dL (70-99) White Blood Count 5.3 x10^3/uL (4.0-11.0) Red Blood Count 4.42 x10^6/uL (4.30-5.70) Hemoglobin 12.3 g/dL (13.0-17.5) Hematocrit 37.4 % (39.0-53.0) Mean Corpuscular Volume 85 fL (79-100) Mean Corpuscular Hemoglobin 28 pg (25-35) Mean Corpuscular Hemoglobin Concent 33 g/dL (31-37) Red Cell Distribution Width 20.1 % (11.5-14.5) Platelet Count 178 x10^3/uL (140-400) Neutrophils (%) (Auto) 70 % (31-73) Lymphocytes (%) (Auto) 20 % (24-48) Monocytes (%) (Auto) 7 % (0-9) Eosinophils (%) (Auto) 2 % (0-3) Basophils (%) (Auto) 0 % (0-3) Neutrophils # (Auto) 3.7 x10^3/uL (1.8-7.7) Lymphocytes # (Auto) 1.0 x10^3/uL (1.0-4.8) Monocytes # (Auto) 0.4 x10^3/uL (0.0-1.1) Eosinophils # (Auto) 0.1 x10^3/uL (0.0-0.7) Basophils # (Auto) 0.0 x10^3/uL (0.0-0.2) Platelet Estimate Adequate (ADEQUATE) Large Platelets Few Anisocytosis Mod Sodium Level 143 mmol/L (136-145) Potassium Level 3.7 mmol/L (3.5-5.1) Chloride Level 105 mmol/L (98-107) Carbon Dioxide Level 29 mmol/L (21-32) Anion Gap 9 (6-14) Blood Urea Nitrogen 17 mg/dL (8-26) Creatinine 1.5 mg/dL (0.7-1.3) Estimated GFR (Cockcroft-Gault) 56.3 BUN/Creatinine Ratio 11 (6-20) Glucose Level 118 mg/dL (70-99) Calcium Level 8.6 mg/dL (8.5-10.1) Total Bilirubin 1.3 mg/dL (0.2-1.0) Aspartate Amino Transf (AST/SGOT) 44 U/L (15-37) Alanine Aminotransferase (ALT/SGPT) 62 U/L (16-63) Alkaline Phosphatase 131 U/L (46-116) Total Protein 6.4 g/dL (6.4-8.2) Albumin 3.1 g/dL (3.4-5.0) Albumin/Globulin Ratio 0.9 (1.0-1.7) Test 04/28/21 12:19 04/28/21 16:23 04/28/21 20:37 04/29/21 07:53 Glucose (Fingerstick) 163 mg/dL (70-99) 128 mg/dL (70-99) 135 mg/dL (70-99) 115 mg/dL (70-99) Laboratory Tests Test 04/28/21 12:19 04/28/21 16:23 04/28/21 20:37 04/29/21 07:53 Glucose (Fingerstick) 163 mg/dL (70-99) 128 mg/dL (70-99) 135 mg/dL (70-99) 115 mg/dL (70-99) Brief Hospital Course Mr. Mcmillan is a 66 old male who presented with AMS, aspiration pneumonia. Consultation was placed to neurology. Initial plan was for MRI to evaluate, but patient clinical picture did not fit and, per neurology, the risks outweighed the benefits of sedating him for an MRI, given the stable clinical picture. Further stroke work-up such as CT angiogram or echocardiogram was not indicated. He is already on apixaban and a statin. Consider repeat head CT in a month or 2. Due to concern for dysphagia, consult was placed to GI for possible PEG tube placement. Patient work with speech therapy and initially was made n.p.o.; however after continued sessions, he was deemed safe for dysphagia 1 diet. No indication for PEG tube given this improvement. Will transition to oral antibiotics and discharged back to his long-term care facility. Discharge Information Condition at Discharge: Stable Disposition/Orders: D/C to Another Facility Scheduled Amlodipine Besylate (Amlodipine Besylate) 5 Mg Tablet, 5 MG PO DAILY, (Reported) Entered as Reported by: Toya Stewart on 09/09/20321 Last Action: Continued on 04/26/211117 by JOSH QUIÑONES Apixaban (Eliquis) 5 Mg Tablet, 5 MG PO BID, (Reported) Entered as Reported by: Toya Stewart on 09/09/20324 Last Action: Continued on 04/26/211117 by JOSH QUIÑONES Atorvastatin Calcium (Atorvastatin Calcium) 40 Mg Tablet, 1 TAB PO QHS, #90 Ref 3 (Reported) Entered as Reported by: WESTON WEBB on 05/28/17 187 Last Action: Continued on 04/26/211117 by JOSH QUIÑONES Carvedilol (Carvedilol ) 12.5 Mg Tablet, 12.5 MG PO BID for CARDIAC, (Reported) Entered as Reported by: Toya Stewart on 09/09/20323 Last Action: Continued on 04/26/211117 by JOSH QUIÑONES Ferrous Sulfate (Ferrous Sulfate) 325 Mg Tablet, 325 MG PO BID, (Reported) Entered as Reported by: WESTON WEBB on 05/28/17 4591 Last Action: Continued on 04/26/211117 by JOSH QUIÑONES Fluticasone/Vilanterol (Breo Ellipta 100-25 Mcg Inh) 1 Each Aer.pow.ba, 1 PUFF IH DAILY, (Reported) Entered as Reported by: Toya Stewart on 09/09/20 0323 Last Action: Converted on 04/26/211117 by JOSH QUIÑONES Furosemide (Furosemide) 40 Mg Tablet, 1 TAB PO DAILY, #30 Ref 5 (Reported) Entered as Reported by: Toya Stewart on 09/09/206 Last Action: Continued on 04/26/211117 by JOSH QUIÑONES Glucagon,Human Recombinant (Glucagon Emergency Kit) 1 Mg Kit, 1 MG SQ PRN for low blood sugar <60, #2 Ref 5 (Reported) Entered as Reported by: SN ZULAY on 04/26/211003 Last Taken: UNKNOWN on Unknown Date & Time Last Action: HELD on 04/26/211117 by JOSH QUIÑONES Ipratropium/Albuterol Sulfate (Duoneb 0.5-3(2.5) Mg/3 Ml) 3 Ml Ampul.neb, 3 ML NEB Q4HRS for soa, (Reported) Entered as Reported by: SN ZULAY on 04/26/211003 Last Taken: UNKNOWN on Unknown Date & Time Last Action: Continued on 04/26/211117 by JOSH QUIÑONES Magnesium Oxide (Magnesium Oxide) 400 Mg Tablet, 1 TAB PO BID, #60 Ref 5 (Reported) Entered as Reported by: Toya Stewart on 09/09/20317 Last Action: Continued on 04/26/211117 by JOSH QUIÑONES Metformin Hcl (Metformin Hcl) 500 Mg Tablet, 500 MG PO BIDWMEALS for ANTI- DIABETIC, Ref 0 (Reported) Entered as Reported by: SN ZULAY on 04/26/211003 Last Action: HELD on 04/26/211117 by JOSH QUIÑONES Multivitamin (Multivitamins) 1 Each Tablet, 1 TAB PO DAILY, #90 Ref 3 (Reported) Entered as Reported by: SN ZULAY on 04/26/211003 Last Taken: UNKNOWN on Unknown Date & Time Last Action: HELD on 04/26/211117 by JOSH QUIÑONES Pantoprazole Sodium (Pantoprazole Sodium ) 40 Mg Tablet.dr, 40 MG PO DAILYAC for GERD, (Reported) Entered as Reported by: SN ZULAY on 04/26/211003 Last Action: Continued on 04/26/211117 by JOSH QUIÑONES Sertraline Hcl (Sertraline Hcl) 100 Mg Tablet, 100 MG PO DAILY for ANTI- DEPRESSANT, Ref 0 (Reported) Entered as Reported by: SN ZULAY on 04/26/211003 Last Action: Converted on 04/26/211117 by JOSH QUIÑONES Scheduled PRN Potassium Chloride (Potassium Chloride) 20 Meq Tablet.er, 20 MEQ PO DAILY PRN for hypokalemia, (Reported) Entered as Reported by: SN ZULAY on 04/26/211003 Last Action: Converted on 04/26/211117 by JOSH QUIÑONES Discontinued Medications Albuterol Sulfate (Proair Hfa) 8.5 Gm Hfa.aer.ad, 2 PUFF IH PRN Q4-6HRS PRN for wheezing for 21 Days, #1 Ref 0 (Reported) Discontinued Reason: medication Entered as Reported by: Toya Stewart on 09/09/20321 Last Action: Discontinued on 04/26/211003 by SN ZULAY Metformin Hcl (Metformin Hcl) 1,000 Mg Tablet, 1,000 MG PO BIDWMEALS, (Reported) Discontinued Reason: Prescription changed Entered as Reported by: Toya Stewart on 09/09/20 0318 Pantoprazole Sodium (Protonix) 20 Mg Tablet.dr, 1 TAB PO HS, #30 (Reported) Discontinued Reason: Prescription changed Entered as Reported by: Toya Stewart on 09/09/20 0320 Sertraline Hcl (Zoloft) 25 Mg Tablet, 3 TAB PO DAILY, #30 Ref 2 (Reported) Discontinued Reason: Prescription changed Entered as Reported by: Toya Stewart on 09/09/20 0321 Justicifation of Admission Dx: Justifications for Admission: Justification of Admission Dx: Yes Respiratory Failure: Severe Resp Distress VEE THAKUR MD Apr 29, 2021 11:42
[2021-04-29] MEDS ORDERED: AMOX1TAB61 PO (11:45)
--- NOTE | 2021-04-29 11:49 | SNU/HH DC ---
DISCHARGE ORDERS DISCHARGE INFORMATION: DISCHARGE DATE: Apr 29, 2021 FINAL DIAGNOSIS Problems Medical Problems: (1) Abnormal CT scan, head Status: Acute (2) Altered mental status Status: Acute (3) CVA (cerebral vascular accident) Status: Acute (4) Elevated brain natriuretic peptide (BNP) level Status: Acute CONDITION ON DISCHARGE: Stable CODE STATUS: Code Status: DNR/DNI CORRECTION: SNF STAY <30 DAYS: No POST DISCHARGE ORDERS: ACTIVITY ORDERS: Activity as tolerated WEIGHT BEARING STATUS: As tolerated DIET AFTER DISCHARGE: Cardiac (Dysphagia I diet) WOUND/INCISION CARE: No wound care needed CHECKS AFTER DISCHARGE: CHECKS AFTER DISCHARGE: Check blood press - daily, Check blood sugar, ac/hs, Check your Temp as needed, Weigh Yourself Daily FOLLOW-UP: LAB ORDERS FOR FOLLOW-UP: CBC, CMP TREATMENT/EQUIPMENT ORDERS: ADAPTIVE EQUIPMENT NEEDED: Wheelchair RESPIRATORY EQUIPMENT NEEDED: Oxygen Physical Therapy For: Evalulation/Treatment Occupational Therapy For: Evaluation/Treatment Speech Language Pathology For: Evaluation/Treatment DISCHARGE MEDICATIONS: Home Meds Active Scripts Amoxicillin/Potassium Clav (AUGMENTIN 875-125 TABLET) 1 Each Tablet, 1 TAB PO BID for PNA for 7 Days, #14 TAB 0 Refills Prov:VEE THAKUR MD 04/29/21 Reported Medications Multivitamin (MULTIVITAMINS) 1 Each Tablet, 1 TAB PO DAILY, #90 TAB 3 Refills 04/26/21 Potassium Chloride (Potassium Chloride) 20 Meq Tablet.er, 20 MEQ PO DAILY PRN for hypokalemia, TAB.SR 04/26/21 Glucagon,Human Recombinant (GLUCAGON EMERGENCY KIT) 1 Mg Kit, 1 MG SQ PRN for low blood sugar <60, #2 KIT 5 Refills 04/26/21 Ipratropium/Albuterol Sulfate (DUONEB 0.5-3(2.5) MG/3 ML) 3 Ml Ampul.neb, 3 ML NEB Q4HRS for soa, EACH 04/26/21 Sertraline Hcl (SERTRALINE HCL) 100 Mg Tablet, 100 MG PO DAILY for ANTI- DEPRESSANT, TAB 0 Refills 04/26/21 Pantoprazole Sodium (PANTOPRAZOLE SODIUM ) 40 Mg Tablet.dr, 40 MG PO DAILYAC for GERD, TAB 04/26/21 Metformin Hcl (METFORMIN HCL) 500 Mg Tablet, 500 MG PO BIDWMEALS for ANTI- DIABETIC, TAB 0 Refills 04/26/21 Apixaban (ELIQUIS) 5 Mg Tablet, 5 MG PO BID, TAB 09/09/20 Carvedilol (CARVEDILOL ) 12.5 Mg Tablet, 12.5 MG PO BID for CARDIAC, TAB 09/09/20 Fluticasone/Vilanterol (BREO ELLIPTA 100-25 MCG INH) 1 Each Aer.pow.ba, 1 PUFF IH DAILY, INHALER 09/09/20 Amlodipine Besylate (AMLODIPINE BESYLATE) 5 Mg Tablet, 5 MG PO DAILY, TAB 09/09/20 Magnesium Oxide (MAGNESIUM OXIDE) 400 Mg Tablet, 1 TAB PO BID, #60 TAB 5 Refills 09/09/20 Furosemide (FUROSEMIDE) 40 Mg Tablet, 1 TAB PO DAILY, #30 TAB 5 Refills 09/09/20 Ferrous Sulfate (FERROUS SULFATE) 325 Mg Tablet, 325 MG PO BID, TAB 05/28/17 Atorvastatin Calcium (ATORVASTATIN CALCIUM) 40 Mg Tablet, 1 TAB PO QHS, #90 TAB 3 Refills 05/28/17 Discontinued Reported Medications Albuterol Sulfate (Proair Hfa) 8.5 Gm Hfa.aer.ad, 2 PUFF IH PRN Q4-6HRS PRN for wheezing for 21 Days, #1 INHALER 0 Refills 09/09/20 Sertraline Hcl (ZOLOFT) 25 Mg Tablet, 3 TAB PO DAILY, #30 TAB 2 Refills 09/09/20 Pantoprazole Sodium (PROTONIX) 20 Mg Tablet.dr, 1 TAB PO HS, #30 TAB 09/09/20 Metformin Hcl (METFORMIN HCL) 1,000 Mg Tablet, 1000 MG PO BIDWMEALS, TAB 09/09/20 VEE THAKUR MD Apr 29, 2021 11:48
--- NOTE | 2021-04-29 12:09 | NUR ---
SS following up with discharge planning. SS reviewed pt chart and discussed with pt RN. Pt is currently requiring oxygen at two liters nasal canula. COVID19 negative. Pt is LTC resident from [facility], ; fax [phone]. Discharge orders received for return to [facility]. Discharge and clinical phoned and faxed to [facility]. Pt will discharge today and return to [facility] via wheel chair. Transportation to be arranged by [facility]. Pt and pt's RN notified. SS will continue to follow for discharge planning. Addendum: 04/29/21 at 1636 by LILIBETH CORBIN SS currently awaiting transportation time from facility. Jarvis GARCIA, , from [facility] contacted requesting PEG tube be placed prior to return to facility. She reported that when pt returns he will eat and drink whatever he wants and has a refrigerator full of Mountain Dew. She reported that he will choke at facility again due to this. She reported that pt also refuses to eat there food and has had a weight loss. She reported that they need a PEG tube placed for supplemental nutrition. notified [facility] that pt has PO diet of Dysphagia I with honey thick liquids and is tolerating diet. [facility] requested to speak with Dr. Yuen. Dr. Yuen contacted [facility] and discussed and also notified them that pt is tolerating diet. [facility] requesting consult for Dr. Valadez. Glass Driller, Mirza Christopher, attempting to reach out to facility to discuss with Biology Department Chair. RN notified.
[2021-04-29 15:00] VITALS: BP 93/66
[2021-04-29 19:58] VITALS: BP 100/70
[2021-04-29] MEDS: ATORVASTATIN CALCIUM 40 MG TABLET. PO SCH (20:54)
[2021-04-29 22:28] VITALS: BP 96/72
[2021-04-30 02:52] VITALS: BP 103/68
[2021-04-30] MEDS: PIPERACILLIN/TAZOBACTAM 3.375 GM in IV NORMAL SALINE 50ML 50 ML IV SCH ×2 (05:09→12:00)
[2021-04-30 06:13] VITALS: BP 106/61
[2021-04-30] MEDS: IPRATRPIUM/ALBUTEROL 0.5/2.5MG 3 ML NEBU. NEB SCH ×3 (07:26→15:47)
[2021-04-30] MEDS: BUDESONIDE 0.5 MG/2 ML NEBU. NEB SCH (07:26)
--- NOTE | 2021-04-30 09:28 | PDOC ---
Date of Service: DATE: 04/30/21 TIME: 09:27 Objective: Objective: No GI concerns per nurse - tolerating diet. D/w COMP FIELD CASE MANAGER. Reviewed SS note from 04/29: SS currently awaiting transportation time from facility. Jarvis GARCIA, , from [facility] contacted SS requesting PEG tube be placed prior to return to facility. She reported that when pt returns he will eat and drink whatever he wants and has a refrigerator full of Mountain Dew. She reported that he will choke at facility again due to this. She reported that pt also refuses to eat there food and has had a weight loss. She reported that they need a PEG tube placed for supplemental nutrition. SS notified [facility] that pt has PO diet of Dysphagia I with honey thick liquids and is tolerating diet. [facility] requested to speak with Dr. Yuen. Dr. Yuen contacted [facility] and discussed and also notified them that pt is tolerating diet. [facility] requesting consult for Dr. Valadez. [place] Reporter, Mirza Christopher, attempting to reach out to facility to discuss with Water Pumper. RN notified. Reviewed chart - now has pending surgery consult for PEG placement. COMP FIELD CASE MANAGER 04/28 IMPRESSIONS: Pt demo's poss s/s aspiration associated w/swallow of thin liquids and solids. Would continue to modify diet and f/u to determine if pt able to safely advance diet back to [facility] soft w/thin. Videoswallow not indicated at this time but may be indicated if unable to safely advance diet and /or to r/o dysphagia contributing to repeated pneumonia, Videoswallow not feasible this date d/t observed prolonged oral holding & pt's inconsistent ability to follow verbal instructions. RECOMMENDATIONS: Continue dysphagia I w/honey thick liquids. Precautions remain posted. Vital Signs: Vital Signs Date Time Temp Pulse Resp B/P (MAP) Pulse Ox O2 Delivery O2 Flow Rate FiO2 04/30/21 07:27 97 Nasal Cannula 2.0 04/30/21 06:13 98.0 71 18 106/61 (76) 98.0 Labs: Laboratory Tests Test 04/29/21 11:39 04/29/21 17:01 04/29/21 20:46 04/30/21 07:33 Glucose (Fingerstick) 144 mg/dL (70-99) 155 mg/dL (70-99) 119 mg/dL (70-99) 93 mg/dL (70-99) PE: GEN: NAD LUNGS: clear, NC 2L HEART: RRR ABD: non-distended NEURO/PSYCH: sleeping, did not awaken A/P: H/o CVA, dysphagia - tolerating diet -- Mixed messages from DON at living facility. Pt tolerates dysphagia diet here - doesn't seem to me that PEG is indicated - if he's non-compliant with current recommended diet, I suspect he'll be non- compliant w/ PEG. Available to discuss if needed. DC per primary. Justicifation of Admission Dx: Justifications for Admission: Justification of Admission Dx: Yes Respiratory Failure: Severe Resp Distress GARY FELIPE Apr 30, 2021 09:28
[2021-04-30] MEDS: APIXABAN 5 MG TABLET. PO SCH (09:34)
[2021-04-30] MEDS: SERTRALINE 50 MG TABLET. PO SCH (09:34)
[2021-04-30] MEDS: MAGNESIUM OXIDE 400 MG TABLET PO SCH (09:34)
[2021-04-30] MEDS: FERROUS SULFATE 325 MG TABLET. PO SCH (09:34)
[2021-04-30] MEDS: FUROSEMIDE 40 MG TABLET. PO SCH (09:35)
[2021-04-30] MEDS: PANTOPRAZOLE 40 MG TABLET.DR. PO SCH (09:35)
[2021-04-30] MEDS: CARVEDILOL 12.5 MG TABLET. PO SCH (09:35)
--- NOTE | 2021-04-30 09:35 | PDOC ---
PROGRESS NOTES Date of Service DATE: 04/30/21 TIME: 09:33 Assessment Problems Medical Problems: (1) Abnormal CT scan, head Status: Acute (2) Altered mental status Status: Acute (3) CVA (cerebral vascular accident) Status: Acute (4) Elevated brain natriuretic peptide (BNP) level Status: Acute Strange CT scan showing air in the area of the sagittal sinus and intraparenchymally, no recent trauma, no evidence of CSF leak through the sinuses, it is difficult to know what to make of this especially given the stable clinical exam, this may be just an old finding. Prior left hemispheric stroke, possible subacute right parietal stroke, no evidence of new stroke Mental status changes may been related to his aspiration (?) pneumonia, but he did pass his swallow evaluation here. Plan OK for discharge Nurse tells me the hold upon discharge is that the snf insist that the patient needs a PEG despite the conclusions of neurology, gastroenterology, and speech therapy here. Hopefully he will be discharged today Repeat head CT in a month, RX on paper chart for snf to arrange I will keep an eye out for the results a month from now Subjective No complaints Objective Vital Signs Date Time Temp Pulse Resp B/P (MAP) Pulse Ox O2 Delivery O2 Flow Rate FiO2 04/30/21 07:27 97 Nasal Cannula 2.0 04/30/21 06:13 98.0 71 18 106/61 (76) 98.0 Intake and Output 04/30/21 07:00 Intake Total 1170 ml Balance 1170 ml Intake Oral 1070 ml IV Total 100 ml # Voids 8 PHYSICAL EXAM Alert. Global aphasia, can tell me his name and follow a few commands PERRL. EOMI. CN: right central facial weakness Muscle tone: spastic on right. Muscle strength: 2/5 on right DTR: 2+ Plantar reflex: extensor on right, flexor on left. Gait: not examined in bed. Sensory exam: no abnormal findings. No cerebellar signs elicited. Review of Relevant I have reviewed the following items yulissa (where applicable) has been applied. Labs Laboratory Tests Test 04/28/21 12:19 04/28/21 16:23 04/28/21 20:37 04/29/21 07:53 Glucose (Fingerstick) 163 mg/dL (70-99) 128 mg/dL (70-99) 135 mg/dL (70-99) 115 mg/dL (70-99) Test 04/29/21 11:39 04/29/21 17:01 04/29/21 20:46 04/30/21 07:33 Glucose (Fingerstick) 144 mg/dL (70-99) 155 mg/dL (70-99) 119 mg/dL (70-99) 93 mg/dL (70-99) Laboratory Tests Test 04/29/21 11:39 04/29/21 17:01 04/29/21 20:46 04/30/21 07:33 Glucose (Fingerstick) 144 mg/dL (70-99) 155 mg/dL (70-99) 119 mg/dL (70-99) 93 mg/dL (70-99) Microbiology 04/25/21 Urine Culture - Final, Complete Medications Current Medications Potassium Bicarbonate (Potassium Effervescent Tablet) 40 meq 1X ONCE PO Last administered on 04/25/21 19:18; Start 04/25/21 at 17:30; Stop 04/25/21 at 17:31; Status DC Amlodipine Besylate (Norvasc) 5 mg DAILY PO Last administered on 04/29/21 08:51; Start 04/26/21 at 12:00 Apixaban (Eliquis) 5 mg BID PO Last administered on 04/29/21 20:54; Start 04/26/21 at 12:00 Atorvastatin Calcium (Lipitor) 40 mg QHS PO Last administered on 04/29/21at 20:54; Start 04/26/21 at 21:00 Carvedilol (Coreg) 12.5 mg BIDWMEALS PO Last administered on 04/29/21 17:36; Start 04/26/21 at 12:00 Ferrous Sulfate (Feosol) 325 mg BIDWMEALS PO Last administered on 04/29/21 17:38; Start 04/26/21 at 12:00 Furosemide (Lasix) 40 mg DAILY PO Last administered on 04/29/21 08:52; Start 04/26/21 at 12:00 Albuterol/ Ipratropium (Duoneb) 3 ml Q4HRS NEB ; Start 04/26/21 at 12:00; Stop 04/26/21 at 12:30; Status DC Magnesium Oxide (Magnesium Oxide) 400 mg BID PO Last administered on 8/31/21at 20:54; Start 04/26/21 at 12:00 Pantoprazole Sodium (Protonix) 40 mg DAILYAC PO Last administered on 04/29/21at 08:53; Start 04/26/21 at 11:30 Non-Formulary Medication (Fluticasone/ Vilanterol (Breo Ellipta 100-25 Mcg Inh)) 1 puff DAILY IH ; Start 04/27/21 at 09:00; Status UNV Potassium Chloride (Klor-Con) 20 meq DAILYWBKFT PRN PO hypokalemia Last admini stered on 04/28/21at 08:53; Start 04/26/21 at 11:45 Sertraline HCl (Zoloft) 100 mg DAILY PO Last administered on 04/29/21at 08:52; Start 04/27/21 at 12:00 Piperacillin Sod/ Tazobactam Sod 3.375 gm/Sodium Chloride 50 ml @ 100 mls/hr Q6HRS IV Last administered on 04/30/21at 05:09; Start 04/26/21 at 12:00 Info (Anti-Coagulation Monitoring By Pharmacy) 1 each PRN DAILY PRN MC PER PROTOCOL; Start 04/26/21 at 11:45 Albuterol Sulfate (Ventolin Neb Soln) 2.5 mg Q6HRS NEB ; Start 04/26/21 at 12:00; Stop 04/26/21 at 12:30; Status DC Budesonide (Pulmicort) 0.5 mg RTBID NEB Last administered on 04/30/21at 07:26; Start 04/26/21 at 20:00 Albuterol Sulfate (Ventolin Neb Soln) 2.5 mg PRN Q6HRS PRN NEB WHEEZING; Start 04/26/21 at 12:30 Albuterol/ Ipratropium (Duoneb) 3 ml RTQID NEB Last administered on 04/30/21at 07:26; Start 04/26/21 at 12:30 Potassium Bicarbonate (Potassium Effervescent Tablet) 20 meq 1X ONCE PO Last administered on 04/26/21at 18:28; Start 04/26/21 at 17:30; Stop 04/26/21 at 17:31; Status DC Active Scripts Active Augmentin 875-125 Tablet (Amoxicillin/Potassium Clav) 1 Each Tablet 1 Tab PO BID 7 Days Reported Multivitamins (Multivitamin) 1 Each Tablet 1 Tab PO DAILY Potassium Chloride 20 Meq Tablet.er 20 Meq PO DAILY PRN Glucagon Emergency Kit (Glucagon,Human Recombinant) 1 Mg Kit 1 Mg SQ PRN Duoneb 0.5-3(2.5) Mg/3 Ml (Albuterol/Ipratropium) 3 Ml Ampul.neb 3 Ml NEB Q4HRS Sertraline Hcl 100 Mg Tablet 100 Mg PO DAILY Pantoprazole Sodium (Pantoprazole Sodium) 40 Mg Tablet.dr 40 Mg PO DAILYAC Metformin Hcl 500 Mg Tablet 500 Mg PO BIDWMEALS Eliquis (Apixaban) 5 Mg Tablet 5 Mg PO BID Carvedilol (Carvedilol) 12.5 Mg Tablet 12.5 Mg PO BID Breo Ellipta 100-25 Mcg Inh (Fluticasone/Vilanterol) 1 Each Aer.pow.ba 1 Puff IH DAILY Amlodipine Besylate 5 Mg Tablet 5 Mg PO DAILY Magnesium Oxide 400 Mg Tablet 1 Tab PO BID Furosemide 40 Mg Tablet 1 Tab PO DAILY Ferrous Sulfate 325 Mg Tablet 325 Mg PO BID Atorvastatin Calcium 40 Mg Tablet 1 Tab PO QHS Vitals/I & O Vital Sign - Last 24 Hours 04/29/21 04/29/21 04/29/21 04/29/21 11:00 11:27 15:00 17:36 Temp 96.3 96.8 96.3 96.8 Pulse 71 77 77 Resp 16 18 B/P (MAP) 97/59 (72) 93/66 (75) 93/66 Pulse Ox 95 95 95 O2 Delivery Nasal Cannula Nasal Cannula Nasal Cannula O2 Flow Rate 2.0 2.0 2.0 04/29/21 04/29/21 04/29/21 04/29/21 19:58 20:00 20:56 20:57 Temp 97.8 97.8 Pulse 75 Resp 18 B/P (MAP) 100/70 (80) Pulse Ox 100 95 95 O2 Delivery Nasal Cannula Nasal Cannula Nasal Cannula Nasal Cannula O2 Flow Rate 2.0 2.0 2.0 2.0 04/29/21 04/30/21 04/30/21 04/30/21 22:28 02:52 06:13 07:26 Temp 97.8 97.8 98.0 97.8 97.8 98.0 Pulse 75 69 71 Resp 18 18 18 B/P (MAP) 96/72 (80) 103/68 (80) 106/61 (76) Pulse Ox 100 97 96 97 O2 Delivery Nasal Cannula Nasal Cannula Nasal Cannula Nasal Cannula O2 Flow Rate 2.0 2.0 2.0 2.0 04/30/21 07:27 Pulse Ox 97 O2 Delivery Nasal Cannula O2 Flow Rate 2.0 Intake and Output 04/29/21 04/29/21 04/30/21 15:00 23:00 07:00 Intake Total 510 ml 360 ml 300 ml Balance 510 ml 360 ml 300 ml Justicifation of Admission Dx: Justifications for Admission: Justification of Admission Dx: Yes Respiratory Failure: Severe Resp Distress JOHNNIE HOPKINS MD Apr 30, 2021 09:35
--- NOTE | 2021-04-30 10:14 | NUR ---
following up with discharge planning. reviewed pt chart and discussed with pt RN. Pt is currently requiring oxygen at two liters nasal canula. Pt is LTC resident from [facility], ; fax [phone]. Discharge orders received and phoned and faxed to [facility]. [facility] agreeable to accept pt back today. Pt will discharge today and go to [facility] at 1230. [facility] to provide transportation. Pt and pt's RN notified. Addendum: 04/30/21 at 1414 by LILIBETH CORBIN [facility] contacted and reported that there edmond broke down. Isaiah coming to pickle cutter pt between 1600 and 1630.
[2021-04-30 10:32] VITALS: BP 119/76
--- NOTE | 2021-04-30 13:02 | PDOC ---
SURGICAL PROGRESS NOTE DATE: 04/30/21 TIME: 13:01 Subjective Consult received. GI involved for PEG possibility. This is appropriate Will defer to them. D/w GI and case management. Would recommend f/u with GI as outpt if wish to consider PEG. Thanks for consult! Vital Signs Vital Signs Date Time Temp Pulse Resp B/P (MAP) Pulse Ox O2 Delivery O2 Flow Rate FiO2 04/30/21 10:32 98.1 73 18 119/76 (90) 97 Nasal Cannula 2.0 98.1 I&O Intake and Output 04/30/21 07:00 Intake Total 1170 ml Balance 1170 ml Intake Oral 1070 ml IV Total 100 ml # Voids 8 Labs Laboratory Tests Test 04/28/21 16:23 04/28/21 20:37 04/29/21 07:53 04/29/21 11:39 Glucose (Fingerstick) 128 mg/dL (70-99) 135 mg/dL (70-99) 115 mg/dL (70-99) 144 mg/dL (70-99) Test 04/29/21 17:01 04/29/21 20:46 04/30/21 07:33 04/30/21 12:04 Glucose (Fingerstick) 155 mg/dL (70-99) 119 mg/dL (70-99) 93 mg/dL (70-99) 180 mg/dL (70-99) Laboratory Tests Test 04/29/21 17:01 04/29/21 20:46 04/30/21 07:33 04/30/21 12:04 Glucose (Fingerstick) 155 mg/dL (70-99) 119 mg/dL (70-99) 93 mg/dL (70-99) 180 mg/dL (70-99) Problem List Problems Medical Problems: (1) Abnormal CT scan, head Status: Acute (2) Altered mental status Status: Acute (3) CVA (cerebral vascular accident) Status: Acute (4) Elevated brain natriuretic peptide (BNP) level Status: Acute Justicifation of Admission Dx: Justifications for Admission: Justification of Admission Dx: Yes Respiratory Failure: Severe Resp Distress MARCELINA MARTINEZ MD Apr 30, 2021 13:02
[2021-04-30 14:30] VITALS: BP 107/69
--- NOTE | 2021-04-30 16:11 | NUR ---
Discharge Note: MANUEL SAGASTUME Discharge instructions and discharge home medications reviewed with Other facility and a copy given. All questions have been answered and understanding verbalized. Patient discharged to [facility] via wheelchair and [facility]. IV out, monitor off and placed at nurses station. Report called at 12:20 as original transport time scheduled for 12:30, Per Cecy frazier [facility] Van broke down and transport time changed to 1600.
== END 2021-04-30 15:59 | DRG 64 ==
LOC: ER 15:32 → 6 SOUTH 20:20
PROVIDERS: ADMIT Student in an Organized Health Care Education/Training Program; ATTEND Student in an Organized Health Care Education/Training Program
DX: I63.9 Cerebral infarction, unspecified (principal); J69.0 Pneumonitis due to inhalation of food and vomit; G93.41 Metabolic encephalopathy; J96.90 Respiratory failure, unspecified, unspecified whether with hypoxia or hypercapnia; I50.42 Chronic combined systolic (congestive) and diastolic (congestive) heart failure; I69.351 Hemiplegia and hemiparesis following cerebral infarction affecting right dominant side; J44.0 Chronic obstructive pulmonary disease with (acute) lower respiratory infection; K51.90 Ulcerative colitis, unspecified, without complications; R47.01 Aphasia; D64.9 Anemia, unspecified; E11.9 Type 2 diabetes mellitus without complications; E78.00 Pure hypercholesterolemia, unspecified; E78.5 Hyperlipidemia, unspecified; E87.6 Hypokalemia; I11.0 Hypertensive heart disease with heart failure; K63.5 Polyp of colon; K64.8 Other hemorrhoids; K76.0 Fatty (change of) liver, not elsewhere classified; R13.10 Dysphagia, unspecified; Z20.822 Contact with and (suspected) exposure to COVID-19; Z66 Do not resuscitate; Z79.01 Long term (current) use of anticoagulants; Z79.51 Long term (current) use of inhaled steroids; Z79.84 Long term (current) use of oral hypoglycemic drugs; Z79.899 Other long term (current) drug therapy; K21.9 Gastro-esophageal reflux disease without esophagitis
CPT/HCPCS: 36415; 70450; 71045; 76700; 80053; 81001; 82553; 82962; 83540; 83550; 83880; 84484; 85025; 85347; 86705; 86709; 86803; 87086; 87340; 87426; 93005; 94640; 94760; J2543; U0003; U0005; 92526-GN; 92610-GN; 99285-25; G0378; J7626